=== PATIENT | male | born 1945 | race Caucasian/White ===

== ENCOUNTER 2024-11-13 16:30 | Inpatient (IN) ==
--- OUTSIDE RECORDS SUMMARY | 2024-11-13 16:36 | External Medical Summary | Summary of Care ---
Author Name Unknown Organization [facility] Address [address] [place] [address] Phone [phone] Care Team Providers Care Oscillograph Technician Name Role Phone Lilly Wu MD Primary Care Provider + Reason for Referral * Evaluate & Treat - Unlimited Visits (Within 30 days (routine)) - Authorized Specialty Diagnoses / Procedures Referred By Edson teague Referred To Contact CARDIAC REHAB / Cardiology Diagnoses S/P TAVR (transcatheter aortic valve replacement) Alba Mckoy DO [address] [place] [address] Referral ID Status Reason Start Date Expiration Date Visits Requested Visits Authorized [id number] Authorized Specialty Services Required 05/25/2024 [id number] Question Answer Referral Priority Within 30 days (routine) Where should this appointment be scheduled? Mimi Comments Discharge Order Reason for Visit * Auth/Cert Specialty Diagnoses / Procedures Referred By Edson teague Referred To Contact Diagnoses Aortic stenosis Aortic stenosis [I35.0] Procedures REPLACE AORTIC VALVE, PERCUTANEOUS FEMORAL REPLACE AORTIC VALVE, PERCUTANEOUS FEMORAL REPLACE AORTIC VALVE, PERCUTANEOUS FEMORAL REPLACE AORTIC VALVE, PERCUTANEOUS FEMORAL Munir Figueroa MD [address] [place] [address] C[facility] [place] [facility] [place] [address] [place] [address] Referral ID Status Reason Start Date Expiration Date Visits Re quested Visits Authorized [id number] Encounter Details Date Type Department Care Team (Latest Contact Info) Description 05/25/2024 8:38 AM EDT - 05/26/2024 2:50 PM EDT Hospital Encounter [facility] 8, [facility] 8th [address] [place] [address] Munir Figueroa MD [address] [place] [address] Damián Wallace MD [address] [place], [place] [id number] Pt Handout (on AVS) Discharge Disposition: Home - Self Care Allergies Active Allergy Reactions Criticality Noted Date Comments Poison Yoana Extract 10/13/2023 documented as of this encounter (statuses as of 05/27/2024) Medications Medication Sig Dispensed Refills Start Date End Date Status Losartan Potassium 25 MG Oral Tablet (Cozaar) Take 1 Tablet by mouth in the morning. 08/20/2022 Active Metoprolol Succinate ER 25 MG Oral Tablet Extended Release 24 Hour (toPROL XL) Take 1 Tablet by mouth in the morning. 09/03/2022 Active Furosemide 80 MG Oral Tablet (Lasix) Take 1 Tablet by mouth in the morning. 09/11/2023 Active ALPRAZolam 2 MG Oral Tablet (xaNAX) Take 1 Tablet by mouth as needed. 02/04/2022 Active Bisacodyl 5 MG Oral Tablet Delayed Release (bisacodyl EC) Take 1 Tablet by mouth daily as needed for Constipation. Active Nitroglycerin 0.4 MG Sublingual Tablet Sublingual (Nitrostat) Place 1 tablet under the tongue every 5 minutes as needed for chest pain, up to a max of 3 doses in 15 minutes. If no relief call 911 or go to ER. 25 Tablet 05/10/2024 Active Clopidogrel Bisulfate 75 MG Oral Tablet (pLAVix) Take 1 Tablet by mouth in the morning. Do not start before May 11, 2024. 90 Tablet 3 05/11/2024 Active Aspirin 81 MG Oral Tablet Chewable Chew & swallow 1 Tablet by mouth every morning. 34 Tablet 05/10/2024 Active Rosuvastatin Calcium 40 MG Oral Tablet (Crestor) Take 1 Tablet by mouth in the morning. Do not start before May 11, 2024. 90 Tablet 3 05/11/2024 Active Folic Acid 1 MG Oral Tablet Take 1 Tablet by mouth in the morning. 30 Tablet 11 05/27/2024 Active Multi-Vitamins Oral Tablet Take 1 Tablet by mouth daily at noon. 30 Tablet 11 05/26/2024 Active Thiamine HCl 100 MG Oral Tablet (vitamin B-1) Take 1 Tablet by mouth in the morning. 30 Tablet 11 05/26/2024 Active Nitroglycerin 0.4 MG Sublingual Tablet Sublingual (Nitrostat) Place 1 Tablet under the tongue every 5 minutes as needed for Pain, Chest. up to 3 doses in 15 minutes 25 Tablet 11 05/10/2024 05/25/2024 Discontinued Clopidogrel Bisulfate 75 MG Oral Tablet (pLAVix) Take 1 Tablet by mouth every morning. 34 Tablet 05/10/2024 05/25/2024 Discontinued Aspirin 81 MG Oral Tablet Chewable Take 1 Tablet by mouth in the morning. Do not start before May 11, 2024. 90 Tablet 3 05/11/2024 05/25/2024 Discontinued Rosuvastatin Calcium 40 MG Oral Tablet (Crestor) Take 1 Tablet by mouth every morning. 30 Tablet 05/10/2024 05/25/2024 Discontinued documented as of this encounter (statuses as of 05/27/2024) Active Problems Problem Noted Date Diagnosed Date S/P TAVR (transcatheter aortic valve replacement ) 05/25/2024 (HFpEF) heart failure with preserved ejection fr action 05/25/2024 Aortic stenosis 05/10/2024 S/P angioplasty with stent 05/10/2024 Neuropathy of lower extremity 05/10/2024 Mitral regurgitation 05/10/2024 Enlarged prostate 05/10/2024 Aortic regurgitation 09/09/2022 CAD in [place] artery 08/20/2022 HLD (hyperlipidemia) 08/20/2022 Aortic stenosis 08/20/2022 Bradycardia 08/06/2022 Neuropathy of both feet 07/10/2022 Edema of both lower legs due to peripheral venous insufficiency 07/10/2022 Anxiety 07/10/2022 Ambulatory dysfunction 04/24/2022 Hard of hearing 04/04/2022 Hypertension 04/04/2022 Edema of leg 04/04/2022 Bowel dysfunction 04/04/2022 documented as of this encounter (statuses as of 05/27/2024) Immunizations Name Administration Dates Next Due Seasonal Influenza, Quadrivalent Hd (Fluzone Hd) 10/13/2023 documented as of this encounter Social History Tobacco Use Types Packs/Day Years Used Date Smoking Tobacco: Former Cigarettes Q uit: 11/24/2023 Cigars Smokeless Tobacco: Never Comments:Former cigarette sm oker, some day cigar use. Alcohol Use Standard Drinks/Week Comments Yes 0 (1 standard drink = 0.6 oz pur e alcohol) daily - wine and beer Personal Safety Answer Date Recorded Do you feel unsafe or have concerns for your saf ety? No 05/25/2024 Do you have concerns for you r family's safety? (Household - for ages 0-17 years) Not on file 05/25/2024 Utilities Answer Date Recorded Do you have trouble paying y our heating, water, or electric bill? No 05/25/2024 Is your family able to pay t he heat, water, or electric bill? (Household - for ages 0-17 years) Not on file 05/25/2024 Does your family have access to good internet? (Household - for ages 0-17 years) Not on file 05/25/2024 Social Connections Answer Date Recorded How often do you feel lonely or isolated from those around you? (Adult - for ages 18 years and over) Not on file 05/11/2024 Housing Stability Answer Date Recorded Do you currently live in a s helter or have no steady place to sleep at night? (Adult - for ages 18 years and over) Not on file 05/25/2024 Do you think you are at risk of becoming homeless? (Adult - for ages 18 years and over) Not on file 05/25/2024 Does your family worry about paying for your home or becoming homeless? (Household - for ages 0-17 years) Not on file 0 05/25/2024 Are you homeless or worried that you might be in the future? No 05/25/2024 Are you (or your family) sameer eless or worried that you might be in the future? (Household - for ages 0-17 years) Not on file Food Insecurity Answer Date Recorded Do you need food for this week? No 05/25/2024 Are you able to get enough f ood for your family? (Household - for ages 0-17 years) Not on file 05/25/2024 Does your family need food t his week? (Household - for ages 0-17 years) Not on file 05/25/2024 Do you always have enough fo od for your family? (Household - for ages 0-17 years) Not on file 05/25/2024 Sex and Gender Information Value Date Recorded Sex Assigned at Not on file Gender Identity Not on file Sexual Orientation Not on file Job Start Date Occupation Industry Not on file Not on file Not on file documented as of this encounter Last Filed Vital Signs Vital Sign Reading Time Taken Comments Blood Pressure 136/59 05/26/2024 10:15 AM EDT Pulse 62 05/26/2024 10:15 AM EDT Temperature 36.2 C (97.2 F) 05/26/2024 7:45 AM ED T Respiratory Rate 14 05/26/2024 10:15 AM EDT Oxygen Saturation 99% 05/26/2024 7:45 AM EDT Inhaled Oxygen Concentration - - Weight - - Height - - Body Mass Index - - documented in this encounter Functional Status Functional Status Response Date of Assess ment Are you deaf or do you have serious difficulty h earing? No 05/25/2024 Are you blind or do you have serious difficulty seeing, even when wearing glasses? No 05/25/2024 Do you have serious difficul ty walking or climbing stairs? (5 years old or older) No 05/25/2024 Do you have difficulty dress ing or bathing? (5 years old or older) No 05/25/2024 Because of a physical, menta l, or emotional condition, do you have difficulty doing errands alone such as visiting a doctor s office or shopping? (15 years old or older) Yes 05/25/20 Cognitive Status Response Date of Assessm ent Because of a physical, menta l, or emotional condition, do you have serious difficulty concentrating, remembering, or making decisions? (5 years old or older) No 05/25/2024 documented as of this encounter Discharge Instructions * Discharge Instr - AVS* Doug Recio MD - 05/26/2024 11:39 AM EDT Discharge Date: 05/26/2024 The information below provides you with the instructions and the list of medications you need to betaking following discharge from the hospital. If you have any questions, please ask before leaving.Please carry this letter with you when you see your doctor in the clinic. If you have questions, you can reach us at the numbers above. YOUR HOSPITAL PROVIDERS: Discharging Physician: Damián Wallace MD Department: Cardiology IF YOU HAVE QUESTIONS: You may call the Department of Cardiology at [phone] m-P during business hours for any questions or test results. For after-hours emergencies call [phone] and have your doctor paged. Scheduling services is available between the hours of 8:00 am and 9:00 pm by calling . For routine questions, your [facility] Cardiology Team prefers the use of [employer]. [employer] is an online internet tool to help you meet your health care needs quickly by providing a secure, confidential way to view your health records and communicate with your [facility] Cardiology Team. To sign up for [employer] go to [email or web address], "Click" [place] Now on the right side of the screen and complete the user registration information. A BRIEF SUMMARY OF YOUR HOSPITAL STAY: You were admitted to the hospital after you presented for an outpatient procedure to replace your heart valve (aortic valve). You underwent this procedure without any significant complications. Afterthe procedure your labs and images (chest x-ray and ultrasound of your) were found to be within normal limits. However, you EKG showed that you have some abnormal waves. To make sure they are not persistent you will be sent home with a heart monior.You were discharged in a stable condition back to home. Instructions and medication changes are listed below. Your main diagnosis at discharge was: Severe symptomatic aortic stenosis and transcatheter aortic valve replacement procedure Operations & Procedures performed: Transcatheter aortic valve replacement on 05/25/2024 Complications: none Inpatient test results that are pending at discharge: none YOUR FOLLOW UP APPOINTMENTS: Primary Care Provider Information: PCP: LILLY WU [address] [place] [address] [address] [phone] An appointment was requested with your PCP for within 1-2 weeks of discharge from the hospital. (Please take this form to this visit with your primary care physician.) Cardiology follow-up: Be sure to come in for all scheduled follow up visits. You will be seen in valve clinic: One week post procedure One month post procedure with an echocardiogram to check your new valve Six months post procedure One year post procedure with an echocardiogram to check you new valve Yearly thereafter with echocardiograms You should have regular follow up with your primary headhunter who will continue to manage your regular cardiac care. Schedule an appointment approximately 3 months after discharge. You need the following studies in the future: none Special Instructions: - Plavix or clopidogrel - This drug is most important for stent patients. It keeps the stent from blocking up by preventing blood clots from forming within the stent. When blood clots form, they block the stent and cause a heart attack. You should remain on plavix atleast for a year. Please call your headhunter before stopping Plavix for anyreason. - Aspirin - You need to take aspirin even though you are on Plavix. The preferred dose of aspirin is 81 mg per day (one baby aspirin). Use the non- coated kind. You should continue to take aspirin forever unless specifically told to stop.. - Statin Drugs (cholesterol pill) slow the growth of heart artery blockages. Your statin drug is rosuvasatin. - Nitroglycerin (nitro): Your should carry nitro at all times. When chest pain occurs take one nitro under tongue and call 911. You may take additional nitro every five minutes as needed for ongoing chest pain up to three pills. Lie down after using nitro. Do not drive after using nitro. Patients with chronic stable chest pain who frequently use nitro may not need to call 911. Ask your physician about this.. - Beta blockers are important for some cardiac patients and after a heart attack. Your beta blockeris Metoprolol succinate - Do not use Motrin/Ibuprofen/Advil and other types of "NSAIDs" (nonsteroidal anti-inflammatory drugs) - "NSAIDs" make aspirin ineffective, can raise blood pressure, and can damage your kidneys. Try Tylenol for pain. Consult your pharmacist for questions about "NSAIDs".. Cardiovascular RISK FACTOR control YOUR RISK FACTOR TREATMENT GOALS: Controlling the factors that cause arteries to form blockages will reduce your chance of having new blockages. Work with your health care providers to control your risk factors. If you have trouble reaching these goals then ask your health care provider to work with you further until they are controlled. Diabetes - In diabetics, hemoglobin A1C is a measure of the average blood sugar over the past 3 months. The goal is less than 7.0. Hypertension - Goal is less than 120/80. High cholesterol LDL cholesterol (bad cholesterol) - goal is less than 70 mg/dl. HDL cholesterol (good cholesterol) - goal is greater than 40 mg/dl in men and 50 mg/dl in women. Triglycerides (other blood fats that are especially elevated in diabetics and pre-diabetics) - goalis less than 150 mg/dl. Your Lipid Panel Results are: Results for orders placed or performed during the hospital encounter of 05/10/24 LIPID PANEL WITH DIRECT LDL IF TG IS HIGH Result Value Ref Range Triglycerides 73 <=174 mg/dL Cholesterol 117 <200 mg/dL HDL Cholesterol 42 >39 mg/dL Non-HDL Cholesterol 75 <=159 mg/dL LDL Cholesterol 60 <=129 mg/dL Tobacco - Tobacco is poison to your arteries. It will cause blockages. Continuing to smoke tobacco may lead to heart attacks, strokes, or leg amputation. You should avoid tobacco. Your goal is to notsmoke at all. Talk with your primary care provider about counseling and medications to help you stop smoking. Exercise - The [place] [employer] recommends walking 30 minutes a day most days of the week; if you have to lose weight you should walk 60-90 minutes a day. Remember that if you develop chestpain, you should stop what you are doing. Do not continue to exercise if you have chest pain. See your special activity instructions above. [place] weight - Your BMI (a measure of ideal body weight) is Body mass index is 33.52 kg/m.. Your BMI should be less than 25. Your waist size also predicts risk of heart attack: a woman's waist should be less than 35 inches and a man's waist less than 40. Maintaining your ideal body weight will help your heart, reduce blood pressure, blood sugar, and cholesterol, improve or help prevent diabetes, and improve or help prevent congestive heart failure. MEDICATION CHANGES CONTINUE TAKING ALL OTHER MEDICINES PRESCRIBED SPECIAL TAVR INSTRUCTIONS: Activity * The following activities are restricted until you are seen in clinic for you post procedure check(approximately 1 week). o Do not drive o Do not lift anything heavier than 10 pounds o No heavy chores (housekeeping, lawn/yard care, etc.) * There is no restriction on climbing stairs. Climb them at a comfortable pace. * Get up in the morning and dress in your regular, every day clothes. * Gradually get back into your daily routine. Ordinary activities such as dressing, showering and grooming may make you tired during your first days at home. Spread your activities out over the day and take frequent rest periods. * The more you are up and about the quicker you will be able to resume your daily activities. o Look for opportunities to move around and try to increase your activity level by small amounts every day. o Concentrate initially on increasing the amount of time you are doing an activity (not how fast you do the activity). o Start with short walks several times a day and progress as you are able. * During hot and humid weather, walk indoors or during the coolest part of the day (automotive drivability technician, late evening). * During cold weather, walk indoors or during the warmest part of the day (afternoons). * Sit up in a chair as often as possible. * Support stockings o These stockings are used to prevent postoperative leg swelling and blood clots. o Put on clean stockings in the morning and remove them at night. o When putting them back on, get all the wrinkles out. o Wear the stockings until your ankles and legs are no longer swollen. * Consider a cardiac rehabilitation program. o This program combines modern equipment and techniques with individual counseling and instructionsby exercise physiologists and nurses. o Cardiac rehabilitation generally starts about one month after going home. o If you have not heard about or been contacted by a cardiac rehabilitation program after going home, please contact your heart team or discuss with your provider at your one-month office post procedure office visit. Procedure Site * Normal occurrences at procedure sites: o Soreness o Small amount of drainage o Bruising that extends several inches around the site o One or two small lumps (about the size of a marble) at the site o Usually any discomfort or swelling at the site will gradually return to normal over the next month * A small bandage or Band-Aid will be placed over the area where the catheter(s) have been removed. o The dressing should be removed the day after discharge. o It is important to keep the area clean and dry o You may shower the day after your procedure. o Wash with soap and water, pat the incision dry. o Avoid lotions or creams at incision site. o Leave the area open to air. o Apply a Band-Aid if there is some drainage or oozing. o Avoid tub baths for 5-7 days. * It is important to check the site for signs of infection or complications o If you are unable to see the site, have someone look at it for you. o Signs of infection include: drainage (pus), fever and/or chills. o Some soreness at the site is normal. Tylenol may be taken for this soreness unless otherwise instructed by your physician. o If you think that the site may be infected, notify your physician. o If you have severe pain at the procedure site, a throbbing lump under the skin, numbness, loss offeeling or change in color of the extremity below the procedure site, notify your physician. o You may notice a drop or two of blood on the dressing, this is generally not a problem. If more significant bleeding occurs, put pressure on the site with your hand and seek medical attention immediately. o If a large lump is felt, if you have increased pain at the site, or if the bruise and/or lump areincreasing in size, notify your physician. o Extensive bleeding at the procedure site or a lump which is expanding quickly is an emergency. Call 911 for an ambulance to take you to the nearest emergency room. Lie down then apply firm pressuredirectly over the site, holding pressure until emergency personnel have arrived. Medications * Your medications and/or dose of prior medications may change when you are discharged. * Pay special attention to the medication section of your discharge instructions and make sure you make the appropriate changes to your home regimen. * You may be prescribed antiplatelet medications (usually Plavix/clopidogrel and/or Aspirin). Thesemedications make platelets (cells used to help blood clot) in your blood less sticky. o Plavix is usually taken for 3 months, unless otherwise instructed by your doctor, and aspirin will be lifelong. o Do not discontinue these medications unless directed by your physician Protect your new heart valve * Protective (or prophylactic) antibiotics may need to be taken prior to dental procedures, surgeryand some diagnostic tests and invasive procedures to prevent infection from developing around your new heart valve. Check with your physician prior to undergoing any procedure. * The type of valve you have is # 29mm Madrigal Gautam S3 Ultra valve , please write this information down and carry it with you at all times. o Carry this information at all times and show it to any physician or dentist who treats you. o Consider obtaining some type of identification bracelet to inform medical personnel about your valve type. o If you need an MRI in the future, show this information to your provider to determine if the valve you received is MRI compatible. documented in this encounter H&P Notes * Damián Wallace MD - 05/25/2024 1:43 PM EDT Images from the original note were not included. GENERAL HISTORY AND PHYSICAL EXAMINATION - CARDIOLOGY [address] [address] Name: Dre Bay [facility]: 05[facility]25[facility] Time: 6:18 PM Date of Admission: 05/25/2024 Presenting Problem: TAVR HPI: Patient is a 78 year old male with PMHx significant for severe aortic stenosis, CAD s/p PCI of dLADto dLMCA treated with 4 FABRIZIO (05/10/2024), HFpEF, HTN, hyperlipidemia, anxiety, LE neuropathy, alcohol abuse, tobacco abuse who presented for scheduled Transcatheter aortic valve replacement (TAVR). Patient has been experiencing dyspnea and fatigue off and on for more than 2 years. For the past 2 weeks, he has been experiencing progressive worsening of his symptoms. He was evaluated by [facility] cardiology and interventional cardiology who confirmed diagnosis of severe aortic stenosis with echo revealing severe with peak velocity of 415, CHANDNI: 0.7 (10/30/2024). On 05/25/24, as part of pre-TAVR workup, patient underwent coronary angiograph which revealed 70% distal left main coronary artery to distal LAD. He subsequently underwent PCI stenting with 4x FABRIZIO in overlapping fashion. Patient able to lay flat, and denies any contrast allergy. Patient wants to be in full CODE at this time. Wants his daughter erica bay to make decisions for the patient in the setting that the patient is not able to make decisions for himself. Lives aloneand mostly gets around with a walker. Smokes one cigar daily and drinks alcohol 1-2 glasses of winedaily. Per nurse, patient drank a couple shots of vodka at home prior to arriving at the hospital. patient Denies illicit substance use. 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 Post TAVR Course: Patient had successful transfemoral implantation of a # 29mm Madrigal Gautam S3 Ultra valve as well as placement of temporary pacemaker. The patient tolerated procedure well with no immediate complications. Patients reports mild discomfort in the groin area and swelling in the lower extremities, otherwise denies any chest pain, palpitations, dyspnea, cough, fevers, chills, abdominal pain, nausea, vomiting, vision changes, focal neurologic defecits, and weakness. Subjective PAST MEDICAL HISTORY: No past medical history on file. PAST SURGICAL HISTORY: Past Surgical History: Procedure Laterality Date CORONARY ANGIOGRAPHY W/LEFT HEART CATH N/A 05/10/2024 CORONARY ANGIOGRAPHY W/LEFT HEART CATH performed by Munir Figueroa MD at [facility] FAMILY HISTORY: No family history on file. SOCIAL HISTORY: Social History Tobacco Use Smoking status: Former Current packs/day: 0.00 Types: Cigarettes, Cigars Quit date: 11/24/2023 Years since quittin.5 Smokeless tobacco: Never Tobacco comments: Former cigarette smoker, some day cigar use. Vaping Use Vaping status: Never Used Substance Use Topics Alcohol use: Yes Comment: daily - wine and beer Drug use: Never PRIOR TO ADMISSION MEDS: Current Outpatient Medications Medication Instructions ALPRAZolam (XANAX) 2 mg, Oral, PRN Aspirin 81 MG Oral Tablet Chewable Chew & swallow 1 Tablet by mouth every morning. Bisacodyl (BISACODYL EC) 5 mg, Oral, DAILY PRN clopidogrel (PLAVIX) 75 mg, Oral, Daily(AM) Furosemide (LASIX) 80 mg, Oral, Daily(AM) losartan (COZAAR) 25 mg, Oral, Daily(AM) metoprolol succinate XL (TOPROL XL) 25 mg, Oral, Daily(AM) Nitroglycerin 0.4 MG Sublingual Tablet Sublingual (Nitrostat) Place 1 tablet under the tongue every5 minutes as needed for chest pain, up to a max of 3 doses in 15 minutes. If no relief call 911 or go to ER. rosuvastatin (CRESTOR) 40 mg, Oral, Daily(AM) ALLERGIES: Poison yoana extract Review of Systems: All systems were reviewed and documented in the HPI, otherwise negative. Objective CONSTITUTIONAL DATA / OBJECTIVE: Vital Signs (Most Recent): Blood Pressure: 164/74 mmHg Last 12H: Most Recent Systolic BP Av mmHg Min: 99 mmHg Max: 164 mmHg Pulse: 73 Last 12H: Pulse Av.6 Min: 54 Max: 73 Temperature: 35.9 C (96.6 F) Last 12H: Most Recent Temperature Av.3 C Min: 35.89 C Max: 36.61 C Respiratory Rate: 11 O2 Saturation: 96 % Vital Signs (Last 24 Hours): Pulse Av.6 Min: 54 Max: 73 No data recorded Most Recent Systolic BP Av mmHg Min: 99 mmHg Max: 164 mmHg Most Recent Diastolic BP Av.9 mmHg Min: 53 mmHg Max: 79 mmHg Resp Av.1 Min: 10 Max: 20 Most Recent Temperature Av.3 C Min: 35.89 C Max: 36.61 C SpO2 Av.3 % Min: 93 % Max: 100 % Intake & Output Summary (Last 24 hours): Intake/Output Summary (Last 24 hours) at 05/25/2024 1818 Last data filed at 05/25/2024 1700 Gross per 24 hour Intake 460 ml Output 300 ml Net 160 ml Height & Weight: Weight change: There is no height or weight on file to calculate BMI. Physical Examination: General: Well developed, no acute distress, lying comfortably in bed HEENT: neck is supple, sclera white, nares patent, ears non deformed Cardiovascular: RRR, S1 and S2 present, no murmurs or gallops, 2+ lower extremity edema. 2 access sites for TAVR procedure noted in right and left groin. No active bleeding, hematoma, bruit, numbnessor tingling sensation. Non tender to palpation. Distal pulses palpable. Respiratory: No acute respiratory distress, Clear to auscultation bilaterally, no wheezes, rhonchi,or rales Abdomen: Soft, non-tender, non-distended, no rigidity Musculoskeletal: No joint deformity, appears to have normal tone Neuro: no focal deficits, moves all extremities equally and spontaneously. No numbness or tingling in LE. Full ROM preserved in the hip and knee joints. Skin: No obvious rashes or skin lesions Psych: mood normal, thought process intact Laboratory Values: reviewed. -- Brief labs below include the 7 most recent results over the past week. Blood Gas: No results in the last 7 days - inpatent use only Chemistry Panel: Lab results within last 7 days (see chart for full results) Units 05/25/24 1327 05/25/24 0919 Sodium mmol/L 137 141 Potassium mmol/L 3.9 3.8 Chloride mmol/L 103 105 CO2 mmol/L 21* 21* BUN mg/dL 12 12 Creatinine mg/dL 0.8 0.9 Estimated Glomerular Filtration Rate mL/min >90 89 Glucose mg/dL 111 85 Calcium mg/dL 8.6 9.4 Magnesium mg/dL 1.7 -- Anion Gap mmol/L 13 15 Complete Blood Count: Lab results within last 7 days (see chart for full results) Units 05/25/24 1327 05/25/24 0919 WBC K/uL 10.07 11.26* HGB g/dL 11.9* 13.6* HCT % 35.0* 41.0 PLT K/uL 155 194 MCV fL 94.1 94.0 Cardiac Studies: Lab results within last 7 days (see chart for full results) Units 05/25/24 0919 BNP, NT-Pro pg/mL 3,112* Coagulation Studies: Lab results within last 7 days (see chart for full results) Units 05/25/24 1327 05/25/24 0919 Prothrombin Time seconds 15.1 13.4 INR 1.2 1.0 Liver Function Panel: Lab results within last 7 days (see chart for full results) Units 05/25/24 0919 Albumin g/dL 4.3 Protein g/dL 7.5 Bilirubin, Total mg/dL 0.4 Bilirubin, Direct mg/dL <0.2 AST U/L 28 ALT U/L 18 Alkaline Phosphatase U/L 105 Radiographic Studies (last 72 hours): reviewed. XR CHEST 1 VIEW 05/25/2024 FINDINGS Catheters: None Tubes: None Foreign bodies: TAVR IMPRESSION Postop chest, as above. Cardiac Studies: EKG 05/25/24 Post TAVR sinus bradycardia with wide QRS likely due to LBBB and presence of fusion complexes at time. EKG 05/10/24 Sinus rhythm @63 bpm with frequent PVCs. Otherwise normal ECG Echo 10/30/2023 The qualitative LV ejection fraction is 55-59% (normal). The LV wall thickness is moderately increased (concentric). The left atrium is severely enlarged (>48 ml/m^2,). The aortic valve is severely calcified. Severe aortic valve stenosis is present. Mild aortic valve regurgitation is present. Mild mitral regurgitation is present. Mild tricuspid regurgitation is present. There is no evidence of pulmonary hypertension. This study has what is deemed to be a "significant abnormality" consistent with ACT 112. See additional documentation regarding notification of patient and ordering provider. Echo 05/15/23 at [facility]: Cardiac Cath 05/10/2024 Cardiac Cath 09/17/2022 CTA TAVR Gated Study 04/20/2024 Apparent trileaflet aortic valve with severe annular calcifications. Total annular calcium score [id number]. Bulky sub valvular calcification extending from the left coronary cusp into the sub annular plane. Maximum annular distension measured at 15% R-R. Annulus measures 5.87 cm2. LVOT 4 mm below annular plane measures 5.80 cm2. Minimal coronary artery height from the annulus of 17.6 mm on the left. Concentric calcifications of the infrarenal abdominal aorta. Mild iliofemoral atherosclerotic plaque without flow limiting stenosis. Severe tortuosity on the right. Minimal luminal diameter of 8.1 mm. Moderate coronary artery atherosclerosis most predominant in the LAD distribution. Assessment & Plan Assessment and Plan: Principal Problem: S/P TAVR (transcatheter aortic valve replacement) (POA: Unknown) Active Problems: Aortic stenosis (POA: Yes) S/P angioplasty with stent (POA: Yes) Bradycardia (POA: Yes) HLD (hyperlipidemia) (POA: Yes) Hypertension (POA: Yes) (HFpEF) heart failure with preserved ejection fraction (HCC) (POA: Unknown) POA = Present On Admission Dre Bay is a 78 year old male with PMHx significant for severe aortic stenosis, CAD s/p PCI dLAD to [facility] treated with 4 FABRIZIO (05/10/2024), HFpEF, HTN, hyperlipidemia, anxiety, LE neuropathy, alcoholabuse, tobacco abuse who underwent successful TAVR. Patient had transfemoral implantation of a # 29mm Madrigal Gautam S3 Ultra valve accessed through right femoral artery. Temporary venous pacemaker was also put on the patient. The patient tolerated procedure well and had no immediate complications.Post-procedure, he is in stable condition and currently recovering. Mg is 137, otherwise normal chemistry. Hgb is 11.9 (baseline is 12). EKG post TAVR revealed sinus bradycardia with wide QRS likely due to LBBB and presence of fusion complexes at time. Status post successful TAVR CAD s/p PCI dLAD to d MCA HTN HLD Patient is hemodynamically stable and is in recovery. Monitor vital signs and hemodynamic status closely. Assess for potential complications including bleeding, vascular injury, heart block, stroke. Start ROADS SUPERVISOR aspirin 81mg qd and ROADS SUPERVISOR Plavix 75mg qd Continue ROADS SUPERVISOR losartan 25mg qd and ROADS SUPERVISOR crestor 40 mg qd. Will hold ROADS SUPERVISOR metoprolol due to bradycardia. Will follow up on post-procedure echo and EKG tomorrow Monitor the patient on tele Chronic Problems: HTN: Continue ROADS SUPERVISOR losartan 25mg qd HLD: Continue ROADS SUPERVISOR crestor 40 mg qd Patient discussed with Manufacturing Lead Dr. Madera and will be seen and examined by attending physician, MD Titi Richter DO Resident Physician I saw and evaluated the patient 05/25/2024. I have reviewed the resident/fellow physician note and agree. This chart was completed in part utilizing [employer] Speech Voice Recognition Software. Grammatical errors, random word insertions, pronoun errors, and incomplete sentences are an occasional consequence of this system due to software limitations, ambient noise, and hardware issues. Any formal questions or concerns about the content, text, or information contained within the body of this dictation should be directly addressed to the provider for clarification. * Kate Lloyd CRNP - 05/24/2024 8:31 AM EDT GENERAL HISTORY & PHYSICAL EXAMINATION - Cardiology [address] [address] Name: Dre Bay Location: Room/bed info not found Date: 05/24/2024 Time: 8:32 AM PRESENTING PROBLEM: valvular heart disease HPI: 78 year old male with severe symptomatic Cardiac Problems: 1.Severe Aortic Severity 2.CAD 3.HFpEF 4.Hypertension 5.ETOH Abuse 6.Tobacco Use Echo in October showed severe with peak velocity of 415, CHANDNI: 0.7 Normal EF CAD seen in OSH cath in 09/14 Ostial LAD with 60-70%, mid LAD: 80% LCX: and RCA: mild disease Updated cardiac cath done 05/10/2024: Coronary disease - hemodynamically significant Prox RCA 70% stenosis. Small-caliber, non-dominant vessel. Saenz 1-1-1 bifurcation lesion involving the distal LM (40%), ostial LAD (80%), ostial LCX (50%). Mid LAD sequential 70% stenoses. Distal LAD 70% stenosis. Intervention Distal LAD to distal LMCA treated with 4 drug-eluting stents in overlapping fashion (2.25mm x 24mm Synergy, 2.50mm x 32mm Synergy, 3.00mm x 24mm Synergy, 3.50mm x 16mm Synergy). LM post-dilated with a 4.0mm NC balloon. IVUS used for stent optimization. Excellent end angiographic result with 0% residual stenosis,KEEGAN III flow, and no evidence of dissection or perforation. Alcohol intake 4-6 glasses of wine daily. One cigar daily. SOBOE and fatigue, Leg swelling. PAST MEDICAL HISTORY: No past medical history on file. PAST SURGICAL HISTORY: Past Surgical History: Procedure Laterality Date CORONARY ANGIOGRAPHY W/LEFT HEART CATH N/A 05/10/2024 CORONARY ANGIOGRAPHY W/LEFT HEART CATH performed by Munir Figueroa MD at [facility]: No family history on file. SOCIAL HISTORY: Social History Tobacco Use Smoking status: Former Current packs/day: 0.00 Types: Cigarettes, Cigars Quit date: 11/24/2023 Years since quittin.4 Smokeless tobacco: Never Tobacco comments: Former cigarette smoker, some day cigar use. Vaping Use Vaping status: Never Used Substance Use Topics Alcohol use: Yes Comment: daily - wine and beer Drug use: Never CURRENT HOSPITAL MEDICATIONS: Note that completed medications (per JAN) continue to display for 24 hours. Ordered medications to be given in the future also display. No current facility-administered medications for this encounter. Current Outpatient Medications Medication Aspirin 81 MG Oral Tablet Chewable Aspirin 81 MG Oral Tablet Chewable Clopidogrel Bisulfate 75 MG Oral Tablet (pLAVix) Clopidogrel Bisulfate 75 MG Oral Tablet (pLAVix) Nitroglycerin 0.4 MG Sublingual Tablet Sublingual (Nitrostat) Nitroglycerin 0.4 MG Sublingual Tablet Sublingual (Nitrostat) Rosuvastatin Calcium 40 MG Oral Tablet (Crestor) Rosuvastatin Calcium 40 MG Oral Tablet (Crestor) ALPRAZolam 2 MG Oral Tablet (xaNAX) Bisacodyl 5 MG Oral Tablet Delayed Release (bisacodyl EC) Furosemide 80 MG Oral Tablet (Lasix) Losartan Potassium 25 MG Oral Tablet (Cozaar) Metoprolol Succinate ER 25 MG Oral Tablet Extended Release 24 Hour (toPROL XL) ALLERGIES: Poison yoana extract ROS: see HPI PHYSICAL EXAMINATION: to be done date of procedure IMPRESSION and PLAN: Severe aortic stenosis CAD TAVR scheduled for 05/25/[address] Figueroa. [facility] 05/24/2024 8:39 AM documented in this encounter Procedure Notes * Munir Figueroa MD - 05/25/2024 12:58 PM EDT Dre Bay 78 year old [id number] 05/25/24 TRANSCATHETER AORTIC VALVE REPLACEMENT STAFF PHYSICIANS: 1. Dr. Figueroa 2. Dr. Shelton The attending physicians were present for the following: Vascular access Catheter placement Diagnostic Intervention Device implantation Vascular closure Intraprocedural medication ordering ASSISTING PHYSICIANS: 1. NOne INDICATION FOR PROCEDURE: Severe Symptomatic Aortic Stenosis PROCEDURES: Successful transfemoral implantation of a # 29mm Madrigal Gautam S3 Ultra valve Placement of temporary venous pacemaker Aortic valvuloplasty Arterial access site closure with Perclose Proglide devices Non selective angiography of the right common iliac artery PROCEDURAL DETAILS: The patient was counseled extensively regarding the risks, benefits, and alternatives to the procedure and after answering all questions, the patient yielded informed consent. Thepatient was thereafter brought to the operative suite and monitored anesthesia care was delivered. Preprocedural antibiotic was administered intravenously. Sterile technique was used throughout the case. All vascular access was obtained using modified Seldinger technique. 7F sheath was placed in the right femoral vein. 5 F sheath was placed in the left femoral artery (hence referred to as contralateral access side). 6F sheath was placed in the right femoral artery (hence referred to as valve access side). Next, a temporary pacing wire was placed in the right ventricle via the sheath in the femoral vein. The valve access site was the right femoral artery. A 5F pigtail catheter was placed in the LFA and positioned in the aortic arch. The pigtail catheterwas subsequently advanced into the aortic root and positioned in the non coronary cusp. The 6F sheath in the access side was removed and the arteriotomy was preclosed with two Perclose Proglide device/s. After preclosure, the access site was upsized directly to a 16F delivery sheath over a Lunderquist wire. After securing the delivery sheath, a 6 F AL1 catheter was advanced to the aortic root. Using a 0.035" straight wire, the aortic valve was crossed. Over the wire, the AL1 catheter was advanced across the valve. The straight wire was removed and exchanged for a preformed Confidawire. Over the Confida wire, aortic valvuloplasty was performed with a 22 x 4 mm balloon following standard technique. Next, the Madrigal-Gautam Commander delivery system with a mounted valve was delivered to the ascending aorta. After confirming appropriate placement across the aortic valve using aortic root angiogaphy, the #29 mm Madrigal-Gautam S3 Ultra valve was deployed with rapid ventricular pacing at 180 beats per minute. Following valve deployment, the trans echocardiogram and aortic rootangiography revealed a well-placed and well-seated valve, with no evidence of significant aortic regurgitation. Next, the delivery catheter system was removed. The valve access artery device access site was successfully closed using the pre-deployed Perclose devices. A 5F pigtail catheter was then used for non-selective angiography of the right iliofemoral system revealing normal flow without significant stenosis, dissection, or contrast extravasation. The contralateral femoral sheath was rmeoved with manual compression and the venous sheath were pulled and manual compression hemostasis applied. The patient tolerated the procedure well. Munir Figueroa MD MPH Interventional Cardiology Pager: [phone] 05/25/24 12:58 PM documented in this encounter OR Notes * OR Surgeon - Lilly Shelton MD - 05/25/2024 12:20 PM EDT OPERATIVE RECORD CRS Waiting [facility], Cardiac Recovery Suite Waiting Unit, [address] [place] [address] Dre Bay : 1945 LOCATION: CARDIAC RRT DATE: 05/25/2024 PREOPERATIVE DIAGNOSIS: Aortic stenosis POSTOPERATIVE DIAGNOSIS: Aortic stenosis SURGEON: Lilly Figueroa MD ASSISTANTS: No qualified residents available participate in the procedure at this time 2 attending level physicians were co-surgeons for equipment management and decision-making ANESTHESIA: Monitored local with sedation OPERATION: BAV 22 (pre) SHANE 29 Gautam 3 ultra FINDINGS: Aortic stenosis ESTIMATED BLOOD LOSS: 50 DRAINS: None FLUIDS: 500 mL Crystalloid URINE OUTPUT: Not measured SPECIMEN: None COMPLICATIONS: None CONDITION: Fair INDICATIONS AND HISTORY: 78-year-old with severe aortic stenosis considered for valve replacement therapy DESCRIPTION OF OPERATION: The patient was identified, and the procedure was verified. The patient was brought to the hoisting laborer and placed supine on the cath table after an adequate level of sedation prepped and draped to include both groins in a sterile operative field. 1% xylocaine without epinephrine had been infused to create anesthetized area in both groins. The left common femoral artery along with the right common femoral artery and vein were cannulated using a Seldinger technique. Temporary pacing wires passed through the right common femoral vein and positioned in the right ventricle with the use of fluoroscopy. Thresholds were measured and appreciated to be good. Pigtail catheter was passed through the left common femoral artery and positioned in the proximal ascending aorta with the use of fluoroscopy. The patient was systemically heparinized. A Gautam access sheath was passed through the right common femoral artery. A physiologic monitoring catheter was passed through the Gautam access sheath and positioned across the aortic valve. Measurements were taken. Catheter was efi kary over a wire and a 22 mm true balloon was passed and positioned across the aortic valve. After an adequate level of heparin anticoagulation and with the use of rapid ventricular pacing a BAV was completed. The catheter was removed over a wire and a 29 Gautam 3 ultra valve mounted on its deployment catheter was passed and positioned across the aortic valve. The use of rapid ventricular pacing the valve was deployed without incident. Transthoracic echocardiography and cineangiography were usedto verify the position and function of the valve. Sheaths catheters and guidewires were removed. The heparin was reversed with protamine and percutaneous closure devices were used to assure hemostasis. Lilly Shelton MD 05/25/2024 12:31 PM documented in this encounter Miscellaneous Notes * Ancillary Progress Note - Mitzi AbelDODIE - 05/25/2024 6:37 PM EDT PATIENT DRIVEN PROTOCOL - Respiratory Care Services [address] [address] Name: Dre Bay Location: [facility] Date: 05/25/2024 Time: 6:37 PM Patient Driven Protocol Summary: Initial evaluation performed. This Treatment Plan and medications will be reviewed by the Primary Care Team for any contraindications. Respiratory Care Treatment Plan Pulmonary Volume Expansion Therapy: Incentive Spirometry PRN to prevent or treat alveolar consolidation and atelectasis. . Secretion Management Treatment: Flutter TherapyPRN to enhance mobilization of secretions. The patient will be re-evaluated: No re-evaluation needed. Indications for treatment met. The Triage Level is: (Assessment Score = 0 - 5) Level 5. Triage Level Definitions: Level 1 Severe Respiratory/Airway Compromise Level 2 Moderate Respiratory/Airway Compromise or high risk for pulmonary complications Level 3 Mild Respiratory/Airway Compromise or moderate risk for pulmonary complications Level 4 Episodic Respiratory/Airway Compromise or low risk for pulmonary complications Level 5 No Respiratory/Airway Compromise Triage 1 Triage 2 Triage 3 Triage 4 Triage 5 greater than 20 16 - 20 11 - 15 6 - 10 0 - 5 Medical Record Assessment Clinical Findings Pulmonary Status: 1 - Smoking less than 1 pack/day or quit less than 5 years ago Surgical Status: 1 - General Surgery Chest X-Ray: 0 - Clear Assessment Score: 2 Patient Assessment Clinical Findings Respiratory Pattern: 0 - RR 12 - 20; Patient only gets breathless with strenuous exercise. Breath Sounds: 0 - Clear to auscultation Cough Effectiveness: 0 - Strong non-productive Sputum Production: 0 - No sputum production Level of Activity: 2 - Temporarily non-ambulatory O2 needed to keep SpO2 greater than or equal to 92%: 0 - Room Air Assessment Score: 2 Total Assessment Score: 4 Breath Sounds: Inspiratory and expiratory clear bilaterally.. Cough and Sputum: An effective cough produced no sputum... CXR: EXAM XR CHEST 1 VIEW - 05/25/2024 1:27 pm HISTORY baseline initial xray after open heart surgery COMPARISON None TECHNIQUE Portable supine AP view of the chest was obtained. FINDINGS Catheters: None Tubes: None Foreign bodies: TAVR The lungs are clear. There is no appreciable pleural effusion or pneumothorax. The pulmonary vasculature and cardiomediastinal silhouette appear within normal limits. IMPRESSION IMPRESSION Postop chest, as above. Vital Signs: Resp: 17 (05/25/24 1815) Pulse: 70 (05/25/24 1815) Temp: 35.9 C (96.6 F) (05/25/24 1230) BP: 164/74 (05/25/24 1715) SpO2: 99 % (05/25/24 181) PFT: Minimal Predicted IC: 1.18 L. Inspiratory capacity: 1.0L. Primary Service: Cardiology Med A. Admitting Diagnosis: Aortic stenosis [I35.0] S/P TAVR (transcatheter aortic valve replacement) [Z95.2] Pulmonary Diagnosis: Former smoker . Prescriptions/Home Medications/Durable Medical Equipment: None. Recommended New home medications/durable medical equipment/outpatient pulmonary/sleep referral :None. * Ancillary Progress Note - Leslie Villaseñor RCIS - 05/25/2024 12:36 PM EDT [address] [address] Ancillary Progress Note Patient Name: Dre Bay Date: 05/25/2024 Patient will be escorted to CRS-Cardiac Recovery Suite. We performed a transcatheter aortic valve replacement. The right femoral artery was used for access with a 16 Albanian sheath. Two Perclose were used to close the site. The right femoral vein was used for access with a 7 Fr sheath, manual pressure held to close the site. The left femoral artery was used for access with a 5 Fr sheath, manual pressure held to close the site site.CHG Tegaderm dressings applied to sites. There is no hematoma andno ooze from the cath sites noted.Distal pulses were palpated and instructions to patient were given. There were no complications during the case. Please see the MAR for the medications that were given. See Cath Procedure Log for patient vitals during the case. * Pt Handout (on AVS) - Maribel Gutierrez RN - 05/25/2024 9:36 AM EDT Images from the original note were not included. [id number] Eating Heart-Healthy Foods Eating has a big impact on your heart health. In fact, eating healthier can improve several of yourheart risks at once. For instance, it helps you manage weight, cholesterol, and blood pressure. Here are ideas to help you make heart- healthy changes without giving up all the foods and flavors you love. Getting started Talk with your healthcare provider about eating plans, such as the DASH or Mediterranean diet. You may also be referred to a dietitian. Ask a partner, family member, or friend to join you for mutual support. Change a few things at a time. Give yourself time to get used to a few eating changes before adding more. Work to create a tasty, healthy eating plan that you can stick to for the rest of your life. Goals for healthy eating Below are some tips to improve your eating habits: Limit saturated fats and trans fats. Saturated fats raise your levels of cholesterol, so keep these fats to a minimum. They are found in foods such as fatty meats, whole milk, cheese, and palm andcoconut oils. Avoid trans fats because they lower good cholesterol as well as raise bad cholesterol. Trans fats are most often found in processed foods, such as pastries, cookies, pies, muffins, fried foods, stick margarines, and shortening. Reduce how much sodium (salt) you have. Eating too much salt may increase your blood pressure. Limit your sodium intake to 2,300 milligrams (mg) per day (the amount in 1 teaspoon of salt), or lessif your healthcare provider recommends it. Dining out less often and eating fewer processed foods are two great ways to decrease the amount of salt you consume. At home, flavor your foods with other spices and herbs instead of salt. Managing calories. A calorie is a unit of energy. Your body tatum calories for fuel, but if you eat more calories than your body tatum, the extras are stored as fat. Your healthcare provider or dietitian can help you create a diet plan to manage your calories. This will likely include eating healthier foods and getting regular exercise. To help you track your progress, keep a food diary to record what you eat and how often you exercise. Choose the right foods Aim to make these foods christine of your diet. If you have diabetes, you may have different recommendations than what is listed here: Fruits and vegetables provide plenty of nutrients without a lot of calories. At meals, fill halfyour plate with these foods. Choose between fresh, frozen, canned, or dried fruits and vegetables without added sauces, salt, or sugars. Split the other half of your plate between whole grains and lean protein. Whole grains are high in fiber and rich in vitamins and nutrients. Good choices include whole-wheat bread, pasta, oats, and brown rice. Make at least half of your grains whole grains. Lean proteins give you nutrition with less fat. Good choices include fish, skinless chicken and turkey, and beans. Draining the fat from cooked ground meat is another way to reduce the amount of fat you eat. Low-fat and nonfat dairy provide nutrients without a lot of fat. Try low-fat or nonfat milk, cheese, or yogurt. Healthy fats can be good for you in small amounts. These are unsaturated fats, such as olive oil, avocado, nuts, and fish. Try to have at least 2 servings per week of fatty fish, such as salmon, sardines, mackerel, rainbow trout, and albacore tuna. These contain omega-3 fatty acids, which are good for your heart. Flaxseed and walnuts are other sources of heart-healthy fats. More on heart-healthy eating Read food labels Healthy eating starts at the grocery store. Be sure to pay attention to food labels on packaged foods. Look for products that are high in fiber and protein and low in saturated fat, added sugars, andsodium. Avoid products that contain trans fat. And pay close attention to serving size. For instance, if you plan to eat 2 servings, double all the numbers on the label. Prepare food right A rousseau part of healthy cooking is cutting down on added fat, sugar, and salt. Look on the Internet for lower-fat, lower-sodium recipes without a lot of added sugars. Also try these tips: Remove fat from meat and skin from poultry before cooking. Skim fat from the surface of soups and sauces. Broil, roast, boil, bake, steam, grill, or microwave food without added fats. Choose ingredients that spice up your food without adding calories, fat, sugar, or sodium. Try these items: horseradish, hot sauce, lemon zest and juice, garlic, onion, mustard, nonfat salad dressings, and vinegar. Small amounts of olive oil-based vinaigrettes are OK, too. For salt-free herbs and spices, try basil, cilantro, cinnamon, cumin, paprika, pepper, and kasandra. Last Reviewed Date: 10/24/202219992019-9949 [employer]. All rights reserved. This information is not intended as a substitute for professional medical care. Always follow your healthcare professional's instructions. documented in this encounter Plan of Treatment Upcoming Encounters Date Type Department Care Team (Late st Contact Info) Description 06/14/2024 10:00 AM EDT Office Visit Cardiology, [facility] [address] [facility] [place] [address] Argenis Colbert CRNP [address] [facility] [place] [address] 08/10/2024 3:30 PM EDT [facility] [address] [facility] [place] [id number] Krishan Rowan Pari [address] [facility] [place] [address] 08/10/2024 4:00 PM EDT Cardiac Studies Cardiac Studies, [facility] [address] [facility] [place] [id number] Scheduled Orders Name Type Priority Associated Diagnoses Orde r Schedule EKG EKG STAT Post-operative state One Time for 1 Occurrences starting 05/25/2024 until 05/25/2024 EKG EKG Routine Post-operative state One Time for 1 Occurrences starting 05/26/2024 until 05/26/2024 [facility] Holter Routine S/P TAVR (transcatheter aortic valve replacement) First degree heart block Expected: 05/26/2024, Expires: 06/26/2025 Scheduled Referrals Name Type Priority Associated Diagnoses Orde r Schedule CARDIAC REHAB REFERRAL OP Referral Within 30 days (routine) S/P TAVR (transcatheter aortic valve replacement) Ordered: 05/25/2024 Health Maintenance Due Date Last Done Comments Depression Screening 1957 Albumin/Creatinine Ratio 1965 Hepatitis C Screening 1963 Zoster Vaccines (1 of 2) 1997 COVID-19 Vaccine (2 - 2022- season) 2023 06/05/2021 Influenza Vaccine (FLU shot) (#1) 2024 10/13/2023, 12/17/2019, 12/17/2019, Additional history exists DTaP,Tdap,and Td Vaccines (2 - Td or Tdap) 08/23/2024 08/23/2014 GFR 05/26/2025 05/26/2024, 12/2023, 05/25/2024, Additional history exists Pneumococcal Vaccine: 65+ Years Completed 12/17/2019, 12/09/2018 HPV (Gardasil) Vaccine Aged Out No lo nger eligible based on patient's age to complete this topic Hepatitis B Vaccine Aged Out No longe r eligible based on patient's age to complete this topic MENINGOCOCCAL (MENACTRA/MENVEO) Aged Out No longer eligible based on patient's age to complete this topic documented as of this encounter Medical Devices Implanted Type Area Medical Observer Device Identifier Shelf Expiration Date Model / Serial / Lot Stent Synergy Xd Mr [id number] - [id number] Implanted:Qty: 1 on 05/10/2024 by Munir Figueroa MD at [facility] [employer] [id number] 12/24/2024 [id number] 220 / / [id number] Stent Synergy Xd Mr [id number] - [id number] Implanted:Qty: 1 on 05/10/2024 by Munir Figueroa MD at [facility] [employer] [id number] 12/08/2024 [id number] 250 / / [id number] Stent Synergy Xd Mr [id number] - [id number] Implanted:Qty: 1 on 05/10/2024 by Munir Figueroa MD at [facility] [employer] [id number] 09/24/2024 [id number] 300 / / [id number] Stent Synergy Xd Mr 3.45v01we - [id number] Implanted:Qty: 1 on 05/10/2024 by Munir Figueroa MD at [facility] [employer] [id number] 05/18/2025 [id number] 350 / / [id number] Valve Tavr Gautam 29mm - [id number] Implanted:Qty: 1 on 05/25/2024 by Munir Figueroa MD at [facility] [employer] [id number] / / documented as of this encounter Procedures Procedure Name Priority Date/Time Associated Diagnosis Comments ECHO, COMPLETE (2D), TRANS-THORACIC Routine 05/26/2024 7:47 AM EDT S/P TAVR (transcatheter aortic valve replacement) XR CHEST 1 VIEW Routine 05/26/2024 4:54 AM EDT BASIC METABOLIC PANEL STAT 05/26/2024 4:21 AM EDT CBC STAT 05/26/2024 4:21 AM EDT MAGNESIUM STAT 05/26/2024 4:21 AM EDT XR CHEST 1 VIEW STAT 05/25/2024 1:27 PM EDT BASIC METABOLIC PANEL STAT 05/25/2024 1:27 PM EDT PT INR STAT 05/25/2024 1:27 PM EDT CBC STAT 05/25/2024 1:27 PM EDT MAGNESIUM STAT 05/25/2024 1:27 PM EDT ECHO, COMPLETE (2D), TRANS-THORACIC STAT 05/25/2024 12:36 PM EDT Status post cardiac surgery ACT, POINT OF CARE ANICETO 05/25/2024 11 :50 AM EDT BNP (NT-PROBNP) Routine 05/25/2024 9:19 AM EDT HEPATIC FUNCTION PANEL Routine 9:19 AM EDT BASIC METABOLIC PANEL STAT 05/25/2024 9:19 AM EDT ABO/RH STAT 05/25/2024 9:19 AM EDT TYPE AND SCREEN STAT 05/25/2024 9:19 AM EDT PT INR STAT 05/25/2024 9:19 AM EDT CBC STAT 05/25/2024 9:19 AM EDT HC COMPATIBILITY ELECTRONIC CROSSMATCH STAT 05/25/2024 8:40 AM EDT CARDIAC CATHETERIZATION REPORT Routine 05/25/2024 documented in this encounter Results * ECHO, COMPLETE (2D), TRANS-THORACIC (05/26/2024 7:47 AM EDT) LEFT VENTRICULAR EJECTION FRACTION 50 % [facility] CARDIOLOGY 05/26/2024 6:22 AM EDT Alba Mckoy DO [facility]OLOGY [facility] * XR CHEST 1 VIEW (05/26/2024 4:54 AM EDT) Anatomical Region Laterality Modality Chest Computed Radiogr aphy 05/26/2024 7:30 AM EDT Impressions 05/26/2024 7:27 AM EDT IMPRESSION Minimal basilar atelectasis, left greater than right. Narrative 05/26/2024 7:27 AM EDT EXAM XR CHEST 1 VIEW - 05/26/2024 4:54 am HISTORY POD #1 S/P TAVR or Mitraclip TECHNIQUE Single AP view the chest submitted for interpretation. COMPARISON 05/25/2024 FINDINGS TAVR present. Heart size within normal limits. Minimal basilar atelectasis, left greater than right. No pneumothorax or significant pleural fluid. Osseous structures stable. Procedure Note Maverick Kim MD - 05/26/2024 EXAM XR CHEST 1 VIEW - 05/26/2024 4:54 am HISTORY POD #1 S/P TAVR or Mitraclip TECHNIQUE Single AP view the chest submitted for interpretation. COMPARISON 05/25/2024 FINDINGS TAVR present. Heart size within normal limits. Minimal basilaratelectasis, left greater than right. No pneumothorax or significantpleural fluid. Osseous structures stable. IMPRESSION IMPRESSION Minimal basilar atelectasis, left greater than right. Alba Mckoy DO RADIOLOGY (RAD GENER AL) * MAGNESIUM (05/26/2024 4:21 AM EDT) Magnesium 2.1 1.5 - 2.6 mg/dL 05/26/2024 5:02 AM EDT LABORATORY [facility] Blood Venous blood specimen / Unknown Venipuncture / Unknown 05/26/2024 4:21 AM EDT 05/26/2024 4:33 AM EDT Alba Mckoy DO LAB BLOOD ORDERABLES LABORATORY [facility] [address] [place] [address] * (ABNORMAL) CBC (05/26/2024 4:21 AM EDT) WBC 9.17 4.00 - 10.80 K/uL 05/26/2024 4:45 AM EDT [facility] RBC 4.03 4.50 - 5.25 M/uL 05/26/2024 4:45 AM EDT LAB[facility] HGB 12.7(L) 14.0 - 16.8 g/dL 05/26/2024 4:45 AM EDT LAB[facility] HCT 38.1(L) 40.0 - 48.4 % 05/26/2024 4:45 AM EDT LAB[facility] MCV 94.5 82.0 - 99.5 fL 05/26/2024 4:45 AM EDT LAB[facility] MCH 31.5 27.0 - 34.0 pg 05/26/2024 4:45 AM EDT [facility] MCHC 33.3 32.0 - 36.0 g/dL 05/26/2024 4:45 AM EDT LAB[facility]ORY [facility] RDW 12.6 11.5 - 15.5 % 05/26/2024 4:45 AM EDT [facility] PLT 157 140 - 400 K/uL 05/26/2024 4:45 AM EDT [facility] MPV 11.1 6.6 - 11.1 fL 05/26/2024 4:45 AM EDT LAB[facility] nRBCs 0 <=0 /100 WBCs 05/26/2024 4:45 AM EDT [facility] Blood Venous blood specimen / Unknown Venipuncture / Unknown 05/26/2024 4:21 AM EDT 05/26/2024 4:33 AM EDT Alba Mckoy DO LAB BLOOD ORDERABLES Performing Organization Address City/State/[facility] Co de Phone Number [facility]ATORY [facility] [address] [place] [address] * BASIC METABOLIC PANEL (05/26/2024 4:21 AM EDT) BUN 14 6 - 20 mg/dL 05/26/2024 5:02 AM EDT LAB[facility]ATORY [facility] Creatinine 0.9 0.6 - 1.2 mg/dL 05/26/2024 5:02 AM EDT LAB[facility]ATORY [facility] Estimated Glomerular Filtration Rate 86 >=60 mL/min 05/26/2024 5:02 AM EDT LAB[facility]ATORY [facility] Comment:eGFR is calculated b ased on the CKD-EPI 2020 equation Sodium 137 135 - 146 mmol/L 05/26/2024 5:02 AM EDT LAB[facility]ATORY [facility] Potassium 3.6 3.5 - 5.1 mmol/L 05/26/2024 5:02 AM EDT LAB[facility] Chloride 101 98 - 107 mmol/L 05/26/2024 5:02 AM EDT LAB[facility] CO2 23 22 - 32 mmol/L 05/26/2024 5:02 AM EDT [facility] Anion Gap 13 7 - 15 mmol/L 05/26/2024 5:02 AM EDT LAB[facility] Glucose 112 70 - 120 mg/dL 05/26/2024 5:02 AM EDT LAB[facility]ORY [facility] Calcium 8.7 8.4 - 10.2 mg/dL 05/26/2024 5:02 AM EDT LABORATORY [facility] Blood Venous blood specimen / Unknown Venipuncture / Unknown 05/26/2024 4:21 AM EDT 05/26/2024 4:33 AM EDT Alba Mckoy DO LAB BLOOD ORDERABLES LABORATORY [facility] [address] [place] [address] * XR CHEST 1 VIEW (05/25/2024 1:27 PM EDT) Anatomical Region Laterality Modality Chest Computed Radiogr aphy 05/25/2024 2:03 PM EDT Impressions 05/25/2024 2:01 PM EDT IMPRESSION Postop chest, as above. Narrative 05/25/2024 2:01 PM EDT EXAM XR CHEST 1 VIEW - 05/25/2024 1:27 pm HISTORY baseline initial xray after open heart surgery COMPARISON None TECHNIQUE Portable supine AP view of the chest was obtained. FINDINGS Catheters: None Tubes: None Foreign bodies: TAVR The lungs are clear. There is no appreciable pleural effusion or pneumothorax. The pulmonary vasculature and cardiomediastinal silhouette appear within normal limits. Procedure Note Parrish Jacobo MD - 05/25/2024 EXAM XR CHEST 1 VIEW - 05/25/2024 1:27 pm HISTORY baseline initial xray after open heart surgery COMPARISON None TECHNIQUE Portable supine AP view of the chest was obtained. FINDINGS Catheters: None Tubes: None Foreign bodies: TAVR The lungs are clear. There is no appreciable pleural effusion orpneumothorax. The pulmonary vasculature and cardiomediastinal silhouetteappear within normal limits. IMPRESSION IMPRESSION Postop chest, as above. Alba Mckoy DO RADIOLOGY (RAD GENER AL) * MAGNESIUM (05/25/2024 1:27 PM EDT) Magnesium 1.7 1.5 - 2.6 mg/dL 05/25/2024 2:05 PM EDT LAB[facility]ATORY [facility] Blood Venous blood specimen / Unknown Venipuncture / Unknown 05/25/2024 1:27 PM EDT 05/25/2024 1:37 PM EDT Alba Mckoy DO LAB BLOOD ORDERABLES Performing Organization Address [facility] de Phone Number LABORATORY [facility] [address] [place] [address] * PT INR (05/25/2024 1:27 PM EDT) Prothrombin Time 15.1 11.6 - 15.2 seconds 05/25/2024 2:03 PM EDT LABORATORY [facility] INR 1.2 0.8 - 1.2 05/25/2024 2:03 PM EDT LABORATORY [facility] Blood Venous blood specimen / Unknown Venipuncture / Unknown 05/25/2024 1:27 PM EDT 05/25/2024 1:37 PM EDT Narrative [facility] - 05/25/2024 2:03 PM EDT Warfarin Therapy INR: 2.0-3.0 conventional anticoagulation INR: 2.5-3.5 high intensity anticoagulation Alba Mckoy LAB BLOOD ORDERABLES Performing Organization Address [facility] Co de Phone Number LABORATORY [facility] [address] [place] [address] * (ABNORMAL) CBC (05/25/2024 1:27 PM EDT) Pathologist [facility] WBC 10.07 4.00 - 10.80 K/uL 05/25/2024 1:55 PM EDT LAB[facility]ATORY [facility] RBC 3.72 4.50 - 5.25 M/uL 05/25/2024 1:55 PM EDT LAB[facility]ORY [facility] HGB 11.9(L) 14.0 - 16.8 g/dL 05/25/2024 1:55 PM EDT LAB[facility] HCT 35.0(L) 40.0 - 48.4 % 05/25/2024 1:55 PM EDT LAB[facility] MCV 94.1 82.0 - 99.5 fL 05/25/2024 1:55 PM EDT [facility] MCH 32.0 27.0 - 34.0 pg 05/25/2024 1:55 PM EDT [facility] MCHC 34.0 32.0 - 36.0 g/dL 05/25/2024 1:55 PM EDT [facility] RDW 12.8 11.5 - 15.5 % 05/25/2024 1:55 PM EDT [facility] PLT 155 140 - 400 K/uL 05/25/2024 1:55 PM EDT [facility] MPV 10.9 6.6 - 11.1 fL 05/25/2024 1:55 PM EDT LAB[facility] nRBCs 0 <=0 /100 WBCs 05/25/2024 1:55 PM EDT LABORATORY [facility] Blood Venous blood specimen / Unknown Venipuncture / Unknown 05/25/2024 1:27 PM EDT 05/25/2024 1:37 PM EDT Alba Mckoy DO LAB BLOOD ORDERABLES LAB[facility]AT[facility] [address] [place] [address] * (ABNORMAL) BASIC METABOLIC PANEL (05/25/2024 1:27 PM EDT) Pathologist [facility] BUN 12 6 - 20 mg/dL 05/25/2024 2:05 PM EDT LAB[facility]ATORY [facility] Creatinine 0.8 0.6 - 1.2 mg/dL 05/25/2024 2:05 PM EDT LAB[facility]ATORY [facility] Estimated Glomerular Filtration Rate >90 >=60 mL/min 05/25/2024 2:05 PM EDT LABORATORY C Comment:eGFR is calculated b ased on the CKD-EPI 2020 equation Sodium 137 135 - 146 mmol/L 05/25/2024 2:05 PM EDT LAB[facility] Potassium 3.9 3.5 - 5.1 mmol/L 05/25/2024 2:05 PM EDT LAB[facility] Chloride 103 98 - 107 mmol/L 05/25/2024 2:05 PM EDT LAB[facility] CO2 21(L) 22 - 32 mmol/L 05/25/2024 2:05 PM EDT LAB[facility] Anion Gap 13 7 - 15 mmol/L 05/25/2024 2:05 PM EDT LABORATORY C Glucose 111 70 - 120 mg/dL 05/25/2024 2:05 PM EDT LABORATORY C Calcium 8.6 8.4 - 10.2 mg/dL 05/25/2024 2:05 PM EDT LABORATORY [facility] Blood Venous blood specimen / Unknown Venipuncture / Unknown 05/25/2024 1:27 PM EDT 05/25/2024 1:37 PM EDT Alba Mckoy DO LAB BLOOD ORDERABLES LABORATORY [facility] [address] [place] [address] * ECHO, COMPLETE (2D), TRANS-THORACIC (05/25/2024 12:36 PM EDT) 05/25/2024 11:1 6 AM EDT Munir Figueroa MD ECHOCARDIOLOGY [employer] [facility] * ACT, POINT OF CARE (05/25/2024 11:50 AM EDT) ACT 470 50 - 1,000 secs 05/25/2024 12:21 PM EDT [employer] [facility] Blood 05/25/2024 11:5 0 AM EDT 05/25/2024 12:21 PM EDT Narrative [facility] - 05/25/2024 12:21 PM EDT NORMAL (NON-HEPARINIZED) 74-137 SECONDS HEPARINIZED 200+ SECONDS CRITICAL GREATER THAN 1000 SECONDS Damián Wallace MD LAB POINT OF CARE TEST DOCKED DEVICE UNSOLICITED RESULTS Performing Organization Address City/[facility]/ZIP Co de Phone Number [facility] [address] [place] [address] * ABO/RH (05/25/2024 9:19 AM EDT) ABO O 05/25/2024 10:47 AM EDT LABORATORY [facility] B[facility]OD [facility] Rh Positive 05/25/2024 10:47 AM EDT LABORATORY [facility]LOOD [facility] Blood Venous blood specimen / Unknown Venipuncture / Unknown 05/25/2024 9:19 AM EDT 05/25/2024 9:29 AM EDT Munir Figueroa MD LAB BLOOD BANK TEST ORDERABLES Performing Organization Address [facility] de Phone Number LABORATORY [facility] BLOOD BANK [address] [place] [address] * TYPE AND SCREEN (05/25/2024 9:19 AM EDT) ABO O 05/25/2024 10:28 AM EDT LABORATORY [facility] BLOOD [facility] Rh Positive 05/25/2024 10:28 AM EDT LABORATORY [facility]OD [facility] Red Blood Cell Antibody Screen Negative 05/25/2024 10:28 AM EDT LABORATORY [facility] Specimen Expiration Date 05/28/2024 23:59 05/25/2024 10:28 AM EDT LABORATORY C BLOOD BANK Blood Venous blood specimen / Unknown Venipuncture / Unknown 05/25/2024 9:19 AM EDT 05/25/2024 9:29 AM EDT Munir Figueroa MD LAB BLOOD BANK TEST ORDERABLES Performing Organization Address [facility] de Phone Number LABORATORY [facility] BLOOD [facility] [address] [place] [address] * PT INR (05/25/2024 9:19 AM EDT) Prothrombin Time 13.4 11.6 - 15.2 seconds 05/25/2024 9:54 AM EDT LABORATORY [facility] INR 1.0 0.8 - 1.2 05/25/2024 9:54 AM EDT LABORATORY [facility] Blood Venous blood specimen / Unknown Venipuncture / Unknown 05/25/2024 9:19 AM EDT 05/25/2024 9:32 AM EDT Narrative [facility]ORY [facility] - 05/25/2024 9:54 AM EDT Warfarin Therapy INR: 2.0-3.0 conventional anticoagulation INR: 2.5-3.5 high intensity anticoagulation Munir Figueroa MD LAB BLOOD ORDERABLES LABORATORY [facility] [address] [place] [address] * HEPATIC FUNCTION PANEL (05/25/2024 9:19 AM EDT) Albumin 4.3 3.8 - 5.0 g/dL 05/25/2024 10:11 AM EDT LABORATORY [facility] AST 28 10 - 50 U/L 05/25/2024 10:11 AM EDT LABORATORY [facility] Comment:Result may be falsel y elevated due to hemolysis. Alkaline Phosphatase 105 35 - 130 U/L 05/25/2024 10:11 AM EDT LABORATORY [facility] ALT 18 10 - 50 U/L 05/25/2024 10:11 AM EDT LABORATORY [facility] Bilirubin, Total 0.4 <=1.2 mg/dL 05/25/2024 10:11 AM EDT LABORATORY [facility] Bilirubin, Direct <0.2 0.0 - 0.3 mg/dL 05/25/2024 10:11 AM EDT LABORATORY [facility] Comment:Result may be falsel y decreased due to hemolysis. Protein 7.5 6.0 - 8.3 g/dL 05/25/2024 10:11 AM EDT LABORATORY [facility] Blood Venous blood specimen / Unknown Venipuncture / Unknown 05/25/2024 9:19 AM EDT 05/25/2024 9:33 AM EDT Munir Figueroa MD LAB BLOOD ORDERABLES [facility] [address] [place] [address] * (ABNORMAL) CBC (05/25/2024 9:19 AM EDT) WBC 11.26(H) 4.00 - 10.80 K/uL 05/25/2024 9:42 AM EDT LAB[facility] RBC 4.36 4.50 - 5.25 M/uL 05/25/2024 9:42 AM EDT LAB[facility] HGB 13.6(L) 14.0 - 16.8 g/dL 05/25/2024 9:42 AM EDT LAB[facility] HCT 41.0 40.0 - 48.4 % 05/25/2024 9:42 AM EDT LAB[facility] MCV 94.0 82.0 - 99.5 fL 05/25/2024 9:42 AM EDT [facility] MCH 31.2 27.0 - 34.0 pg 05/25/2024 9:42 AM EDT LAB[facility] MCHC 33.2 32.0 - 36.0 g/dL 05/25/2024 9:42 AM EDT LAB[facility] RDW 12.6 11.5 - 15.5 % 05/25/2024 9:42 AM EDT LAB[facility] PLT 194 140 - 400 K/uL 05/25/2024 9:42 AM EDT [facility] MPV 10.7 6.6 - 11.1 fL 05/25/2024 9:42 AM EDT LAB[facility] nRBCs 0 <=0 /100 WBCs 05/25/2024 9:42 AM EDT LAB[facility] Blood Venous blood specimen / Unknown Venipuncture / Unknown 05/25/2024 9:19 AM EDT 05/25/2024 9:33 AM EDT Munir Figueroa MD LAB BLOOD ORDERABLES [facility] [address] [place] [address] * (ABNORMAL) BNP, NT-PRO (05/25/2024 9:19 AM EDT) [facility] BNP, NT-Pro 3,112(H) <300 pg/mL 05/25/2024 10:11 AM EDT LABORATORY [facility] Blood Venous blood specimen / Unknown Venipuncture / Unknown 05/25/2024 9:19 AM EDT 05/25/2024 9:33 AM EDT Narrative LABORATORY [facility] - 05/25/2024 10:11 AM EDT Exclude Heart Failure: <300 pg/mL Diagnose Heart Failure: Age <50 yr: >450 pg/mL 50-75 yr: >900 pg/mL >75 yr: >1800 pg/mL GFR is 30-59 mL/min: >1200 pg/mL or Age-adjusted values GFR <30 mL/min: do not use, not reliable Prognostic threshold: 1000 pg/mL Munir Figueroa MD LAB BLOOD ORDERABLES LABORATORY [facility] [address] [place] [address] * (ABNORMAL) BASIC METABOLIC PANEL (05/25/2024 9:19 AM EDT) [facility] BUN 12 6 - 20 mg/dL 05/25/2024 10:11 AM EDT LABORATORY [facility] Creatinine 0.9 0.6 - 1.2 mg/dL 05/25/2024 10:11 AM EDT LABORATORY [facility] Estimated Glomerular Filtration Rate 89 >=60 mL/min 05/25/2024 10:11 AM EDT LABORATORY [facility] Comment:eGFR is calculated b ased on the CKD-EPI 2020 equation Sodium 141 135 - 146 mmol/L 05/25/2024 10:11 AM EDT LABORATORY [facility] Potassium 3.8 3.5 - 5.1 mmol/L 05/25/2024 10:11 AM EDT LABORATORY [facility] Chloride 105 98 - 107 mmol/L 05/25/2024 10:11 AM EDT LABORATORY [facility] CO2 21(L) 22 - 32 mmol/L 05/25/2024 10:11 AM EDT LABORATORY [facility] Anion Gap 15 7 - 15 mmol/L 05/25/2024 10:11 AM EDT LABORATORY [facility] Glucose 85 70 - 120 mg/dL 05/25/2024 10:11 AM EDT LABORATORY [facility] Calcium 9.4 8.4 - 10.2 mg/dL 05/25/2024 10:11 AM EDT LABORATORY [facility] Blood Venous blood specimen / Unknown Venipuncture / Unknown 05/25/2024 9:19 AM EDT 05/25/2024 9:33 AM EDT Munir Figueroa MD LAB BLOOD ORDERABLES LABORATORY [facility] [address] [place] [address] * PREPARE PACKED RED BLOOD CELLS (05/25/2024 8:40 AM EDT) Unit Product Code [id number] 05/26/2024 6:28 AM EDT LABORATORY C BLOOD BANK Unit Number [id number] 05/26/2024 6:28 AM EDT LABORATORY [facility] BLOOD BANK Unit ABO O 05/26/2024 6:28 AM EDT LABORATORY [facility] BLOOD B[facility] Unit Rh POS 05/26/2024 6:28 AM EDT LABORATORY C BLOOD BANK Unit Crossmatch Compatible 05/25/2024 11:13 AM EDT LABORATORY C BLOOD BANK Unit Status RE 05/26/2024 6:28 AM EDT LABORATORY C BLOOD BANK Unit Blood Type OPOS 05/26/2024 6:28 AM EDT LABORATORY C BLOOD BANK Unit Expiration [id number] 05/26/2024 6:28 AM EDT LABORATORY [facility] BLOOD B[facility] Unit Barcode 5100 05/26/2024 6:28 AM EDT LABORATORY C BLOOD BANK Unit Product Code [id number] 05/26/2024 6:28 AM EDT LABORATORY [facility] Unit Number [id number] 05/26/2024 6:28 AM EDT LABORATORY [facility] BLOOD [facility] Unit ABO O 05/26/2024 6:28 AM EDT LABORATORY [facility]OD [facility] Unit Rh POS 05/26/2024 6:28 AM EDT LABORATORY [facility] Unit Crossmatch Compatible 05/25/2024 11:13 AM EDT LABORATORY [facility] [place] Unit Status RE 05/26/2024 6:28 AM EDT LABORATORY [facility] [place] [facility] Unit Blood Type OPOS 05/26/2024 6:28 AM EDT [facility] Unit Expiration [id number] 05/26/2024 6:28 AM EDT [facility] Unit Barcode [id number] 05/26/2024 6:28 AM EDT [facility] 05/25/2024 8:40 AM EDT Munir Figueroa MD BLD BANK PRODUCT ORD ERABLES [facility] [address] [place] [address] * CARDIAC CATHETERIZATION REPORT (05/25/2024) DATE OF PROCEDURE 05/25/2024 [facility] Munir Bunn MD [facility] PROCEDURES TAVR - Replace Aortic Valve Perq No conscious sedation administered by cath/EP lab staff during this procedure. [facility] TOTAL CONTRAST VOLUME 73 ml [facility] TOTAL RADIATION 0.26 Gy [facility] COMPLICATIONS No complication None [facility] 05/25/2024 05/25/2024 1:2 4 PM EDT Munir Figueroa MD CARD CATH [facility] documented in this encounter Visit Diagnoses Diagnosis S/P TAVR (transcatheter aortic valve replacement)- Primary Heart valve replaced by other means S/P TAVR (transcatheter aortic valve replacement) Heart valve replaced by other means Status post cardiac surgery S/P angioplasty with stent Postsurgical percutaneous transluminal coronary angioplasty status Post-operative state Other postprocedural status Aortic stenosis [I35.0] Aortic valve disorders Encounter for examination for normal comparison and control in clinical research program [Z00.6] First degree heart block First degree atrioventricular block Aortic stenosis Aortic valve disorders S/P angioplasty with stent Postsurgical percutaneous transluminal coronary angioplasty status Bradycardia Other specified cardiac dysrhythmias HLD (hyperlipidemia) Other and unspecified hyperlipidemia Hypertension Unspecified essential hypertension (HFpEF) heart failure with preserved ejection fraction (HCC) documented in this encounter Administered Medications Inactive Administered Medications - up to 3 most recent administrations Medication Order MAR Action Action Date Dose Rate Site Acetaminophen (Tylenol) tab 975 mg 975 mg, Oral, Q6H, First dose on Fri05/25/24 at 1315, Last dose on Fri05/30/24 at 0600, For 5 days, Maximum 4 g acetaminophen/day. Avoid in patients with severe hepatic impairment or severe active liver disease. Use for 5 days., Post-op Given 05/25/2024 11:27 PM EDT 975 mg Given 05/25/2024 5:34 PM EDT 975 mg ALPRAZolam (xaNAX) tab 2 mg 2 mg, Oral, ONCE, On Fri05/25/24 at 2100, For 1 dose Given 05/25/2024 11:27 PM EDT 2 mg aspirin chew tab 81 mg 81 mg, Oral, Daily(AM), First dose on Fri05/26/24 at 0900, Until Discontinued Given 05/26/2024 8:02 AM EDT 81 mg clopidogrel (pLAVix) tab 75 mg 75 mg, Oral, Daily(AM), First dose on Fri05/26/24 at 0900, Until Discontinued Given 05/26/2024 8:02 AM EDT 75 mg folic acid tab 1 mg 1 mg, Oral, Daily(AM), First dose on Fri05/26/24 at 0900, Until Discontinued Given 05/26/2024 8:03 AM EDT 1 mg Iopamidol (Isovue 370) inj 73 mL 73 mL, Intracoronary, ONCE, On Fri05/25/24 at 1300, For 1 dose, Intra-Op Given 05/25/2024 12:18 PM EDT 73 mL losartan (Cozaar) tab 25 mg 25 mg, Oral, Daily(AM), First dose on Fri05/26/24 at 0900, Until Discontinued Given 05/26/2024 8:03 AM EDT 25 mg magnesium sulfate 1 g in d5w 100mL LOCKED DOSE 1 g, IV Piggyback, Q1H, 2 doses, First dose on Fri05/25/24 at 1900, Last dose on Fri05/25/24 at 2000, Administer over 60 Minutes, Total dose is 2g New Bag 05/25/2024 7:08 PM EDT 1 g 100 mL/hr New Bag 05/25/2024 5:40 PM EDT 1 g 100 mL/hr metoprolol succinate XL (toPROL XL) tab 25 mg 25 mg, Oral, Daily(AM), First dose on Fri05/26/24 at 0945, Until Discontinued, Hold for HR less than 60 or SBP below 100 and notify service if dose is held This med should NOT be Crushed or Chewed. Given 05/26/2024 10:22 AM EDT 25 mg multivitamin (Mvi) 1 Tablet 1 Tablet, Oral, DAILY NOON, First dose on Fri05/26/24 at 1200, Until Discontinued Given 05/26/2024 12:02 PM EDT 1 Tablet NSS infusion Intravenous, at 25 mL/hr, CONTINUOUS, Starting on Fri05/25/24 at 0915, Until Fri05/26/24 at 1852, Pre-Op Restarted 05/25/2024 12:29 PM EDT Continue from Pre-Op 05/25/2024 11:08 AM EDT 25 mL/hr New Bag 05/25/2024 9:36 AM EDT 25 mL/hr PHENobarbital inj 130 mg 130 mg, Intravenous, Q1H PRN Other, CIWA-Ar Scale greater than 15, repeat CIWA-Ar in 60 minutes. Assess and record Level of consciouness and Respiratory Rate just prior to each dose of PHENobarbital and 15 minutes after each dose of PHENobarbital. Hold PHENobarbital for Respiratory Rate less than 12, somnolent/inability to arouse. Notify provider if patient receives 2 doses, Starting on Fri05/25/24 at 1735, Until Fri05/26/24 at 1852, For 2 doses, If given IV Push maximum rate is 60 mg/min. PHENobarbital inj 65 mg 65 mg, Intravenous, Q1H PRN Other, CIWA-Ar Scale 8-15, repeat CIWA-Ar in 60 minutes. Assess and record Level of consciouness and Respiratory Rate just prior to each dose of PHENobarbital and 15 minutes after each dose of PHENobarbital. Hold PHENobarbital for Respiratory Rate less than 12, somnolent/inability to arouse. Notify provider if patient receives 2 doses, Starting on Fri05/25/24 at 1735, Until Fri05/26/24 at 1852, For 2 doses, If given IV Push maximum rate is 60 mg/min. potassium chloride ER tab 20 mEq 20 mEq, Oral, Q2H, First dose on Fri05/26/24 at 0745, Last dose on Fri05/26/24 at 1000, For 2 doses, This med should NOT be Crushed or Chewed Given 05/26/2024 10:22 AM EDT 20 mEq Given 05/26/2024 8:01 AM EDT 20 mEq rosuvastatin (Crestor) tab 40 mg 40 mg, Oral, Daily(AM), First dose on Fri05/26/24 at 0900, Until Discontinued Given 05/26/2024 8:02 AM EDT 40 mg sodium chloride 0.9 % flush peripheral vijay 3 mL 3 mL, IV Push, QSHIFT, First dose on Fri05/25/24 at 1600, Until Discontinued, Do not flush if lock, PICC, or central line not in place; IV infusing or unable to flush., Post-op Given 05/26/2024 8:04 AM EDT 3 mL Given 05/25/2024 11:28 PM EDT 3 mL Given 05/25/2024 5:34 PM EDT 3 mL Thiamine (Vitamin B-1) tab 100 mg 100 mg, Oral, Daily(AM), First dose on Fri05/26/24 at 0900, Until Discontinued Given 05/26/2024 8:03 AM EDT 100 mg traMADol (Ultram) tab 50 mg 50 mg, Oral, Q12H PRN Pain, Severe, Starting on Fri05/25/24 at 1237, Until Fri05/26/24 at 1852, Post-op documented in this encounter Active and Recently Administered Medications Times are shown in EDT. Scheduled Medication Order 05/24/2024 05/25/2024 05/26/2024 Acetaminophen (Tylenol) tab 975 mg 975 mg, Oral, Q6H, First dose on Fri05/25/24 at 1315, Last dose on Fri05/30/24 at 0600, For 5 days, Maximum 4 g acetaminophen/day. Avoid in patients with severe hepatic impairment or severe active liver disease. Use for 5 days., Post-op 1315 (Not Given - Provider: Maribel Gutierrez RN - Reason: Parameter(s) Not Met - Comment: pt sleepy)1734 (Given - Provider: Maribel Gutierrez RN)2327 (Given - Provider: Melissa Singletary RN) 0600 (Not Given - Provider: Melissa Singletary RN - Reason: Parameter(s) Not Met - Comment: pt states that he has no pain and doesn't want tylenol)1200 (Not Given - Provider: Maribel Gutierrez RN - Reason: Parameter(s) Not Met - Comment: Pt states that he has NO pain and refuses tylenol.) ALPRAZolam (xaNAX) tab 2 mg (COMPLETED) 2 mg, Oral, ONCE, On Fri05/25/24 at 2100, For 1 dose 2327 (Given - Provider: Melissa Singletary RN) aspirin chew tab 81 mg 81 mg, Oral, Daily(AM), First dose on Fri05/26/24 at 0900, Until Discontinued 801 (Given - Provid er: Maribel Gutierrez RN) clopidogrel (pLAVix) tab 75 mg 75 mg, Oral, Daily(AM), First dose on Fri05/26/24 at 0900, Until Discontinued 801 (Given - Provid er: Maribel Gutierrez RN) folic acid tab 1 mg 1 mg, Oral, Daily(AM), First dose on Fri05/26/24 at 0900, Until Discontinued 802 (Given - Provid er: Maribel Gutierrez RN) Iopamidol (Isovue 370) inj 73 mL (COMPLETED) 73 mL, Intracoronary, ONCE, On Fri05/25/24 at 1300, For 1 dose, Intra-Op 1218 (Given - Provider: Argenis Faust, RT) losartan (Cozaar) tab 25 mg 25 mg, Oral, Daily(AM), First dose on Fri05/26/24 at 0900, Until Discontinued 802 (Given - Provid er: Maribel Gutierrez RN) magnesium sulfate 1 g in d5w 100mL LOCKED DOSE (COMPLETED) 1 g, IV Piggyback, Q1H, 2 doses, First dose on Fri05/25/24 at 1900, Last dose on Fri05/25/24 at 2000, Administer over 60 Minutes, Total dose is 2g 1740 (New Bag - Provider: Maribel Gutierrez RN)1908 (New Bag - Provider: Melissa Singletary, AYO) metoprolol succinate XL (toPROL XL) tab 25 mg 25 mg, Oral, Daily(AM), First dose on Fri05/26/24 at 0945, Until Discontinued, Hold for HR less than 60 or SBP below 100 and notify service if dose is held This med should NOT be Crushed or Chewed. 1022 (Given - Provid er: Maribel Gutierrez RN) multivitamin (Mvi) 1 Tablet 1 Tablet, Oral, DAILY NOON, First dose on Fri05/26/24 at 1200, Until Discontinued 1202 (Given - Provid er: Maribel Gutierrez RN) potassium chloride ER tab 20 mEq (COMPLETED) 20 mEq, Oral, Q2H, First dose on Fri05/26/24 at 0745, Last dose on Fri05/26/24 at 1000, For 2 doses, This med should NOT be Crushed or Chewed 0801 (Given - Provid er: Maribel Gutierrez RN)1022 (Given - Provider: Mraibel Gutierrez RN) rosuvastatin (Crestor) tab 40 mg 40 mg, Oral, Daily(AM), First dose on Fri05/26/24 at 0900, Until Discontinued 0802 (Given - Provid er: Maribel Gutierrez RN) sodium chloride 0.9 % flush peripheral vijay 3 mL 3 mL, IV Push, QSHIFT, First dose on Fri05/25/24 at 1600, Until Discontinued, Do not flush if lock, PICC, or central line not in place; IV infusing or unable to flush., Post-op 1734 (Given - Provider: Maribel Gutierrez RN)2328 (Given - Provider: Melissa Singletary, RN) 0804 (Given - Provider: Maribel Gutierrez RN) Thiamine (Vitamin B-1) tab 100 mg 100 mg, Oral, Daily(AM), First dose on Fri05/26/24 at 0900, Until Discontinued 0803 (Given - Provid er: Maribel Gutierrez RN) Continuous Medication Order 05/24/2024 05/25/2024 05/26/2024 NSS infusion Intravenous, at 25 mL/hr, CONTINUOUS, Starting on Fri05/25/24 at 0915, Until Fri05/26/24 at 1852, Pre-Op 0936 (New Bag - Provider: Maribel Gutierrez RN)1108 (Continue from Pre-Op - Provider: Arturo Simmons Jr., CRNA)1228 (Paused - Provider: Arturo Simmons Jr., CRNA - Comment: Switch to gravity)1229 (Restarted - Provider: Arturo Simmons Jr., CRNA) 185 (Due: Stopped) PRN Medication Order 05/24/2024 05/25/2024 05/26/2024 PHENobarbital inj 130 mg 130 mg, Intravenous, Q1H PRN Other, CIWA-Ar Scale greater than 15, repeat CIWA-Ar in 60 minutes. Assess and record Level of consciouness and Respiratory Rate just prior to each dose of PHENobarbital and 15 minutes after each dose of PHENobarbital. Hold PHENobarbital for Respiratory Rate less than 12, somnolent/inability to arouse. Notify provider if patient receives 2 doses, Starting on Fri05/25/24 at 1735, Until Fri05/26/24 at 1852, For 2 doses, If given IV Push maximum rate is 60 mg/min. PHENobarbital inj 65 mg 65 mg, Intravenous, Q1H PRN Other, CIWA-Ar Scale 8-15, repeat CIWA-Ar in 60 minutes. Assess and record Level of consciouness and Respiratory Rate just prior to each dose of PHENobarbital and 15 minutes after each dose of PHENobarbital. Hold PHENobarbital for Respiratory Rate less than 12, somnolent/inability to arouse. Notify provider if patient receives 2 doses, Starting on Fri05/25/24 at 1735, Until Fri05/26/24 at 1852, For 2 doses, If given IV Push maximum rate is 60 mg/min. traMADol (Ultram) tab 50 mg 50 mg, Oral, Q12H PRN Pain, Severe, Starting on Fri05/25/24 at 1237, Until Fri05/26/24 at 1852, Post-op documented in this encounter Advance Directives * Full Code (Latest Code Status on File) Date Activated Date Inactivated Comments 05/25/2024 12:39 PM 05/26/2024 6:57 PM This order re flects the patients wishes and were consensually agreed upon. Question Answer Comments Discussion of Advance Direct alva occurred with: Not Discussed due to patient's condition Care Teams Oscillograph Technician Relationship Specialty Start Date End Date Lilly Wu MD [address] [facility] [address] [place] [address] PCP - General Internal Medicine 10/13/23 documented as of this encounter
--- OUTSIDE RECORDS SUMMARY | 2024-11-13 16:36 | External Medical Summary ---
Author Name Unknown Address Unknown Organization [id number]:[facility] [place] [address] Laboratory Report Ordering Provider Test Date Status NELLIE PEREZ 06/14/2024 10:17:18 Final Observation Date Value Abnormality Reference (Units ) Status BUN 06/14/2024 10:17:18 13 6-20 (mg/dL) Final Creatinine 06/14/2024 10:17:18 1.0 0.6-1.2 (mg/dL) Final Glomerular filtration rate/1.73 sq M.predicted [Volume Rate/Area] in Serum, Plasma or Blood by Creatinine-based formula (CKD-EPI) 06/14/2024 10:17:18 80 >=60 (mL/min) Final eGFR is calculated based on the CKD-EPI 2020 equation. Sodium 06/14/2024 10:17:18 141 135-146 (m mol/L) Final Potassium 06/14/2024 10:17:18 3.8 3.5-5.1 (m mol/L) Final Cl 06/14/2024 10:17:18 103 98-107 (mm ol/L) Final CO2 06/14/2024 10:17:18 21 Below low normal 22- 32 (mmol/L) Final Anion gap 06/14/2024 10:17:18 17 Above high normal 7- 15 (mmol/L) Final Glucose 06/14/2024 10:17:18 86 70-120 (mg /dL) Final Calcium 06/14/2024 10:17:18 9.6 8.4-10.2 ( mg/dL) Final Performing Location [facility] [place] [id number]
--- OUTSIDE RECORDS SUMMARY | 2024-11-13 16:36 | External Medical Summary ---
Author Name Unknown Address Unknown Organization [id number][place] [place] [address] [place] [address] Laboratory Report Ordering Provider Test Date Status COLEEN ATWOOD 05/26/2024 04:21:00 Final Observation Date Value Abnormality Reference (Units ) Status BUN 05/26/2024 04:21:00 14 6-20 (mg/dL) Final Creatinine 05/26/2024 04:21:00 0.9 0.6-1.2 (mg/dL) Final Glomerular filtration rate/1.73 sq M.predicted [Volume Rate/Area] in Serum, Plasma or Blood by Creatinine-based formula (CKD-EPI) 05/26/2024 04:21:00 86 >=60 (mL/min) Final eGFR is calculated based on the CKD-EPI 2020 equation Sodium 05/26/2024 04:21:00 137 135-146 (m mol/L) Final Potassium 05/26/2024 04:21:00 3.6 3.5-5.1 (m mol/L) Final Cl 05/26/2024 04:21:00 101 98-107 (mm ol/L) Final CO2 05/26/2024 04:21:00 23 22-32 (mmo l/L) Final Anion gap 05/26/2024 04:21:00 13 7-15 (mmol /L) Final Glucose 05/26/2024 04:21:00 112 70-120 (mg /dL) Final Calcium 05/26/2024 04:21:00 8.7 8.4-10.2 ( mg/dL) Final Performing Location [facility] [place] [address] [place] [id number]
--- OUTSIDE RECORDS SUMMARY | 2024-11-13 16:36 | External Medical Summary | Summary of Care ---
Author Name Unknown Organization [facility] Address [address] [facility] [place] [address] Phone [phone] Care Team Providers Care Supervisor Research Kennel Name Role Phone Sammy Henderson MD Primary Care Provider + Reason for Visit * Reason Onset Date Comments Test Results 08/11/2024 Encounter Details Date Type Department Care Team (Late st Contact Info) Description 08/11/2024 Telephone Cardiology, [facility] [address] [place] [address] Wero Aguirre PA-C [address] [place] [address] Test Results Allergies Active Allergy Reactions Criticality Noted Date Comments Poison Tiffanie Extract 10/13/2023 documented as of this encounter (statuses as of 11/10/2024) Medications ALPRAZolam 2 MG Oral Tablet (xaNAX) Take 1 Tablet by mouth as needed. Active Bisacodyl 5 MG Oral Tablet Delayed Release (bisacodyl EC) Take 1 Tablet by mouth daily as needed for Constipation. Active Nitroglycerin 0.4 MG Sublingual Tablet Sublingual (Nitrostat) Place 1 tablet under the tongue every 5 minutes as needed for chest pain, up to a max of 3 doses in 15 minutes. If no relief call 911 or go to ER. 25 Tablet 05/21/2024 3:56 PM EDT 4 Active Folic Acid 1 MG Oral Tablet Take 1 Tablet by mouth in the morning. 30 Tablet 05/26/2024 1:19 PM EDT 4 Active Multi-Vitamins Oral Tablet Take 1 Tablet by mouth daily at noon. 30 Tablet 05/26/2024 1:19 PM EDT 4 Active Thiamine HCl 100 MG Oral Tablet (vitamin B-1) Take 1 Tablet by mouth in the morning. 30 Tablet 05/26/2024 1:19 PM EDT 4 Active Amoxicillin 500 MG Oral Capsule (Amoxil)Indication s:Severe aortic stenosis,History of transcatheter aortic valve replacement (TAVR),Coronary artery disease involving [place] coronary artery of [place] heart without angina pectoris,Chronic diastolic congestive heart failure (HCC),HTN, goal below 140/90 Take 4 capsules 1 hour prior to any dental work 4 Capsule 4 4 Active Aspirin 81 MG Oral Tablet ChewableIndication s:Severe aortic stenosis,History of transcatheter aortic valve replacement (TAVR),Coronary artery disease involving [place] coronary artery of [place] heart without angina pectoris,Chronic diastolic congestive heart failure (HCC),HTN, goal below 140/90 Take 1 Tablet by mouth in the morning. 34 Tablet 4 Active Clopidogrel Bisulfate 75 MG Oral Tablet (pLAVix)Indication s:Severe aortic stenosis,History of transcatheter aortic valve replacement (TAVR),Coronary artery disease involving [place] coronary artery of [place] heart without angina pectoris,Chronic diastolic congestive heart failure (HCC),HTN, goal below 140/90 Take 1 Tablet by mouth in the morning. 90 Tablet 3 4 Active Furosemide 80 MG Oral Tablet (Lasix)Indications :Severe aortic stenosis,History of transcatheter aortic valve replacement (TAVR),Coronary artery disease involving [place] coronary artery of [place] heart without angina pectoris,Chronic diastolic congestive heart failure (HCC),HTN, goal below 140/90 Take 1 Tablet by mouth in the morning. 90 Tablet 3 4 Active Losartan Potassium 25 MG Oral Tablet (Cozaar)Indication s:Severe aortic stenosis,History of transcatheter aortic valve replacement (TAVR),Coronary artery disease involving [place] coronary artery of [place] heart without angina pectoris,Chronic diastolic congestive heart failure (HCC),HTN, goal below 140/90 Take 1 Tablet by mouth in the morning. 90 Tablet 3 4 Active Metoprolol Succinate ER 25 MG Oral Tablet Extended Release 24 Hour (toPROL XL)Indications:Sev ere aortic stenosis,History of transcatheter aortic valve replacement (TAVR),Coronary artery disease involving [place] coronary artery of [place] heart without angina pectoris,Chronic diastolic congestive heart failure (HCC),HTN, goal below 140/90 Take 1 Tablet by mouth in the morning. 90 Tablet 3 4 Active Rosuvastatin Calcium 40 MG Oral Tablet (Crestor)Indicatio ns:Severe aortic stenosis,History of transcatheter aortic valve replacement (TAVR),Coronary artery disease involving [place] coronary artery of [place] heart without angina pectoris,Chronic diastolic congestive heart failure (HCC),HTN, goal below 140/90 Take 1 Tablet by mouth in the morning. 90 Tablet 3 4 Active documented as of this encounter (statuses as of 11/10/2024) Active Problems Problem Noted Date Diagnosed Date S/P TAVR (transcatheter aortic valve replacement ) 05/25/2024 (HFpEF) heart failure with preserved ejection fr action 05/25/2024 Aortic stenosis 05/10/2024 S/P angioplasty with stent 05/10/2024 Neuropathy of lower extremity 05/10/2024 Mitral regurgitation 05/10/2024 Enlarged prostate 05/10/2024 Aortic regurgitation 09/09/2022 CAD in [place] artery 08/20/2022 HLD (hyperlipidemia) 08/20/2022 Aortic stenosis 08/20/2022 Bradycardia 08/06/2022 Neuropathy of both feet 07/10/2022 Edema of both lower legs due to peripheral venous insufficiency 07/10/2022 Anxiety 07/10/2022 Ambulatory dysfunction 04/24/2022 Hard of hearing 04/04/2022 Hypertension 04/04/2022 Edema of leg 04/04/2022 Bowel dysfunction 04/04/2022 documented as of this encounter (statuses as of 11/10/2024) Immunizations Name Administration Dates Next Due Seasonal [...] Recorded Sex Assigned at Not on file Legal Sex Male 6:40 AM EST Gender Identity Not on file Sexual Orientation Not on file documented as of this encounter Functional Status * Are you deaf or do you have serious difficulty hearing? Answer Date of Assessment Author No 05/25/2024 7:13 PM EDT Villa Singletary RN * Are you blind or do you have serious difficulty seeing, even when wearing glasses? Answer Date of Assessment Author No 05/25/2024 7:13 PM EDT Blaire Singletary RN * Do you have serious difficulty walking or climbing stairs? (5 years old or older) Answer Date of Assessment Author No 05/25/2024 7:13 PM EDT Villa Singletary RN * Do you have difficulty dressing or bathing? (5 years old or older) Answer Date of Assessment Author No 05/25/2024 7:13 PM EDT Villa Singletary RN * Because of a physical, mental, or emotional condition, do you have difficulty doing errands alone such as visiting a doctors office or shopping? (15 years old or older) Answer Date of Assessment Author Yes 05/25/2024 7:13 PM EDT Villa Singletary RN documented as of this encounter Mental Status * Because of a physical, mental, or emotional condition, do you have serious difficulty concentrating, remembering, or making decisions? (5 years old or older) Answer Entry Date Author No 05/25/2024 7:13 PM EDT Villa Singletary RN documented in this encounter Miscellaneous Notes * Telephone Encounter - Parrish Hernandez LPN - 08/11/2024 11:32 AM EDT Sent patient a [employer] message to make aware. Lab ordered. Awaiting reply. ----- Message from Wero Aguirre sent at 08/10/2024 7:25 PM EDT ----- Lab results forwarded from previously provider... CBC ordered by 05/24/2024 and obtained 08/10/2024 Patient unknown to me WBC count mildly elevated. ? Recent use of steroid or signs/symptoms of infection. If feeling well check CBC with differential in 2 weeks documented in this encounter Plan of Treatment Upcoming Encounters Date Type Department Care Team (Late st Contact Info) Description 12/20/2024 11:00 AM EST Office Visit Cardiology, [facility] [address] [address] Wero Aguirre PA-C [address] [facility] [place] [address] 05/18/2025 8:15 AM EDT Cardiac Studies Cardiac Studies, [facility] [address] [facility] [place] [address] 05/18/2025 10:00 AM EDT [address], [address] [address] Munir Figueroa MD [address] [place] [address] Scheduled Orders Name Type Priority Associated Diagnoses Orde r Schedule CBC WITH WBC DIFFERENTIAL Lab Routine Elevated WBC count Expected: 08/25/2024 (Approximate), Expires: 08/11/2025 Health Maintenance Due Date Last Done Comments Depression Screening 1957 Albumin/Creatinine Ratio 1963 Hepatitis C Screening 1963 Zoster Vaccines (1 of 2) 1997 COVID-19 Vaccine (2 - season) 2024 06/05/2021 Influenza Vaccine (FLU shot) (#1) 2024 10/13/2023, 12/17/2019, 12/17/2019, Additional history exists DTap/Tdap Vaccines (2 - Td or Tdap) 08/23/2024 08/23/2014 GFR 08/10/2025 08/10/2024, 05/25, 05/26/2024, Additional history exists Pneumococcal Vaccine: 65+ Years [...] this encounter Medical Devices Implanted Type Area Lobsterman Device Identifier Shelf Expiration Date Model / Serial / Lot Stent Synergy Xd Mr [id number] - [id number] Implanted:Qty: 1 on 05/10/2024 by Munir Figueroa MD at [facility] [place] Accountable [id number] 12/24/2024 [id number] 220 / / [id number] Stent Synergy Xd Mr 2.36x80rd - [id number] Implanted:Qty: 1 on 05/10/2024 by Munir Figueroa MD at [facility] [place] Accountable [id number] 12/08/2024 [id number] 250 / / [id number] Stent Synergy Xd Mr [id number] - [id number] Implanted:Qty: 1 on 05/10/2024 by Munir Figueroa MD at [facility] [place] Accountable [id number] 09/24/2024 [id number] 300 / / [id number] Stent Synergy Xd Mr [id number] - [id number] Implanted:Qty: 1 on 05/10/2024 by Munir Figueroa MD at [facility] [place] Accountable [id number] 05/18/2025 [id number] 350 / / [id number] Valve Tavr Gautam 29mm - [id number] Implanted:Qty: 1 on 05/25/2024 by Munir Figueroa MD at [facility] [place] [employer] [id number] 12/16/2024 [id number] / / documented as of this encounter Visit Diagnoses Diagnosis Elevated WBC count- Primary Leukocytosis, unspecified documented in this encounter Advance Directives * Full Code (Latest Code Status on File) Date Activated Date Inactivated Comments 05/25/2024 12:39 PM 05/26/2024 6:57 PM This order re flects the patients wishes and were consensually agreed upon. Question Answer Comments Discussion of Advance Direct alva occurred with: Not Discussed due to patient's condition Care Teams Supervisor Research Kennel Relationship Specialty Start Date End Date Sammy Henderson MD [address] [place] [place] [address] PCP - General Internal Medicine 10/13/23 documented as of this encounter
--- OUTSIDE RECORDS SUMMARY | 2024-11-13 16:36 | External Medical Summary | Summary of Care ---
Author Name Unknown Organization [facility] Address [address] [place] [address] Phone [phone] Care Team Providers Care Staff Technologist Name Role Phone Sammy Henderson MD Primary Care Provider + Reason for Visit * Reason Comments Referral Encounter Details Date Type Department Care Team (Late st Contact Info) Description 05/25/2024 Documentation Cardiology [address] [address] Maxi Martinez MS Allergies Active Allergy Reactions Criticality Noted Date Comments Poison Tiffanie Extract 10/13/2023 documented as of this encounter (statuses as of 05/25/2024) Medications Medication Sig Dispensed Refills Start Date End Date Status Losartan Potassium 25 MG Oral Tablet (Cozaar) Take 1 Tablet by mouth in the morning. 08/20/2022 Suspended Metoprolol Succinate ER 25 MG Oral Tablet Extended Release 24 Hour (toPROL XL) Take 1 Tablet by mouth in the morning. 09/03/2022 Suspended Furosemide 80 MG Oral Tablet (Lasix) Take 1 Tablet by mouth in the morning. 09/11/2023 Suspended ALPRAZolam 2 MG Oral Tablet (xaNAX) Take 1 Tablet by mouth as needed. 02/04/2022 Suspended Bisacodyl 5 MG Oral Tablet Delayed Release (bisacodyl EC) Take 1 Tablet by mouth daily as needed for Constipation. Suspended Nitroglycerin 0.4 MG Sublingual Tablet Sublingual (Nitrostat) Place 1 tablet under the tongue every 5 minutes as needed for chest pain, up to a max of 3 doses in 15 minutes. If no relief call 911 or go to ER. 25 Tablet 05/10/2024 Suspended Additional Information Clopidogrel Bisulfate 75 MG Oral Tablet (pLAVix) Take 1 Tablet by mouth in the morning. Do not start before May 11, 2024. 90 Tablet 3 05/11/2024 Suspended Additional Information Aspirin 81 MG Oral Tablet Chewable Chew & swallow 1 Tablet by mouth every morning. 34 Tablet 05/10/2024 Suspended Additional Information Rosuvastatin Calcium 40 MG Oral Tablet (Crestor) Take 1 Tablet by mouth in the morning. Do not start before May 11, 2024. 90 Tablet 3 05/11/2024 Suspended Additional Information documented as of this encounter (statuses as of 05/25/2024) Active Problems Problem Noted Date Diagnosed Date Aortic stenosis 05/10/2024 S/P angioplasty with stent 05/10/2024 Neuropathy of lower extremity 05/10/2024 Mitral regurgitation 05/10/2024 Enlarged prostate 05/10/2024 Aortic regurgitation 09/09/2022 CAD in [place] artery 08/20/2022 HLD (hyperlipidemia) 08/20/2022 Aortic stenosis 08/20/2022 Bradycardia 08/06/2022 Neuropathy of both feet 07/10/2022 Edema of both lower legs due to peripheral venous insufficiency 07/10/2022 Anxiety 07/10/2022 Ambulatory dysfunction 04/24/2022 Hard of hearing 04/04/2022 Hypertension 04/04/2022 Edema of leg 04/04/2022 Bowel dysfunction 04/04/2022 documented as of this encounter (statuses as of 05/25/2024) Immunizations Name Administration Dates Next Due Seasonal [...] e alcohol) daily - wine and beer Utilities Answer Date Recorded Do you have trouble paying y our heating, water, or electric bill? (Adult - for ages 18 years and over) Not on file 05/11/2024 Is your family able to pay t he heat, water, or electric bill? (Household - for ages 0-17 years) Not on file 05/11/2024 Does your family have access to good internet? (Household - for ages 0-17 years) Not on file 05/11/2024 Social Connections Answer Date Recorded How often do you feel lonely or isolated from those around you? (Adult - for ages 18 years and over) Not on file 05/11/2024 Sex and Gender Information Value Date Recorded Sex Assigned at Not on file Gender Identity Not on file Sexual Orientation Not on file Job Start Date Occupation Industry Not on file Not on file Not on file documented as of this encounter Progress Notes * Maxi Martinez MS - 05/25/2024 1:40 PM EDT Cardiac rehab packet was mailed to patient on 05/12/2024 after recent PCI. Maxi Martinez MS ACS-CEP documented in this encounter Plan of Treatment Upcoming Encounters Date Type Department Care Team (Late st Contact Info) Description 06/14/2024 10:00 AM EDT Office Visit Cardiology, [facility] [address] [facility] [place] [address] Argenis Colbert CRNP [address] [facility] [place] [address] 08/10/2024 3:30 PM EDT Laboratory Laboratory, [facility] [address] [facility] [place] [phone] Krishan Rowan [facility] [address] [facility] [place] [address] 08/10/2024 4:00 PM EDT Cardiac Studies Cardiac Studies, [facility] [address] [facility] [place] [address] Scheduled Procedures Name Priority Associated Diagnoses Date/Ti me REPLACE AORTIC VALVE, PERCUTANEOUS FEMORAL Aortic stenosis 05/25/2024 10:45 AM EDT REPLACE AORTIC VALVE, PERCUTANEOUS FEMORAL Aortic stenosis 05/25/2024 10:45 AM EDT Health Maintenance Due Date Last Done Comments Depression Screening 1959 Albumin/Creatinine Ratio 1965 Hepatitis C Screening 1965 Zoster Vaccines (1 of 2) 1997 COVID-19 Vaccine (2 - 2022- season) 2023 06/05/2021 Influenza Vaccine (FLU shot) (#1) 2024 10/13/2023, 12/17/2019, 12/17/2019, Additional history exists DTaP,Tdap,and Td Vaccines (2 - Td or Tdap) 08/23/2024 08/23/2014 GFR 05/25/2025 05/25/2024, 04/24, 05/10/2024, Additional history exists Pneumococcal Vaccine: 65+ Years Completed 12/17/2019, 12/09/2018 GARDASIL-HPV IMMUNIZATION SERIES Aged Out No longer eligible based on patient's age to complete this topic Hepatitis B Aged Out No longer eligi ble based on patient's age to complete this topic MENINGOCOCCAL (MENACTRA/MENVEO) Aged Out No longer eligible based on patient's age to complete this topic documented as of this encounter Medical Devices Implanted Type Area Director Of Cardiology Service Line Device Identifier Shelf Expiration Date Model / Serial / Lot Stent Synergy Xd Mr [id number] - [id number] Implanted:Qty: 1 on 05/10/2024 by Munir Figueroa MD at [facility] [place] [employer] [id number] 12/24/2024 [id number] 220 / / [id number] Stent Synergy Xd Mr [id number] - [id number] Implanted:Qty: 1 on 05/10/2024 by Munir Figueroa MD at [facility] [place] [employer] [id number] 12/08/2024 [id number] 250 / / [id number] Stent Synergy Xd Mr 3.73h60gf - [id number] Implanted:Qty: 1 on 05/10/2024 by Munir Figueroa MD at [facility] [place] [employer] [id number] 09/24/2024 [id number] 300 / / [id number] Stent Synergy Xd Mr [id number] - [id number] Implanted:Qty: 1 on 05/10/2024 by Munir Figueroa MD at [facility] [place] [employer] [id number] 05/18/2025 [id number] 350 / / [id number] Valve Tavr Gautam 29mm - [id number] Implanted:Qty: 1 on 05/25/2024 by Munir Figueroa MD at [facility] [place] [employer] [id number] / / documented as of this encounter Advance Directives * Full Code (Latest Code Status on File) Date Activated Date Inactivated Comments 05/25/2024 12:39 PM This order ref lects the patients wishes and were consensually agreed upon. Question Answer Comments Discussion of Advance Direct alva occurred with: Not Discussed due to patient's condition Care Teams Staff Technologist Relationship Specialty Start Date End Date Sammy Henderson MD [address] [facility] [address] [address] PCP - General Internal Medicine 10/13/23 documented as of this encounter
--- OUTSIDE RECORDS SUMMARY | 2024-11-13 16:36 | External Medical Summary ---
Author Name Unknown Address Unknown Organization K01:[facility] - [address] [place] [address] Laboratory Report Ordering Provider Test Date Status COLEEN ATWOOD 05/26/2024 04:21:00 Final Observation Date Value Abnormality Reference (Units ) Status Magnesium 05/26/2024 04:21:00 2.1 1.5-2.6 (m g/dL) Final Performing Location [facility] - [address] [place] [address]
--- OUTSIDE RECORDS SUMMARY | 2024-11-13 16:36 | External Medical Summary ---
Author Name Unknown Address Unknown Organization [id number] [place] [address] [place] [address] Laboratory Report Ordering Provider Test Date Status COLEEN ATWOOD 05/26/2024 04:21:00 Final Observation Date Value Abnormality Reference (Units ) Status WBC, Total 05/26/2024 04:21:00 9.17 4.00-10.80 (K/uL) Final RBC 05/26/2024 04:21:00 4.03 4.50-5.25 (M/uL) Final Hemoglobin 05/26/2024 04:21:00 12.7 Below low normal 14.0-16.8 (g/dL) Final HCT 05/26/2024 04:21:00 38.1 Below low normal 40.0-48.4 (%) Final MCV 05/26/2024 04:21:00 94.5 82.0-99.5 (fL) Final MCH 05/26/2024 04:21:00 31.5 27.0-34.0 (pg) Final MCHC 05/26/2024 04:21:00 33.3 32.0-36.0 (g/dL) Final RDW 05/26/2024 04:21:00 12.6 11.5-15.5 (%) Final Platelets 05/26/2024 04:21:00 157 140-400 (K/uL) Final MPV 05/26/2024 04:21:00 11.1 6.6-11.1 (fL) Final Nucleated erythrocytes/100 leukocytes [Ratio] in Blood by Automated count 05/26/2024 04:21:00 0 <=0 (/100 WBCs) Final Performing Location [facility] [place] [address] [place] [address]
--- OUTSIDE RECORDS SUMMARY | 2024-11-13 16:36 | External Medical Summary | Summary of Care ---
Author Name Unknown Organization [facility] Address [address] [place] [address] Phone [phone] Care Team Providers Care Remelt Furnace Expediter Name Role Phone Sammy Henderson MD Primary Care Provider + Reason for Visit * Reason Onset Date Comments Advice 2024 Encounter Details Date Type Department Care Team (Late st Contact Info) Description 2024 Telephone [facility] [address] [place] [address] Wero Shoemaker MD [address] [place] [address] Advice Allergies Active Allergy Reactions Criticality Noted Date Comments Poison Tiffanie Extract 10/13/2023 documented as of this encounter (statuses as of 08/30/2024) Medications Medication Sig Dispensed Refills Start Date End Date Status ALPRAZolam 2 MG Oral Tablet (xaNAX) Take [...] go to ER. 25 Tablet 05/10/2024 Active Folic Acid 1 MG Oral Tablet Take 1 Tablet by mouth in the morning. 30 Tablet 11 05/27/2024 Active Multi-Vitamins Oral Tablet Take 1 Tablet by mouth daily at noon. 30 Tablet 11 05/26/2024 Active Thiamine HCl 100 MG Oral Tablet (vitamin B-1) Take 1 Tablet by mouth in the morning. 30 Tablet 11 05/26/2024 Active documented as of this encounter (statuses as of 08/30/2024) Active Problems Problem Noted Date Diagnosed Date S/P TAVR (transcatheter aortic valve replacement ) 05/25/2024 (HFpEF) heart failure with preserved ejection fr action 05/25/2024 Aortic stenosis 05/10/2024 S/P angioplasty with stent 05/10/2024 Neuropathy of lower extremity 05/10/2024 Mitral regurgitation 05/10/2024 Enlarged prostate 05/10/2024 Aortic regurgitation 09/09/2022 CAD in [place] artery 08/20/2022 HLD (hyperlipidemia) 08/20/2022 Aortic stenosis 08/20/2022 Bradycardia 08/06/2022 Neuropathy of both feet 07/10/2022 Edema of both lower legs due to peripheral venous insufficiency 07/10/2022 Anxiety 07/10/2022 Ambulatory dysfunction 04/24/2022 Hard of hearing 04/04/2022 Hypertension 04/04/2022 Edema of leg 04/04/2022 Bowel dysfunction 04/04/2022 documented as of this encounter (statuses as of 08/30/2024) Immunizations Name Administration Dates Next Due Seasonal [...] documented as of this encounter Functional Status Functional Status Response [...] (15 years old or older) Yes 05/25/20 24 Cognitive Status Response Date of Assessm ent Because of a physical, menta l, or emotional condition, do you have serious difficulty concentrating, remembering, or making decisions? (5 years old or older) No 05/25/2024 documented as of this encounter Miscellaneous Notes * Telephone Encounter - Tatyana Kaminski RN - 2024 3:38 PM EDT Callled number and spoke to Erica, She will call and talk to him. Aware if he was referring to dressing that can be removed, the heart monitor is to be on for 14 days. She will call him and let him know. Tatyana Cole RN 2024 3:39 PM * Telephone Encounter - Martine Blancas OSA - 2024 2:53 PM EDT Person calling: patient Relationship to patient: self Number to return call: [phone] Reason for call(brief): pt had procedure on 05-26-2024 aqnd needs to know when he can take his patch off Pharmacy: na Provider Name:na Detailed message to office:na documented in this encounter Plan of Treatment Upcoming Encounters Date Type Department Care Team (Late st Contact Info) Description 12/20/2024 11:00 AM EST Office Visit Cardiology, [facility] [address] [address] Wero Aguirre PA-C [address] [place] [address] 05/18/2025 8:15 AM EDT Cardiac Studies [facility], [facility] [address] 05/18/2025 10:00 AM EDT Office Visit Cardiology, [facility] 132 [facility] [place] [address] Munir Figueroa MD [address] [place] [address] Health Maintenance Due Date Last Done Comments [...] this encounter Medical Devices Implanted Type Area Full Service Vending Driver Device Identifier Shelf Expiration Date Model / Serial / Lot Stent Synergy Xd Mr [id number] - [id number] Implanted:Qty: 1 on 05/10/2024 by Munir Figueroa MD at [facility] [employer] [id number] 12/24/2024 [id number] 220 / / [id number] Stent Synergy Xd Mr 2.33t18ac - [id number] Implanted:Qty: 1 on 05/10/2024 by Munir Figueroa MD at [facility] [employer] [id number] 12/08/2024 [id number] 250 / / [id number] Stent Synergy Xd Mr 3.64k84wr - [id number] Implanted:Qty: 1 on 05/10/2024 by Munir Figueroa MD at [facility] [employer] [id number] 09/24/2024 [id number] 300 / / [id number] Stent Synergy Xd Mr 3.98n76dr - [id number] Implanted:Qty: 1 on 05/10/2024 by Munir Figueroa MD at [facility] [employer] [id number] 05/18/2025 [id number] 350 / / [id number] Valve Tavr Gautam 29mm - [id number] Implanted:Qty: 1 on 05/25/2024 by Munir Figueroa MD at [facility] [employer] [id number] 12/16/2024 [id number] / / documented as of this encounter Advance Directives * Full Code (Latest Code Status on File) Date Activated Date Inactivated Comments 05/25/2024 12:39 PM 05/26/2024 6:57 PM This order re flects the patients wishes and were consensually agreed upon. Question Answer Comments Discussion of Advance Direct alva occurred with: Not Discussed due to patient's condition Care Teams Remelt Furnace Expediter Relationship Specialty Start Date End Date Sammy Henderson MD 6 [facility] [address] [place] [address] PCP - General Internal Medicine 10/13/23 documented as of this encounter
--- OUTSIDE RECORDS SUMMARY | 2024-11-13 16:36 | External Medical Summary | Summary of Care ---
Author Name Unknown Organization [facility] Address [address] [place] [address] Phone [phone] Care Team Providers Care Miller Helper Distillery Name Role Phone Sammy Henderson MD Primary Care Provider + Reason for Visit * Auth/Cert Specialty Diagnoses / Procedures Referred By Contac t Referred To Contact Diagnoses Aortic stenosis Aortic stenosis [I35.0] Procedures REPLACE AORTIC VALVE, PERCUTANEOUS FEMORAL REPLACE AORTIC VALVE, PERCUTANEOUS FEMORAL REPLACE AORTIC VALVE, PERCUTANEOUS FEMORAL REPLACE AORTIC VALVE, PERCUTANEOUS FEMORAL Munir Figueroa MD [address] [place] [address] Crs Waiting Ip [facility] [address] [place] [address] Referral ID Status Reason Start Date Expiration Date Visits Re quested Visits Authorized [id number] Encounter Details Date Type Department Care Team (Latest Contact Info) Description 05/25/2024 9:52 AM EDT - 05/25/2024 11:59 PM EDT Hospital Encounter Cardiac Studies [facility] [address] [place] [address] Discharge Disposition: Home - Self Care Allergies Active Allergy Reactions Criticality Noted Date Comments Poison Tiffanie Extract 10/13/2023 documented as of this encounter (statuses as of 05/26/2024) Medications Medication Sig Dispensed Refills Start Date [...] as of this encounter (statuses as of 05/26/2024) Active Problems Problem Noted Date Diagnosed Date S/P TAVR (transcatheter aortic valve replacement ) 05/25/2024 (HFpEF) heart failure with preserved ejection fr action 05/25/2024 Aortic stenosis 05/10/2024 S/P angioplasty with stent 05/10/2024 Neuropathy of lower extremity 05/10/2024 Mitral regurgitation 05/10/2024 Enlarged prostate 05/10/2024 Aortic regurgitation 09/09/2022 CAD in [place] artery 08/20/2022 HLD (hyperlipidemia) 08/20/2022 Aortic stenosis 08/20/2022 Bradycardia 08/06/2022 Neuropathy of both feet 07/10/2022 Edema of both lower legs due to peripheral venous insufficiency 07/10/2022 Anxiety 07/10/2022 Ambulatory dysfunction 04/24/2022 Hard of hearing 04/04/2022 Hypertension 04/04/2022 Edema of leg 04/04/2022 Bowel dysfunction 04/04/2022 documented as of this encounter (statuses as of 05/26/2024) Immunizations Name Administration Dates Next Due Seasonal [...] No 05/25/2024 documented as of this encounter Plan of Treatment Upcoming Encounters Date Type Department Care Team (Late st Contact Info) Description 05/26/2024 2:00 PM EDT Cardiac Studies [facility] [place] [address] [facility] [address] Monitor, Holter [address] [facility] [address] 06/14/2024 10:00 AM EDT Office Visit Cardiology, [facility] [address] [place] [address] Argenis Colbert CRNP [address] [place] [address] 08/10/2024 3:30 PM EDT Laboratory Laboratory, [facility] 132 [facility] [place] [phone] RowanKrishan colindres [facility] 132 [facility] [place] [address] 08/10/2024 4:00 PM EDT Cardiac Studies Cardiac Studies, [facility] 132 [facility] [place] [address] Health Maintenance Due Date Last Done Comments Depression Screening 1957 Albumin/Creatinine Ratio 1965 Hepatitis C Screening 1965 Zoster Vaccines (1 of 2) 1997 COVID-19 Vaccine (2 - season) 2023 06/05/2021 Influenza Vaccine (FLU shot) [...] this encounter Medical Devices Implanted Type Area Profiling Machine Set Up Operator Device Identifier Shelf Expiration Date Model / Serial / Lot Stent Synergy Xd Mr 2.42l91zc - [id number] Implanted:Qty: 1 on 05/10/2024 by Munir Figueroa MD at [facility] [employer] [id number] 12/24/2024 [id number] 220 / / [id number] Stent Synergy Xd Mr 2.25z87st - [id number] Implanted:Qty: 1 on 05/10/2024 by Munir Figueroa MD at [facility] [employer] [id number] 12/08/2024 [id number] 250 / / [id number] Stent Synergy Xd Mr 3.40q14dn - [id number] Implanted:Qty: 1 on 05/10/2024 by Munir Figueroa MD at [facility] [employer] [id number] 09/24/2024 [id number] 300 / / [id number] Stent Synergy Xd Mr 3.89j51by - [id number] Implanted:Qty: 1 on 05/10/2024 by Munir Figueroa MD at [facility] [employer] [id number] 05/18/2025 [id number] 350 / / [id number] Valve Tavr Gautam 29mm - [id number] Implanted:Qty: 1 on 05/25/2024 by Munir Figueroa MD at [facility] [employer] [id number] / / documented as of this encounter Procedures Procedure Name Priority Date/Time Associated Diagnosis Comments ECHO, COMPLETE (2D), TRANS-THORACIC STAT 05/25/2024 12:36 PM EDT Status post cardiac surgery documented in this encounter Results * ECHO, COMPLETE (2D), TRANS-THORACIC (05/25/2024 12:36 PM EDT) 05/25/2024 11:1 6 AM EDT Munir Figueroa MD [facility] documented in this encounter Advance Directives * Full Code (Latest Code Status on File) Date Activated Date Inactivated Comments 05/25/2024 12:39 PM This order ref lects the patients wishes and were consensually agreed upon. Question Answer Comments Discussion of Advance Direct alva occurred with: Not Discussed due to patient's condition Care Teams Miller Helper Distillery Relationship Specialty Start Date End Date Sammy Henderson MD NPI: [id number] [place] [address] [place] [address] PCP - General Internal Medicine 10/13/23 documented as of this encounter
--- OUTSIDE RECORDS SUMMARY | 2024-11-13 16:36 | External Medical Summary | Summary of Care ---
Author Name Unknown Organization [facility] Address [address] [facility] [place] [address] Phone [phone] Care Team Providers Care Academic Hospitalist Name Role Phone Sammy Henderson MD Primary Care Provider + Reason for Visit * Reason Onset Date Comments Test Results 06/24/2024 Encounter Details Date Type Department Care Team (Late st Contact Info) Description 06/24/2024 Telephone Cardiology, [facility] [address] [place] [address] Argenis Colbert CRNP [address] [facility] [place] [address] Test Results Allergies Active Allergy Reactions Criticality Noted Date Comments Poison Tiffanie Extract 10/13/2023 documented as of this encounter (statuses as of 06/24/2024) Medications Medication Sig Dispensed Refills Start Date [...] mouth daily at noon. 30 Tablet 05/26/2024 Active Thiamine HCl 100 MG Oral Tablet (vitamin B-1) Take 1 Tablet by mouth in the morning. 30 Tablet 11 05/26/2024 Active Amoxicillin 500 MG Oral Capsule (Amoxil)Indications:Se dillon aortic stenosis,History of transcatheter aortic valve replacement (TAVR),Coronary artery disease involving prairie band coronary artery of prairie band heart without angina pectoris,Chronic diastolic congestive heart failure (HCC),HTN, goal below 140/90 Take 4 capsules 1 hour prior to any dental work 4 Capsule 4 06/14/2024 Active Aspirin 81 MG Oral Tablet ChewableIndications:Se dillon aortic stenosis,History of transcatheter aortic valve replacement (TAVR),Coronary artery disease involving prairie band coronary artery of prairie band heart without angina pectoris,Chronic diastolic congestive heart failure (HCC),HTN, goal below 140/90 Take 1 Tablet by mouth in the morning. 34 Tablet 06/14/2024 Active Clopidogrel Bisulfate 75 MG Oral Tablet (pLAVix)Indications:Se dillon aortic stenosis,History of transcatheter aortic valve replacement (TAVR),Coronary artery disease involving prairie band coronary artery of prairie band heart without angina pectoris,Chronic diastolic congestive heart failure (HCC),HTN, goal below 140/90 Take 1 Tablet by mouth in the morning. 90 Tablet 3 06/14/2024 Active Furosemide 80 MG Oral Tablet (Lasix)Indications:Sev ere aortic stenosis,History of transcatheter aortic valve replacement (TAVR),Coronary artery disease involving prairie band coronary artery of prairie band heart without angina pectoris,Chronic diastolic congestive heart failure (HCC),HTN, goal below 140/90 Take 1 Tablet by mouth in the morning. 90 Tablet 3 06/14/2024 Active Losartan Potassium 25 MG Oral Tablet (Cozaar)Indications:Se dillon aortic stenosis,History of transcatheter aortic valve replacement (TAVR),Coronary artery disease involving prairie band coronary artery of prairie band heart without angina pectoris,Chronic diastolic congestive heart failure (HCC),HTN, goal below 140/90 Take 1 Tablet by mouth in the morning. 90 Tablet 3 06/14/2024 Active Metoprolol Succinate ER 25 MG Oral Tablet Extended Release 24 Hour (toPROL XL)Indications:Severe aortic stenosis,History of transcatheter aortic valve replacement (TAVR),Coronary artery disease involving prairie band coronary artery of prairie band heart without angina pectoris,Chronic diastolic congestive heart failure (HCC),HTN, goal below 140/90 Take 1 Tablet by mouth in the morning. 90 Tablet 3 06/14/2024 Active Rosuvastatin Calcium 40 MG Oral Tablet (Crestor)Indications:S evere aortic stenosis,History of transcatheter aortic valve replacement (TAVR),Coronary artery disease involving prairie band coronary artery of prairie band heart without angina pectoris,Chronic diastolic congestive heart failure (HCC),HTN, goal below 140/90 Take 1 Tablet by mouth in the morning. 90 Tablet 3 06/14/2024 Active documented as of this encounter (statuses as of 06/24/2024) Active Problems Problem Noted Date Diagnosed Date S/P TAVR (transcatheter aortic valve replacement ) 05/25/2024 (HFpEF) heart failure with preserved ejection fr action 05/25/2024 Aortic stenosis 05/10/2024 S/P angioplasty with stent 05/10/2024 Neuropathy of lower extremity 05/10/2024 Mitral regurgitation 05/10/2024 Enlarged prostate 05/10/2024 Aortic regurgitation 09/09/2022 CAD in [place] artery 08/20/2022 HLD (hyperlipidemia) 08/20/2022 Aortic stenosis 08/20/2022 Bradycardia 08/06/2022 Neuropathy of both feet 07/10/2022 Edema of both lower legs due to peripheral venous insufficiency 07/10/2022 Anxiety 07/10/2022 Ambulatory dysfunction 04/24/2022 Hard of hearing 04/04/2022 Hypertension 04/04/2022 Edema of leg 04/04/2022 Bowel dysfunction 04/04/2022 documented as of this encounter (statuses as of 06/24/2024) Immunizations Name Administration Dates Next Due Seasonal [...] Telephone Encounter - Parrish Hernandez LPN - 06/24/2024 11:07 AM EDT Sent patient a [employer] message to make aware. ----- Message from Argenis Colbert sent at 06/24/2024 10:58 AM EDT ----- One-month post TAVR echo reviewed. LVEF normal. TAVR gradients stable. No changes needed. documented in this encounter Plan of Treatment Upcoming Encounters Date Type Department Care Team (Late st Contact Info) Description 08/10/2024 3:30 PM EDT Laboratory Laboratory, [facility] [address] [phone] Krishan Rowan [address] [address] 12/20/2024 11:00 AM EST Office Visit Cardiology, [facility] [address] [place] [address] Wero Aguirre PA-C [address] [place] [address] Health Maintenance Due Date Last Done Comments Depression Screening 1957 Albumin/Creatinine Ratio 1965 Hepatitis C Screening 1965 Zoster Vaccines (1 of 2) 1997 COVID-19 Vaccine (2 - season) 2023 06/05/2021 Influenza Vaccine (FLU shot) (#1) 2024 10/13/2023, 12/17/2019, 12/17/2019, Additional history exists DTaP,Tdap,and Td Vaccines (2 - Td or Tdap) 08/23/2024 08/23/2014 GFR 06/14/2025 06/14/2024, 01/2024, 05/25/2024, Additional history exists Pneumococcal Vaccine: 65+ [...] this encounter Medical Devices Implanted Type Area Manager Technical Training Device Identifier Shelf Expiration Date Model / Serial / Lot Stent Synergy Xd Mr 2.46s57gm - [id number] Implanted:Qty: 1 on 05/10/2024 by Munir Figueroa MD at [facility] [employer] [id number] 12/24/2024 [id number] 220 / / [id number] Stent Synergy Xd Mr 2.07k51oq - [id number] Implanted:Qty: 1 on 05/10/2024 by Munir Figueroa MD at [facility] [employer] [id number] 12/08/2024 [id number] 250 / / [id number] Stent Synergy Xd Mr 3.80a64qp - [id number] Implanted:Qty: 1 on 05/10/2024 by Munir Figueroa MD at [facility] [employer] [id number] 09/24/2024 [id number] 300 / / [id number] Stent Synergy Xd Mr 3.96w97xw - [id number] Implanted:Qty: 1 on 05/10/2024 by Munir Figueroa MD at [facility] [employer] [id number] 05/18/2025 [id number] 350 / / [id number] Valve Tavr Gautam 29mm - [id number] Implanted:Qty: 1 on 05/25/2024 by Munir Figueroa MD at [facility] [employer] [id number] 12/16/2024 [id number] / / documented as of this encounter Advance Directives * Full Code (Latest Code Status on File) Date Activated Date Inactivated Comments 05/25/2024 12:39 PM 05/26/2024 6:57 PM This order re flects the patients wishes and were consensually agreed upon. Question Answer Comments Discussion of Advance Direct alva occurred with: Not Discussed due to patient's condition Care Teams Academic Hospitalist Relationship Specialty Start Date End Date Sammy Henderson MD [address] [place] [address] PCP - General Internal Medicine 10/13/23 documented as of this encounter
--- OUTSIDE RECORDS SUMMARY | 2024-11-13 16:36 | External Medical Summary ---
Author Name Unknown Address Unknown Organization K01:[facility]ATORY [facility] - [address] [facility] [place] [address] Laboratory Report Ordering Provider Test Date Status NELLIE PEREZ 06/14/2024 10:17:18 Final Observation Date Value Abnormality Reference (Units ) Status WBC, Total 06/14/2024 10:17:18 9.63 4.00-10.8 0 (K/uL) Final RBC 06/14/2024 10:17:18 4.32 4.50-5.25 (M/uL) Final Hemoglobin 06/14/2024 10:17:18 13.4 Below low normal 14 .0-16.8 (g/dL) Final Anemia reflex testing trigge rs on a HGB < 12.0 for Females and HGB < 13.0 for Males in accordance with the WHO Anemia Guidelines
Anemia reflex testing triggers on a HGB < 12.0 for Females and HGB < 13.0 for Males in accordance with the WHO Anemia Guidelines HCT 06/14/2024 10:17:18 40.2 40.0-48.4 (%) Final MCV 06/14/2024 10:17:18 93.1 82.0-99.5 (fL) Final MCH 06/14/2024 10:17:18 31.0 27.0-34.0 (pg) Final MCHC 06/14/2024 10:17:18 33.3 32.0-36.0 (g/dL) Final RDW 06/14/2024 10:17:18 12.4 11.5-15.5 (%) Final Platelets 06/14/2024 10:17:18 266 140-400 (K /uL) Final MPV 06/14/2024 10:17:18 10.7 6.6-11.1 ( fL) Final Nucleated erythrocytes/100 leukocytes [Ratio] in Blood by Automated count 06/14/2024 10:17:18 0 <=0 (/100 WBCs) Fi [facility] Performing Location [facility]ORY [facility] - [address] [facility] [address]
--- OUTSIDE RECORDS SUMMARY | 2024-11-13 16:36 | External Medical Summary | Summary of Care ---
Author Name Unknown Organization [facility] Address [address] [facility] [place] [address] Phone [phone] Care Team Providers Care Legal Administrative Assistant Name Role Phone Sammy Henderson MD Primary Care Provider + Encounter Details Date Type Department Care Team (Late st Contact Info) Description 08/17/2024 Orders Only PATIENT PORTAL DO NOT DELETE THIS DEPT USED BY [place] [id number] Allergies Active Allergy Reactions Criticality Noted Date Comments Poison Tiffanie Extract 10/13/2023 documented as of this encounter (statuses as of 08/17/2024) Medications Medication Sig Dispensed Refills Start Date [...] aortic valve replacement (TAVR),Coronary artery disease involving [place] coronary artery of [place] heart without angina pectoris,Chronic diastolic congestive heart failure (HCC),HTN, goal below 140/90 Take 4 capsules 1 hour prior to any dental work 4 Capsule 4 06/14/2024 Active Aspirin 81 MG Oral Tablet ChewableIndications:[place] aortic stenosis,History of transcatheter aortic valve replacement (TAVR),Coronary artery disease involving [place] coronary artery of [place] heart without angina pectoris,Chronic diastolic congestive heart failure (HCC),HTN, goal below 140/90 Take 1 Tablet by mouth in the morning. 34 Tablet 06/14/2024 Active Clopidogrel Bisulfate 75 MG Oral Tablet (pLAVix)Indications:[place] aortic stenosis,History of transcatheter aortic valve replacement (TAVR),Coronary artery disease involving [place] coronary artery of [place] heart without angina pectoris,Chronic diastolic congestive heart failure (HCC),HTN, goal below 140/90 Take 1 Tablet by mouth in the morning. 90 Tablet 3 06/14/2024 Active Furosemide 80 MG Oral Tablet (Lasix)Indications:[place]ev [place] aortic stenosis,History of transcatheter aortic valve replacement (TAVR),Coronary artery disease involving [place] coronary artery of [place] heart without angina pectoris,Chronic diastolic congestive heart failure (HCC),HTN, goal below 140/90 Take 1 Tablet by mouth in the morning. 90 Tablet 3 06/14/2024 Active Losartan Potassium 25 MG Oral Tablet (Cozaar)Indications:[place] aortic stenosis,History of transcatheter aortic valve replacement (TAVR),Coronary artery disease involving [place] coronary artery of [place] heart without angina pectoris,Chronic diastolic congestive heart failure (HCC),HTN, goal below 140/90 Take 1 Tablet by mouth in the morning. 90 Tablet 3 06/14/2024 Active Metoprolol Succinate ER 25 MG Oral Tablet Extended Release 24 Hour (toPROL XL)Indications:Severe aortic stenosis,History of transcatheter aortic valve replacement (TAVR),Coronary artery disease involving [place] coronary artery of [place] heart without angina pectoris,Chronic diastolic congestive heart failure (HCC),HTN, goal below 140/90 Take 1 Tablet by mouth in the morning. 90 Tablet 3 06/14/2024 Active Rosuvastatin Calcium 40 MG Oral Tablet (Crestor)Indications:S evere aortic stenosis,History of transcatheter aortic valve replacement (TAVR),Coronary artery disease involving [place] coronary artery of [place] heart without angina pectoris,Chronic diastolic congestive heart failure (HCC),HTN, goal below 140/90 Take 1 Tablet by mouth in the morning. 90 Tablet 3 06/14/2024 Active documented as of this encounter (statuses as of 08/17/2024) Active Problems Problem Noted Date Diagnosed Date S/P TAVR (transcatheter aortic valve replacement ) 05/25/2024 (HFpEF) heart failure with preserved ejection fr action 05/25/2024 Aortic stenosis 05/10/2024 S/P angioplasty with stent 05/10/2024 Neuropathy of lower extremity 05/10/2024 Mitral regurgitation 05/10/2024 Enlarged prostate 05/10/2024 Aortic regurgitation 09/09/2022 CAD in [place] artery 08/20/2022 HLD (hyperlipidemia) 08/20/2022 Aortic stenosis 08/20/2022 Bradycardia 08/06/2022 Neuropathy of both feet 07/10/2022 Edema of both lower legs due to peripheral venous insufficiency 07/10/2022 Anxiety 07/10/2022 Ambulatory dysfunction 04/24/2022 Hard of hearing 04/04/2022 Hypertension 04/04/2022 Edema of leg 04/04/2022 Bowel dysfunction 04/04/2022 documented as of this encounter (statuses as of 08/17/2024) Immunizations Name Administration Dates Next Due Seasonal [...] 12/20/2024 11:00 AM EST Office Visit [facility]iology, [facility] [place] [address] Wero Aguirre PA-C [address] [place] [address] 05/18/2025 8:15 AM EDT Cardiac Studies Cardiac Studies, [facility] [address] [facility] [place] [address] 05/18/2025 10:00 AM EDT Office Visit Cardiology, [facility] [address] [facility] [place] [address] Munir Figueroa MD [address], [place] [id number] Health Maintenance Due Date Last Done Comments [...] this encounter Medical Devices Implanted Type Area Worsted Winder Device Identifier Shelf Expiration Date Model / Serial / Lot Stent Synergy Xd Mr 2.19k56ks - [id number] Implanted:Qty: 1 on 05/10/2024 by Munir Figueroa MD at [facility] [employer] [id number] 12/24/2024 [id number] 220 / / [id number] Stent Synergy Xd Mr 2.04y09nx - [id number] Implanted:Qty: 1 on 05/10/2024 by Munir Figueroa MD at [facility] [employer] [id number] 12/08/2024 [id number] 250 / / [id number] Stent Synergy Xd Mr 3.61x59dg - [id number] Implanted:Qty: 1 on 05/10/2024 by Munir Figueroa MD at [facility] [employer] [id number] 09/24/2024 [id number] 300 / / [id number] Stent Synergy Xd Mr 3.82a93ov - [id number] Implanted:Qty: 1 on 05/10/2024 by Munir Figueroa MD at [facility] [employer] [id number] 05/18/2025 [id number] 350 / / [id number] Valve Tavr Gautam 29mm - [id number] Implanted:Qty: 1 on 05/25/2024 by Munir Figueroa MD at [facility] [employer] [id number] 12/16/2024 [id number] / / documented as of this encounter Advance Directives * Full Code (Latest Code Status on File) Date Activated Date Inactivated Comments 05/25/2024 12:39 PM 05/26/2024 6:57 PM This order re flects the patients wishes and were consensually agreed upon. Question Answer Comments Discussion of Advance Direct alva occurred with: Not Discussed due to patient's condition Care Teams Legal Administrative Assistant Relationship Specialty Start Date End Date Sammy Henderson MD [address] [place] [address] PCP - General Internal Medicine 10/13/23 documented as of this encounter
--- OUTSIDE RECORDS SUMMARY | 2024-11-13 16:36 | External Medical Summary | Summary of Care ---
Author Name Unknown Organization [facility] Address [address] [facility] [place] [address] Phone [phone] Care Team Providers Care Business Continuity Analyst Name Role Phone Sammy Henderson MD Primary Care Provider + Reason for Visit * Reason Comments Outpatient Testing Encounter Details Date Type Department Care Team (Late st Contact Info) Description 08/10/2024 3:30 PM EDT Laboratory Laboratory, [facility] [address] [facility] [place] [phone] [facility] [address] History of transcatheter aortic valve replacement (TAVR) Allergies Active Allergy Reactions Criticality Noted Date Comments Poison Tiffanie Extract 10/13/2023 documented as of this encounter (statuses as of 08/10/2024) Medications Medication Sig Dispensed Refills Start Date [...] aortic valve replacement (TAVR),Coronary artery disease involving [place] coronary artery of [place] heart without angina pectoris,Chronic diastolic congestive heart failure (HCC),HTN, goal below 140/90 Take 4 capsules 1 hour prior to any dental work 4 Capsule 4 06/14/2024 Active Aspirin 81 MG Oral Tablet ChewableIndications:[place] aortic stenosis,History of transcatheter aortic valve replacement (TAVR),Coronary artery disease involving [place] coronary artery of [place] heart without angina pectoris,Chronic diastolic congestive heart failure (HCC),HTN, goal below 140/90 Take 1 Tablet by mouth in the morning. 34 Tablet 06/14/2024 Active Clopidogrel Bisulfate 75 MG Oral Tablet (pLAVix)Indications:[place] aortic stenosis,History of transcatheter aortic valve replacement (TAVR),Coronary artery disease involving [place] coronary artery of [place] heart without angina pectoris,Chronic diastolic congestive heart failure (HCC),HTN, goal below 140/90 Take 1 Tablet by mouth in the morning. 90 Tablet 3 06/14/2024 Active Furosemide 80 MG Oral Tablet (Lasix)Indications:Sev ere aortic stenosis,History of transcatheter aortic valve replacement (TAVR),Coronary artery disease involving [place] coronary artery of [place] heart without angina pectoris,Chronic diastolic congestive heart failure (HCC),HTN, goal below 140/90 Take 1 Tablet by mouth in the morning. 90 Tablet 3 06/14/2024 Active Losartan Potassium 25 MG Oral Tablet (Cozaar)Indications:[place] aortic stenosis,History of transcatheter aortic valve replacement (TAVR),Coronary artery disease involving [place] coronary artery of [place] heart without angina pectoris,Chronic diastolic congestive heart failure (HCC),HTN, goal below 140/90 Take 1 Tablet by mouth in the morning. 90 Tablet 3 06/14/2024 Active Metoprolol Succinate ER 25 MG Oral Tablet Extended Release 24 Hour (toPROL XL)Indications:Severe aortic stenosis,History of transcatheter aortic valve replacement (TAVR),Coronary artery disease involving [place] coronary artery of [place] heart without angina pectoris,Chronic diastolic congestive heart failure (HCC),HTN, goal below 140/90 Take 1 Tablet by mouth in the morning. 90 Tablet 3 06/14/2024 Active Rosuvastatin Calcium 40 MG Oral Tablet (Crestor)Indications:S evere aortic stenosis,History of transcatheter aortic valve replacement (TAVR),Coronary artery disease involving [place] coronary artery of [place] heart without angina pectoris,Chronic diastolic congestive heart failure (HCC),HTN, goal below 140/90 Take 1 Tablet by mouth in the morning. 90 Tablet 3 06/14/2024 Active documented as of this encounter (statuses as of 08/10/2024) Active Problems Problem Noted Date Diagnosed Date S/P TAVR (transcatheter aortic valve replacement ) 05/25/2024 (HFpEF) heart failure with preserved ejection fr action 05/25/2024 Aortic stenosis 05/10/2024 S/P angioplasty with stent 05/10/2024 Neuropathy of lower extremity 05/10/2024 Mitral regurgitation 05/10/2024 Enlarged prostate 05/10/2024 Aortic regurgitation 09/09/2022 CAD in [place] artery 08/20/2022 HLD (hyperlipidemia) 08/20/2022 Aortic stenosis 08/20/2022 Bradycardia 08/06/2022 Neuropathy of both feet 07/10/2022 Edema of both lower legs due to peripheral venous insufficiency 07/10/2022 Anxiety 07/10/2022 Ambulatory dysfunction 04/24/2022 Hard of hearing 04/04/2022 Hypertension 04/04/2022 Edema of leg 04/04/2022 Bowel dysfunction 04/04/2022 documented as of this encounter (statuses as of 08/10/2024) Immunizations Name Administration Dates Next Due Seasonal [...] 12/20/2024 11:00 AM EST Office Visit Cardiology, [facility] [address] [facility] [place] [address] Wero Aguirre PA-C [address] [place] [address] 05/18/2025 8:15 AM EDT Cardiac Studies Cardiac Studies, [facility] [address] [facility] [place] [address] 05/18/2025 10:00 AM EDT Office Visit Cardiology, [facility] [address] [facility] [place] [address] Munir Figueroa MD [address] [facility] [place] [facility] [address] Pending Results Name Type Priority Associated Diagnoses Date /Time CBC Lab Routine History of transcatheter aortic valve replacement (TAVR) 08/10/2024 2:49 PM EDT BASIC METABOLIC PANEL Lab Routine History of transcatheter aortic valve replacement (TAVR) 08/10/2024 2:49 PM EDT Health Maintenance Due Date Last Done Comments Depression Screening 1957 Albumin/Creatinine Ratio 1965 Hepatitis C Screening 1965 Zoster Vaccines (1 of 2) 1997 COVID-19 Vaccine (2 - season) 2024 06/05/2021 Influenza Vaccine (FLU shot) (#1) 2024 10/13/2023, 12/17/2019, 12/17/2019, Additional history exists DTap/Tdap Vaccines (2 - Td or Tdap) 08/23/2024 08/23/2014 GFR 06/14/2025 06/14/2024, 0701/2024, 05/25/2024, Additional history exists Pneumococcal Vaccine: 65+ [...] this encounter Medical Devices Implanted Type Area Distilling Department Supervisor Device Identifier Shelf Expiration Date Model / Serial / Lot Stent Synergy Xd Mr 2.41r37ke - [id number] Implanted:Qty: 1 on 05/10/2024 by Munir Figueroa MD at [facility] [employer] [id number] 12/24/2024 [id number] 220 / / [id number] Stent Synergy Xd Mr 2.23r57mb - [id number] Implanted:Qty: 1 on 05/10/2024 by Munir Figueroa MD at [facility] [employer] [id number] 12/08/2024 [id number] 250 / / [id number] Stent Synergy Xd Mr 3.17s57ac - [id number] Implanted:Qty: 1 on 05/10/2024 by Munir Figueroa MD at [facility] [employer] [id number] 09/24/2024 [id number] 300 / / [id number] Stent Synergy Xd Mr 3.98i16ww - [id number] Implanted:Qty: 1 on 05/10/2024 by Munir Figueroa MD at [facility] [employer] [id number] 05/18/2025 [id number] 350 / / [id number] Valve Tavr Gautam 29mm - [id number] Implanted:Qty: 1 on 05/25/2024 by Munir Figueroa MD at [facility] [employer] [id number] 12/16/2024 [id number] / / documented as of this encounter Visit Diagnoses Diagnosis History of transcatheter aortic valve replacement (TAVR) documented in this encounter Advance Directives * Full Code (Latest Code Status on File) Date Activated Date Inactivated Comments 05/25/2024 12:39 PM 05/26/2024 6:57 PM This order re flects the patients wishes and were consensually agreed upon. Question Answer Comments Discussion of Advance Direct alva occurred with: Not Discussed due to patient's condition Care Teams Business Continuity Analyst Relationship Specialty Start Date End Date Sammy Henderson MD [address] [facility] [address] [place] [address] PCP - General Internal Medicine 10/13/23 documented as of this encounter
--- OUTSIDE RECORDS SUMMARY | 2024-11-13 16:36 | External Medical Summary | Summary of Care ---
Author Name Unknown Organization [facility] Address [address] [place] [address] Phone [phone] Care Team Providers Care Principle Industrial Hygienist Name Role Phone Sammy Henderson MD Primary Care Provider + Reason for Visit * Auth/Cert Specialty Diagnoses / Procedures Referred By Contac t Referred To Contact Diagnoses Aortic stenosis Aortic stenosis [I35.0] Procedures REPLACE AORTIC VALVE, PERCUTANEOUS FEMORAL REPLACE AORTIC VALVE, PERCUTANEOUS FEMORAL REPLACE AORTIC VALVE, PERCUTANEOUS FEMORAL REPLACE AORTIC VALVE, PERCUTANEOUS FEMORAL Munir Figueroa MD [address] [place] [address] Crs Waiting Ip [facility] [address] [place] [address] Referral ID Status Reason Start Date Expiration Date Visits Re quested Visits Authorized [id number] Encounter Details Date Type Department Care Team (Latest Contact Info) Description 05/26/2024 5:59 AM EDT - 05/26/2024 11:59 PM EDT Hospital Encounter Cardiac Studies [facility] [address] [place] [address] Discharge Disposition: Home - Self [...] 11, 2024. 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 [address] [place] [address] 08/10/2024 4:00 PM EDT Cardiac Studies Cardiac Studies, [facility] [address] [place] [address] Health Maintenance Due Date Last Done Comments [...] this encounter Medical Devices Implanted Type Area Dinkey Brakeman Device Identifier Shelf Expiration Date Model / Serial / Lot Stent Synergy Xd Mr 2.31t71dx - [id number] Implanted:Qty: 1 on 05/10/2024 by Munir Figueroa MD at [facility] [employer] [id number] 12/24/2024 [id number] 220 / / [id number] Stent Synergy Xd Mr 2.90v15mv - [id number] Implanted:Qty: 1 on 05/10/2024 by Munir Figueroa MD at [facility] [employer] [id number] 12/08/2024 [id number] 250 / / [id number] Stent Synergy Xd Mr 3.37x93xi - [id number] Implanted:Qty: 1 on 05/10/2024 by Munir Figueroa MD at [facility] [employer] [id number] 09/24/2024 [id number] 300 / / [id number] Stent Synergy Xd Mr 3.81g61ne - [id number] Implanted:Qty: 1 on 05/10/2024 by Munir Figueroa MD at [facility] [employer] [id number] 05/18/2025 [id number] 350 / / [id number] Valve Tavr Gautam 29mm - [id number] Implanted:Qty: 1 on 05/25/2024 by Munir Figueroa MD at [facility] [employer] [place] [id number] / / documented as of this encounter Procedures Procedure Name Priority Date/Time Associated Diagnosis Comments ECHO, COMPLETE (2D), TRANS-THORACIC Routine 05/26/2024 7:47 AM EDT S/P TAVR (transcatheter aortic valve replacement) documented in this encounter Visit Diagnoses Diagnosis Heart failure with preserved ejection fraction, unspecified HF chronicity (HCC)- Primary 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 Coronary atherosclerosis of circle coronary artery documented in this encounter Administered Medications Inactive Administered Medications - up to 3 most recent administrations Medication Order MAR Action Action Date Dose Rate Site perflutren lipid microsphere inj SUSP 1.956 mg 1.956 mg, Intravenous, ONCE PRN Other, For Echo Only - Suboptimal Echo Images, Starting on Fri05/26/24 at 0701, Until Fri05/26/24 at 0900, For 2 hours, Administer IVP over 45 seconds, Cardiac Studies_HODHOV Given 05/26/2024 7:02 AM EDT 1.956 mg documented in this encounter Advance Directives * Full Code (Latest Code Status on File) Date Activated Date Inactivated Comments 05/25/2024 12:39 PM 05/26/2024 6:57 PM This order re flects the patients wishes and were consensually agreed upon. Question Answer Comments Discussion of Advance Direct alav occurred with: Not Discussed due to patient's condition Care Teams Principle Industrial Hygienist Relationship Specialty Start Date End Date Santiago, Sammy Charles, MD [address], [place] [address] PCP - General Internal Medicine 10/13/23 documented as of this encounter
--- OUTSIDE RECORDS SUMMARY | 2024-11-13 16:36 | External Medical Summary | Continuity of Care Document ---
Author Name Unknown Organization [address] Address [address] [place] [address] [address] [place], [place] [id number] Care Team Providers Care Elastic Attacher Coverstitch Name Role Phone Sammy Henderson Primary Care Physician [phone] Encounter [facility] [id number] Date(s): 10/28/24 - 10/28/[address] [place] [facility] [address] [facility], [address] [place] [address] [phone] Encounter Diagnosis Aortic stenosis(Discharge Diagnosis) - 10/28/24 Anxiety(Discharge Diagnosis) - 10/28/24 Discharge Disposition: Home or Self Care Attending Physician: MD Henderson Michael P Referring Physician: MD Henderson Michael P Allergies, Adverse Reactions, Alerts Substance Criticality Severity Reaction Reaction Severity Status Allergy Not found in Search poison yoana Active Assessment and Plan Extracted from: Title:Office Visit Note Author:MD Santiago, Casey ael P Date:10/28/24 1.Aortic stenosis Status post TAVR. Doing well. Continues to follow with cardiology. Continue with cardiac meds as prescribed through cardiology. 2.Anxiety Ongoing, do think he would benefit fromtreatment with SSRI. Will initiate sertraline 100 mg daily. Can continue with alprazolamas needed and will begin to wean. Plan to follow-up at her next appointment. I have spent 36 minutes in face to face interaction regarding review of ongoing medical conditions, discussion and counseling regarding diagnostic testing, discussion and counseling regarding treatment recommendations, discussion and counseling regarding management recommendations and non face to face time for chart review and documentation. Immunizations Given and Recorded Vaccine Date Status Refusal Reason pneumococcal 23-valent vaccine 12/17/19 Recorded influenza virus vaccine, inactivated 12/17/19 Leopoldo rded tetanus/diphtheria/pertuss, acel (Tdap) 08/23/14 G iven Medications ALPRAZolam 2 mg oral tablet Start: 10/07/24 7:33:00 AM EST, 1 tab, PO, bid, Disp# 60 tab, Refills: 0, PRN: if needed for anxiety, Pharmacy: [facility]/pharmacy #[id number] Start Date: 10/07/24 Status: Ordered aspirin 81 mg oral delayed release tablet Start: 10/09/23 3:18:00 PM EST, 1 tab, PO, Daily, Disp# 90 tab, Refills: 3, Pharmacy: [email or web address] #[id number] Start Date: 10/09/23 Status: Ordered Calcium Stool Softener Start: 08/20/22 12:37:00 PM EDT Start Date: 08/20/22 Status: Ordered furosemide 80 mg oral tablet Start: 05/13/24 8:20:00 AM EDT, 1 tab, PO, Daily, Disp# 90 tab, Refills: 3, Pharmacy: [facility]/pharmacy #[id number] Start Date: 05/13/24 Status: Ordered losartan 25 mg oral tablet Start: 09/29/23 8:39:00 AM EST, 1 tab, PO, Daily, Disp# 90 tab, Refills: 3, Pharmacy: [email or web address] #[id number] Start Date: 09/29/23 Status: Ordered metoprolol succinate 25 mg oral tablet, extended release Start: 10/14/23 5:03:00 PM EST, 1 tab, PO, Daily, Disp# 90 tab, Refills: 3, Pharmacy: [email or web address] #[id number] Start Date: 10/14/23 Status: Ordered rosuvastatin 10 mg oral tablet Start: 10/14/23 5:03:00 PM EST, 1 tab, PO, Daily, Disp# 90 tab, Refills: 3, Pharmacy: [email or web address] #[id number] Start Date: 10/14/23 Status: Ordered sertraline 100 mg oral tablet Start: 10/28/24 2:19:00 PM EST, 1 tab, PO, Daily, Disp# 90 tab, Refills: 3, Pharmacy: [facility]/pharmacy #[id number] Start Date: 10/28/24 Stop Date: 10/23/25 Status: Ordered Tab-A-Thierno Maximum oral tablet Start: 07/20/24 11:47:00 AM EDT, 1 tab, PO, Daily, Disp# 30 tab, Refills: 3, Pharmacy: [facility]/pharmacy #[id number] Start Date: 07/20/24 Stop Date: 11/17/24 Status: Ordered Mental Status 10/28/24 Barriers to Learning one year Hearing de ficit Mandatory Health Literacy Documentation Yes Health Literacy Communication Barriers N ever Primary Language Gabonese Problem List Condition Confirmation Course Effective Dates Status H ealth Status Informant Anxiety Confirmed Active Aortic regurgitation Confirmed Active Aortic stenosis Confirmed Active Alcohol use Confirmed Active Hypertension Confirmed Active Enlarged prostate Confirmed Active Mitral regurgitation Confirmed Active Neuropathy of both feet Confirmed Active Tobacco user Confirmed Active Edema of both lower legs due to peripheral venous insufficiency Confirmed Active Diagnosis Diagnosis Type Effective Dates Health Status Cl inical Service Informant Anxiety Discharge Diagnosis 10/28/24 Non-Specified Aortic stenosis Discharge Diagnosis 10/28/24 Non-Specified Vital Signs Most recent to oldest [Reference Range]: 1 Patient Weight 98.1 kg (10/28/24 2:07 PM) Temperature [36.5-37.9 DegC] 37.0 DegC (10/28/24 2:04 PM) Blood Pressure 120/70mmHg (10/28/24 2:06 PM) Social History Social History Type Response Tobacco Current some day smo ker, Cigars 1 Smoking Status Former Smoker, quit > 1 yr Sex Male Sex Representation Male (finding) 1Used to smoke cigarettes, now smokes cigars Medicine Outpt Note * MD Santiago, Sammy Delaney: PERFORM Event Display: Medicine Outpt Note Authored Date: [id number] Chief Complaint 6 month f/u History of Present Illness Litzy Woodson is a 79year old male who presents to establish care with mi and to discuss current medications. He is a former patient of Dr. Simmons. He was last seen by Dr. Simmons on 10/07/2022. He established care with me on 02/06/23. He was seen by [facility] cardiology (06/14/2024) for follow-up regarding TAVR. TAVR performed (05/25/2024) due to severe aortic stenosis. Post TAVR, there was a new left bundle branch block. He isotherwise been feeling well. No significant change since the surgery. #Anxiety disorder: Longstanding anxiety that has been treated dating back to at least 2016 with alprazolam 2 mg daily as needed; Dr. Simmons took over prescribing in 2018. He is helping to care for his partner who has ongoing mental and physical health conditions. He typically spends 2 hours at nighton the phone with this person. His niece, who is a forensic psychiatrist had recommendedthat hetitrate off the alprazolam. We discussed this today. He is interested in working on titrating off the alprazolam. He is interested in starting up the sertraline. We discussedworking onweaning off the alprazolam oncethe sertraline has reached therapeutic effect. He continues to drink 2 to 3 glasses of wine per day. He stopped smoking in October 2023. Problem List: #Coronary artery disease: Multivessel, status post PCI x 4 (05/10/2024) #Severe aortic stenosis: s/p TAVR (06/16) #LBBB: post TAVR, monitoring #Alcohol use disorder #Hypertension #Anxiety disorder #Tobacco use disorder Review of Systems As per HPI Physical Exam Vitals & Measurements T:37.0C BP:120/70 SpO2:100% WT:98.1kg PHQ2 Data(Data Documented on:10/28/2024 13:58) Emotional health assessment NEGATIVE GEN: Well developed, well nourished, no acute distress HEENT: NCAT, MMM, EOMI, PERRL CV: RRR, no murmurs, normal S1 and S2 LUNG: Clear to auscultation bilaterally ABD: nondistended EXT: No c/c/e MSK: Strength in the upper and lower extremities is preserved NEURO: AxOx3, moving all extremities; no focal neurologic deficits; CN II-XII grossly intact Assessment/Plan 1.Aortic stenosis Status post TAVR. Doing well. Continues to follow with cardiology. Continue with cardiac meds as prescribed through cardiology. 2.Anxiety Ongoing, do think he would benefit fromtreatment with SSRI. Will initiate sertraline 100 mg daily. Can continue with alprazolamas needed and will begin to wean. Plan to follow-up at her next appointment. I have spent 36 minutes in face to face interaction regarding review of ongoing medical conditions,discussion and counseling regarding diagnostic testing, discussion and counseling regarding treatment recommendations, discussion and counseling regarding management recommendations and non face to face time for chart review and documentation. Problem List/Past Medical History Ongoing Alcohol use Anxiety Aortic regurgitation Aortic stenosis Edema of both lower legs due to peripheral venous insufficiency Enlarged prostate Hypertension Mitral regurgitation Neuropathy of both feet Tobacco user Resolved Alcoholism /alcohol abuse Medications ALPRAZolam(ALPRAZolam 2 mg oral tablet), 1 tab, PO, bid, PRN aspirin(aspirin 81 mg oral delayed release tablet), 81 mg= 1 tab, PO, Daily, 3 refills docusate(Calcium Stool Softener) furosemide(furosemide 80 mg oral tablet), 1 tab, PO, Daily, 3 refills losartan(losartan 25 mg oral tablet), 25 mg= 1 tab, PO, Daily, 3 refills metoprolol(metoprolol succinate 25 mg oral tablet, extended release), 25 mg= 1 tab, PO, Daily, 3 refills multivitamin with minerals(Tab-A-Thierno Maximum oral tablet), 1 tab, PO, Daily, 3 refills rosuvastatin(rosuvastatin 10 mg oral tablet), 10 mg= 1 tab, PO, Daily, 3 refills sertraline(sertraline 100 mg oral tablet), 100 mg= 1 tab, PO, Daily, 3 refills Allergies Allergy Not found in [facility] yoana Social History Smoking Status Former Smoker, quit > 1 yr Alcohol Use:Current Type:Wine, Liquor Frequency:Daily - Comments: USAUDIT-Cscore = 4 3-5 drinks a day USAUDIT-C score =9 No intervention taken outside of advice Employment/School Status:Retired Home/Environment Lives with:Alone Living situation:Home with assistance Home equipment:Walker/Cane Smoker in household:No Family/Friends available to help:Yes Other risks in environment:Pets/Animal exposure Tobacco Use:Current some day smoker Type:Cigars - Comments: Used to smoke cigarettes, now smokes cigars Immunizations Vaccine Date Status pneumococcal 23-valent vaccine 12/17/2019 Recorded influenza virus vaccine, inactivated 12/17/2019 Recorded tetanus/diphtheria/pertuss, acel (Tdap) 08/23/2014 Given Recommendations Health Maintenance Pending(in the next year) OverDue Medicare Annual Wellness Visit due07/11/21and every 1year Adult Influenza Vaccine due05/23/24and every 1year Due Adult COVID-19 Vaccination due10/28/24Unknown Frequency Adult Social Determinants of Health Screening due10/28/24Unknown Frequency Adult Tdap/Td Vaccine due10/28/24Unknown Frequency Hepatitis C Screening due10/28/24One-time only Shingles Vaccine due10/28/24One-time only Satisfied(in the past 1 year) Satisfied Body Mass Index on02/19/24.Satisfied by [facility] Pol[facility] Angela Electronic Signature on File Electronically Reviewed/Signed by: Sammy Henderson MD Author Signature Dt/Tm:10/28/2024 02:46 PM Division of Internal Medicine MPM Patient Care team information Care Team Personnel Name: KAREL Mcclain Mayeen R Position: Nurse Pract - CT Surgery Member Role: Lifetime Relationship Address: [address] [place] [address] [address] [place] [address] Name: MD Santiago, Sammy Delaney Position: Physician - Internal Med Member Role: Primary Care Provider Address: [address] [facility] [address] [place] [address] [place] Care Team Related Persons Name: GERALDINE WOODSON
--- OUTSIDE RECORDS SUMMARY | 2024-11-13 16:36 | External Medical Summary | Summary of Care ---
Author Name Unknown Organization [facility] Address [address] [facility] [place] [address] Phone [phone] Care Team Providers Care Machine Try Out Setter Name Role Phone Sammy Henderson MD Primary Care Provider + Reason for Referral * Precert (Within 10 days (routine)) - Authorized Specialty Diagnoses / Procedures Referred By Contac t Referred To Contact Cardiac Studies Diagnoses Severe aortic stenosis History of transcatheter aortic valve replacement (TAVR) Coronary artery disease involving absentee-shawnee coronary artery of absentee-shawnee heart without angina pectoris Chronic diastolic congestive heart failure (HCC) HTN, goal below 140/90 Procedures ECHO, COMPLETE (2D), TRANS-THORACIC Argenis Colbert CRNP [address] [place] [address] Referral ID Status Reason Start Date Expiration Date V isits Requested Visits Authorized [id number] Authorized Precert 05/24/2025 999 999 Reason for Visit * Reason Comments Follow Up Encounter Details Date Type Department Care Team (Latest Contact Info) Description 06/14/2024 10:00 AM EDT Office Visit Cardiology, [facility] [address] [place] [id number] Argenis Colbert CRNP [address] [place] [address] Severe aortic stenosis*; History of transcatheter aortic valve replacement (TAVR); Coronary artery disease involving absentee-shawnee coronary artery of absentee-shawnee heart without angina pectoris; Chronic diastolic congestive heart failure (HCC); HTN, goal below 140/90 Allergies Active Allergy Reactions Criticality Noted Date Comments Poison Tiffanie Extract 10/13/2023 documented as of this encounter (statuses as of 06/14/2024) Medications Medication Sig Dispensed Refills Start Date [...] 05/26/2024 Active Amoxicillin 500 MG Oral Capsule (Amoxil)Indications :Severe aortic stenosis,History of transcatheter aortic valve replacement (TAVR),Coronary artery disease involving absentee-shawnee coronary artery of absentee-shawnee heart without angina pectoris,Chronic diastolic congestive heart failure (HCC),HTN, goal below 140/90 Take 4 capsules 1 hour prior to any dental work 4 Capsule 4 06/14/2024 Active Aspirin 81 MG Oral Tablet ChewableIndications :Severe aortic stenosis,History of transcatheter aortic valve replacement (TAVR),Coronary artery disease involving absentee-shawnee coronary artery of absentee-shawnee heart without angina pectoris,Chronic diastolic congestive heart failure (HCC),HTN, goal below 140/90 Take 1 Tablet by mouth in the morning. 34 Tablet 06/14/2024 Active Clopidogrel Bisulfate 75 MG Oral Tablet (pLAVix)Indications :Severe aortic stenosis,History of transcatheter aortic valve replacement (TAVR),Coronary artery disease involving absentee-shawnee coronary artery of absentee-shawnee heart without angina pectoris,Chronic diastolic congestive heart failure (HCC),HTN, goal below 140/90 Take 1 Tablet by mouth in the morning. 90 Tablet 3 06/14/2024 Active Furosemide 80 MG Oral Tablet (Lasix)Indications: Severe aortic stenosis,History of transcatheter aortic valve replacement (TAVR),Coronary artery disease involving absentee-shawnee coronary artery of absentee-shawnee heart without angina pectoris,Chronic diastolic congestive heart failure (HCC),HTN, goal below 140/90 Take 1 Tablet by mouth in the morning. 90 Tablet 3 06/14/2024 Active Losartan Potassium 25 MG Oral Tablet (Cozaar)Indications :Severe aortic stenosis,History of transcatheter aortic valve replacement (TAVR),Coronary artery disease involving absentee-shawnee coronary artery of absentee-shawnee heart without angina pectoris,Chronic diastolic congestive heart failure (HCC),HTN, goal below 140/90 Take 1 Tablet by mouth in the morning. 90 Tablet 06/14/2024 Active Metoprolol Succinate ER 25 MG Oral Tablet Extended Release 24 Hour (toPROL XL)Indications:Marisol re aortic stenosis,History of transcatheter aortic valve replacement (TAVR),Coronary artery disease involving absentee-shawnee coronary artery of absentee-shawnee heart without angina pectoris,Chronic diastolic congestive heart failure (HCC),HTN, goal below 140/90 Take 1 Tablet by mouth in the morning. 90 Tablet 06/14/2024 Active Rosuvastatin Calcium 40 MG Oral Tablet (Crestor)Indication s:Severe aortic stenosis,History of transcatheter aortic valve replacement (TAVR),Coronary artery disease involving absentee-shawnee coronary artery of absentee-shawnee heart without angina pectoris,Chronic diastolic congestive heart failure (HCC),HTN, goal below 140/90 Take 1 Tablet by mouth in the morning. 90 Tablet 06/14/2024 Active Losartan Potassium 25 MG Oral Tablet (Cozaar) Take 1 Tablet by mouth in the morning. 08/20/2022 06/14/2024 Discontinue d(Refill) Metoprolol Succinate ER 25 MG Oral Tablet Extended Release 24 Hour (toPROL XL) Take 1 Tablet by mouth in the morning. 09/03/2022 06/14/2024 Discontinue d(Refill) Furosemide 80 MG Oral Tablet (Lasix) Take 1 Tablet by mouth in the morning. 09/11/2023 06/14/2024 Discontinue d(Refill) Clopidogrel Bisulfate 75 MG Oral Tablet (pLAVix) Take 1 Tablet by mouth in the morning. Do not start before May 11, 2024. 90 Tablet 3 05/11/2024 06/14/2024 Discontinue d(Refill) Aspirin 81 MG Oral Tablet Chewable Chew & swallow 1 Tablet by mouth every morning. 34 Tablet 05/10/2024 06/14/2024 Discontinue d(Refill) Rosuvastatin Calcium 40 MG Oral Tablet (Crestor) Take 1 Tablet by mouth in the morning. Do not start before May 11, 2024. 90 Tablet 3 05/11/2024 06/14/2024 Discontinue d(Refill) documented as of this encounter (statuses as of 06/14/2024) Active Problems Problem Noted Date Diagnosed Date S/P TAVR (transcatheter aortic valve replacement ) 05/25/2024 (HFpEF) heart failure with preserved ejection fr action 05/25/2024 Aortic stenosis 05/10/2024 S/P angioplasty with stent 05/10/2024 Neuropathy of lower extremity 05/10/2024 Mitral regurgitation 05/10/2024 Enlarged prostate 05/10/2024 Aortic regurgitation 09/09/2022 CAD in absentee-shawnee artery 08/20/2022 HLD (hyperlipidemia) 08/20/2022 Aortic stenosis 08/20/2022 Bradycardia 08/06/2022 Neuropathy of both feet 07/10/2022 Edema of both lower legs due to peripheral venous insufficiency 07/10/2022 Anxiety 07/10/2022 Ambulatory dysfunction 04/24/2022 Hard of hearing 04/04/2022 Hypertension 04/04/2022 Edema of leg 04/04/2022 Bowel dysfunction 04/04/2022 documented as of this encounter (statuses as of 06/14/2024) Immunizations Name Administration Dates Next Due Seasonal Influenza, Quadrivalent Hd (Fluzone Hd) 10/13/2023 documented as of this encounter Social History Tobacco Use Types Packs/Day Years Used Date Smoking Tobacco: Former Cigarettes Q uit: 11/24/2023 Cigars Smokeless Tobacco: Never Tobacco Cessation:Counseling Given: Not Answered Comments:Former cigarette smoker, some day cigar use. Alcohol Use Standard [...] Sign Reading Time Taken Comments Blood Pressure 140/82 06/14/2024 9:38 AM EDT Pulse 66 06/14/2024 9:38 AM EDT Temperature - - Respiratory Rate - - Oxygen Saturation 99% 06/14/2024 9:38 AM EDT Inhaled Oxygen Concentration - - Weight 94.8 kg (209 lb) 06/14/2024 9:38 AM EDT Height - - Body Mass Index 28.35 05/10/2024 10:47 AM EDT documented in this encounter Functional Status Functional [...] No 05/25/2024 documented as of this encounter Patient Instructions * Patient Instructions* Argenis Colbert CRNP - 06/14/2024 9:36 AM EDT 1. No routine dental work should be completed in the first 6 months after TAVR. However if an acuteissue arises, patient is to alert the valve team. Antibiotics are needed for all dental work: Amoxicillin 2g- Take 4 capsules 1 hour prior to any dental work. 2. Slowly increase activity- recommend cardiac rehab 3. Aspirin 81 mg daily continued indefinitely 4. Move up July echo 5. Establish with general cards in 6 months. 6. Anticipate repeat echo in 1 year with follow up in the valve clinic. Incisional Care -Cleanse incisions daily with soap and water. Do not vigorous scrub your incisions. -Pat the skin gently to dry. -Do not peel/pick at glue or scabs from your incisions. Allow them to fall off on their own. -If there is drainage from your incision, please cover it with a dressing. This can be a band-aid or with gauze and tape. -You may leave your incision open to air if there is no drainage present. -Do not apply lotions, ointments, or powder to your incisions unless cleared by your provider. Signs/Symptoms To Report: Please contact your surgeon or provider for the following: -You develop fevers or chills. -Redness, swelling, or warmth at or around the incision site. -Foul odor or purulent drainage from incision site. -Purulent drainage is a thick/milky discharge from a wound. Color may vary from yellow, brown, or green. -If there is an increase in drainage or oozing from your incision. -If your incision appears to be opening further than the incision line. -Increased pain at your incision site. documented in this encounter Progress Notes * Argenis Colbert CRNP - 06/14/2024 10:00 AM EDT Valve Clinic Cardiology Outpatient Clinic Note 06/14/2024 Patient disposition: 1 mos post TAVR Primary Patient Intake Coordinator: Dr. Flores Referring Provider: Dr. Flores PCP: Samym Henderson MD Past medical history: Severe aortic stenosis status post TAVR (# 29mm Madrigal Gautam S3 Ultra valve), 05/25/2024 New left bundle branch block post TAVR; monitor pending Coronary artery disease Multivessel coronary disease status post PCI to the distal LAD to distal LMCA with x4 overlapping FABRIZIO (2.25 mm x 24 mm synergy, 2.50 mm x 32 mm synergy, 3.0 mm x 24 mm synergy, 3.5 mm x 60 mm synergy) residual 70% prox RCA stenosis, non dominant/small caliber, per cardiac catheterization 05/10/2024 Chronic diastolic CHF Hypertension Alcohol abuse Tobacco use HPI Very pleasant 79-year-old male presenting to the valve clinic today in one-month follow-up after TAVR. Hospital course copied below HOSPITAL COURSE (focused): The patient presented to the hospital for an outpatient TAVR with # 29mm Madrigal Gautam S3 Ultra valve . Patient's procedure was completed without complications. After the procedure, CXRs were WNL . EKG post procedure showed frequent PVCs. An echocardiogram was performed on POD#1 to assess the aortic valve replacement and showed normal functioning of the aortic valve. Repeat EKG prior to discharge showed no concerning conduction abnormalities. Due to presence of bundle branch in his EKG, He wasdischarged with [facility]. The patient otherwise remained stable and was discharged to home in stable condition on 05/26/2024. Operations & Procedures: cardiac valve surgery Gottlieb Interpretation (focused): Successful transfemoral implantation of a # 29mm Madrigal Gautam S3 Ultra valve Today the patient presents feeling well and offers no acute concerns. Notes improvement in his breathing since his TAVR. He denies chest pain. No palpitations, dizziness, syncope or near syncope. No orthopnea, PND, or increased lower extremity edema. No fever, chills, cough, hematochezia, melena, or hemoptysis. Has been slowly increasing his activity. Ambulates with a wheeled walker. EKG showing sinus rhythm with frequent PVCs, 65 beats per minute. Wore a [email or web address] monitor. Mailed back Friday. No results are available at this time. Patient is compliant with all medications, and offers no side effects. Asking for refills for his prescriptions. Patient is also asking to establish with Cardiology closer to home. Current Outpatient Medications Medication Sig Dispense Refill ALPRAZolam 2 MG Oral Tablet (xaNAX) Take 1 Tablet by mouth as needed. Bisacodyl 5 MG Oral Tablet Delayed Release (bisacodyl EC) Take 1 Tablet by mouth daily as needed for Constipation. Nitroglycerin 0.4 MG Sublingual Tablet Sublingual (Nitrostat) Place 1 tablet under the tongue every5 minutes as needed for chest pain, up to a max of 3 doses in 15 minutes. If no relief call 911 or go to ER. 25 Tablet 0 Folic Acid 1 MG Oral Tablet Take 1 Tablet by mouth in the morning. 30 Tablet 11 Multi-Vitamins Oral Tablet Take 1 Tablet by mouth daily at noon. 30 Tablet 11 Thiamine HCl 100 MG Oral Tablet (vitamin B-1) Take 1 Tablet by mouth in the morning. 30 Tablet 11 Aspirin 81 MG Oral Tablet Chewable Take 1 Tablet by mouth in the morning. 34 Tablet 0 Clopidogrel Bisulfate 75 MG Oral Tablet (pLAVix) Take 1 Tablet by mouth in the morning. 90 Tablet 3 Furosemide 80 MG Oral Tablet (Lasix) Take 1 Tablet by mouth in the morning. 90 Tablet 3 Losartan Potassium 25 MG Oral Tablet (Cozaar) Take 1 Tablet by mouth in the morning. 90 Tablet 3 Metoprolol Succinate ER 25 MG Oral Tablet Extended Release 24 Hour (toPROL XL) Take 1 Tablet by mouth in the morning. 90 Tablet 3 Rosuvastatin Calcium 40 MG Oral Tablet (Crestor) Take 1 Tablet by mouth in the morning. 90 Tablet 3 Amoxicillin 500 MG Oral Capsule (Amoxil) Take 4 capsules 1 hour prior to any dental work 4 Capsule 4 No current facility-administered medications for this visit. No past medical history on file. Past Surgical History: Procedure Laterality Date CORONARY ANGIOGRAPHY W/LEFT HEART CATH N/A 05/10/2024 CORONARY ANGIOGRAPHY W/LEFT HEART CATH performed by Munir Figueroa MD at [facility] [place] REPLACE AORTIC VALVE, PERCUTANEOUS FEMORAL N/A 05/25/2024 REPLACE AORTIC VALVE, PERCUTANEOUS FEMORAL performed by Munir Figueroa MD at [facility] [place] REPLACE AORTIC VALVE, PERCUTANEOUS FEMORAL N/A 05/25/2024 REPLACE AORTIC VALVE, PERCUTANEOUS FEMORAL performed by Sammy Shelton MD at [facility] [place] Social History Tobacco Use Smoking status: Former Current packs/day: 0.00 Types: Cigarettes, Cigars Quit date: 11/24/2023 Years since quittin.5 Smokeless tobacco: Never Tobacco comments: Former cigarette smoker, some day cigar use. Vaping Use Vaping status: Never Used Substance Use Topics Alcohol use: Yes Comment: daily - wine and beer Drug use: Never Review of patient's allergies indicates: Allergen Reactions Poison Tiffanie Extract Review of Systems: See HPI for pertinent positives. All others negative, other than those noted in HPI. Physical Exam BP 140/82 | Pulse 66 | Wt 94.8 kg (209 lb) | SpO2 99% | BMI 28.35 kg/m | BSA 2.19 m General: No acute distress. A+Ox3. HEENT: Normocephalic. Atraumatic. Conjunctiva and sclera clear. NECK: No carotid bruits. No JVD. Carotid upstrokes are brisk. Heart: RRR. S1 and S2 noted without murmur, rubs, gallops. Lungs: Clear to auscultation. No wheezes, rhonchi, rales. Abdomen: Normal bowel sounds. Soft. Nontender. No masses or organomegaly. No abdominal bruits. Extremities: No edema. No clubbing or cyanosis. Pulses: radial=2/4, posterior tibial=2/4, dorsalis pedis = 2/4. NEURO: No focal deficits. PSYCH: Normal. Lab data/imaging study review: Echo 1 mos post TAVR PENDING* Echo POD 1 TAVR, 05/26/2024 Interpretation Summary The examination is limited quality but adequate for evaluation of the referral indication. The qualitative LV ejection fraction is 50-54% (normal). There is a small sized posterior wall motion abnormality with hypokinesis of the segments. The patient is status post TAVR with Gautam type prosthetic valve. Aortic valve prosthesis stenosisis absent. Significant aortic valve prosthesis regurgitation is absent. No pericardial effusion is noted. Echo status post TAVR 05/25/2024 Interpretation Summary Imaging was done prior to and following TAVR with # 29mm Madrigal Gautam S3 Ultra valve Findings were discussed at the time of the procedure with Shoaib Figueroa and Teresa. The examination is adequate to evaluate the referral indication. Following TAVR and removal of the wire: Aortic valve prosthesis stenosis is absent. The peak aortic valve velocity throught the TAVR is 1.0 m/sec. The mean systolic gradient through the TAVR is 4.6 mmHg. Significant aortic valve prosthesis regurgitation is absent Echocardiogram 10/30/2023 The qualitative LV ejection fraction is [...] regarding notification of patient and ordering provider. Ao V2 max: 415.1 cm/sec Ao mean P.7 mmHg CHANDNI(I,D): 0.73 cm2 Cardiac Catheterization 09/17/2022 @ [facility] Severe coronary artery disease 30% distal left main 60-70% ostial LAD, 80% mild LAD at bifurcation with D2 30% ostial dominant circum Pre TAVR cardiac catheterization 05/10/2024 * Prox RCA 70% stenosis. Small-caliber, non-dominant vessel. * Saenz 1-1-1 bifurcation lesion involving the distal LM (40%), ostial LAD (80%), ostial LCX (50%). * Mid LAD sequential 70% stenoses. Distal LAD 70% stenosis. * Intervention: Distal LAD to distal LMCA treated with 4 drug-eluting stents in overlapping fashion (2.25mm x 24mm Synergy, 2.50mm x 32mm Synergy, 3.00mm x 24mm Synergy, 3.50mm x 16mm Synergy). LM post-dilated with a 4.0mm NC balloon. IVUS used for stent optimizatoin. Excellent end angiographic result with 0% residual stenosis,KEEGAN III flow, and no evidence of dissection or perforation. Impression/Plan: This is a 79 year old male who is being evaluated in the cardiology office for ongoing care/risk management for the below diagnoses. 1. Severe aortic stenosis 2. History of transcatheter aortic valve replacement (TAVR) -Severe aortic stenosis status post TAVR (# 29mm Madrigal Gautam S3 Ultra valve), 05/25/2024 -New left bundle branch block post TAVR--Zio monitor pending EKG showing SR with PVCs. Repeat labs today. Will await zio monitor results No routine dental work should be completed in the first 6 months after TAVR. However if an acute issue arises, patient is to alert the valve team. Antibiotics are needed for all dental work: Amoxicillin 2g- Take 4 capsules 1 hour prior to any dental work Slowly increase activity. Recommend cardiac rehab-- patient declines. Aspirin 81 mg daily continued indefinitely Will move up 1 most post TAVR echo. Establish with general cards in 6 months. Anticipate repeat echo in 1 year with follow up in the valve clinic. 3. Coronary artery disease involving absentee-shawnee coronary artery of absentee-shawnee heart without angina pectoris -Multivessel coronary disease status post PCI to the distal LAD to distal LMCA with x4 overlapping FABRIZIO, residual 70% prox RCA stenosis, non dominant/small caliber, per cardiac catheterization 05/10/2024 Continue dual anti-platelet therapy with aspirin and Plavix uninterrupted for a minimum of 1 year. Given complexity of coronary intervention long-term DAPT may be warranted. 4. Chronic diastolic congestive heart failure (HCC) NYHA class 2-3 Euvolemic on exam Continue Lasix 80 mg daily 5. HTN, goal below 140/90 Controlled. Continue losartan 25 mg daily Continue metoprolol succinate 25 mg daily The patient agrees to the above plan and will call with additional questions or concerns. ER with all emergencies advised. Check-out note: -Labs today -Move up July echo- needs done within 2 weeks. -Establish with general cardiology at in 6 months. -1 year with ayaka Figueroa prior/same day at . I spent a total of 40 minutes on the date of service in preparation, delivery, and documentation ofthe care provided to Dre Woodson excluding any time spent in the performance of separately billed services. KAREL Lee, Department of Cardiology This chart was completed in part utilizing [employer] Speech Voice Recognition Software. Grammatical errors, random word insertions, prounoun errors, and incomplete sentences are an occasional consequence of this system due to software limitations, ambient noise, and hardware issues. Any formal questions or concerns about the content, text, or information contained within the body of this dictation should be directly addressed to the provider for clarification. documented in this encounter Nursing Notes * Winter Lino CMA - 06/14/2024 9:38 AM EDT Examination Room: 1 Name: Dre Woodson Date of : (1945) Reason for Visit: return valve Interim Hospitalization(s): none Problems/Concerns: denied Chest Pain/SOB: denied My [facility] is a way you can talk to your provider online through e-mail. Would you like to sign up? I can activate it for you? ALREADY ACTIVE Patient was instructed to not get up on the exam table until directed and assisted by their provider; patient is to remain seated in the chair/ wheelchair/ exam table for fall prevention and safety reasons. Patient is aware to have assistance to step down off exam table with personnel. Patient voiced full comprehension of instructions. documented in this encounter Plan of Treatment Upcoming Encounters Date Type Department Care Team (Latest Contact Info) Description 06/14/2024 10:40 AM EDT Laboratory Laboratory, [facility] [address] [place] [id number] Krishan Rowan [address] [place] [address] Severe aortic stenosis; History of transcatheter aortic valve replacement (TAVR); Coronary artery disease involving absentee-shawnee coronary artery of absentee-shawnee heart without angina pectoris; Chronic diastolic congestive heart failure (HCC); HTN, goal below 140/90 06/24/2024 10:00 AM EDT Cardiac Studies Cardiac Studies, [facility] [address] [place] [address] 08/10/2024 3:30 PM EDT Laboratory Laboratory, [facility] [address] [place] [phone] Krishan Rowan [facility] [address] [place] [address] 12/20/2024 11:00 AM EST Office Visit Cardiology, [facility] [address] [place] [address] Wero Aguirre PA-C [address] [place] [address] Pending Results Name Type Priority Associated Diagnoses Date /Time CBC WITH WBC DIFFERENTIAL AND ANEMIA REFLEX WORKUP Lab Routine Severe aortic stenosis History of transcatheter aortic valve replacement (TAVR) Coronary artery disease involving absentee-shawnee coronary artery of absentee-shawnee heart without angina pectoris Chronic diastolic congestive heart failure (HCC) HTN, goal below 140/90 06/14/2024 10:17 AM EDT BASIC METABOLIC PANEL Lab Routine Severe aortic stenosis History of transcatheter aortic valve replacement (TAVR) Coronary artery disease involving absentee-shawnee coronary artery of absentee-shawnee heart without angina pectoris Chronic diastolic congestive heart failure (HCC) HTN, goal below 140/90 06/14/2024 10:17 AM EDT Scheduled Orders Name Type Priority Associated Diagnoses Orde r Schedule EKG EKG Routine Severe aortic stenosis History of transcatheter aortic valve replacement (TAVR) Coronary artery disease involving absentee-shawnee coronary artery of absentee-shawnee heart without angina pectoris Chronic diastolic congestive heart failure (HCC) HTN, goal below 140/90 Ordered: 06/14/2024 ECHO, COMPLETE (2D), TRANS-THORACIC Echocardiology Routine Severe aortic stenosis History of transcatheter aortic valve replacement (TAVR) Coronary artery disease involving absentee-shawnee coronary artery of absentee-shawnee heart without angina pectoris Chronic diastolic congestive heart failure (HCC) HTN, goal below 140/90 Expected: 05/24/2025, Expires: 07/15/2026 CBC WITH WBC DIFFERENTIAL AND ANEMIA REFLEX WORKUP Lab Routine Severe aortic stenosis History of transcatheter aortic valve replacement (TAVR) Coronary artery disease involving absentee-shawnee coronary artery of absentee-shawnee heart without angina pectoris Chronic diastolic congestive heart failure (HCC) HTN, goal below 140/90 Expected: 06/14/2024, Expires: 06/14/2025 BASIC METABOLIC PANEL Lab Routine Severe aortic stenosis History of transcatheter aortic valve replacement (TAVR) Coronary artery disease involving absentee-shawnee coronary artery of absentee-shawnee heart without angina pectoris Chronic diastolic congestive heart failure (HCC) HTN, goal below 140/90 Expected: 06/14/2024, Expires: 06/14/2025 Health Maintenance Due Date Last Done Comments [...] encounter Medical Devices Implanted Type Area Manager New Product Device Identifier Shelf Expiration Date Model / Serial / Lot Stent Synergy Xd Mr [id number] - [id number] Implanted:Qty: 1 on 05/10/2024 by Munir Figueroa MD at [facility] [place] [employer] [id number] 12/24/2024 [id number] 220 / / [id number] Stent Synergy Xd Mr [id number] - [id number] Implanted:Qty: 1 on 05/10/2024 by Munir Figueroa MD at [facility] [place] [employer] [id number] 12/08/2024 [id number] 250 / / [id number] Stent Synergy Xd Mr [id number] - [id number] Implanted:Qty: 1 on 05/10/2024 by Munir Figueroa MD at [facility] [place] [employer] [id number] 09/24/2024 [id number] 300 / / [id number] Stent Synergy Xd Mr 3.74l00lq - [id number] Implanted:Qty: 1 on 05/10/2024 by Munir Figueroa MD at [facility] [place] [employer] [id number] 05/18/2025 [id number] 350 / / [id number] Valve Tavr Gautam 29mm - [id number] Implanted:Qty: 1 on 05/25/2024 by Munir Figueroa MD at [facility] [place] [employer] [id number] 12/16/2024 [id number] / / documented as of this encounter Visit Diagnoses Diagnosis Severe aortic stenosis- Primary Aortic valve disorders History of transcatheter aortic valve replacement (TAVR) Coronary artery disease involving absentee-shawnee coronary artery of absentee-shawnee heart without angina pectoris Chronic diastolic congestive heart failure (HCC) Chronic diastolic heart failure HTN, goal below 140/90 Unspecified essential hypertension Severe aortic stenosis Aortic valve disorders History of transcatheter aortic valve replacement (TAVR) Coronary artery disease involving absentee-shawnee coronary artery of absentee-shawnee heart without angina pectoris Chronic diastolic congestive heart failure (HCC) Chronic diastolic heart failure HTN, goal below 140/90 Unspecified essential hypertension documented in this encounter Advance Directives * Full Code (Latest Code Status on File) Date Activated Date Inactivated Comments 05/25/2024 12:39 PM 05/26/2024 6:57 PM This order re flects the patients wishes and were consensually agreed upon. Question Answer Comments Discussion of Advance Direct alva occurred with: Not Discussed due to patient's condition Care Teams Machine Try Out Setter Relationship Specialty Start Date End Date Sammy Henderson MD 6 [facility] [address] [place] [address] PCP - General Internal Medicine 10/13/23 documented as of this encounter
--- OUTSIDE RECORDS SUMMARY | 2024-11-13 16:36 | External Medical Summary ---
Author Name Unknown Address Unknown Organization [id number]:[facility] [address] [place] [address] Laboratory Report Ordering Provider Test Date Status NELLIE PEREZ 08/10/2024 14:49:55 Final Observation Date Value Abnormality Reference (Units ) Status BUN 08/10/2024 14:49:55 16 6-20 (mg/dL) Final Creatinine 08/10/2024 14:49:55 0.8 0.6-1.2 (mg/dL) Final Glomerular filtration rate/1.73 sq M.predicted [Volume Rate/Area] in Serum, Plasma or Blood by Creatinine-based formula (CKD-EPI) 08/10/2024 14:49:55 90 >=60 (mL/min) Final eGFR is calculated based on the CKD-EPI 2020 equation. Sodium 08/10/2024 14:49:55 138 135-146 (m mol/L) Final Potassium 08/10/2024 14:49:55 3.9 3.5-5.1 (m mol/L) Final Cl 08/10/2024 14:49:55 98 98-107 (mm ol/L) Final CO2 08/10/2024 14:49:55 22 22-32 (mmo l/L) Final Anion gap 08/10/2024 14:49:55 18 Above high normal 7- 15 (mmol/L) Final Glucose 08/10/2024 14:49:55 96 70-120 (mg /dL) Final Calcium 08/10/2024 14:49:55 9.3 8.4-10.2 ( mg/dL) Final Performing Location [facility] [address] [place] [address]
--- OUTSIDE RECORDS SUMMARY | 2024-11-13 16:36 | External Medical Summary | Summary of Care ---
Author Name Unknown Organization [facility] Address [address] [address] Phone [phone] Care Team Providers Care Bus Inspector Name Role Phone Sammy Henderson MD Primary Care Provider + Reason for Visit * Reason Comments Outpatient Testing Encounter Details Date Type Department Care Team (Late st Contact Info) Description 06/14/2024 10:40 AM EDT Laboratory Laboratory, [facility] [address] [facility] [place] [phone] [facility] [address] [place] [address] Severe aortic stenosis; History of transcatheter aortic valve replacement (TAVR); Coronary artery disease involving chilkoot coronary artery of chilkoot heart without angina pectoris; Chronic diastolic congestive [...] by mouth in the morning. 30 Tablet 05/27/2024 Active Multi-Vitamins Oral Tablet Take 1 Tablet by mouth daily at noon. 30 Tablet 05/26/2024 Active Thiamine HCl 100 MG Oral Tablet (vitamin B-1) Take 1 Tablet by mouth in the morning. 30 Tablet 05/26/2024 Active Amoxicillin 500 MG Oral Capsule (Amoxil)Indications:Se dillon aortic stenosis,History of transcatheter aortic valve replacement (TAVR),Coronary artery disease involving chilkoot coronary artery of chilkoot heart without angina pectoris,Chronic diastolic congestive heart failure (HCC),HTN, goal below 140/90 Take 4 capsules 1 hour prior to any dental work 4 Capsule 4 06/14/2024 Active Aspirin 81 MG Oral Tablet ChewableIndications:Se dillon aortic stenosis,History of transcatheter aortic valve replacement (TAVR),Coronary artery disease involving chilkoot coronary artery of chilkoot heart without angina pectoris,Chronic diastolic congestive heart failure (HCC),HTN, goal below 140/90 Take 1 Tablet by mouth in the morning. 34 Tablet 06/14/2024 Active Clopidogrel Bisulfate 75 MG Oral Tablet (pLAVix)Indications:Se dillon aortic stenosis,History of transcatheter aortic valve replacement (TAVR),Coronary artery disease involving chilkoot coronary artery of chilkoot heart without angina pectoris,Chronic diastolic congestive heart failure (HCC),HTN, goal below 140/90 Take 1 Tablet by mouth in the morning. 90 Tablet 3 06/14/2024 Active Furosemide 80 MG Oral Tablet (Lasix)Indications:Sev ere aortic stenosis,History of transcatheter aortic valve replacement (TAVR),Coronary artery disease involving chilkoot coronary artery of chilkoot heart without angina pectoris,Chronic diastolic congestive heart failure (HCC),HTN, goal below 140/90 Take 1 Tablet by mouth in the morning. 90 Tablet 3 06/14/2024 Active Losartan Potassium 25 MG Oral Tablet (Cozaar)Indications:Se dillon aortic stenosis,History of transcatheter aortic valve replacement (TAVR),Coronary artery disease involving chilkoot coronary artery of chilkoot heart without angina pectoris,Chronic diastolic congestive heart failure (HCC),HTN, goal below 140/90 Take 1 Tablet by mouth in the morning. 90 Tablet 3 06/14/2024 Active Metoprolol Succinate ER 25 MG Oral Tablet Extended Release 24 Hour (toPROL XL)Indications:Severe aortic stenosis,History of transcatheter aortic valve replacement (TAVR),Coronary artery disease involving chilkoot coronary artery of chilkoot heart without angina pectoris,Chronic diastolic congestive heart failure (HCC),HTN, goal below 140/90 Take 1 Tablet by mouth in the morning. 90 Tablet 3 06/14/2024 Active Rosuvastatin Calcium 40 MG Oral Tablet (Crestor)Indications:S evere aortic stenosis,History of transcatheter aortic valve replacement (TAVR),Coronary artery disease involving chilkoot coronary artery of chilkoot heart without angina pectoris,Chronic diastolic congestive heart [...] prostate 05/10/2024 Aortic regurgitation 09/09/2022 CAD in chilkoot artery 08/20/2022 HLD (hyperlipidemia) 08/20/2022 Aortic stenosis [...] Team (Late st Contact Info) Description 06/24/2024 10:00 AM EDT Cardiac Studies Cardiac Studies, [facility] [address] [place] [address] 08/10/2024 3:30 PM EDT Laboratory Laboratory, [facility] [address] [place] [phone] [facility] [address] [address] 12/20/2024 11:00 AM EST Office Visit Cardiology, [facility] [address] [address] Wero Aguirre PA-C [address] [place] [address] Pending Results Name Type Priority Associated Diagnoses Date /Time CBC WITH WBC DIFFERENTIAL AND ANEMIA REFLEX WORKUP Lab Routine Severe aortic stenosis History of transcatheter aortic valve replacement (TAVR) Coronary artery disease involving chilkoot coronary artery of chilkoot heart without angina pectoris Chronic diastolic congestive heart failure (HCC) HTN, goal below 140/90 06/14/2024 10:17 AM EDT BASIC METABOLIC PANEL Lab Routine Severe aortic stenosis History of transcatheter aortic valve replacement (TAVR) Coronary artery disease involving chilkoot coronary artery of chilkoot heart without angina pectoris Chronic diastolic congestive heart failure (HCC) HTN, goal below 140/90 06/14/2024 10:17 AM EDT ANEMIA CBC Lab Routine Severe aortic stenosis History of transcatheter aortic valve replacement (TAVR) Coronary artery disease involving chilkoot coronary artery of chilkoot heart without angina pectoris Chronic diastolic congestive heart failure (HCC) HTN, goal below 140/90 06/14/2024 10:17 AM EDT DIFFERENTIAL, AUTOMATED Lab Routine Severe aortic stenosis History of transcatheter aortic valve replacement (TAVR) Coronary artery disease involving chilkoot coronary artery of chilkoot heart without angina pectoris Chronic diastolic congestive heart failure (HCC) HTN, goal below 140/90 06/14/2024 10:17 AM EDT ANEMIA REFLEX CHEMISTRY HOLD Lab Routine Severe aortic stenosis History of transcatheter aortic valve replacement (TAVR) Coronary artery disease involving chilkoot coronary artery of chilkoot heart without angina pectoris Chronic diastolic congestive heart failure (HCC) HTN, goal below 140/90 06/14/2024 10:17 AM EDT Health Maintenance Due Date Last Done Comments Depression Screening 1957 Albumin/Creatinine Ratio 1965 Hepatitis C Screening 1965 Zoster Vaccines (1 of 2) 1997 COVID-19 Vaccine (2 - season) 2023 06/05/2021 Influenza Vaccine (FLU shot) (#1) 2024 10/13/2023, 12/17/2019, 12/17/2019, Additional history exists DTaP,Tdap,and Td Vaccines (2 - Td or Tdap) 08/23/2024 08/23/2014 GFR 05/26/2025 05/26/2024, 0712/2023, 05/25/2024, Additional history exists Pneumococcal Vaccine: 65+ [...] this encounter Medical Devices Implanted Type Area Credit Collections Analyst Device Identifier Shelf Expiration Date Model / Serial / Lot Stent Synergy Xd Mr 2.04i57tu - [id number] Implanted:Qty: 1 on 05/10/2024 by Munir Figueroa MD at [facility] [place] [employer] [id number] 12/24/2024 [id number] 220 / / [id number] Stent Synergy Xd Mr 2.24m73ku - [id number] Implanted:Qty: 1 on 05/10/2024 by Munir Figueroa MD at [facility] [place] [employer] [id number] 12/08/2024 [id number] 250 / / [id number] Stent Synergy Xd Mr 3.62j46im - [id number] Implanted:Qty: 1 on 05/10/2024 by Munir Figueroa MD at [facility] [place] [employer] [id number] 09/24/2024 [id number] 300 / / [id number] Stent Synergy Xd Mr 3.89q73dt - [id number] Implanted:Qty: 1 on 05/10/2024 by Munir Figueroa MD at [facility] [place] [employer] [id number] 05/18/2025 [id number] 350 / / [id number] Valve Tavr Gautam 29mm - [id number] Implanted:Qty: 1 on 05/25/2024 by Munir Figueroa MD at [facility] [place] [employer] [id number] 12/16/2024 [id number] / / documented as of this encounter Visit Diagnoses Diagnosis Severe aortic stenosis Aortic valve disorders History of transcatheter aortic valve replacement (TAVR) Coronary artery disease involving chilkoot coronary artery of chilkoot heart without angina pectoris Chronic diastolic congestive [...] Discussed due to patient's condition Care Teams Bus Inspector Relationship Specialty Start Date End Date Sammy Henderson MD 6 [facility] [place] [address] PCP - General Internal Medicine 10/13/23 documented as of this encounter
--- OUTSIDE RECORDS SUMMARY | 2024-11-13 16:36 | External Medical Summary ---
Author Name Unknown Address Unknown Organization [id number][facility] [place] [address] Laboratory Report Ordering Provider Test Date Status NELLIE PEREZ 08/10/2024 14:49:55 Final Observation Date Value Abnormality Reference (Units ) Status WBC, Total 08/10/2024 14:49:55 11.67 Above high normal 4 .00-10.80 (K/uL) Final RBC 08/10/2024 14:49:55 4.32 4.50-5.25 (M/uL) Final Hemoglobin 08/10/2024 14:49:55 13.5 Below low normal 14 .0-16.8 (g/dL) Final HCT 08/10/2024 14:49:55 40.7 40.0-48.4 (%) Final MCV 08/10/2024 14:49:55 94.2 82.0-99.5 (fL) Final MCH 08/10/2024 14:49:55 31.3 27.0-34.0 (pg) Final MCHC 08/10/2024 14:49:55 33.2 32.0-36.0 (g/dL) Final RDW 08/10/2024 14:49:55 13.9 11.5-15.5 (%) Final Platelets 08/10/2024 14:49:55 209 140-400 (K /uL) Final MPV 08/10/2024 14:49:55 10.6 6.6-11.1 ( fL) Final Performing Location [facility] [address] [place] [address]
--- OUTSIDE RECORDS SUMMARY | 2024-11-13 16:36 | External Medical Summary ---
Author Name Unknown Address Unknown Organization [id number]:[facility] [place] [address] [facility] [place] [address] Laboratory Report Ordering Provider Test Date Status NELLIE PEREZ 06/14/2024 10:17:18 Final Observation Date Value Abnormality Reference (Units ) Status SYNC LEUKOCYTES IN BLOOD BY AUTOMATED COUNT 06/14/2024 10:17:18 9.63 4.00-10.80 (K/uL) Final Segs 06/14/2024 10:17:18 65.6 40.0-75.0 (%) Final Lymphs % 06/14/2024 10:17:18 18.7 18.0-42.0 (%) Final Monos 06/14/2024 10:17:18 9.8 1.0-11.0 (%) Final Eosinophils 06/14/2024 10:17:18 4.4 0.0-6.0 (%) Final Basos 06/14/2024 10:17:18 1.2 0.0-2.0 (%) Final Immature Granulocyte, Percent 06/14/2024 10:17:18 0.3 0.0-2.0 (%) Final Absolute Segs 06/14/2024 10:17:18 6.32 1.80-7.70 (K/uL) Final Lymphs, absolute 06/14/2024 10:17:18 1.80 1.00-4.80 (K/ul) Final Monos, Abs 06/14/2024 10:17:18 0.94 0.00-1.10 (K/uL) Final Eos, Abs 06/14/2024 10:17:18 0.42 0.00-0.70 (K/uL) Final Basos, Abs 06/14/2024 10:17:18 0.12 0.00-0.20 (K/uL) Final Immature Granulocytes, Number 06/14/2024 10:17:18 0.03 0.00-0.20 (K/uL) Final Performing Location [facility] [place] [facility] [address] [facility] [address]
--- OUTSIDE RECORDS SUMMARY | 2024-11-13 16:37 | External Medical Summary ---
Author Name Unknown Address Unknown Organization : Laboratory Report Ordering Provider Test Date Status HANS IRWIN 05/25/2024 11:50:52 Final NORMAL (NON-HEPARINIZED) 74- 137 SECONDS
HEPARINIZED 200+ SECONDS
CRITICAL GREATER THAN 1000 SECONDS
null Observation Date Value Abnormality Reference (Units ) Status Kaolin activated time [Units/volume] in Blood 05/25/2024 11:50:52 470 50-1000 (secs) Final Performing Location
--- OUTSIDE RECORDS SUMMARY | 2024-11-13 16:37 | External Medical Summary ---
Author Name Unknown Address Unknown Organization [id number]:[facility] [place] - [facility] [address] [place] [address] Laboratory Report Ordering Provider Test Date Status AMERICA HORNER 05/25/2024 09:19:57 Final Exclude Heart Failure: <300 pg/mL
Diagnose Heart Failure:
Age <50 yr: >450 pg/mL
50-75 yr: >900 pg/mL
>75 yr: >1800 pg/mL
GFR is 30-59 mL/min: >1200 pg/mL or Age- adjusted values
GFR <30 mL/min: do not use, not reliable

Prognostic threshold: 1000 pg/mL Observation Date Value Abnormality Reference (Units ) Status BNP, Pro-hormone 05/25/2024 09:19:57 3112 Above high no rmal <300 (pg/mL) Final Performing Location [facility] [place] - [facility] [address] [place] [address]
--- OUTSIDE RECORDS SUMMARY | 2024-11-13 16:37 | External Medical Summary | Summary of Care ---
Author Name Unknown Organization [facility] Address [address] [place] [address] Phone [phone] Care Team Providers Care Lang Interpreter Name Role Phone Sammy Henderson MD Primary Care Provider + Reason for Visit * Reason Onset Date Comments Films 05/19/2024 Encounter Details Date Type Department Care Team (Late st Contact Info) Description 05/19/2024 Telephone Cardiology [facility] [address] [place] [address] Munir Figueroa MD [address] [place] [address] Films Allergies Active Allergy Reactions Criticality Noted Date Comments Poison Tiffanie Extract 10/13/2023 documented as of this encounter (statuses as of 05/19/2024) Medications Medication Sig Dispensed Refills Start Date [...] go to ER. 25 Tablet 05/10/2024 Active Nitroglycerin 0.4 MG Sublingual Tablet Sublingual (Nitrostat) Place 1 Tablet under the tongue every 5 minutes as needed for Pain, Chest. up to 3 doses in 15 minutes 25 Tablet 11 05/10/2024 Active Clopidogrel Bisulfate 75 MG Oral Tablet (pLAVix) Take 1 Tablet by mouth in the morning. Do not start before May 11, 2024. 90 Tablet 3 05/11/2024 Active Clopidogrel Bisulfate 75 MG Oral Tablet (pLAVix) Take 1 Tablet by mouth every morning. 34 Tablet 05/10/2024 Active Aspirin 81 MG Oral Tablet Chewable Take [...] 11, 2024. 90 Tablet 3 05/11/2024 Active Rosuvastatin Calcium 40 MG Oral Tablet (Crestor) Take 1 Tablet by mouth every morning. 30 Tablet 05/10/2024 Active documented as of this encounter (statuses as of 05/19/2024) Active Problems Problem Noted Date Diagnosed Date Aortic stenosis 05/10/2024 S/P angioplasty with stent 05/10/2024 Neuropathy of lower extremity 05/10/2024 Mitral regurgitation 05/10/2024 Enlarged prostate 05/10/2024 Aortic regurgitation 09/09/2022 CAD in [place]ahu[place] artery 08/20/2022 HLD (hyperlipidemia) 08/20/2022 Aortic stenosis 08/20/2022 Bradycardia 08/06/2022 Neuropathy of both feet 07/10/2022 Edema of both lower legs due to peripheral venous insufficiency 07/10/2022 Anxiety 07/10/2022 Ambulatory dysfunction 04/24/2022 Hard of hearing 04/04/2022 Hypertension 04/04/2022 Edema of leg 04/04/2022 Bowel dysfunction 04/04/2022 documented as of this encounter (statuses as of 05/19/2024) Immunizations Name Administration Dates Next Due Seasonal [...] on file documented as of this encounter Miscellaneous Notes * Telephone Encounter - Carlton Lopez OSA - 05/19/2024 12:15 PM EDT Doreen Olivarez from Cardiology requesting CTA TAVR images to be sent internally within [facility] for patient's upcoming appointment. Disc created and internally sent to/picked up by Doreen Olivarez. [place] Authorization to Release form on file. documented in this encounter Plan of Treatment Upcoming Encounters Date Type Department Care Team (Late st Contact Info) Description 06/14/2024 10:00 AM EDT Office Visit Cardiology, [facility] [address] [place] [id number] Argenis Colbert CRNP [address] [place] [address] Health Maintenance Due Date Last Done Comments Depression Screening 1959 Albumin/Creatinine Ratio 1965 Hepatitis C Screening 1965 Zoster Vaccines (1 of 2) 1997 COVID-19 Vaccine (2 - season) 2023 06/05/2021 DTaP,Tdap,and Td Vaccines (2 - Td or Tdap) 08/23/2024 08/23/2014 GFR 05/10/2025 05/10/2024, 04/24, 04/16/2022, Additional history exists Pneumococcal Vaccine: 65+ Years Completed 12/17/2019, 12/09/2018 Influenza Vaccine (FLU shot) Completed , 12/17/2019, 12/17/2019, Additional history exists GARDASIL-HPV IMMUNIZATION SERIES Aged Out No longer eligible based on patient's age to complete this topic Hepatitis B Aged Out No longer eligi ble based on patient's age to complete this topic MENINGOCOCCAL (MENACTRA/MENVEO) Aged Out No longer eligible based on patient's age to complete this topic documented as of this encounter Medical Devices Implanted Type Area Cataract Lens Generator Device Identifier Shelf Expiration Date Model / Serial / Lot Stent Synergy Xd Mr 2.20f40rg - [id number] Implanted:Qty: 1 on 05/10/2024 by Munir Figueroa MD at [facility] [place] [id number] 12/24/2024 [id number] 220 / / [id number] Stent Synergy Xd Mr 2.33t46vb - [id number] Implanted:Qty: 1 on 05/10/2024 by Munir Figueroa MD at [facility] [place] [id number] 12/08/2024 [id number] 250 / / [id number] Stent [employer]nergy Xd Mr 3.66f76jt - [id number] Implanted:Qty: 1 on 05/10/2024 by Munir Figueroa MD at [facility] [place] [id number] 09/24/2024 [id number] 300 / / [id number] Stent Synergy Xd Mr 3.79f13sf - [id number] Implanted:Qty: 1 on 05/10/2024 by Munir Figueroa MD at [facility] [place] [id number] 05/18/2025 [id number] 350 / / [id number] documented as of this encounter Care Teams Lang Interpreter Relationship Specialty Start Date End Date Sammy Henderson MD 6 [facility] [address], [place] [address] PCP - General Internal Medicine 10/13/23 documented as of this encounter
--- OUTSIDE RECORDS SUMMARY | 2024-11-13 16:37 | External Medical Summary ---
Author Name Unknown Address Unknown Organization K01:[facility] [place] - [facility] [address] [place] [address] Laboratory Report Ordering Provider Test Date Status AMERICA HORNER 05/25/2024 09:19:57 Final Observation Date Value Abnormality Reference (Units ) Status WBC, Total 05/25/2024 09:19:57 11.26 Above high normal 4.00-10.80 (K/uL) Final RBC 05/25/2024 09:19:57 4.36 4.50-5.25 (M/uL) Final Hemoglobin 05/25/2024 09:19:57 13.6 Below low normal 14.0-16.8 (g/dL) Final HCT 05/25/2024 09:19:57 41.0 40.0-48.4 (%) Final MCV 05/25/2024 09:19:57 94.0 82.0-99.5 (fL) Final MCH 05/25/2024 09:19:57 31.2 27.0-34.0 (pg) Final MCHC 05/25/2024 09:19:57 33.2 32.0-36.0 (g/dL) Final RDW 05/25/2024 09:19:57 12.6 11.5-15.5 (%) Final Platelets 05/25/2024 09:19:57 194 140-400 (K/uL) Final MPV 05/25/2024 09:19:57 10.7 6.6-11.1 (fL) Final Nucleated erythrocytes/100 leukocytes [Ratio] in Blood by Automated count 05/25/2024 09:19:57 0 <=0 (/100 WBCs) Final Performing Location [facility] - [address] [place] [address]
--- OUTSIDE RECORDS SUMMARY | 2024-11-13 16:37 | External Medical Summary ---
Author Name Unknown Address Unknown Organization K01:[facility] [place] [address] [place] [address] Laboratory Report Ordering Provider Test Date Status COLEEN ATWOOD 05/25/2024 13:27:00 Final Warfarin Therapy
INR: 2 .0-3.0 conventional anticoagulation
INR: 2.5- 3.5 high intensity anticoagulation Observation Date Value Abnormality Reference (Units ) Status PT 05/25/2024 13:27:00 15.1 11.6-15.2 (seconds) Final INR 05/25/2024 13:27:00 1.2 0.8-1.2 Final Performing Location [facility] [place] [address] [place] [address]
--- OUTSIDE RECORDS SUMMARY | 2024-11-13 16:37 | External Medical Summary ---
Author Name Unknown Address Unknown Organization K01:LABORATORY [facility] [place] - [facility] [address] [place] [address] Laboratory Report Ordering Provider Test Date Status COLEEN ATWOOD 05/25/2024 13:27:00 Final Observation Date Value Abnormality Reference (Units ) Status WBC, Total 05/25/2024 13:27:00 10.07 4.00-10.80 (K/uL) Final RBC 05/25/2024 13:27:00 3.72 4.50-5.25 (M/uL) Final Hemoglobin 05/25/2024 13:27:00 11.9 Below low normal 14.0-16.8 (g/dL) Final HCT 05/25/2024 13:27:00 35.0 Below low normal 40.0-48.4 (%) Final MCV 05/25/2024 13:27:00 94.1 82.0-99.5 (fL) Final MCH 05/25/2024 13:27:00 32.0 27.0-34.0 (pg) Final MCHC 05/25/2024 13:27:00 34.0 32.0-36.0 (g/dL) Final RDW 05/25/2024 13:27:00 12.8 11.5-15.5 (%) Final Platelets 05/25/2024 13:27:00 155 140-400 (K/uL) Final MPV 05/25/2024 13:27:00 10.9 6.6-11.1 (fL) Final Nucleated erythrocytes/100 leukocytes [Ratio] in Blood by Automated count 05/25/2024 13:27:00 0 <=0 (/100 WBCs) Final Performing Location LABORATORY [facility] [place] - [address] [place] [address]
--- OUTSIDE RECORDS SUMMARY | 2024-11-13 16:37 | External Medical Summary ---
Author Name Unknown Address Unknown Organization [id number]:LABORATORY [facility] [place] - [address] [place] [address] Laboratory Report Ordering Provider Test Date Status AMERICA HORNER 05/25/2024 09:19:57 Final Observation Date Value Abnormality Reference (Units ) Status BUN 05/25/2024 09:19:57 12 6-20 (mg/dL) Final Creatinine 05/25/2024 09:19:57 0.9 0.6-1.2 (mg/dL) Final Glomerular filtration rate/1.73 sq M.predicted [Volume Rate/Area] in Serum, Plasma or Blood by Creatinine-based formula (CKD-EPI) 05/25/2024 09:19:57 89 >=60 (mL/min) Final eGFR is calculated based on the CKD-EPI 2020 equation Sodium 05/25/2024 09:19:57 141 135-146 (m mol/L) Final Potassium 05/25/2024 09:19:57 3.8 3.5-5.1 (m mol/L) Final Cl 05/25/2024 09:19:57 105 98-107 (mm ol/L) Final CO2 05/25/2024 09:19:57 21 Below low normal 22- 32 (mmol/L) Final Anion gap 05/25/2024 09:19:57 15 7-15 (mmol /L) Final Glucose 05/25/2024 09:19:57 85 70-120 (mg /dL) Final Calcium 05/25/2024 09:19:57 9.4 8.4-10.2 ( mg/dL) Final Performing Location LAB[facility]ATORY [facility] [place] - [address] [place] [address]
--- OUTSIDE RECORDS SUMMARY | 2024-11-13 16:37 | External Medical Summary ---
Author Name Unknown Address Unknown Organization [id number]:LABORATORY [facility] - [address] [place] [address] Laboratory Report Ordering Provider Test Date Status COLEEN ATWOOD 05/25/2024 13:27:00 Final Observation Date Value Abnormality Reference (Units ) Status Magnesium 05/25/2024 13:27:00 1.7 1.5-2.6 (m g/dL) Final Performing Location LABORATORY [facility] - [address] [place] [address]
--- OUTSIDE RECORDS SUMMARY | 2024-11-13 16:37 | External Medical Summary ---
Author Name Unknown Address Unknown Organization [id number]:LABORATORY [facility] [place] [facility] - [address] [place] [address] Laboratory Report Ordering Provider Test Date Status AMERICA HORNER 05/25/2024 09:19:57 Final Observation Date Value Abnormality Reference (Units ) Status ABO 05/25/2024 09:19:57 O Final RH 05/25/2024 09:19:57 Positive Final Performing Location [facility] [place] [facility] - [address] [place] [address]
--- OUTSIDE RECORDS SUMMARY | 2024-11-13 16:37 | External Medical Summary ---
Author Name Unknown Address Unknown Organization [id number]:LABORATORY [facility] [place] - [address] [place] [address] Laboratory Report Ordering Provider Test Date Status AMERICA HORNER 05/25/2024 09:19:57 Final Observation Date Value Abnormality Reference (Units ) Status Albumin 05/25/2024 09:19:57 4.3 3.8-5.0 (g/dL) Final AST (Aspartate aminotransferase) 05/25/2024 09:19:57 28 10-50 (U/L) Final Result may be falsely elevat ed due to hemolysis. Alk Phos 05/25/2024 09:19:57 105 35-130 (U/ L) Final ALT (Alanine aminotransferase) 05/25/2024 09:19:57 18 10-50 (U/L) Final Bilirubin, Total 05/25/2024 09:19:57 0.4 <=1 .2 (mg/dL) Final Bilirubin, Direct 05/25/2024 09:19:57 <0.2 0. 0-0.3 (mg/dL) Final Result may be falsely decrea sed due to hemolysis. Protein 05/25/2024 09:19:57 7.5 6.0-8.3 (g /dL) Final Performing Location LABORATORY [facility] [place] - [address] [place] [address]
--- OUTSIDE RECORDS SUMMARY | 2024-11-13 16:37 | External Medical Summary ---
Author Name Unknown Address Unknown Organization [id number]:[facility] [place] [facility] - [address] [place] [address] Laboratory Report Ordering Provider Test Date Status EVENSAMERICA 05/25/2024 09:19:57 Final Observation Date Value Abnormality Reference (Units ) Status ABO 05/25/2024 09:19:57 O Final RH 05/25/2024 09:19:57 Positive Final RED BLOOD CELL ANTIBODY SCREEN 05/25/2024 09:19:57 Negative Final SPECIMEN EXPIRATION DATE 05/25/2024 09:19:57 05/28/2024 23:59 Final Performing Location LAB[facility]ORY [facility] - [address] [place] [address]
--- OUTSIDE RECORDS SUMMARY | 2024-11-13 16:37 | External Medical Summary ---
Author Name Unknown Address Unknown Organization [id number]:LABORATORY [facility] [place] - [address] [place] [address] Laboratory Report Ordering Provider Test Date Status COLEEN ATWOOD 05/25/2024 13:27:00 Final Observation Date Value Abnormality Reference (Units ) Status BUN 05/25/2024 13:27:00 12 6-20 (mg/dL) Final Creatinine 05/25/2024 13:27:00 0.8 0.6-1.2 (mg/dL) Final Glomerular filtration rate/1.73 sq M.predicted [Volume Rate/Area] in Serum, Plasma or Blood by Creatinine-based formula (CKD-EPI) 05/25/2024 13:27:00 >90 >=60 (mL/min) Final eGFR is calculated based on the CKD-EPI 2020 equation Sodium 05/25/2024 13:27:00 137 135-146 (m mol/L) Final Potassium 05/25/2024 13:27:00 3.9 3.5-5.1 (m mol/L) Final Cl 05/25/2024 13:27:00 103 98-107 (mm ol/L) Final CO2 05/25/2024 13:27:00 21 Below low normal 22- 32 (mmol/L) Final Anion gap 05/25/2024 13:27:00 13 7-15 (mmol /L) Final Glucose 05/25/2024 13:27:00 111 70-120 (mg /dL) Final Calcium 05/25/2024 13:27:00 8.6 8.4-10.2 ( mg/dL) Final Performing Location LABORATORY [facility] [place] - [address] [place] [address]
--- NOTE | 2024-11-13 17:06 | Emergency Department Note ---
Impression & Plan Generalized weakness, Non-ST elevation UT (NSTEMI), Ambulatory dysfunction, Rhabdomyolysis ED Provider Note HISTORY OF PRESENT ILLNESS: Patient is a 79-year-old male presenting with generalized weakness. Patient has recurrent falls over the last few days secondary to being very weak. He reports that 6 days ago he had fallen secondary to weakness in bilateral lower extremities and was on the ground for hours crawling around his house trying to find some way to pull himself up when family stopped by and helped him get into a chair. He states that he had fallen again 4 days ago and was on the ground for 17 hours before family came to help him up. He has been unable to get up out of the chair since secondary to his weakness. He is unsure if he hit his head at all during his falls. Denies any chest pain, shortness of breath or lightheadedness prior to the falls. Denies any bowel or bladder incontinence. Denies any numbness or tingling down his legs. He denies any back pain. He reports he just feels like his legs are very weak. States he normally ambulates with a walker at home. ROS: as above PHYSICAL EXAM: Constitutional: Patient appears in no acute distress. Patient appears unkempt HENT: Head: Normocephalic and atraumatic. Eyes: EOMI, PERRL Mouth/Throat: Mucous membranes moist. Neck: Trachea midline. Neck supple. Cardiovascular: RRR, No murmurs, rubs or gallops. Intact distal pulses. Pulmonary/Chest: No respiratory distress. Breath sounds clear and equal bilaterally. No wheezes or rales. Abdominal: Abdomen soft, no tenderness, rebound or guarding. Musculoskeletal: No edema, tenderness or deformity noted. Skin: Warm and dry. Redness and swelling to bilateral lower extremities. Psychiatric: Appropriate mood and affect for situation. Neurological: Alert and keenly responsive. CN II-XII grossly intact, moving all extremities equally and fully. MDM: - Vitals signs stable. - History obtained via patient. History as above. - Chronic conditions affecting care: HTN - Differential diagnoses include, but are not limited to: ACS; pneumonia; viral syndrome; CVA; intracranial hemorrhage; electrolyte abnormality; rhabdomyolysis - Order placed for continuous cardiac monitoring. At this time, monitor showed rate of 60 bpm with normal sinus rhythm, per my interpretation. - External medical records reviewed. Family practice report dated 10/07/2022 was reviewed. Patient was being followed in their clinic for bilateral foot swelling which seem to be an ongoing issue at the time. - EKG interpreted by myself showed normal sinus rhythm. Rate 59 bpm. QT 428. No acute ischemic changes. - Laboratory workup interpreted by myself showed leukocytosis (WBC 14.26); normal PT/INR; elevated AST (68); elevated CK (754); elevated troponin (33); normal TSH; normal procalcitonin - Viral respiratory panel negative - CXR negative for pneumonia, per my interpretation - CT head wo contrast negative for acute pathology - UA negative for infection. - NSTEMI likely type II in etiology, given patient's rhabdomyolysis - Given patient's recurrent falls in the last week and inability to get up and around and do his ADLs, will admit to hospital service for potential rehab placement. - Discussion was had with case hardener about patient's case and need for admission - Hospitalist consulted for admission [facility] ASSESSMENT AND PLAN: Diagnosis: generalized weakness; NSTEMI; ambulatory dysfunction; rhabdomyolysis Plan: admit Past Med/Surg History Problem List (Updated 11/13/24 @ 18:12 by Josselin Perez MD) Rhabdomyolysis (Acute) Ambulatory dysfunction (Acute) Non-ST elevation UT (NSTEMI) (Acute) Generalized weakness (Acute) BPH NOS w ur obs/LUTS Alcoholism Medical History (Updated 11/13/24 @ 18:12 by Josselin Perez MD) Gout History of nephrolithiasis Hypertension Family History (Updated 04/08/22 @ 08:52 by BOB Lombardo) Sister Diabetes Cancer Son Diabetes Father Heart disease Grandmother Cancer Social History (Updated 04/08/22 @ 08:53 by BOB Lombardo) Smoking Status: Former smoker Tobacco Type: Cigars Hx Alcohol Use: Yes Alcohol type: wine Hx Substance Use: No Preferred Language: Turkmen Sample Selector Required: No marital status: Single Current Living Situation: Alone Feels Safe at Home: No Assistive Devices: None, Glasses and Walker Allergies Allergies Allergy/AdvReac Type Severity Reaction Status Date / Time No Known Allergies Allergy Verified 08/01/22 10:16 Home Meds Home Medications Medication Instructions Recorded Confirmed alprazolam 2 mg tablet 2 mg PO BID PRN Anxiety 09/17/22 11/13/24 docusate sodium 100 mg capsule 100 mg PO DAILY 09/17/22 11/13/24 furosemide 80 mg tablet 80 mg PO QAM 09/17/22 11/13/24 losartan 25 mg tablet 25 mg PO QAM 09/17/22 11/13/24 metoprolol succinate 25 mg 25 mg PO QAM 01/08/23 11/13/24 tablet,extended release 24 hr sertraline 100 mg tablet 100 mg PO DAILY 01/08/23 11/13/24 amoxicillin 500 mg capsule 2,000 mg PO UD 11/13/24 11/13/24 clopidogrel 75 mg tablet 75 mg PO QAM 11/13/24 11/13/24 nitroglycerin 0.4 mg sublingual 0.4 mg sublingual .EVERY 5 MINUTES 11/13/24 11/13/24 tablet PRN Chest Pain rosuvastatin 40 mg tablet 40 mg PO QAM 11/13/24 11/13/24 Results & Data (ED) Vital Signs Vital Signs - 24 hr 11/13/24 16:37 11/13/24 16:50 11/13/24 17:00 Temperature 36.6 C Temperature Source Oral Pulse Rate 65 64 Pulse Rate [Apical] 59 L Respiratory Rate 18 20 Respiratory Depth Normal Blood Pressure 116/84 Blood Pressure [Right Arm] 116/84 Blood Pressure Mean 94 Blood Pressure Mean [Right Arm] 94 Blood Pressure Position Semi-fowlers Blood Pressure Position [Right Arm] Semi-fowlers Pulse Oximetry 100 100 Oxygen Delivery Method Room Air Room Air Sepsis Recent Fever Within 48 Hours No Sepsis New/Unexplained Change in Mental Status N/A Sepsis Action Taken by Nursing No Action Required 11/13/24 17:08 11/13/24 18:32 Temperature Temperature Source Pulse Rate 58 L Pulse Rate [Apical] 59 L Respiratory Rate 15 25 H Respiratory Depth Blood Pressure Blood Pressure [Right Arm] 146/67 H Blood Pressure Mean Blood Pressure Mean [Right Arm] 93 Blood Pressure Position Blood Pressure Position [Right Arm] Semi-fowlers Pulse Oximetry 100 97 Oxygen Delivery Method Room Air Room Air Sepsis Recent Fever Within 48 Hours Sepsis New/Unexplained Change in Mental Status Sepsis Action Taken by Nursing Laboratory Data 11/13/24 17:24 11/13/24 17:24 Lab Results 11/13/24 11/13/24 11/13/24 Range/Units 16:57 17:24 17:26 WBC 14.26 H (4.8-10.8) K/ul RBC 3.91 L (4.70-6.10) M/uL Hgb 12.4 L (14.0-18.0) g/dl Hct 37.5 L (42.0-52.0) % MCV 95.9 (80.0-100.0) fL MCH 31.7 (25.0-34.0) pg MCHC 33.1 (32.0-36.0) g/dL RDW Std Deviation 46.0 (36.4-46.3) fL RDW Coeff of Rosina 13.2 (11.5-14.5) % Plt Count 188 (130-400) K/uL MPV 10.1 (9.4-12.4) fL Immature Gran % (Auto) 0.5 % Neut % (Auto) 79.0 % Lymph % (Auto) 9.0 % Luce % (Auto) 7.6 % Eos % (Auto) 3.5 % Baso % (Auto) 0.4 % Neut # (Auto) 11.25 H (1.40-6.50) K/uL Lymph # (Auto) 1.29 (1.20-3.40) K/uL Luce # (Auto) 1.09 H (0.11-0.59) K/uL Eos # (Auto) 0.50 (0.00-0.50) K/uL Baso # (Auto) 0.06 (0.00-0.20) K/uL Immature Gran # (Auto) 0.07 (0.01-0.20) K/uL PT 10.3 (9.0-12.0) Seconds INR 0.9 (0.9-1.1) Sodium 142 (136-145) mmol/L Potassium 3.9 (3.5-5.1) mmol/L Chloride 105 (98-107) mmol/L Carbon Dioxide 32 (21-32) mmol/L Anion Gap 5 (3-11) BUN 37 H (6-23) mg/dl Creatinine 0.88 (0.6-1.4) mg/dl Est Cr Clr Drug Dosing 85.1 ml/min eGFR 88.56 BUN/Creatinine Ratio 42.0 H (10-20) Glucose 134 H (70-99(Fasting)) mg/dl Lactate 1.8 (0.4-2.0) mmol/L Calcium 9.1 (8.6-10.3) mg/dl Magnesium 2.2 (1.7-2.4) mg/dl Total Bilirubin 0.4 (0.2-1.0) mg/dl AST 68 H (13-39) U/L ALT 49 (7-52) U/L Alkaline Phosphatase 105 H (34-104) U/L Total Creatine Kinase 754 H (30-223) U/L Troponin I High Sens 33.0 H (0-20) pg/ml Total Protein 6.5 (6.0-8.3) gm/dl Albumin 4.0 (3.4-5.0) gm/dl Globulin 2.5 (2.5-4.0) gm/dl Albumin/Globulin Ratio 1.6 (0.9-2) Procalcitonin 0.13 (0-0.5) ng/ml TSH 2.338 (0.300-4.500) uIu/ml Urine Color Urine Appearance (Clear) Urine pH (4.5-7.5) Ur Specific [place] (1.000-1.030) Urine Protein (Negative) Urine Glucose (UA) (Negative) Urine Ketones (Negative) Urine Blood (Negative) Urine Nitrite (Negative) Urine Bilirubin (Negative) Urine Urobilinogen (Negative) Ur Leukocyte Esterase (Negative) Urine WBC (Auto) (0-5) /hpf Urine RBC (Auto) (0-2) /hpf U Hyaline Cast (Auto) (0-2) /lpf U Epithel Cells (Auto) (0-2) /hpf Urine Bacteria (Auto) (None Seen) Adenovirus (PCR) Not Detected (NotDetected) B. pertussis DNA (PCR) Not Detected (NotDetected) B.parapertussis DNA PCR Not Detected (NotDetected) C. pneumoniae DNA (PCR) Not Detected (NotDetected) Coronavirus OC43 (PCR) Not Detected (NotDetected) Coronavirus HKU1 (PCR) Not Detected (NotDetected) Coronavirus 229E (PCR) Not Detected (NotDetected) SARS-CoV-2 (PCR) Not Detected (NotDetected) Coronavirus NL63 (PCR) Not Detected (NotDetected) Human Metapneumovir PCR Not Detected (NotDetected) Influenza Type A (PCR) Not Detected (NotDetected) Influenza Type B (PCR) Not Detected (NotDetected) M. pneumoniae (PCR) Not Detected (NotDetected) Parainfluenza 1 (PCR) Not Detected (NotDetected) Parainfluenza 2 (PCR) Not Detected (NotDetected) Parainfluenza 3 (PCR) Not Detected (NotDetected) Parainfluenza 4 (PCR) Not Detected (NotDetected) RSV (PCR) Not Detected (NotDetected) Entero/Rhino (PCR) Not Detected (NotDetected) 11/13/24 Range/Units 19:02 WBC (4.8-10.8) K/ul RBC (4.70-6.10) M/uL Hgb (14.0-18.0) g/dl Hct (42.0-52.0) % MCV (80.0-100.0) fL MCH (25.0-34.0) pg MCHC (32.0-36.0) g/dL RDW Std Deviation (36.4-46.3) fL RDW Coeff of Rosina (11.5-14.5) % Plt Count (130-400) K/uL MPV (9.4-12.4) fL Immature Gran % (Auto) % Neut % (Auto) % Lymph % (Auto) % Luce % (Auto) % Eos % (Auto) % Baso % (Auto) % Neut # (Auto) (1.40-6.50) K/uL Lymph # (Auto) (1.20-3.40) K/uL Luce # (Auto) (0.11-0.59) K/uL Eos # (Auto) (0.00-0.50) K/uL Baso # (Auto) (0.00-0.20) K/uL Immature Gran # (Auto) (0.01-0.20) K/uL PT (9.0-12.0) Seconds INR (0.9-1.1) Sodium (136-145) mmol/L Potassium (3.5-5.1) mmol/L Chloride (98-107) mmol/L Carbon Dioxide (21-32) mmol/L Anion Gap (3-11) BUN (6-23) mg/dl Creatinine (0.6-1.4) mg/dl Est Cr Clr Drug Dosing ml/min eGFR BUN/Creatinine Ratio (10-20) Glucose (70-99(Fasting)) mg/dl Lactate (0.4-2.0) mmol/L Calcium (8.6-10.3) mg/dl Magnesium (1.7-2.4) mg/dl Total Bilirubin (0.2-1.0) mg/dl AST (13-39) U/L ALT (7-52) U/L Alkaline Phosphatase (34-104) U/L Total Creatine Kinase (30-223) U/L Troponin I High Sens (0-20) pg/ml Total Protein (6.0-8.3) gm/dl Albumin (3.4-5.0) gm/dl Globulin (2.5-4.0) gm/dl Albumin/Globulin Ratio (0.9-2) Procalcitonin (0-0.5) ng/ml TSH (0.300-4.500) uIu/ml Urine Color Yellow Urine Appearance Clear (Clear) Urine pH 6.0 (4.5-7.5) Ur Specific [place] 1.021 (1.000-1.030) Urine Protein Negative (Negative) Urine Glucose (UA) Negative (Negative) Urine Ketones Negative (Negative) Urine Blood Negative (Negative) Urine Nitrite Negative (Negative) Urine Bilirubin Negative (Negative) Urine Urobilinogen Negative (Negative) Ur Leukocyte Esterase 1+ H (Negative) Urine WBC (Auto) 0-5 (0-5) /hpf Urine RBC (Auto) 0-2 (0-2) /hpf U Hyaline Cast (Auto) 0-2 (0-2) /lpf U Epithel Cells (Auto) 0-2 (0-2) /hpf Urine Bacteria (Auto) None Seen (None Seen) Adenovirus (PCR) (NotDetected) B. pertussis DNA (PCR) (NotDetected) B.parapertussis DNA PCR (NotDetected) C. pneumoniae DNA (PCR) (NotDetected) Coronavirus OC43 (PCR) (NotDetected) Coronavirus HKU1 (PCR) (NotDetected) Coronavirus 229E (PCR) (NotDetected) SARS-CoV-2 (PCR) (NotDetected) Coronavirus NL63 (PCR) (NotDetected) Human Metapneumovir PCR (NotDetected) Influenza Type A (PCR) (NotDetected) Influenza Type B (PCR) (NotDetected) M. pneumoniae (PCR) (NotDetected) Parainfluenza 1 (PCR) (NotDetected) Parainfluenza 2 (PCR) (NotDetected) Parainfluenza 3 (PCR) (NotDetected) Parainfluenza 4 (PCR) (NotDetected) RSV (PCR) (NotDetected) Entero/Rhino (PCR) (NotDetected) Imaging Data Radiologist's Impression: Chest X-Ray 11/13/24 16:54 EXAM: Radiograph of the Chest 1 View INDICATION: Weakness. TECHNIQUE: Frontal view of the chest. COMPARISON: No relevant prior studies available. FINDINGS: Lungs and pleural spaces: No consolidation or pulmonary edema. No pleural effusion or pneumothorax. Heart: Prominent cardiac shadow accentuated by technique. Aortic valve prosthetic stents present. Mediastinum: Normal contour. Bones/joints: No fracture, erosion or dislocation. Soft tissues: No abnormality noted. No radiopaque foreign body noted. Upper abdomen: No abnormality noted. IMPRESSION: No acute cardiopulmonary disease. ACT 112: Negative or not required by law. Electronically signed by Christie Guan 11-13-2024 5:[address] 11/13/24 17:43 EXAM: CT Head Without Intravenous Contrast INDICATION: Weakness. Multiple falls. TECHNIQUE: Axial computed tomography images of the head/brain without intravenous contrast. Sagittal and/or coronal reformats are provided. Sagittal and coronal reformatted images were created and reviewed. This CT exam was performed using one or more of the following dose reduction techniques: automated exposure control, adjustment of the mA and/or kV according to patient size, and/or use of iterative reconstruction technique. COMPARISON: 03/29/2022 FINDINGS: Limitations: None. Brain and extra-axial spaces: There is age appropriate cortical atrophy and chronic ischemic periventricular white matter hypodensity. No acute infarct, hemorrhage or mass noted. Bones/joints: Small contusion or hematoma probable over the right zygomatic arch. Soft tissues: No significant abnormality noted. Vasculature: No acute abnormality noted. Sinuses: No layering fluid in the visualized portions of the paranasal sinuses. Mastoid air cells: No mastoid effusion. Orbits: No significant abnormality noted. Other findings: Left temporal horn unchanged at 8 mm and the right 4 mm. IMPRESSION: 1. Cerebral atrophy. No acute changes in the brain. 2. Small contusion or hematoma probable over the right zygomatic arch. No fracture. ACT 112: Negative or not required by law. Electronically signed by Christie Guan 11-13-2024 6:05 PM Discharge Plan Visit Data Chief Complaint: Fall Stated Complaint: FALL, UNABLE TO AMBULATE ,LEG WEAKNESS ED Provider: Josselin Perez Discharge Problem: Generalized weakness, Non-ST elevation UT (NSTEMI), Ambulatory dysfunction, Rhabdomyolysis Forms Stand Alone Forms: My [facility] Prescriptions Prescriptions: No Action metoprolol succinate 25 mg tablet extended release 24 hr 25 mg PO QAM sertraline 100 mg tablet 100 mg PO DAILY furosemide 80 mg Tablet 80 mg PO QAM losartan 25 mg Tablet 25 mg PO QAM docusate sodium 100 mg Capsule 100 mg PO DAILY alprazolam 2 mg Tablet 2 mg PO BID PRN (Reason: Anxiety) clopidogrel 75 mg tablet 75 mg PO QAM amoxicillin 500 mg capsule 2,000 mg PO UD Rx Instructions: TAKE 4 CAPSULES BY MOUTH 1 HOUR PRIOR TO DENTAL WORK rosuvastatin 40 mg tablet 40 mg PO QAM nitroglycerin 0.4 mg tablet, sublingual 0.4 mg sublingual .EVERY 5 MINUTES MDD 3 DOSES IN 15 MIN PRN (Reason: Chest Pain) Referrals Referrals: Cameron Simmons MD [Physician] -
--- NOTE | 2024-11-13 17:12 | XRay Report ---
EXAM: Radiograph of the Chest 1 View INDICATION: Weakness. TECHNIQUE: Frontal view of the chest. COMPARISON: No relevant prior studies available. FINDINGS: Lungs and pleural spaces: No consolidation or pulmonary edema. No pleural effusion or pneumothorax. Heart: Prominent cardiac shadow accentuated by technique. Aortic valve prosthetic stents present. Mediastinum: Normal contour. Bones/joints: No fracture, erosion or dislocation. Soft tissues: No abnormality noted. No radiopaque foreign body noted. Upper abdomen: No abnormality noted. IMPRESSION: No acute cardiopulmonary disease. ACT 112: Negative or not required by law. Electronically signed by Christie Guan 11-13-2024 5:12 PM
[2024-11-13 17:45] LABS: Basophils # (auto) 0.06 K/uL (0.00-0.20); Basophils % (auto) 0.4 %; Eosinophils % (auto) 3.5 %; Hematocrit (blood only) 37.5 % (42.0-52.0); Hemoglobin 12.4 g/dl (14.0-18.0); Immature Granulocytes # (auto) 0.07 K/uL (0.01-0.20); Immature Granulocytes % (auto) 0.5 %; Lymphocytes # (auto) 1.29 K/uL (1.20-3.40); Mean Corpuscular Hemoglobin 31.7 pg (25.0-34.0); Mean Corpuscular Hgb Conc 33.1 g/dL (32.0-36.0); Mean Corpuscular Volume 95.9 fL (80.0-100.0); Mean Platelet Volume 10.1 fL (9.4-12.4); Monocytes # (auto) 1.09 K/uL (0.11-0.59); Monocytes % (auto) 7.6 %; Neutrophils # (auto) 11.25 K/uL (1.40-6.50); Platelet Count 188 K/uL (130-400); RDW Coefficient of Variation 13.2 % (11.5-14.5); Red Blood Count 3.91 M/uL (4.70-6.10); White Blood Count 14.26 K/ul (4.8-10.8)
[2024-11-13 17:59] LABS: Albumin Globulin Ratio 1.6 (0.9-2); Bilirubin,Total 0.4 mg/dl (0.2-1.0); Calcium 9.1 mg/dl (8.6-10.3); Creatinine Clr Calc Pharmacy 85.1 ml/min; Globulin 2.5 gm/dl (2.5-4.0); Magnesium 2.2 mg/dl (1.7-2.4); Potassium 3.9 mmol/L (3.5-5.1); Total Protein 6.5 gm/dl (6.0-8.3)
--- NOTE | 2024-11-13 18:06 | CT Scan Report ---
EXAM: CT Head Without Intravenous Contrast INDICATION: Weakness. Multiple falls. TECHNIQUE: Axial computed tomography images of the head/brain without intravenous contrast. Sagittal and/or coronal reformats are provided. Sagittal and coronal reformatted images were created and reviewed. This CT exam was performed using one or more of the following dose reduction techniques: automated exposure control, adjustment of the mA and/or kV according to patient size, and/or use of iterative reconstruction technique. COMPARISON: 03/29/2022 FINDINGS: Limitations: None. Brain and extra-axial spaces: There is age appropriate cortical atrophy and chronic ischemic periventricular white matter hypodensity. No acute infarct, hemorrhage or mass noted. Bones/joints: Small contusion or hematoma probable over the right zygomatic arch. Soft tissues: No significant abnormality noted. Vasculature: No acute abnormality noted. Sinuses: No layering fluid in the visualized portions of the paranasal sinuses. Mastoid air cells: No mastoid effusion. Orbits: No significant abnormality noted. Other findings: Left temporal horn unchanged at 8 mm and the right 4 mm. IMPRESSION: 1. Cerebral atrophy. No acute changes in the brain. 2. Small contusion or hematoma probable over the right zygomatic arch. No fracture. ACT 112: Negative or not required by law. Electronically signed by Christie Guan 11-13-2024 6:05 PM
[2024-11-13 18:07] LABS: INR 0.9 (0.9-1.1); Prothrombin Time 10.3 Seconds (9.0-12.0)
[2024-11-13 18:12] LABS: Adenovirus PCR Not Detected (NotDetected); Bordetella parapertussis PCR Not Detected (NotDetected); Bordetella pertussis PCR Not Detected (NotDetected); Chlamydia pneumoniae PCR Not Detected (NotDetected); Coronavirus 229E PCR Not Detected (NotDetected); Coronavirus CoV-2 (COVID19)PCR Not Detected (NotDetected); Coronavirus HKU1 PCR Not Detected (NotDetected); Coronavirus NL63 PCR Not Detected (NotDetected); Coronavirus OC43PCR Not Detected (NotDetected); Human Metapneumovirus PCR Not Detected (NotDetected); Influenza A PCR Not Detected (NotDetected); Influenza B PCR Not Detected (NotDetected); Mycoplasma pneumoniae PCR Not Detected (NotDetected); Parainfluenza Virus 1 PCR Not Detected (NotDetected); Parainfluenza Virus 2 PCR Not Detected (NotDetected); Parainfluenza Virus 3 PCR Not Detected (NotDetected); Parainfluenza Virus 4 PCR Not Detected (NotDetected); Respiratory Syncytial VirusPCR Not Detected (NotDetected); Rhinovirus/Enterovirus PCR Not Detected (NotDetected)
[2024-11-13 18:14] LABS: Thyroid Stimulating Hormone 2.338 uIu/ml (0.300-4.500)
[2024-11-13 19:12] LABS: Appearance Urine Clear (Clear); Bacteria Urine Automated None Seen (None Seen); Bilirubin Urine Negative (Negative); Blood Urine Negative (Negative); Cast Urine Automated 0-2 /lpf (0-2); Color Urine Yellow; Epithelial Cell Urine Auto 0-2 /hpf (0-2); Glucose Urine UA Negative (Negative); Ketones Urine Negative (Negative); Leukocyte Esterase Urine 1+ (Negative); Nitrite Urine Negative (Negative); Protein Urine Negative (Negative); RBC Urine Automated 0-2 /hpf (0-2); Specific Gravity Urine 1.021 (1.000-1.030); Urobilinogen Urine Negative (Negative); WBC Urine Automated 0-5 /hpf (0-5)
--- NOTE | 2024-11-13 19:59 | History & Physical Report ---
Date of Service November 13, 2024 Assessment & Plan (1) Rhabdomyolysis: (2) Ambulatory dysfunction: (3) Alcoholism: (4) Frequent falls: (5) Peripheral neuropathy: (6) BPH NOS w ur obs/LUTS: (7) Generalized weakness: (8) Wernicke-Korsakoff syndrome (alcoholic): Plan Warnicke Korsakoff syndrome/alcoholism- Frequent falls, likely secondary to combination of general debilitation and peripheral neuropathy Speech is slowed, and patient is intermittently confused, likely due to this diagnosis CT scan head without contrast no acute findings BioFire testing negative Give thiamine 500 mg IV now, and folic acid 1 mg IV now AWSS protocol with IV Ativan Thiamine 100 mg p.o. every morning Folic acid 1 mg p.o. every morning Might consider addition of gabapentin to help deal with peripheral neuropathy and significant upper extremity tremor Consult PT/OT/speech Will likely need inpatient rehab versus consideration of long-term placement Cannot do MRI of brain due to significant tremor and likely artifact that would be generated Rhabdomyolysis/INNA CK 754 and AST 68 Troponin is 33.0. Would not call this an NSTEMI, this is associated with acute kidney injury and rhabdomyolysis Placed on NSS at 80 mL/h x 1 L Recheck CBC with differential, chemistry profile, CK, magnesium, coagulation panel and troponin Significant tremor bilateral upper extremity- Heart rate recorded in the monitoring system in the ED is registering anywhere from 190-210, which is an artifact related to tremor, and will not be placed on monitored bed for this reason Would consider addition of gabapentin as noted above Change his alprazolam from 2 mg twice daily as needed to 1 mg p.o. twice daily scheduled Hypertension- Continue metoprolol and clopidogrel Hold furosemide and losartan History of Present Illness Chief Complaint: The patient presents to the emergency department with complaint of generalized weakness, in particular lower extremities bilaterally, causing him to have recurrent falls that began 6 days ago, and occurred again over the past 24 hours. This most recent time, he had fallen outside from a ground-level fall, and had to crawl his way back into the house, until family could help, along and dragged him into a chair. He reports that he was getting up from the chair today, he fell forward, hitting front of his head, and thus presents to the emergency department for evaluation. Primary Care Provider: Sammy Henderson MD The patient is a 79-year-old male with past medical history including anxiety, alcohol abuse, venous insufficiency, hypertension, CAD, and hyperlipidemia. He presents to the emergency department after frequent falls over the past week. His history is somewhat difficult to obtain, due to issues likely related to his history of alcohol abuse, and reports that he has had more alcohol intake recently over the holidays. His primary complaint is that of lower extremity weakness, and his frequent falls that occurred, were occurring in spite of the use of his walker at home. He reports that he has been trying to do better with nutrition and alcohol use, because his family is trying to help him get better. He reports frequent intake of nutritional shakes at home, and asked for 1 in the ED this evening Allergies Allergy/AdvReac Type Severity Reaction Status Date / Time No Known Allergies Allergy Verified 08/01/22 10:16 Home Medications Medication Instructions Recorded Confirmed Type alprazolam 2 mg tablet 2 mg PO BID PRN Anxiety 09/17/22 11/13/24 History docusate sodium 100 mg capsule 100 mg PO DAILY 09/17/22 11/13/24 History furosemide 80 mg tablet 80 mg PO QAM 09/17/22 11/13/24 History losartan 25 mg tablet 25 mg PO QAM 09/17/22 11/13/24 History metoprolol succinate 25 mg 25 mg PO QAM 01/08/23 11/13/24 History tablet,extended release 24 hr sertraline 100 mg tablet 100 mg PO DAILY 01/08/23 11/13/24 History amoxicillin 500 mg capsule 2,000 mg PO UD 11/13/24 11/13/24 History clopidogrel 75 mg tablet 75 mg PO QAM 11/13/24 11/13/24 History nitroglycerin 0.4 mg sublingual 0.4 mg sublingual .EVERY 5 MINUTES 11/13/24 11/13/24 History tablet PRN Chest Pain rosuvastatin 40 mg tablet 40 mg PO QAM 11/13/24 11/13/24 History Past Med/Surg History Problem List (Updated 11/13/24 @ 21:25 by Jose Sosa MD) Wernicke-Korsakoff syndrome (alcoholic) Peripheral neuropathy Frequent falls Rhabdomyolysis (Acute) Ambulatory dysfunction (Acute) Generalized weakness (Acute) BPH NOS w ur obs/LUTS Alcoholism Medical History (Updated 11/13/24 @ 21:25 by Jose Sosa MD) Gout History of nephrolithiasis Hypertension Family History (Updated 04/08/22 @ 08:52 by BOB Lombardo) Sister Diabetes Cancer Son Diabetes Father Heart disease Grandmother Cancer Social History (Updated 04/08/22 @ 08:53 by BOB Lombardo) Smoking Status: Former smoker Tobacco Type: Cigars Hx Alcohol Use: Yes Alcohol type: wine Hx Substance Use: No Preferred Language: Upper Sorbian [employer] Required: No marital status: Single Current Living Situation: Alone Feels Safe at Home: No Assistive Devices: None, Glasses and Walker Review of Systems Review of Systems: The patient denies chest pain, palpitations, cough, lower extremity swelling, sore throat, fevers, chills, sweats, nausea, vomiting, diarrhea , constipation, abdominal pain, pelvic pain, blood in urine or stool, dysuria, urinary frequency or urgency, loss of consciousness, rash, focal weakness, numbness or tingling in arms, back or neck pain, or night sweats. The review of systems is otherwise negative other than for that already noted above, and at least 10 systems have been reviewed. Physical Exam Physical Exam: The patient is awake, intermittently confused, disheveled appearing, right frontal and cheek ecchymosis, lying in bed and in no acute distress. HEENT--PERRL, EOMI, mucous membranes and oropharynx mildly dry. Neck--supple. No JVD. No bruits. Thyroid normal, trachea midline, no adenopathy. Heart--normal S1 and S2. No murmurs, rubs or gallops. Lungs--clear bilaterally, no respiratory distress, no accessory muscle use. Abdomen--normal bowel sounds and soft. Nontender. Nondistended, no hernias or masses, no organomegaly. Extremities--no cyanosis or clubbing. No edema. Dermatologic--ecchymosis over right frontal area right cheek/zygomatic arch area Neurologic--cranial nerves II through XII grossly intact. Rheumatologic--normal range of motion. Psychiatric--intermittently confused Results & Data Results & Data Vital Signs (Past 12 Hours) Vital Signs Temp Pulse Pulse Resp BP BP Pulse Ox 11/13/24 18:32 59 L 25 H 146/67 H 97 11/13/24 17:08 58 L 15 100 11/13/24 17:00 64 11/13/24 16:50 59 L 20 116/84 100 11/13/24 16:37 36.6 C 65 18 116/84 100 O2 Del Method 11/13/24 18:32 Room Air 11/13/24 17:08 Room Air 11/13/24 17:00 11/13/24 16:50 Room Air 11/13/24 16:37 Room Air Laboratory Results Laboratory Results WBC 14.26 K/ul (4.8-10.8) H 11/13/24 17:24 RBC 3.91 M/uL (4.70-6.10) L 11/13/24 17:24 Hgb 12.4 g/dl (14.0-18.0) L 11/13/24 17:24 Hct 37.5 % (42.0-52.0) L 11/13/24 17:24 MCV 95.9 fL (80.0-100.0) 11/13/24 17:24 MCH 31.7 pg (25.0-34.0) 11/13/24 17:24 MCHC 33.1 g/dL (32.0-36.0) 11/13/24 17:24 RDW Std Deviation 46.0 fL (36.4-46.3) 11/13/24 17:24 RDW Coeff of Rosina 13.2 % (11.5-14.5) 11/13/24 17:24 Plt Count 188 K/uL (130-400) 11/13/24 17:24 MPV 10.1 fL (9.4-12.4) 11/13/24 17:24 Immature Gran % (Auto) 0.5 % 11/13/24 17:24 Neut % (Auto) 79.0 % 11/13/24 17:24 Lymph % (Auto) 9.0 % 11/13/24 17:24 [place] % (Auto) 7.6 % 11/13/24 17:24 Eos % (Auto) 3.5 % 11/13/24 17:24 Baso % (Auto) 0.4 % 11/13/24 17:24 Neut # (Auto) 11.25 K/uL (1.40-6.50) H 11/13/24 17:24 Lymph # (Auto) 1.29 K/uL (1.20-3.40) 11/13/24 17:24 [place] # (Auto) 1.09 K/uL (0.11-0.59) H 11/13/24 17:24 Eos # (Auto) 0.50 K/uL (0.00-0.50) 11/13/24 17:24 Baso # (Auto) 0.06 K/uL (0.00-0.20) 11/13/24 17:24 Immature Gran # (Auto) 0.07 K/uL (0.01-0.20) 11/13/24 17:24 PT 10.3 Seconds (9.0-12.0) 11/13/24 17:24 INR 0.9 (0.9-1.1) 11/13/24 17:24 Sodium 142 mmol/L (136-145) 11/13/24 17:24 Potassium 3.9 mmol/L (3.5-5.1) 11/13/24 17:24 Chloride 105 mmol/L (98-107) 11/13/24 17:24 Carbon Dioxide 32 mmol/L (21-32) 11/13/24 17:24 Anion Gap 5 (3-11) 11/13/24 17:24 BUN 37 mg/dl (6-23) H 11/13/24 17:24 Creatinine 0.88 mg/dl (0.6-1.4) 11/13/24 17:24 Est Cr Clr Drug Dosing 85.1 ml/min 11/13/24 17:24 eGFR 88.56 11/13/24 17:24 BUN/Creatinine Ratio 42.0 (10-20) H 11/13/24 17:24 Glucose 134 mg/dl (70-99(Fasting)) H 11/13/24 17:24 Lactate 1.4 mmol/L (0.4-2.0) 11/13/24 19:28 Calcium 9.1 mg/dl (8.6-10.3) 11/13/24 17:24 Magnesium 2.2 mg/dl (1.7-2.4) 11/13/24 17:24 Total Bilirubin 0.4 mg/dl (0.2-1.0) 11/13/24 17:24 AST 68 U/L (13-39) H 11/13/24 17:24 ALT 49 U/L (7-52) 11/13/24 17:24 Alkaline Phosphatase 105 U/L (34-104) H 11/13/24 17:24 Total Creatine Kinase 754 U/L (30-223) H 11/13/24 17:24 Troponin I High Sens 34.5 pg/ml (0-20) H 11/13/24 19:28 Total Protein 6.5 gm/dl (6.0-8.3) 11/13/24 17: Albumin 4.0 gm/dl (3.4-5.0) 11/13/24 17: Globulin 2.5 gm/dl (2.5-4.0) 11/13/24 17: Albumin/Globulin Ratio 1.6 (0.9-2) 11/13/24 17:24 Procalcitonin 0.13 ng/ml (0-0.5) 11/13/24 17: TSH 2.338 uIu/ml (0.300-4.500) 11/13/24 17:24 Urine Color Yellow 11/13/24 19:02 Urine Appearance Clear (Clear) 11/13/24 19: Urine pH 6.0 (4.5-7.5) 11/13/24 19: Ur Specific [place] 1.021 (1.000-1.030) 11/13/24 19:02 Urine Protein Negative (Negative) 11/13/24 19: Urine Glucose (UA) Negative (Negative) 11/13/24 19: Urine Ketones Negative (Negative) 11/13/24 19: Urine Blood Negative (Negative) 11/13/24 19: Urine Nitrite Negative (Negative) 11/13/24 19: Urine Bilirubin Negative (Negative) 11/13/24 19: Urine Urobilinogen Negative (Negative) 11/13/24 19: Ur Leukocyte Esterase 1+ (Negative) H 11/13/24 19:02 Urine WBC (Auto) 0-5 /hpf (0-5) 11/13/24 19:02 Urine RBC (Auto) 0-2 /hpf (0-2) 11/13/24 19:02 U Hyaline Cast (Auto) 0-2 /lpf (0-2) 11/13/24 19:02 U Epithel Cells (Auto) 0-2 /hpf (0-2) 11/13/24 19:02 Urine Bacteria (Auto) None Seen (None Seen) 11/13/24 19:02 Ethyl Alcohol mg/dL < 10.0 mg/dl (<10.0) 11/13/24 19:28 Adenovirus (PCR) Not Detected (NotDetected) 11/13/24 16:57 B. pertussis DNA (PCR) Not Detected (NotDetected) 11/13/24 16:57 B.parapertussis DNA PCR Not Detected (NotDetected) 11/13/24 16:57 C. pneumoniae DNA (PCR) Not Detected (NotDetected) 11/13/24 16:57 Coronavirus OC43 (PCR) Not Detected (NotDetected) 11/13/24 16:57 Coronavirus HKU1 (PCR) Not Detected (NotDetected) 11/13/24 16:57 Coronavirus 229E (PCR) Not Detected (NotDetected) 11/13/24 16:57 SARS-CoV-2 (PCR) Not Detected (NotDetected) 11/13/24 16:57 Coronavirus NL63 (PCR) Not Detected (NotDetected) 11/13/24 16:57 Human Metapneumovir PCR Not Detected (NotDetected) 11/13/24 16:57 Influenza Type A (PCR) Not Detected (NotDetected) 11/13/24 16:57 Influenza Type B (PCR) Not Detected (NotDetected) 11/13/24 16:57 M. pneumoniae (PCR) Not Detected (NotDetected) 11/13/24 16:57 Parainfluenza 1 (PCR) Not Detected (NotDetected) 11/13/24 16:57 Parainfluenza 2 (PCR) Not Detected (NotDetected) 11/13/24 16:57 Parainfluenza 3 (PCR) Not Detected (NotDetected) 11/13/24 16:57 Parainfluenza 4 (PCR) Not Detected (NotDetected) 11/13/24 16:57 RSV (PCR) Not Detected (NotDetected) 11/13/24 16:57 Entero/Rhino (PCR) Not Detected (NotDetected) 11/13/24 16:57 Impressions Chest X-Ray 11/13/24 16:54 EXAM: Radiograph of the Chest 1 View INDICATION: Weakness. TECHNIQUE: Frontal view of the chest. COMPARISON: No relevant prior studies available. FINDINGS: Lungs and pleural spaces: No consolidation or pulmonary edema. No pleural effusion or pneumothorax. Heart: Prominent cardiac shadow accentuated by technique. Aortic valve prosthetic stents present. Mediastinum: Normal contour. Bones/joints: No fracture, erosion or dislocation. Soft tissues: No abnormality noted. No radiopaque foreign body noted. Upper abdomen: No abnormality noted. IMPRESSION: No acute cardiopulmonary disease. ACT 112: Negative or not required by law. Electronically signed by Christie Guan 11-13-2024 5:[address] 11/13/24 17:43 EXAM: CT Head Without Intravenous Contrast INDICATION: Weakness. Multiple falls. TECHNIQUE: Axial computed tomography images of the head/brain without intravenous contrast. Sagittal and/or coronal reformats are provided. Sagittal and coronal reformatted images were created and reviewed. This CT exam was performed using one or more of the following dose reduction techniques: automated exposure control, adjustment of the mA and/or kV according to patient size, and/or use of iterative reconstruction technique. COMPARISON: 03/29/2022 FINDINGS: Limitations: None. Brain and extra-axial spaces: There is age appropriate cortical atrophy and chronic ischemic periventricular white matter hypodensity. No acute infarct, hemorrhage or mass noted. Bones/joints: Small contusion or hematoma probable over the right zygomatic arch. Soft tissues: No significant abnormality noted. Vasculature: No acute abnormality noted. Sinuses: No layering fluid in the visualized portions of the paranasal sinuses. Mastoid air cells: No mastoid effusion. Orbits: No significant abnormality noted. Other findings: Left temporal horn unchanged at 8 mm and the right 4 mm. IMPRESSION: 1. Cerebral atrophy. No acute changes in the brain. 2. Small contusion or hematoma probable over the right zygomatic arch. No fracture. ACT 112: Negative or not required by law. Electronically signed by Christie Guan 11-13-2024 6:05 PM Code Status & VTE Plan Code Status Full code VTE Prophylaxis Plan VTE Prophylaxis will be ordered: Yes PG Care Time/CCT Total # of Minutes Spent Total Time Spent with Patient: Total time spent is greater than 50% in coordination of care (as documented) at patient's floor/unit and/or counseling patient: Coding Level of Care Code 94108 INT INP/OBS CARE 375MIN Diagnoses Rhabdomyolysis M62.82 Ambulatory dysfunction R26.2 Alcoholism F10.20 Frequent falls R29.6 Peripheral neuropathy G62.9 BPH NOS w ur obs/LUTS N40.1 Generalized weakness R53.1 Wernicke-Korsakoff syndrome (alcoholic) F10.96
[2024-11-13] MEDS: SODIUM CHLORIDE 0.9% 1,000 ML IV SCH (20:20)
[2024-11-13] MEDS: FOLIC ACID 1 MG in SYRINGE 9.8 ML IV STA (20:21)
[2024-11-13] MEDS: THIAMINE HCL 500 MG in SODIUM CHLORIDE 0.9% 50 ML IV STA (20:21)
[2024-11-13] MEDS ORDERED: ONDANSETRON INJ 2 MG/ML 2 ML VIAL IV PRN (22:33)
[2024-11-13] MEDS ORDERED: Ativan IV Alcohol Withdrawal--Active Protocol IV PRN (22:33)
[2024-11-13] MEDS ORDERED: LORazepam 2 MG/1 ML VIAL IV PRN ×3 (22:33)
[2024-11-13] MEDS ORDERED: INFLUENZA VACC TS2024-25(65y+)/PF (IIV3) 0.5mL Syr IM ONE (22:56)
[2024-11-13] MEDS: ALPRAZolam 0.5 MG TABLET PO SCH (23:01)
[2024-11-14 06:53] LABS: Amphetamines+Metham, Urine Neg (Neg); Barbiturates, Urine Neg (Neg); Benzodiazepine, Urine Pos (Neg); Cocaine, Urine Neg (Neg); Fentanyl, Urine Neg (Neg); MDMA (Ecstacy), Urine Neg (Neg); Marijuana, Urine Neg (Neg); Methadone, Urine Neg (Neg); Opiate, Urine Neg (Neg); Phencyclidine, Urine Neg (Neg)
[2024-11-14 07:05] LABS: Basophils # (auto) 0.05 K/uL (0.00-0.20); Basophils % (auto) 0.5 %; Eosinophils # (auto) 0.45 K/uL (0.00-0.50); Eosinophils % (auto) 4.3 %; Hematocrit (blood only) 36.2 % (42.0-52.0); Immature Granulocytes # (auto) 0.05 K/uL (0.01-0.20); Immature Granulocytes % (auto) 0.5 %; Lymphocytes # (auto) 1.13 K/uL (1.20-3.40); Lymphocytes % (auto) 10.9 %; Mean Corpuscular Hemoglobin 32.1 pg (25.0-34.0); Mean Corpuscular Hgb Conc 33.1 g/dL (32.0-36.0); Mean Corpuscular Volume 96.8 fL (80.0-100.0); Monocytes # (auto) 1.09 K/uL (0.11-0.59); Monocytes % (auto) 10.5 %; Neutrophils # (auto) 7.64 K/uL (1.40-6.50); Neutrophils % (auto) 73.3 %; Platelet Count 168 K/uL (130-400); RDW Coefficient of Variation 13.1 % (11.5-14.5); RDW Standard Deviation 46.5 fL (36.4-46.3); Red Blood Count 3.74 M/uL (4.70-6.10); White Blood Count 10.41 K/ul (4.8-10.8)
[2024-11-14 07:21] LABS: Albumin Globulin Ratio 1.4 (0.9-2); Albumin Level 3.6 gm/dl (3.4-5.0); BUN Creatinine Ratio 33.3 (10-20); Bilirubin,Total 0.4 mg/dl (0.2-1.0); Calcium 8.6 mg/dl (8.6-10.3); Chol HDL Ratio 2.4 (0-5); Creatinine Clr Calc Pharmacy 103.7 ml/min; Globulin 2.6 gm/dl (2.5-4.0); Potassium 3.5 mmol/L (3.5-5.1); Total Protein 6.2 gm/dl (6.0-8.3)
[2024-11-14 07:35] LABS: INR 0.9 (0.9-1.1); Partial Thromboplastin Ratio 0.9; Partial Thromboplastin Time 25 Seconds (21-31); Prothrombin Time 10.3 Seconds (9.0-12.0)
[2024-11-14 08:29] LABS: Estimated Average Glucose 103 mg/dl; Hemoglobin A1C 5.2 % (4.5-5.6)
[2024-11-14] MEDS: DOCUSATE SODIUM 100 MG CAP PO SCH (08:39)
[2024-11-14] MEDS: ROSUVASTATIN CALCIUM 20 MG TAB PO SCH (08:40)
[2024-11-14] MEDS: FOLIC ACID 1 MG TAB PO SCH (08:40)
[2024-11-14] MEDS: CLOPIDOGREL BISULFATE 75 MG TAB PO SCH (08:40)
[2024-11-14] MEDS: METOPROLOL SUCC 25MG EXT REL TAB PO SCH (08:40)
[2024-11-14] MEDS: SERTRALINE HCL 100 MG TABLET PO SCH (08:41)
[2024-11-14] MEDS: THIAMINE HCL 100 MG TAB PO SCH (08:41)
--- NOTE | 2024-11-14 12:46 | Hospitalist Progress Note ---
Date of Service November 14, 2024 Assessment & Plan (1) Ambulatory dysfunction: Plan: Frequent falls, likely secondary to combination of general debilitation and peripheral neuropathy CT scan head without contrast no acute findings BioFire testing negative. UA negative. UDS + for benzo, but these are rx. PT/OT - recommending rehab, CM following RD following (2) Rhabdomyolysis: Plan: Rhabdomyolysis/INNA CK 754 and AST 68 Troponin is 33.0. Would not call this an NSTEMI, this is associated with acute kidney injury and rhabdomyolysis Received 1L NSS CK improving, encourage PO fluids (3) Alcoholism: Plan: Previously drinking 3 glasses of wine a day but recently switched to hard liquour. Reports last drink was 11/10 AWSS protocol with IV Ativan Thiamine 200 mg p.o. every morning Folic acid 1 mg p.o. every morning AM B12 and folic acid Reportely signifcant tremor on admission. None on exam today. - continue Xanax prn for anxiety Plan .Chronic stable medical conditions: * HTN - continue metoprolol, losartan. Hold lasix. * CAD - continue statin, plavix * mental health - continue zolfoft and xanax Dispo: continued inpatient stay DVT proh: Lovenox Admission and Anticipated Discharge Date Admission Date: November 13, 2024 Supervising Physician Co-Signing Physician Notes Attending Attestation - Chart reviewed, care plan d/w DIPESH Márquez. I agree w/ the rousseau components of her documentation. Mild rhabdomyolysis already improved with decreasing CPK levels. Needs PT/OT. Watch for etoh withdrawal. Nitesh German MD Subjective Patient seen sitting up in bed, worked with therapy this morning and states they will be coming back tomorrow. He is agreeable to go to rehab but he expresses that he does not want to go back to [facility]. States a neurologist told him 3 years ago that he should cut back on the ETOH - at that time he was drinking hard liqour. After that he switched to 3 glasses of wine a day and had be consistent with that until recently he "switched back to liquour for the holidays". Unable to quantify how long ago he has been drinking liqour. States his last drink was Friday Denies pain in his LE has been having recurrent falls over the last week Review of Systems Review of Systems: All systems reviewed & are unremarkable except as noted in Subjective Physical Exam Physical Exam: General: NAD, VS as above HEENT: bruising over face Resp: normal respiratory effort, lungs clear to auscultation CV: RRR, no murmur, Abd: normal bowel sounds, non tender, no hepatosplenomegaly Extremities: Moves all extremities, no edema Neuro: A&O x3, Skin: intact, no lesions noted Results & Data Results & Data Vital Signs (Past 12 Hours) Vital Signs Temp Pulse Resp BP Pulse Ox O2 Del Method 11/14/24 07:37 97.5 F L 60 16 155/72 H 99 Room Air 11/14/24 02:36 97.7 F 72 18 155/81 H 96 Room Air PG Care Time/CCT Total # of Minutes Spent Total Time Spent with Patient: Total time spent is greater than 50% in coordination of care (as documented) at patient's floor/unit and/or counseling patient: Coding Level of Care Code 14523 SUB INP/OBS CARE 3/50MIN Diagnoses Ambulatory dysfunction R26.2 Rhabdomyolysis M62.82 Alcoholism F10.20
--- NOTE | 2024-11-14 13:08 | Electrocardiogram Report ---
Test Reason : Blood Pressure : */* mmHG Vent. Rate : 59 BPM Atrial Rate : 59 BPM P-R Int : 148 ms QRS Dur : 70 ms QT Int : 428 ms P-R-T Axes : 66 3 -4 degrees QTcB Int : 423 ms Sinus bradycardia with sinus arrhythmia Nonspecific ST and T wave abnormality Abnormal ECG No previous ECGs available Confirmed by Cameron Willis ([id number]) on 11/14/2024 1:07:57 PM Referred By: REFERRED SELF Confirmed By: Cameron Willis
[2024-11-14] MEDS: ALPRAZolam 0.5 MG TABLET PO PRN (23:43)
[2024-11-15 08:14] LABS: Folate (Folic Acid),Ser orPlas 20.41 ng/ml (>5.38)
[2024-11-15] MEDS: THIAMINE HCL 100 MG TAB PO SCH (08:24)
[2024-11-15] MEDS: LOSARTAN POTASSIUM 25 MG TAB PO SCH (08:24)
[2024-11-15] MEDS: ENOXAPARIN INJ 40 MG/0.4 ML SYR SQ SCH (08:24)
--- NOTE | 2024-11-15 10:24 | Hospitalist Progress Note ---
Date of Service November 15, 2024 Assessment & Plan (1) Ambulatory dysfunction: Plan: Frequent falls, likely secondary to combination of general debilitation and peripheral neuropathy CT scan head without contrast no acute findings BioFire testing negative. UA negative. UDS + for benzo, but these are rx. PT/OT - recommending rehab, CM following. - needs 3 midnight stay, patient has been accepted to [facility] RD following - nutrition supplement added (2) Rhabdomyolysis: Plan: Rhabdomyolysis CK 754 and AST 68 Troponin is 33.0. Would not call this an NSTEMI, this is associated with acute kidney injury and rhabdomyolysis Received 1L NSS CK improving, encourage PO fluids (3) Alcoholism: Plan: Previously drinking 3 glasses of wine a day but recently switched to hard liquour. Reports last drink was 11/10 AWSS protocol with IV Ativan Thiamine 200 mg p.o. every morning Folic acid 1 mg p.o. every morning B12 and folic acid - WNL Reported significant tremor on admission. None on exam x 2days . - continue Xanax prn for anxiety (4) S/P TAVR (transcatheter aortic valve replacement): (5) CAD (coronary artery disease): (6) History of coronary artery stent placement: (7) Peripheral neuropathy: Plan .Chronic stable medical conditions: * HTN - continue metoprolol, losartan. Hold lasix. * CAD - continue statin, plavix * mental health - continue zolfoft and xanax Dispo: continued inpatient stay DVT proh: Lovenox Admission and Anticipated Discharge Date Admission Date: November 13, 2024 Supervising Physician Co-Signing Physician Notes Attending Attestation and Progress Note: Pt seen/examined, chart reviewed, care plan d/w DIPESH Márquez. I agree w/ the rousseau components of her documentation with the following additions - * h/o TAVR for severe - performed at [facility] * h/o coronary stents x 6 for severe CAD - performed at [facility] * CAD * peripheral neuropathy - due to long-standing alcohol abuse? * upper motor neuron signs Patient c/o pain in both legs, worst L knee region. He also states the shins are bothering him. Daughter was present during my visit. She reports he was seen by [facility] about 3 years ago - they were told his neuropathy was alcohol-induced. He has had gait problems for several years. exam: gen - hearing impaired, NAD, lying in bed face - numerous abrasions and some bruising neck - no JVD heart - RRR, s1 s2, no murmur lungs - CTA b/l abd - soft NT ND BS+ ext - deformities of both legs particularly the feet; neuropathic changes of both feet R>L; right ankle is larger than left ankle and mildly deformed skin - numerous punctate ulcerations/trauma b/l feet - nearly all toes, R>L foot; bruise present over L knee neuro - patellar reflexes very brisk b/l; significantly increased tone b/l legs; couple beats of clonus both achilles; patient able to actively flex the hips but does so very slowly A/P: 1. ambulatory dysfunction - severe peripheral neuropathy b/l legs - presumed due to h/o heavy/chronic alcohol abuse. However, he also has UMN signs of the LEs suggesting brain and/or spinal cord disease. 2. low-normal B12 level - replace. 3. alcohol abuse - increase thiamine to 200mg BID. 4. UMN signs - consider brain/spinal cord imaging at some point along with neurology follow-up. 5. falls with trauma to L knee and feet/ankles - obtain x-rays of these regions. 6. peripheral neuropathy - consider gabapentin. 7. dispo - SNF. 8. CAD - s/p stents ~2 years ago (x 6) at [facility]. 9. h/o TAVR - ~2 years ago at [facility]. No murmur on exam. daughter updated Nitesh German MD Subjective patient seen sitting up in bed, frustrated with he is getting weaker just laying in bed, will encourage nursing staff to get up for meals Patient is aware he has to wait until tomorrow and to have an excepting rehab f acility. Tolerating diet without issue, had a bowel movement this morning Review of Systems Review of Systems: All systems reviewed & are unremarkable except as noted in Subjective Physical Exam Physical Exam: General: NAD, VS as above HEENT: bruising over face Resp: normal respiratory effort, lungs clear to auscultation CV: RRR, no murmur, Abd: normal bowel sounds, non tender, no hepatosplenomegaly Extremities: Moves all extremities, no edema Neuro: A&O x3, Skin: intact, no lesions noted Results & Data Results & Data Vital Signs (Past 12 Hours) Vital Signs Temp Pulse Resp BP Pulse Ox O2 Del Method 11/15/24 07:39 98.6 F 74 18 129/70 96 Room Air Laboratory Results B12 and folate reviewed PG Care Time/CCT Total # of Minutes Spent Total Time Spent with Patient: Total time spent is greater than 50% in coordination of care (as documented) at patient's floor/unit and/or counseling patient: Coding Level of Care Code 77431 SUB INP/OBS CARE 3/50MIN Diagnoses Ambulatory dysfunction R26.2 Rhabdomyolysis M62.82 Alcoholism F10.20 S/P TAVR (transcatheter aortic valve replacement) Z95.2 CAD (coronary artery disease) I25.10 History of coronary artery stent placement Z95.5 Peripheral neuropathy G62.9
--- NOTE | 2024-11-15 18:15 | XRay Report ---
EXAM: Radiographs of the Left Ankle 2 Views INDICATION: Fall. TECHNIQUE: Frontal and lateral views of the left ankle. COMPARISON: No relevant prior studies available. FINDINGS: Limitations: None. Bones/joints: Mild plantar and Achilles surface calcaneal spurring noted. The bones are normally mineralized and aligned. Preserved joint spaces. Soft tissues: There is diffuse soft tissue swelling with prominent lateral soft tissue hematoma. No soft tissue gas collection or radiopaque foreign body. IMPRESSION: 1. There is diffuse soft tissue swelling with prominent lateral soft tissue hematoma. No fracture noted. 2. Mild plantar and Achilles surface calcaneal spurring noted. ACT 112: Negative or not required by law. Electronically signed by Christie Guan 11-15-2024 6:15 PM
--- NOTE | 2024-11-15 18:17 | XRay Report ---
EXAM: Radiographs of the Right Ankle 2 Views INDICATION: Fall. TECHNIQUE: Frontal and lateral views of the right ankle. COMPARISON: 01/15/2017 FINDINGS: Limitations: None. Bones/joints: There is mild to moderate Achilles and plantar surface calcaneal spurring. There is mild spurring of the anterior tibiotalar and tibiofibular joints. Joint spaces are preserved. Ankle mortise symmetric. Soft tissues: Mild soft tissue swelling noted. No soft tissue gas collection or radiopaque foreign body. IMPRESSION: 1. Soft tissue swelling. 2. Calcaneal spurring. No fracture. ACT 112: Negative or not required by law. Electronically signed by Christie Guan 11-15-2024 6:17 PM
--- NOTE | 2024-11-15 18:19 | XRay Report ---
EXAM: Radiographs of the Left Knee 2 Views INDICATION: Fall. TECHNIQUE: Frontal and lateral views of the left knee. COMPARISON: No relevant prior studies available. FINDINGS: Bones/joints: There is a joint effusion. There is mild tricompartment joint space sparing. No articular surface defect or loose body. No fracture or erosion. No subluxation or dislocation. Soft tissues: There is a metallic foreign body in the subcutaneous fat at the lateral joint line. Mild diffuse soft tissue swelling noted. Atherosclerosis noted. IMPRESSION: 1. No acute abnormality. 2. Joint effusion and mild tricompartment primary osteoarthritis. 3. Metallic foreign body in the subcutaneous fat along the lateral joint line. ACT 112: Negative or not required by law. Electronically signed by Christie Guan 11-15-2024 6:19 PM
--- NOTE | 2024-11-15 22:39 | XRay Report ---
Exam(s): XR RIGHT FOOT, 2 views EXAM: XR Right Foot, 2 Views CLINICAL HISTORY: Reason for exam: evidence of trauma multiple toes, r/o Fx. TECHNIQUE: Frontal and lateral views of the right foot. COMPARISON: No relevant prior studies available. FINDINGS: Bones/joints: No radiographically evident fracture. Osteopenia which limits evaluation for subtle nondisplaced fracture. Soft tissues: Soft tissue edema throughout the foot. No radiopaque foreign body. IMPRESSION: No radiographically evident fracture. Electronically signed by: Cruzito Mancuso MD 11/15/24 22:39 PM
[2024-11-16 08:11] VITALS: BP 137/77; PULSE 81; RESP 16; TEMP 98.2; O2SAT 98
[2024-11-16] MEDS: THIAMINE HCL 100 MG TAB PO SCH (08:12)
--- NOTE | 2024-11-16 09:14 | Discharge Summary ---
<Statement entered by Maribel Marcelino MD - 11/16/24 12:50> Admitted with increasingly frequent falls. Should discontinue alcohol, continue to taper off benzodiazepine and discontinue. Needs PT/OT and follow up with his neurologist for known peripheral neuropathy. Discharge Summary Date of Service November 16, 2024 Principal Dx & Hospital Course #1 = Principal Diagnosis (1) Ambulatory dysfunction: Frequent falls, likely secondary to combination of general debilitation and peripheral neuropathy CT scan head without contrast no acute findings b/l ankle xray: no fracture Left knee xray: no fracture. metallic foreign body -No signs of entry, no infectious signs, suspect foreign body is chronic. BioFire testing negative. UA negative. UDS + for benzo, but these are rx. PT/OT - recommending rehab, CM following. - needs 3 midnight stay, patient has been accepted to [facility], plan for D/d today RD following - nutrition supplement added Pt has severe perpherial neuropathy, has not seen neurology in 3 years (follows with Mimi) - recommend follow up after discharge from rehab. (2) Rhabdomyolysis: Rhabdomyolysis CK 754 and AST 68 Troponin is 33.0. Would not call this an NSTEMI, this is associated with acute kidney injury and rhabdomyolysis Received 1L NSS CK improving, encourage PO fluids (3) Alcoholism: Previously drinking 3 glasses of wine a day but recently switched to hard liquour. Reports last drink was 11/10 AWSS protocol with IV Ativan Thiamine 200 mg p.o. every morning Folic acid 1 mg p.o. every morning B12 and folic acid - WNL Reported significant tremor on admission. None on exam x 2days . - continue Xanax prn for anxiety (4) S/P TAVR (transcatheter aortic valve replacement): (5) CAD (coronary artery disease): (6) History of coronary artery stent placement: (7) Peripheral neuropathy: Plan .Chronic stable medical conditions: * HTN - continue metoprolol, losartan. Hold lasix. * CAD - continue statin, plavix * mental health - continue zolfoft and xanax (dose reduced) Dispo: discharge to [facility] today Notes For Next Care Provider Recommend neurology follow up Admission HPI Per Admitting Provider The patient is a 79-year-old male with past medical history including anxiety, alcohol abuse, venous insufficiency, hypertension, CAD, and hyperlipidemia. He presents to the emergency department after frequent falls over the past week. His history is somewhat difficult to obtain, due to issues likely related to his history of alcohol abuse, and reports that he has had more alcohol intake recently over the holidays. His primary complaint is that of lower extremity weakness, and his frequent falls that occurred, were occurring in spite of the u se of his walker at home. He reports that he has been trying to do better with nutrition and alcohol use, because his family is trying to help him get better. He reports frequent intake of nutritional shakes at home, and asked for 1 in the ED this evening Discharge Exam General: NAD, VS as above HEENT: bruising over face Resp: normal respiratory effort, lungs clear to auscultation CV: RRR, no murmur, Abd: normal bowel sounds, non tender, no hepatosplenomegaly Extremities: Moves all extremities, mild edema to b/l feet, able to wiggle toes bilaterally, pain with palpation Neuro: A&O x3, Discharge Plan Discharge Items Patient Disposition: Transfer Nursing Home Fac Reason For Visit: RHABDOMYOLYSIS, FALLS, GPN, ALCOHOL USE Discharge Diagnosis: Rhabdo, recurrent falls Activity: As commented below Activity Comment: work with therapy to get stronger Weightbearing: Full weightbearing Non-emergency contact: Primary Care Provider Call non-emergency contact if: you have any medication questions, your symptoms worsen, your pain is not controlled and your temperature is above 101 Follow-up/Referrals: Sammy Henderson MD [Primary Care Provider] - (Follow up after discharge from rehab ) Diet: Heart Healthy Diet Texture: Easy to Chew Addtl Attending Provider Instructions: Mr. Woodson, Trevor were hospitalized after recurrent falls at home. Thankfully, you did not have any fractures or brain injury from this. You did have an elevation of your CK which is evidence of muscle breakdown that is a result of being on the ground. This has improved. Your falls are likely a result of your increased alcohol intake - would recommend you stop drinking alcohol, especially hard liquor. Knee and ankle xrays did not show any fractures - did show retained metal in your left knee, but this is likely chronic as there no entry wound or no signs of infection. You should follow up with your neurologist after discharge from rehab. Medication changes: - decrease xanax to 1mg twice a day as needed for anxiety - vitamin B12 supplement added - Vitamin B1 supplement added Follow up with your primary care after discharge from rehab. Happy Holidays! Gabrielle Márquez PA-C Pending Studies at Discharge: No Stand-Alone Forms: My [employer] technology, Smoking Cessation Skilled Items Patient informed of condition?: Yes DNR: No Discharge Level of Care: Acute rehab Communicable Disease: No Discharge Prognosis: Stable Lines: None Urinary Catheter: No Medications and DC Order Prescriptions: New folic acid 1 mg Tablet 1 mg PO QAM Qty: 30 0RF thiamine HCl (vitamin B1) 100 mg Tablet 200 mg PO QAM 30 Days Qty: 60 0RF Continued metoprolol succinate 25 mg tablet extended release 24 hr 25 mg PO QAM sertraline 100 mg tablet 100 mg PO DAILY furosemide 80 mg Tablet 80 mg PO QAM losartan 25 mg Tablet 25 mg PO QAM docusate sodium 100 mg Capsule 100 mg PO DAILY clopidogrel 75 mg tablet 75 mg PO QAM amoxicillin 500 mg capsule 2,000 mg PO UD Rx Instructions: TAKE 4 CAPSULES BY MOUTH 1 HOUR PRIOR TO DENTAL WORK rosuvastatin 40 mg tablet 40 mg PO QAM nitroglycerin 0.4 mg tablet, sublingual 0.4 mg sublingual .EVERY 5 MINUTES MDD 3 DOSES IN 15 MIN PRN (Reason: Chest Pain) Changed alprazolam 2 mg Tablet 1 mg PO BID PRN (Reason: Anxiety) Qty: 0 0RF Discharge Orders: Discharge Order (Routine); Ordered 11/16/24 Ordered By: Gabrielle Mckeon/Other Patient Handouts: Alcoholism Resources, Alcoholism: Getting Help Admission Data Admit Date/Time: 11/13/24 19:58 Attending Provider: Maribel Marcelino Admit Provider: Jose Sosa Primary Care Provider: Sammy Henderson Other Providers: Jose Sosa; Jaspal Beyer [facility]; [facility] Stay Data Consultations 11/13/24 19:12 ED Decision to Admit Stat Diagnostic Imagining Performed Chest X-Ray 11/13/24 16:54 EXAM: Radiograph of the Chest 1 View INDICATION: Weakness. TECHNIQUE: Frontal view of the chest. COMPARISON: No relevant prior studies available. FINDINGS: Lungs and pleural spaces: No consolidation or pulmonary edema. No pleural effusion or pneumothorax. Heart: Prominent cardiac shadow accentuated by technique. Aortic valve prosthetic stents present. Mediastinum: Normal contour. Bones/joints: No fracture, erosion or dislocation. Soft tissues: No abnormality noted. No radiopaque foreign body noted. Upper abdomen: No abnormality noted. IMPRESSION: No acute cardiopulmonary disease. ACT 112: Negative or not required by law. Electronically signed by Christie Guan 11-13-2024 5:[address] 11/13/24 17:43 EXAM: CT Head Without Intravenous Contrast INDICATION: Weakness. Multiple falls. TECHNIQUE: Axial computed tomography images of the head/brain without intravenous contrast. Sagittal and/or coronal reformats are provided. Sagittal and coronal reformatted images were created and reviewed. This CT exam was performed using one or more of the following dose reduction techniques: automated exposure control, adjustment of the mA and/or kV according to patient size, and/or use of iterative reconstruction technique. COMPARISON: 03/29/2022 FINDINGS: Limitations: None. Brain and extra-axial spaces: There is age appropriate cortical atrophy and chronic ischemic periventricular white matter hypodensity. No acute infarct, hemorrhage or mass noted. Bones/joints: Small contusion or hematoma probable over the right zygomatic arch. Soft tissues: No significant abnormality noted. Vasculature: No acute abnormality noted. Sinuses: No layering fluid in the visualized portions of the paranasal sinuses. Mastoid air cells: No mastoid effusion. Orbits: No significant abnormality noted. Other findings: Left temporal horn unchanged at 8 mm and the right 4 mm. IMPRESSION: 1. Cerebral atrophy. No acute changes in the brain. 2. Small contusion or hematoma probable over the right zygomatic arch. No fracture. ACT 112: Negative or not required by law. Electronically signed by Christie Guan 11-13-2024 6:05 PM Ankle X-Ray 11/15/24 17:33 EXAM: Radiographs of the Left Ankle 2 Views INDICATION: Fall. TECHNIQUE: Frontal and lateral views of the left ankle. COMPARISON: No relevant prior studies available. FINDINGS: Limitations: None. Bones/joints: Mild plantar and Achilles surface calcaneal spurring noted. The bones are normally mineralized and aligned. Preserved joint spaces. Soft tissues: There is diffuse soft tissue swelling with prominent lateral soft tissue hematoma. No soft tissue gas collection or radiopaque foreign body. IMPRESSION: 1. There is diffuse soft tissue swelling with prominent lateral soft tissue hematoma. No fracture noted. 2. Mild plantar and Achilles surface calcaneal spurring noted. ACT 112: Negative or not required by law. Electronically signed by Christie Guan 11-15-2024 6:15 PM Ankle X-Ray 11/15/24 17:33 EXAM: Radiographs of the Right Ankle 2 Views INDICATION: Fall. TECHNIQUE: Frontal and lateral views of the right ankle. COMPARISON: 01/15/2017 FINDINGS: Limitations: None. Bones/joints: There is mild to moderate Achilles and plantar surface calcaneal spurring. There is mild spurring of the anterior tibiotalar and tibiofibular joints. Joint spaces are preserved. Ankle mortise symmetric. Soft tissues: Mild soft tissue swelling noted. No soft tissue gas collection or radiopaque foreign body. IMPRESSION: 1. Soft tissue swelling. 2. Calcaneal spurring. No fracture. ACT 112: Negative or not required by law. Electronically signed by Christie Guan 11-15-2024 6:17 PM Knee X-Ray 11/15/24 17:33 EXAM: Radiographs of the Left Knee 2 Views INDICATION: Fall. TECHNIQUE: Frontal and lateral views of the left knee. COMPARISON: No relevant prior studies available. FINDINGS: Bones/joints: There is a joint effusion. There is mild tricompartment joint space sparing. No articular surface defect or loose body. No fracture or erosion. No subluxation or dislocation. Soft tissues: There is a metallic foreign body in the subcutaneous fat at the lateral joint line. Mild diffuse soft tissue swelling noted. Atherosclerosis noted. IMPRESSION: 1. No acute abnormality. 2. Joint effusion and mild tricompartment primary osteoarthritis. 3. Metallic foreign body in the subcutaneous fat along the lateral joint line. ACT 112: Negative or not required by law. Electronically signed by Christie Guan 11-15-2024 6:19 PM Foot X-Ray 11/15/24 18:45 Exam(s): XR RIGHT FOOT, 2 views EXAM: XR Right Foot, 2 Views CLINICAL HISTORY: Reason for exam: evidence of trauma multiple toes, r/o Fx. TECHNIQUE: Frontal and lateral views of the right foot. COMPARISON: No relevant prior studies available. FINDINGS: Bones/joints: No radiographically evident fracture. Osteopenia which limits evaluation for subtle nondisplaced fracture. Soft tissues: Soft tissue edema throughout the foot. No radiopaque foreign body. IMPRESSION: No radiographically evident fracture. Electronically signed by: Cruzito Mancuso MD 11/15/24 22:39 PM Pending Results Patient Have Any Pending Studies at Discharge: No Discharge Instructions Given to Patient (Per Discharging Provider) Mr. Woodson, You were hospitalized after recurrent falls at home. Thankfully, you did not have any fractures or brain injury from this. You did have an elevation of your CK which is evidence of muscle breakdown that is a result of being on the ground. This has improved. Your falls are likely a result of your increased alcohol intake - would recommend you stop drinking alcohol, especially hard liquor. Knee and ankle xrays did not show any fractures - did show retained metal in your left knee, but this is likely chronic as there no entry wound or no signs of infection. You should follow up with your neurologist after discharge from rehab. Medication changes: - decrease xanax to 1mg twice a day as needed for anxiety - vitamin B12 supplement added - Vitamin B1 supplement added Follow up with your primary care after discharge from rehab. Happy Holidays! Gabrielle Márquez PA-C Total Time Total Time Spent Total Time Spent (In Minutes): Time spent day of discharge 35 minutes including direct patient care, medication reconciliation, documentation, review of labs and images, and coordination of care. Coding Level of Care Code 06639 INP/OBS DISCH >30 MIN Diagnoses Ambulatory dysfunction R26.2 Rhabdomyolysis M62.82 Alcoholism F10.20 S/P TAVR (transcatheter aortic valve replacement) Z95.2 CAD (coronary artery disease) I25.10 History of coronary artery stent placement Z95.5 Peripheral neuropathy G62.9
[2024-11-16] MEDS: CYANOCOBALAMIN (B-12) 500 MCG TABLET PO SCH (09:16)
[2024-11-16 21:43] LABS: 7-Aminoclonaz, Confirm NEGATIVE ng/mL (<25); Hydro-Alp Ur, GC/MS 473 ng/mL (<25); Hydroxyethylflurazepam, Conf NEGATIVE ng/mL (<50); Hydroxymidazolam Ur, GC/MS NEGATIVE ng/mL (<50); Hydroxytriazolam NEGATIVE ng/mL (<50); Lorazepam, Ur GC/MS NEGATIVE ng/mL (<50); Nordiazepam, Confirm NEGATIVE ng/mL (<50); Oxazepam Ur, GC/MS NEGATIVE ng/mL (<50); Temazepam, Confirm NEGATIVE ng/mL (<50)
== END 2024-11-16 10:44 | DRG 558 ==
LOC: ED 16:30 → 3N 19:58 → SUATTDRO 19:58 → 3N 21:36

== ENCOUNTER 2024-11-20 20:20 | Observation (INO) ==
[2024-11-20 21:02] LABS: Appearance Urine Clear (Clear); Bacteria Urine Automated None Seen (None Seen); Bilirubin Urine Negative (Negative); Blood Urine 1+ (Negative); Cast Urine Automated 0-2 /lpf (0-2); Color Urine Yellow; Epithelial Cell Urine Auto 0-2 /hpf (0-2); Glucose Urine UA Negative (Negative); Ketones Urine Negative (Negative); Leukocyte Esterase Urine Trace (Negative); Nitrite Urine Negative (Negative); Protein Urine Negative (Negative); Specific Gravity Urine 1.019 (1.000-1.030); Urobilinogen Urine Negative (Negative); WBC Urine Automated 0-5 /hpf (0-5); pH Urine 5.5 (4.5-7.5)
[2024-11-20 21:16] LABS: Basophils # (auto) 0.03 K/uL (0.00-0.20); Basophils % (auto) 0.3 %; Eosinophils # (auto) 0.14 K/uL (0.00-0.50); Eosinophils % (auto) 1.5 %; Hematocrit (blood only) 30.5 % (42.0-52.0); Hemoglobin 10.4 g/dl (14.0-18.0); Immature Granulocytes # (auto) 0.04 K/uL (0.01-0.20); Immature Granulocytes % (auto) 0.4 %; Lymphocytes # (auto) 1.02 K/uL (1.20-3.40); Lymphocytes % (auto) 11.2 %; Mean Corpuscular Hemoglobin 31.8 pg (25.0-34.0); Mean Corpuscular Hgb Conc 34.1 g/dL (32.0-36.0); Mean Corpuscular Volume 93.3 fL (80.0-100.0); Mean Platelet Volume 9.7 fL (9.4-12.4); Monocytes % (auto) 9.9 %; Neutrophils # (auto) 6.97 K/uL (1.40-6.50); Neutrophils % (auto) 76.7 %; Platelet Count 184 K/uL (130-400); RDW Coefficient of Variation 12.3 % (11.5-14.5); RDW Standard Deviation 42.3 fL (36.4-46.3); Red Blood Count 3.27 M/uL (4.70-6.10)
[2024-11-20 21:17] LABS: Troponin I High Sensitivity 19.9 pg/ml (0-20)
[2024-11-20 21:31] LABS: BUN Creatinine Ratio 26.9 (10-20); Bilirubin,Total 0.4 mg/dl (0.2-1.0); Calcium 7.8 mg/dl (8.6-10.3); Globulin 3.1 gm/dl (2.5-4.0); Magnesium 1.8 mg/dl (1.7-2.4); Potassium 3.1 mmol/L (3.5-5.1); Total Protein 6.1 gm/dl (6.0-8.3)
[2024-11-20] MEDS: SODIUM CHLORIDE 0.9% 1,000 ML IV ONE (22:02)
[2024-11-20 22:03] LABS: Thyroid Stimulating Hormone 1.666 uIu/ml (0.300-4.500)
[2024-11-20] MEDS: POTASSIUM CHLORIDE / WTR 10 MEQ/100 ML PLCT IV SCH (22:06)
--- NOTE | 2024-11-20 22:28 | CT Scan Report ---
Exam(s): CT HEAD Without Contrast EXAM: CT Head Without Intravenous Contrast CLINICAL HISTORY: Reason for exam: AMS, frequent falls. TECHNIQUE: Axial computed tomography images of the head/brain without intravenous contrast. CTDI is 37.08 mGy and DLP is 703.85 mGy-cm. Automated exposure control was utilized for the study. A dose lowering technique was utilized adhering to the principles of ALARA. COMPARISON: Head CT 11/13/2024. FINDINGS: Brain: Global parenchymal atrophy. No hemorrhage, extra-axial fluid collection, mass effect, or edema. Ventricles: Unremarkable. Bones/joints: Unremarkable. No fracture. Soft tissues: Unremarkable. Sinuses: No acute sinusitis. Mastoid air cells: Unremarkable as visualized. IMPRESSION: Unremarkable exam. Electronically signed by: Cruzito Mancuso MD 11/20/24 22:26 PM
--- NOTE | 2024-11-20 22:45 | XRay Report ---
Exam(s): XR CXR 1 VIEW EXAM: XR Chest, 1 View CLINICAL HISTORY: Reason for exam: weakness. TECHNIQUE: Frontal view of the chest. COMPARISON: 11/13/2024 FINDINGS: Lungs: Atelectasis at the left base. Pleural space: Trace left pleural effusion. Heart: Unremarkable. No cardiomegaly. IMPRESSION: 1. Atelectasis at the left base. 2. Trace left pleural effusion. Electronically signed by: Cruzito Mancuso MD 11/20/24 22:45 PM
--- NOTE | 2024-11-20 22:50 | Emergency Department Note ---
Impression & Plan Generalized weakness, Wernicke-Korsakoff syndrome (alcoholic), AMS (altered mental status) ED Provider Note CHIEF COMPLAINT: Altered mental status, possible UTI HISTORY OF PRESENT ILLNESS: This 79-year-old male patient past medical history of CAD status post stent, status post TAVR, alcohol dependency, peripheral neuropathy, frequent falls, rhabdomyolysis presents to the emergency department from the [facility] with complaints of altered mental status and possible UTI. Patient apparently has been a bit lethargic today. Daughter reports a fever, although this was not reported by EMS. Patient was recently here for frequent falls and rhabdomyolysis. REVIEW OF SYSTEMS: A review of systems was performed with positives and pertinent negatives listed in the history of present illness. 10 systems were reviewed and are otherwise negative. ALLERGIES: see below MEDICATIONS: see below PMH: see below SOCIAL HISTORY: see below DDx: Infectious etiology such as UTI, pneumonia, intracranial hemorrhage, metabolic abnormality, dehydration, medication effect among others PHYSICAL EXAM: Vital signs reviewed. General: chronically ill-appearing 79-year-old male, in no significant distress. HEENT: No scleral icterus, PERRLA, neck supple. dry mucous membranes. poor dentition. Cardiovascular: Regular rate and rhythm, no extra sounds. Pulmonary: Clear to auscultation bilaterally, normal work of breathing. Abdomen: Soft, nontender, nondistended, positive bowel sounds. Musculoskeletal: Atraumatic, no peripheral edema. : Normal external male genitalia, circumcised. Neurologic: Patient awake awake and answering some questions appropriately, pleasantly confused. Skin: Warm, dry, no rash EMERGENCY DEPARTMENT COURSE/MDM: This patient was evaluated and appeared to be in no significant distress. Physical examination is fairly reassuring. IV access was obtained and laboratory work was drawn. UA was obtained by straight cath and does appear to be somewhat concentrated. WBC is within normal limits, hemoglobin is 10.4. Lactate and procalcitonin are normal. 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 Head CT was performed and is negative. Chest x-ray reveals some atelectasis and trace pleural effusion but no evidence of acute infectious etiology. Given the complaints of the nursing facility of altered mentation and questionable fever. The hospitalist service has been consulted for evaluation further management. MONITORING: An order for cardiac monitoring was placed and the patient is noted to be in a normal sinus rhythm at 65 beats per minute. RADIOLOGY: CXR: IMPRESSION: 1. Atelectasis at the left base. 2. Trace left pleural effusion. Head CT per radiology reveals no evidence of acute intracranial abnormality. EKG: To my interpretation reveals a normal sinus rhythm at [address] segments. QTc is 469. No PVC, no PAC DISPOSITION: admission Past Med/Surg History Problem List (Updated 11/21/24 @ 15:00 by Erica Wilson MD) AMS (altered mental status) (Acute) Transaminitis History of coronary artery stent placement CAD (coronary artery disease) S/P TAVR (transcatheter aortic valve replacement) Wernicke-Korsakoff syndrome (alcoholic) (Acute) Peripheral neuropathy Frequent falls Rhabdomyolysis (Acute) Ambulatory dysfunction (Acute) Generalized weakness (Acute) BPH NOS w ur obs/LUTS Alcoholism Medical History Gout History of nephrolithiasis Hypertension Family History Sister Diabetes Cancer Son Diabetes Father Heart disease Grandmother Cancer Social History Smoking Status: Former smoker Tobacco Type: Cigars Second Hand Exposure: No; Do You Dip or Chew Tobacco: No; Hx Alcohol Use: Yes Alcohol type: beer, wine and hard liquor Hx Substance Use: No Preferred Language: [place] Communication Ability: confused [employer] Control Technician Required: No Beliefs That Will Affect Care: None marital status: Single Current Living Situation: Residential Feels Safe at Home: Yes Safety Concerns: Feels Safe At This Time Assistive Devices: Walker Allergies Allergies Allergy/AdvReac Type Severity Reaction Status Date / Time No Known Allergies Allergy Verified 08/01/22 10:16 Home Meds Home Medications Medication Instructions Recorded Confirmed docusate sodium 100 mg capsule 100 mg PO DAILY 09/17/22 11/20/24 amoxicillin 500 mg capsule 2,000 mg PO UD 11/13/24 11/20/24 clopidogrel 75 mg tablet 75 mg PO QAM 11/13/24 11/20/24 nitroglycerin 0.4 mg sublingual 0.4 mg sublingual .EVERY 5 MINUTES 11/13/24 11/20/24 tablet PRN Chest Pain rosuvastatin 40 mg tablet 40 mg PO QAM 11/13/24 11/20/24 Previous Rx's Medication Instructions Recorded alprazolam 2 mg tablet 1 mg (1/2 x 2 mg) PO BID PRN 11/15/24 Anxiety #0 tabs folic acid 1 mg tablet 1 mg PO QAM #30 tabs 11/15/24 thiamine HCl (vitamin B1) 100 mg 200 mg (2 x 100 mg) PO QAM 30 days 11/15/24 tablet #60 tabs amoxicillin 875 mg-potassium 1 tab PO BID #11 tabs 11/21/24 clavulanate 125 mg tablet aspirin 81 mg tablet,delayed 81 mg PO DAILY #30 tabs 11/21/24 release cyanocobalamin (vitamin B-12) 1,000 mcg PO DAILY #30 tabs 11/21/24 1,000 mcg tablet sertraline 50 mg tablet 50 mg PO DAILY #30 tabs 11/21/24 Results & Data (ED) Vital Signs Vital Signs - 24 hr 11/20/24 20:13 11/20/24 20:13 11/20/24 20:27 Temperature 37.4 C Temperature Source Oral Pulse Rate 65 70 Pulse Rate [Apical] 66 Pulse Rate from SpO2 Sensor Respiratory Rate 16 Respiratory Effort / Characteristics Non-Labored Spontaneous Respiratory Depth Normal Respiratory Pattern Regular Blood Pressure 109/67 Blood Pressure [Right Arm] Blood Pressure Mean 81 Blood Pressure Mean [Right Arm] Pulse Oximetry 95 Oxygen Delivery Method Room Air Sepsis Recent Fever Within 48 Hours Yes Sepsis New/Unexplained Change in Mental Status N/A Sepsis Action Taken by Nursing No Action Required 11/20/24 20:29 11/20/24 20:30 11/20/24 20:30 Temperature Temperature Source Pulse Rate Pulse Rate [Apical] Pulse Rate from SpO2 Sensor Respiratory Rate Respiratory Effort / Characteristics Respiratory Depth Respiratory Pattern Blood Pressure 110/59 L 119/55 L Blood Pressure [Right Arm] Blood Pressure Mean 71 82 Blood Pressure Mean [Right Arm] Pulse Oximetry 95 Oxygen Delivery Method Room Air Sepsis Recent Fever Within 48 Hours Sepsis New/Unexplained Change in Mental Status Sepsis Action Taken by Nursing 11/20/24 20:30 11/20/24 20:39 11/20/24 20:45 Temperature Temperature Source Pulse Rate 70 76 Pulse Rate [Apical] Pulse Rate from SpO2 Sensor 69 75 Respiratory Rate 16 14 Respiratory Effort / Characteristics Respiratory Depth Respiratory Pattern Blood Pressure 109/67 Blood Pressure [Right Arm] Blood Pressure Mean 85 Blood Pressure Mean [Right Arm] Pulse Oximetry 96 96 Oxygen Delivery Method Sepsis Recent Fever Within 48 Hours Sepsis New/Unexplained Change in Mental Status Sepsis Action Taken by Nursing 11/20/24 20:48 11/20/24 20:51 11/20/24 21:00 Temperature Temperature Source Pulse Rate 66 64 68 Pulse Rate [Apical] Pulse Rate from SpO2 Sensor 65 64 65 Respiratory Rate 14 14 15 Respiratory Effort / Characteristics Respiratory Depth Respiratory Pattern Blood Pressure Blood Pressure [Right Arm] Blood Pressure Mean Blood Pressure Mean [Right Arm] Pulse Oximetry 96 96 95 Oxygen Delivery Method Sepsis Recent Fever Within 48 Hours Sepsis New/Unexplained Change in Mental Status Sepsis Action Taken by Nursing 11/20/24 21:00 11/20/24 21:30 11/20/24 21:39 Temperature Temperature Source Pulse Rate Pulse Rate [Apical] Pulse Rate from SpO2 Sensor Respiratory Rate Respiratory Effort / Characteristics Respiratory Depth Respiratory Pattern Blood Pressure 113/49 L 89/55 L 88/57 L Blood Pressure [Right Arm] Blood Pressure Mean 73 59 66 Blood Pressure Mean [Right Arm] Pulse Oximetry Oxygen Delivery Method Sepsis Recent Fever Within 48 Hours Sepsis New/Unexplained Change in Mental Status Sepsis Action Taken by Nursing 11/20/24 21:45 11/20/24 21:51 11/20/24 22:00 Temperature Temperature Source Pulse Rate 63 Pulse Rate [Apical] Pulse Rate from SpO2 Sensor 63 Respiratory Rate 14 Respiratory Effort / Characteristics Respiratory Depth Respiratory Pattern Blood Pressure 86/51 L 96/61 L Blood Pressure [Right Arm] Blood Pressure Mean 64 67 Blood Pressure Mean [Right Arm] Pulse Oximetry 96 Oxygen Delivery Method Sepsis Recent Fever Within 48 Hours Sepsis New/Unexplained Change in Mental Status Sepsis Action Taken by Nursing 11/20/24 22:00 11/20/24 22:14 11/20/24 22:15 Temperature Temperature Source Pulse Rate 67 68 Pulse Rate [Apical] 68 Pulse Rate from SpO2 Sensor 67 67 Respiratory Rate 17 16 14 Respiratory Effort / Characteristics Respiratory Depth Respiratory Pattern Blood Pressure Blood Pressure [Right Arm] 96/61 L Blood Pressure Mean Blood Pressure Mean [Right Arm] 72 Pulse Oximetry 98 98 Oxygen Delivery Method Room Air Sepsis Recent Fever Within 48 Hours Sepsis New/Unexplained Change in Mental Status Sepsis Action Taken by Nursing 11/20/24 22:15 11/20/24 22:21 11/20/24 22:30 Temperature Temperature Source Pulse Rate 78 65 Pulse Rate [Apical] Pulse Rate from SpO2 Sensor 69 65 Respiratory Rate 19 17 Respiratory Effort / Characteristics Respiratory Depth Respiratory Pattern Blood Pressure 131/68 Blood Pressure [Right Arm] Blood Pressure Mean 73 Blood Pressure Mean [Right Arm] Pulse Oximetry 98 98 Oxygen Delivery Method Sepsis Recent Fever Within 48 Hours Sepsis New/Unexplained Change in Mental Status Sepsis Action Taken by Nursing 11/20/24 22:30 11/20/24 22:34 11/20/24 22:48 Temperature Temperature Source Pulse Rate 66 Pulse Rate [Apical] Pulse Rate from SpO2 Sensor 68 Respiratory Rate 16 Respiratory Effort / Characteristics Respiratory Depth Respiratory Pattern Blood Pressure 109/69 121/62 126/66 Blood Pressure [Right Arm] Blood Pressure Mean 84 95 86 Blood Pressure Mean [Right Arm] Pulse Oximetry 97 Oxygen Delivery Method Room Air Sepsis Recent Fever Within 48 Hours Sepsis New/Unexplained Change in Mental Status Sepsis Action Taken by Nursing 11/20/24 23:00 11/20/24 23:33 Temperature Temperature Source Pulse Rate 71 65 Pulse Rate [Apical] Pulse Rate from SpO2 Sensor 71 68 Respiratory Rate 21 14 Respiratory Effort / Characteristics Respiratory Depth Respiratory Pattern Blood Pressure 118/75 96/53 L Blood Pressure [Right Arm] Blood Pressure Mean 98 67 Blood Pressure Mean [Right Arm] Pulse Oximetry 98 95 Oxygen Delivery Method Room Air Room Air Sepsis Recent Fever Within 48 Hours Sepsis New/Unexplained Change in Mental Status Sepsis Action Taken by Residential Medications Current Medication List: was personally reviewed by me Laboratory Data Attestation: I reviewed the patient's lab results. 11/21/24 03:39 11/21/24 03:39 Lab Results 11/20/24 11/20/24 11/20/24 Range/Units 20:40 21:58 22:27 WBC 9.10 (4.8-10.8) K/ul RBC 3.27 L (4.70-6.10) M/uL Hgb 10.4 L (14.0-18.0) g/dl Hct 30.5 L (42.0-52.0) % MCV 93.3 (80.0-100.0) fL MCH 31.8 (25.0-34.0) pg MCHC 34.1 (32.0-36.0) g/dL RDW Std Deviation 42.3 (36.4-46.3) fL RDW Coeff of Rosina 12.3 (11.5-14.5) % Plt Count 184 (130-400) K/uL MPV 9.7 (9.4-12.4) fL Immature Gran % (Auto) 0.4 % Neut % (Auto) 76.7 % Lymph % (Auto) 11.2 % [place] % (Auto) 9.9 % Eos % (Auto) 1.5 % Baso % (Auto) 0.3 % Neut # (Auto) 6.97 H (1.40-6.50) K/uL Lymph # (Auto) 1.02 L (1.20-3.40) K/uL [place] # (Auto) 0.90 H (0.11-0.59) K/uL Eos # (Auto) 0.14 (0.00-0.50) K/uL Baso # (Auto) 0.03 (0.00-0.20) K/uL Immature Gran # (Auto) 0.04 (0.01-0.20) K/uL Sodium 139 (136-145) mmol/L Potassium 3.1 L (3.5-5.1) mmol/L Chloride 107 (98-107) mmol/L Carbon Dioxide 26 (21-32) mmol/L Anion Gap 6 (3-11) BUN 21 (6-23) mg/dl Creatinine 0.78 (0.6-1.4) mg/dl Est Cr Clr Drug Dosing 95.0 ml/min eGFR 91.85 BUN/Creatinine Ratio 26.9 H (10-20) Glucose 103 H (70-99(Fasting)) mg/dl Lactate 0.9 (0.4-2.0) mmol/L Calcium 7.8 L (8.6-10.3) mg/dl Magnesium 1.8 (1.7-2.4) mg/dl Total Bilirubin 0.4 (0.2-1.0) mg/dl AST 186 H (13-39) U/L ALT 174 H (7-52) U/L Alkaline Phosphatase 133 H (34-104) U/L Total Creatine Kinase 56 (30-223) U/L Troponin I High Sens 19.9 (0-20) pg/ml Total Protein 6.1 (6.0-8.3) gm/dl Albumin 3.0 L (3.4-5.0) gm/dl Globulin 3.1 (2.5-4.0) gm/dl Albumin/Globulin Ratio 1.0 (0.9-2) Procalcitonin 0.21 (0-0.5) ng/ml TSH 1.666 (0.300-4.500) uIu/ml Urine Color Yellow Urine Appearance Clear (Clear) Urine pH 5.5 (4.5-7.5) Ur Specific [place] 1.019 (1.000-1.030) Urine Protein Negative (Negative) Urine Glucose (UA) Negative (Negative) Urine Ketones Negative (Negative) Urine Blood 1+ H (Negative) Urine Nitrite Negative (Negative) Urine Bilirubin Negative (Negative) Urine Urobilinogen Negative (Negative) Ur Leukocyte Esterase Trace H (Negative) Urine WBC (Auto) 0-5 (0-5) /hpf Urine RBC (Auto) 6-10 H (0-2) /hpf U Hyaline Cast (Auto) 0-2 (0-2) /lpf U Epithel Cells (Auto) 0-2 (0-2) /hpf Urine Bacteria (Auto) None Seen (None Seen) Adenovirus (PCR) (NotDetected) B. pertussis DNA (PCR) (NotDetected) B.parapertussis DNA PCR (NotDetected) C. pneumoniae DNA (PCR) (NotDetected) Coronavirus OC43 (PCR) (NotDetected) Coronavirus HKU1 (PCR) (NotDetected) Coronavirus 229E (PCR) (NotDetected) SARS-CoV-2 (PCR) (NotDetected) Coronavirus NL63 (PCR) (NotDetected) Human Metapneumovir PCR (NotDetected) Influenza Type A (PCR) (NotDetected) Influenza Type B (PCR) (NotDetected) M. pneumoniae (PCR) (NotDetected) Parainfluenza 1 (PCR) (NotDetected) Parainfluenza 2 (PCR) (NotDetected) Parainfluenza 3 (PCR) (NotDetected) Parainfluenza 4 (PCR) (NotDetected) RSV (PCR) (NotDetected) Entero/Rhino (PCR) (NotDetected) 11/20/24 Range/Units 22:40 WBC (4.8-10.8) K/ul RBC (4.70-6.10) M/uL Hgb (14.0-18.0) g/dl Hct (42.0-52.0) % MCV (80.0-100.0) fL MCH (25.0-34.0) pg MCHC (32.0-36.0) g/dL RDW Std Deviation (36.4-46.3) fL RDW Coeff of Rosina (11.5-14.5) % Plt Count (130-400) K/uL MPV (9.4-12.4) fL Immature Gran % (Auto) % Neut % (Auto) % Lymph % (Auto) % [place] % (Auto) % Eos % (Auto) % Baso % (Auto) % Neut # (Auto) (1.40-6.50) K/uL Lymph # (Auto) (1.20-3.40) K/uL [place] # (Auto) (0.11-0.59) K/uL Eos # (Auto) (0.00-0.50) K/uL Baso # (Auto) (0.00-0.20) K/uL Immature Gran # (Auto) (0.01-0.20) K/uL Sodium (136-145) mmol/L Potassium (3.5-5.1) mmol/L Chloride (98-107) mmol/L Carbon Dioxide (21-32) mmol/L Anion Gap (3-11) BUN (6-23) mg/dl Creatinine (0.6-1.4) mg/dl Est Cr Clr Drug Dosing ml/min eGFR BUN/Creatinine Ratio (10-20) Glucose (70-99(Fasting)) mg/dl Lactate (0.4-2.0) mmol/L Calcium (8.6-10.3) mg/dl Magnesium (1.7-2.4) mg/dl Total Bilirubin (0.2-1.0) mg/dl AST (13-39) U/L ALT (7-52) U/L Alkaline Phosphatase (34-104) U/L Total Creatine Kinase (30-223) U/L Troponin I High Sens (0-20) pg/ml Total Protein (6.0-8.3) gm/dl Albumin (3.4-5.0) gm/dl Globulin (2.5-4.0) gm/dl Albumin/Globulin Ratio (0.9-2) Procalcitonin (0-0.5) ng/ml TSH (0.300-4.500) uIu/ml Urine Color Urine Appearance (Clear) Urine pH (4.5-7.5) Ur Specific [place] (1.000-1.030) Urine Protein (Negative) Urine Glucose (UA) (Negative) Urine Ketones (Negative) Urine Blood (Negative) Urine Nitrite (Negative) Urine Bilirubin (Negative) Urine Urobilinogen (Negative) Ur Leukocyte Esterase (Negative) Urine WBC (Auto) (0-5) /hpf Urine RBC (Auto) (0-2) /hpf U Hyaline Cast (Auto) (0-2) /lpf U Epithel Cells (Auto) (0-2) /hpf Urine Bacteria (Auto) (None Seen) Adenovirus (PCR) Not Detected (NotDetected) B. pertussis DNA (PCR) Not Detected (NotDetected) B.parapertussis DNA PCR Not Detected (NotDetected) C. pneumoniae DNA (PCR) Not Detected (NotDetected) Coronavirus OC43 (PCR) Not Detected (NotDetected) Coronavirus HKU1 (PCR) Not Detected (NotDetected) Coronavirus 229E (PCR) Not Detected (NotDetected) SARS-CoV-2 (PCR) Not Detected (NotDetected) Coronavirus NL63 (PCR) Not Detected (NotDetected) Human Metapneumovir PCR Not Detected (NotDetected) Influenza Type A (PCR) Not Detected (NotDetected) Influenza Type B (PCR) Not Detected (NotDetected) M. pneumoniae (PCR) Not Detected (NotDetected) Parainfluenza 1 (PCR) Not Detected (NotDetected) Parainfluenza 2 (PCR) Not Detected (NotDetected) Parainfluenza 3 (PCR) Not Detected (NotDetected) Parainfluenza 4 (PCR) Not Detected (NotDetected) RSV (PCR) Not Detected (NotDetected) Entero/Rhino (PCR) Not Detected (NotDetected) Administered Medications Alprazolam (Alprazolam 0.5 Mg Tablet) 1 mg PO BID PRN PRN Reason: Anxiety Stop: 12/21/24 01:25 Last Admin: 11/21/24 08:32 Dose: 1 mg Documented By: FLASH Clopidogrel Bisulfate (Clopidogrel Bisulfate 75 Mg Tab) 75 mg PO QAM [facility] Stop: 12/21/24 08:59 Last Admin: 11/21/24 08:28 Dose: 75 mg Documented By: FLASH Docusate Sodium (Docusate Sodium 100 Mg Cap) 100 mg PO DAILY [facility] Stop: 12/21/24 08:59 Last Admin: 11/21/24 08:28 Dose: 100 mg Documented By: FLASH Folic Acid (Folic Acid 1 Mg Tab) 1 mg PO QAM [facility] Stop: 12/21/24 08:59 Last Admin: 11/21/24 08:28 Dose: 1 mg Documented By: FLASH Sertraline HCl (Sertraline Hcl 100 Mg Tablet) 100 mg PO DAILY [facility] Stop: 12/21/24 08:59 Last Admin: 11/21/24 08:28 Dose: 100 mg Documented By: FLASH Thiamine HCl (Thiamine Hcl 100 Mg Tab) 200 mg PO BID [facility]HA[facility] Stop: 12/21/24 08:59 Last Admin: 11/21/24 08:28 Dose: 200 mg Documented By: FLASH Discontinued Medications Potassium Chloride (K Hugh / Wtr) 10 meq in 100 mls @ 100 mls/hr IV Q1H ZHAO Stop: 11/20/24 23:59 Last Infusion: 11/21/24 00:28 Dose: Infused Documented By: Admin: 11/20/24 22:59 Dose: 100 mls/hr Documented By: Infusion: 11/20/24 22:59 Dose: Infused Documented By: Admin: 11/20/24 22:06 Dose: 100 mls/hr Documented By: VENKATA Sodium Chloride (Nss) 1,000 mls @ 999 mls/hr IV .Q1H1M ONE Stop: 11/20/24 22:46 Last Infusion: 11/20/24 23:05 Dose: Infused Documented By: Admin: 11/20/24 22:02 Dose: 999 mls/hr Documented By: VENKATA Magnesium Sulfate/Dextrose (Magnesium Sulfate / D5w) 1 gm in 100 mls @ 50 mls/hr IV ONE ONE Stop: 11/21/24 01:58 Last Infusion: 11/21/24 02:25 Dose: Infused Documented By: Admin: 11/21/24 00:25 Dose: 50 mls/hr Documented By: REED Sodium Chloride (Nss) 1,000 mls @ 80 mls/hr IV .[id number] ZHAO Stop: 11/21/24 12:14 Last Admin: 11/21/24 00:22 Dose: 80 mls/hr Documented By: REED Imaging Data Radiologist's Impression: Chest X-Ray 11/20/24 20:30 Exam(s): XR CXR 1 VIEW EXAM: XR Chest, 1 View CLINICAL HISTORY: Reason for exam: weakness. TECHNIQUE: Frontal view of the chest. COMPARISON: 11/13/2024 FINDINGS: Lungs: Atelectasis at the left base. Pleural space: Trace left pleural effusion. Heart: Unremarkable. No cardiomegaly. IMPRESSION: 1. Atelectasis at the left base. 2. Trace left pleural effusion. Electronically signed by: Cruzito Mancuso MD 11/20/24 22:[address] 11/20/24 20:31 Exam(s): CT HEAD Without Contrast EXAM: CT Head Without Intravenous Contrast CLINICAL HISTORY: Reason for exam: AMS, frequent falls. TECHNIQUE: Axial computed tomography images of the head/brain without intravenous contrast. CTDI is 37.08 mGy and DLP is 703.85 mGy-cm. Automated exposure control was utilized for the study. A dose lowering technique was utilized adhering to the principles of ALARA. COMPARISON: Head CT 11/13/2024. FINDINGS: Brain: Global parenchymal atrophy. No hemorrhage, extra-axial fluid collection, mass effect, or edema. Ventricles: Unremarkable. Bones/joints: Unremarkable. No fracture. Soft tissues: Unremarkable. Sinuses: No acute sinusitis. Mastoid air cells: Unremarkable as visualized. IMPRESSION: Unremarkable exam. Electronically signed by: Cruzito Mancuso MD 11/20/24 22:26 PM Discharge Plan Visit Data Chief Complaint: Urinary Symptoms Stated Complaint: Dark Urine, Confusion ED Provider: Erica Wilson Discharge Problem: Generalized weakness, Wernicke-Korsakoff syndrome (alcoholic), AMS (altered mental status) Patient Disposition: Admitted As Inpatient Discharge Instructions Interventions: ED Discharge Assessment Last Done: 11/21/24 01:27 Discharge Problem: AMS (altered mental status) Qualifiers: Altered mental status type: unspecified Qualified Code(s): R41.82 - Altered mental status, unspecified
[2024-11-20 23:36] LABS: Adenovirus PCR Not Detected (NotDetected); Bordetella parapertussis PCR Not Detected (NotDetected); Bordetella pertussis PCR Not Detected (NotDetected); Chlamydia pneumoniae PCR Not Detected (NotDetected); Coronavirus 229E PCR Not Detected (NotDetected); Coronavirus CoV-2 (COVID19)PCR Not Detected (NotDetected); Coronavirus HKU1 PCR Not Detected (NotDetected); Coronavirus NL63 PCR Not Detected (NotDetected); Coronavirus OC43PCR Not Detected (NotDetected); Human Metapneumovirus PCR Not Detected (NotDetected); Influenza A PCR Not Detected (NotDetected); Influenza B PCR Not Detected (NotDetected); Mycoplasma pneumoniae PCR Not Detected (NotDetected); Parainfluenza Virus 1 PCR Not Detected (NotDetected); Parainfluenza Virus 2 PCR Not Detected (NotDetected); Parainfluenza Virus 3 PCR Not Detected (NotDetected); Parainfluenza Virus 4 PCR Not Detected (NotDetected); Respiratory Syncytial VirusPCR Not Detected (NotDetected); Rhinovirus/Enterovirus PCR Not Detected (NotDetected)
--- NOTE | 2024-11-20 23:41 | History & Physical Report ---
Date of Service November 20, 2024 Assessment & Plan (1) Transaminitis: (2) CAD (coronary artery disease): (3) Wernicke-Korsakoff syndrome (alcoholic): (4) Rhabdomyolysis: Plan The patient is a 79-year-old male with a PMH including CAD, coronary artery stent placement, status post TAVR, Warnicke Korsakoff syndrome, rhabdomyolysis, generalized weakness, and confusion. He was most recently admitted to [facility] from 11/13-11/16/2024 for similar symptoms, and was diagnosed with rhabdomyolysis and acute kidney injury at that time. Transaminitis- Compared to 2 days ago, on 11/18 AST was 60, and is now increased to 186 ALT was 49, and is now increased to 174 Ultrasound of liver shows heterogeneous echogenicity and echotexture of the liver suggestive of nonspecific hepatocellular dysfunction Differential including not limited to hepatic congestion, alcoholic liver disease, hepatitis, rhabdomyolysis BioFire testing negative Add acute hepatitis profile, Patient did have rhabdomyolysis with a CK of 754 on 11/13, will repeat CK to see if rhabdomyolysis is worsened into worsening liver profile Will consult gastroenterology Electrolyte disturbances- Potassium 3.1, and was given potassium chloride 10 mEq IV riders x 2 by the ED Magnesium 1.8, will be given magnesium sulfate 1 g IV Recheck laboratories in the a.m. Warnicke's Korsakoff syndrome- History of alcoholism Patient's symptomatology at last admission was suggestive of ongoing underlying issues related to alcoholism Continue thiamine 100 mg p.o. daily and folic acid 1 mg p.o. daily No indication for AWSS protocol at this time due to living at [facility] CAD/hypertension- Continue clopidogrel, metoprolol succinate Hold losartan due to borderline blood pressure Hyperlipidemia- For now, hold rosuvastatin due to transaminitis, however, unclear relationship at this time History of Present Illness Chief Complaint: The patient is referred to the emergency department from his nursing facility, due to concerns regarding worsening confusion, and concerns regarding possible urinary tract infection. Primary Care Provider: Sammy Henderson MD The patient is a 79-year-old male with a past medical history including CAD with history of coronary artery stent placement, status post TAVR, Warnicke- Korsakoff syndrome, peripheral neuropathy, rhabdomyolysis with acute kidney injury, ambulatory dysfunction, generalized weakness, BPH with LUTS and alcoholism. His most recently admitted to [facility] from 11/13-11/16/2024 with confusion associated with rhabdomyolysis and acute kidney injury. He was discharged to [facility] [place] [facility] [place], and was referred to the emergency department due to concerns regarding return of confusion, and possible urinary tract infection. Allergies Allergy/AdvReac Type Severity Reaction Status Date / Time No Known Allergies Allergy Verified 08/01/22 10:16 Home Medications Medication Instructions Recorded Confirmed Type docusate sodium 100 mg capsule 100 mg PO DAILY 09/17/22 11/20/24 History furosemide 80 mg tablet 80 mg PO QAM 09/17/22 11/20/24 History losartan 25 mg tablet 25 mg PO QAM 09/17/22 11/20/24 History metoprolol succinate 25 mg 25 mg PO QAM 01/08/23 11/20/24 History tablet,extended release 24 hr sertraline 100 mg tablet 100 mg PO DAILY 01/08/23 11/20/24 History amoxicillin 500 mg capsule 2,000 mg PO UD 11/13/24 11/20/24 History clopidogrel 75 mg tablet 75 mg PO QAM 11/13/24 11/20/24 History nitroglycerin 0.4 mg sublingual 0.4 mg sublingual .EVERY 5 MINUTES 11/13/24 11/20/24 History tablet PRN Chest Pain rosuvastatin 40 mg tablet 40 mg PO QAM 11/13/24 11/20/24 History alprazolam 2 mg tablet 1 mg (1/2 x 2 mg) PO BID PRN 11/15/24 11/20/24 Rx Anxiety #0 tabs folic acid 1 mg tablet 1 mg PO QAM #30 tabs 11/15/24 11/20/24 Rx thiamine HCl (vitamin B1) 100 mg 200 mg (2 x 100 mg) PO QAM 30 days 11/15/24 11/20/24 Rx tablet #60 tabs Past Med/Surg History Problem List (Updated 11/21/24 @ 02:54 by Jose Sosa MD) Transaminitis History of coronary artery stent placement CAD (coronary artery disease) S/P TAVR (transcatheter aortic valve replacement) Wernicke-Korsakoff syndrome (alcoholic) Peripheral neuropathy Frequent falls Rhabdomyolysis (Acute) Ambulatory dysfunction (Acute) Generalized weakness (Acute) BPH NOS w ur obs/LUTS Alcoholism Medical History Gout History of nephrolithiasis Hypertension Family History Sister Diabetes Cancer Son Diabetes Father Heart disease Grandmother Cancer Social History Smoking Status: Former smoker Tobacco Type: Cigars Second Hand Exposure: No; Do You Dip or Chew Tobacco: No; Hx Alcohol Use: Yes Alcohol type: beer, wine and hard liquor Hx Substance Use: No Preferred Language: Spanish Communication Ability: confused Ore Buyer Required: No Beliefs That Will Affect Care: None marital status: Single Current Living Situation: Retirement Feels Safe at Home: Yes Safety Concerns: Feels Safe At This Time Assistive Devices: Walker Review of Systems Review of Systems: The patient's HPI and ROS are limited due to decreased ability to respond associated with underlying Warnicke Korsakoff syndrome and confusion in addition. The patient level of responsiveness, is similar to the time I admitted him on 11/13/2024, due to a combination of underlying effects of alcoholism, and possible symptoms of superimposed infection Physical Exam Physical Exam: The patient is awake, confused, slow to respond, normocephalic and atraumatic, lying in bed and in no acute distress. HEENT--PERRL, EOMI, mucous membranes and oropharynx mildly dry. Neck--supple. No JVD. No bruits. Thyroid normal, trachea midline, no adenopathy. Heart--normal S1 and S2. No murmurs, rubs or gallops. Lungs--clear bilaterally, no respiratory distress, no accessory muscle use. Abdomen--normal bowel sounds and soft. Nontender. Nondistended, no hernias or masses, no organomegaly. Extremities--no cyanosis or clubbing. No edema. Dermatologic--normal skin turgor, normal color, no abnormal lymph nodes, no rash . Neurologic--cranial nerves II through XII grossly intact. Rheumatologic--normal range of motion. Psychiatric--confused, unclear baseline Results & Data Results & Data Vital Signs (Past 12 Hours) Vital Signs Temp Pulse Pulse Resp BP BP Pulse Ox 11/20/24 23:33 65 14 96/53 L 95 11/20/24 23:00 71 21 118/75 98 11/20/24 22:48 66 16 126/66 97 11/20/24 22:34 121/62 11/20/24 22:30 109/69 11/20/24 22:30 65 17 98 11/20/24 22:21 78 19 98 11/20/24 22:15 131/68 11/20/24 22:15 68 14 98 11/20/24 22:14 68 16 96/61 L 98 11/20/24 22:00 67 17 11/20/24 22:00 96/61 L 11/20/24 21:51 63 14 96 11/20/24 21:45 86/51 L 11/20/24 21:39 88/57 L 11/20/24 21:30 89/55 L 11/20/24 21:00 113/49 L 11/20/24 21:00 68 15 95 11/20/24 20:51 64 14 96 11/20/24 20:48 66 14 96 11/20/24 20:45 109/67 11/20/24 20:39 76 14 96 11/20/24 20:30 70 16 96 11/20/24 20:30 119/55 L 11/20/24 20:30 95 11/20/24 20:29 110/59 L 11/20/24 20:27 70 11/20/24 20:13 66 11/20/24 20:13 37.4 C 65 16 109/67 95 O2 Del Method 11/20/24 23:33 Room Air 11/20/24 23:00 Room Air 11/20/24 22:48 Room Air 11/20/24 22:34 11/20/24 22:30 11/20/24 22:30 11/20/24 22:21 11/20/24 22:15 11/20/24 22:15 11/20/24 22:14 Room Air 11/20/24 22:00 11/20/24 22:00 11/20/24 21:51 11/20/24 21:45 11/20/24 21:39 11/20/24 21:30 11/20/24 21:00 11/20/24 21:00 11/20/24 20:51 11/20/24 20:48 11/20/24 20:45 11/20/24 20:39 11/20/24 20:30 11/20/24 20:30 11/20/24 20:30 Room Air 11/20/24 20:29 11/20/24 20:27 11/20/24 20:13 11/20/24 20:13 Room Air Laboratory Results Laboratory Results WBC 9.10 K/ul (4.8-10.8) 11/20/24 20:40 RBC 3.27 M/uL (4.70-6.10) L 11/20/24 20:40 Hgb 10.4 g/dl (14.0-18.0) L 11/20/24 20:40 Hct 30.5 % (42.0-52.0) L 11/20/24 20:40 MCV 93.3 fL (80.0-100.0) 11/20/24 20:40 MCH 31.8 pg (25.0-34.0) 11/20/24 20:40 MCHC 34.1 g/dL (32.0-36.0) 11/20/24 20:40 RDW Std Deviation 42.3 fL (36.4-46.3) 11/20/24 20:40 RDW Coeff of Rosina 12.3 % (11.5-14.5) 11/20/24 20:40 Plt Count 184 K/uL (130-400) 11/20/24 20:40 MPV 9.7 fL (9.4-12.4) 11/20/24 20:40 Immature Gran % (Auto) 0.4 % 11/20/24 20:40 Neut % (Auto) 76.7 % 11/20/24 20:40 Lymph % (Auto) 11.2 % 11/20/24 20:40 [place] % (Auto) 9.9 % 11/20/24 20:40 Eos % (Auto) 1.5 % 11/20/24 20:40 Baso % (Auto) 0.3 % 11/20/24 20:40 Neut # (Auto) 6.97 K/uL (1.40-6.50) H 11/20/24 20:40 Lymph # (Auto) 1.02 K/uL (1.20-3.40) L 11/20/24 20:40 [place] # (Auto) 0.90 K/uL (0.11-0.59) H 11/20/24 20:40 Eos # (Auto) 0.14 K/uL (0.00-0.50) 11/20/24 20:40 Baso # (Auto) 0.03 K/uL (0.00-0.20) 11/20/24 20:40 Immature Gran # (Auto) 0.04 K/uL (0.01-0.20) 11/20/24 20:40 Sodium 139 mmol/L (136-145) 11/20/24 20:40 Potassium 3.1 mmol/L (3.5-5.1) L 11/20/24 20:40 Chloride 107 mmol/L (98-107) 11/20/24 20:40 Carbon Dioxide 26 mmol/L (21-32) 11/20/24 20:40 Anion Gap 6 (3-11) 11/20/24 20:40 BUN 21 mg/dl (6-23) 11/20/24 20:40 Creatinine 0.78 mg/dl (0.6-1.4) 11/20/24 20:40 Est Cr Clr Drug Dosing 95.0 ml/min 11/20/24 20:40 eGFR 91.85 11/20/24 20:40 BUN/Creatinine Ratio 26.9 (10-20) H 11/20/24 20:40 Glucose 103 mg/dl (70-99(Fasting)) H 11/20/24 20:40 Lactate 0.9 mmol/L (0.4-2.0) 11/20/24 21:58 Calcium 7.8 mg/dl (8.6-10.3) L 11/20/24 20:40 Magnesium 1.8 mg/dl (1.7-2.4) 11/20/24 20:40 Total Bilirubin 0.4 mg/dl (0.2-1.0) 11/20/24 20:40 AST 186 U/L (13-39) H 11/20/24 20:40 ALT 174 U/L (7-52) H 11/20/24 20:40 Alkaline Phosphatase 133 U/L (34-104) H 11/20/24 20:40 Troponin I High Sens 19.9 pg/ml (0-20) 11/20/24 20:40 Total Protein 6.1 gm/dl (6.0-8.3) 11/20/24 20:40 Albumin 3.0 gm/dl (3.4-5.0) L 11/20/24 20:40 Globulin 3.1 gm/dl (2.5-4.0) 11/20/24 20:40 Albumin/Globulin Ratio 1.0 (0.9-2) 11/20/24 20:40 Procalcitonin 0.21 ng/ml (0-0.5) 11/20/24 22:27 TSH 1.666 uIu/ml (0.300-4.500) 11/20/24 20:40 Urine Color Yellow 11/20/24 20:40 Urine Appearance Clear (Clear) 11/20/24 20:40 Urine pH 5.5 (4.5-7.5) 11/20/24 20:40 Ur Specific [place] 1.019 (1.000-1.030) 11/20/24 20:40 Urine Protein Negative (Negative) 11/20/24 20:40 Urine Glucose (UA) Negative (Negative) 11/20/24 20:40 Urine Ketones Negative (Negative) 11/20/24 20:40 Urine Blood 1+ (Negative) H 11/20/24 20:40 Urine Nitrite Negative (Negative) 11/20/24 20:40 Urine Bilirubin Negative (Negative) 11/20/24 20:40 Urine Urobilinogen Negative (Negative) 11/20/24 20:40 Ur Leukocyte Esterase Trace (Negative) H 11/20/24 20:40 Urine WBC (Auto) 0-5 /hpf (0-5) 11/20/24 20:40 Urine RBC (Auto) 6-10 /hpf (0-2) H 11/20/24 20:40 U Hyaline Cast (Auto) 0-2 /lpf (0-2) 11/20/24 20:40 U Epithel Cells (Auto) 0-2 /hpf (0-2) 11/20/24 20:40 Urine Bacteria (Auto) None Seen (None Seen) 11/20/24 20:40 Adenovirus (PCR) Not Detected (NotDetected) 11/20/24 22:40 B. pertussis DNA (PCR) Not Detected (NotDetected) 11/20/24 22:40 B.parapertussis DNA PCR Not Detected (NotDetected) 11/20/24 22:40 C. pneumoniae DNA (PCR) Not Detected (NotDetected) 11/20/24 22:40 Coronavirus OC43 (PCR) Not Detected (NotDetected) 11/20/24 22:40 Coronavirus HKU1 (PCR) Not Detected (NotDetected) 11/20/24 22:40 Coronavirus 229E (PCR) Not Detected (NotDetected) 11/20/24 22:40 SARS-CoV-2 (PCR) Not Detected (NotDetected) 11/20/24 22:40 Coronavirus NL63 (PCR) Not Detected (NotDetected) 11/20/24 22:40 Human Metapneumovir PCR Not Detected (NotDetected) 11/20/24 22:40 Influenza Type A (PCR) Not Detected (NotDetected) 11/20/24 22:40 Influenza Type B (PCR) Not Detected (NotDetected) 11/20/24 22:40 M. pneumoniae (PCR) Not Detected (NotDetected) 11/20/24 22:40 Parainfluenza 1 (PCR) Not Detected (NotDetected) 11/20/24 22:40 Parainfluenza 2 (PCR) Not Detected (NotDetected) 11/20/24 22:40 Parainfluenza 3 (PCR) Not Detected (NotDetected) 11/20/24 22:40 Parainfluenza 4 (PCR) Not Detected (NotDetected) 11/20/24 22:40 RSV (PCR) Not Detected (NotDetected) 11/20/24 22:40 Entero/Rhino (PCR) Not Detected (NotDetected) 11/20/24 22:40 Impressions Chest X-Ray 11/20/24 20:30 Exam(s): XR CXR 1 VIEW EXAM: XR Chest, 1 View CLINICAL HISTORY: Reason for exam: weakness. TECHNIQUE: Frontal view of the chest. COMPARISON: 11/13/2024 FINDINGS: Lungs: Atelectasis at the left base. Pleural space: Trace left pleural effusion. Heart: Unremarkable. No cardiomegaly. IMPRESSION: 1. Atelectasis at the left base. 2. Trace left pleural effusion. Electronically signed by: Cruzito Mancuso MD 11/20/24 22:[address] 11/20/24 20:31 Exam(s): CT HEAD Without Contrast EXAM: CT Head Without Intravenous Contrast CLINICAL HISTORY: Reason for exam: AMS, frequent falls. TECHNIQUE: Axial computed tomography images of the head/brain without intravenous contrast. CTDI is 37.08 mGy and DLP is 703.85 mGy-cm. Automated exposure control was utilized for the study. A dose lowering technique was utilized adhering to the principles of ALARA. COMPARISON: Head CT 11/13/2024. FINDINGS: Brain: Global parenchymal atrophy. No hemorrhage, extra-axial fluid collection, mass effect, or edema. Ventricles: Unremarkable. Bones/joints: Unremarkable. No fracture. Soft tissues: Unremarkable. Sinuses: No acute sinusitis. Mastoid air cells: Unremarkable as visualized. IMPRESSION: Unremarkable exam. Electronically signed by: Cruzito Mancuso MD 11/20/24 22:26 PM Gallbladder Ultrasound 11/20/24 22:12 Exam(s): US GALLBLADDER EXAM: US Abdomen Limited, Right Upper Quadrant CLINICAL HISTORY: Reason for exam: elevated LFT, hypotension. TECHNIQUE: Real-time ultrasound of the right upper quadrant with image documentation. COMPARISON: CT abdomen pelvis 03/31/2022 FINDINGS: Liver: Heterogeneous echogenicity and echotexture of the liver suggestive of nonspecific hepatocellular dysfunction. Liver measures 16 cm. Gallbladder: Unremarkable. No gallstones. Common bile duct: CBD measures 3 mm. Pancreas: Unremarkable as visualized. Right kidney: Cortical thinning in the right kidney. No hydronephrosis. Parapelvic cyst measuring 1.6 cm. IMPRESSION: Heterogeneous echogenicity and echotexture of the liver suggestive of nonspecific hepatocellular dysfunction. Electronically signed by: Cruzito Mancuso MD 11/20/24 23:44 PM Code Status & VTE Plan Code Status Full code VTE Prophylaxis Plan VTE Prophylaxis will be ordered: Yes PG Care Time/CCT Total # of Minutes Spent Total Time Spent with Patient: Total time spent is greater than 50% in coordination of care (as documented) at patient's floor/unit and/or counseling patient: Coding Level of Care Code 59421 INT INP/OBS CARE 3/75MIN Diagnoses Transaminitis R74.01 CAD (coronary artery disease) I25.10 Wernicke-Korsakoff syndrome (alcoholic) F10.96 Rhabdomyolysis M62.82
--- NOTE | 2024-11-20 23:45 | Ultrasound Report ---
Exam(s): US GALLBLADDER EXAM: US Abdomen Limited, Right Upper Quadrant CLINICAL HISTORY: Reason for exam: elevated LFT, hypotension. TECHNIQUE: Real-time ultrasound of the right upper quadrant with image documentation. COMPARISON: CT abdomen pelvis 03/31/2022 FINDINGS: Liver: Heterogeneous echogenicity and echotexture of the liver suggestive of nonspecific hepatocellular dysfunction. Liver measures 16 cm. Gallbladder: Unremarkable. No gallstones. Common bile duct: CBD measures 3 mm. Pancreas: Unremarkable as visualized. Right kidney: Cortical thinning in the right kidney. No hydronephrosis. Parapelvic cyst measuring 1.6 cm. IMPRESSION: Heterogeneous echogenicity and echotexture of the liver suggestive of nonspecific hepatocellular dysfunction. Electronically signed by: Cruzito Mancuso MD 11/20/24 23:44 PM
[2024-11-21] MEDS: SODIUM CHLORIDE 0.9% 1,000 ML IV SCH (00:22)
[2024-11-21] MEDS: MAGNESIUM SULFATE / D5W 1 GM/100 ML BAG IV ONE (00:25)
[2024-11-21] MEDS ORDERED: ONDANSETRON INJ 2 MG/ML 2 ML VIAL IV PRN (01:26)
[2024-11-21] MEDS ORDERED: NITROGLYCERIN SL 0.4 MG/TAB TAB SL PRN (01:26)
[2024-11-21 04:34] LABS: Basophils # (auto) 0.02 K/uL (0.00-0.20); Basophils % (auto) 0.2 %; Eosinophils # (auto) 0.15 K/uL (0.00-0.50); Eosinophils % (auto) 1.6 %; Hematocrit (blood only) 29.4 % (42.0-52.0); Hemoglobin 9.9 g/dl (14.0-18.0); Immature Granulocytes # (auto) 0.05 K/uL (0.01-0.20); Immature Granulocytes % (auto) 0.5 %; Lymphocytes # (auto) 0.88 K/uL (1.20-3.40); Lymphocytes % (auto) 9.5 %; Mean Corpuscular Hemoglobin 31.6 pg (25.0-34.0); Mean Corpuscular Hgb Conc 33.7 g/dL (32.0-36.0); Mean Corpuscular Volume 93.9 fL (80.0-100.0); Mean Platelet Volume 9.8 fL (9.4-12.4); Monocytes # (auto) 0.82 K/uL (0.11-0.59); Monocytes % (auto) 8.9 %; Neutrophils % (auto) 79.3 %; Platelet Count 173 K/uL (130-400); RDW Coefficient of Variation 12.8 % (11.5-14.5); RDW Standard Deviation 43.9 fL (36.4-46.3); Red Blood Count 3.13 M/uL (4.70-6.10); White Blood Count 9.22 K/ul (4.8-10.8)
[2024-11-21 04:49] LABS: Albumin Level 2.8 gm/dl (3.4-5.0); BUN Creatinine Ratio 27.9 (10-20); Bilirubin,Total 0.4 mg/dl (0.2-1.0); Calcium 7.5 mg/dl (8.6-10.3); Creatinine Clr Calc Pharmacy 99.9 ml/min; Globulin 2.9 gm/dl (2.5-4.0); Magnesium 2.1 mg/dl (1.7-2.4); Potassium 3.5 mmol/L (3.5-5.1); Total Protein 5.7 gm/dl (6.0-8.3)
[2024-11-21 04:56] LABS: Troponin I High Sensitivity 16.1 pg/ml (0-20)
[2024-11-21 06:09] VITALS: TEMP 98.4
[2024-11-21 06:18] LABS: Partial Thromboplastin Ratio 1.1; Partial Thromboplastin Time 30 Seconds (21-31); Prothrombin Time 10.9 Seconds (9.0-12.0)
[2024-11-21 08:25] VITALS: BP 117/61; PULSE 70; RESP 18; O2SAT 100
[2024-11-21] MEDS: CLOPIDOGREL BISULFATE 75 MG TAB PO SCH (08:28)
[2024-11-21] MEDS: DOCUSATE SODIUM 100 MG CAP PO SCH (08:28)
[2024-11-21] MEDS: FOLIC ACID 1 MG TAB PO SCH (08:28)
[2024-11-21] MEDS: SERTRALINE HCL 100 MG TABLET PO SCH (08:28)
[2024-11-21] MEDS: THIAMINE HCL 100 MG TAB PO SCH (08:28)
[2024-11-21] MEDS: ALPRAZolam 0.5 MG TABLET PO PRN (08:32)
[2024-11-21] MEDS ORDERED: METOPROLOL SUCC 25MG EXT REL TAB PO SCH (09:00)
[2024-11-21] MEDS ORDERED: LOSARTAN POTASSIUM 25 MG TAB PO SCH (09:00)
[2024-11-21] MEDS ORDERED: ROSUVASTATIN CALCIUM 20 MG TAB PO SCH (09:00)
[2024-11-21] MEDS ORDERED: THIAMINE HCL 100 MG TAB PO SCH (09:00)
--- NOTE | 2024-11-21 09:44 | Communication Note ---
Date of Service: November 21, 2024 By CMS guidelines, a determination that the admission or continued stay is not medically necessary has been made by a member of the UR committee and kandy garrett for this hospital stay, therefore a Code 44 will be completed and the Inpatient admission will be changed to outpatient.
--- NOTE | 2024-11-21 10:09 | Electrocardiogram Report ---
Test Reason : Blood Pressure : */* mmHG Vent. Rate : 73 BPM Atrial Rate : 73 BPM P-R Int : 170 ms QRS Dur : 70 ms QT Int : 426 ms P-R-T Axes : 18 -10 -14 degrees QTcB Int : 469 ms Normal sinus rhythm Cannot rule out Anterior infarct , age undetermined Nonspecific T wave abnormality Abnormal ECG When compared with ECG of 13-Nov-2024 17:01, No significant change was found Confirmed by Hazel Atkins ([id number]) on 11/21/2024 10:09:24 AM Referred By: REFERRED SELF Confirmed By: Hazel Atkins
--- NOTE | 2024-11-21 15:53 | Discharge Summary ---
Discharge Summary Date of Service November 21, 2024 Principal Dx & Hospital Course #1 = Principal Diagnosis (1) Hypotension: (2) Transaminitis: (3) Acute metabolic encephalopathy: (4) CAD (coronary artery disease): (5) Wernicke-Korsakoff syndrome (alcoholic): Plan The patient is a 79-year-old male with a PMH including CAD, coronary artery stent placement, status post TAVR, Wernicke Korsakoff syndrome, rhabdomyolysis, generalized weakness, and confusion. He was most recently admitted to [facility] from 11/13-11/16/2024 for similar symptoms, and was diagnosed with mild rhabdomyolysis and acute kidney injury at that time. Discharged to [facility] for SNF rehab five days ago. He was sent in to ED with lethargy, decreased mental status. BPs in ED were low, 86-110/55-60 frequently in the 80s. He was given IV fluids. ED workup was unremarkable except for mild LFT elevation. No leukocytosis or fever. BMP unremarkable. UA negative for infection but with microscopic hematuria. HS-trop, CK, procalcitonin, resp biofire normal. AST was 186 and ALT 148 with bili of 0.4 and alk phos virtually normal at 123. Previous AST, ALT in the 50-60 range. Abdominal US heterogeneous echogenicity and echotexture of the liver suggestive of nonspecific hepatocellular dysfunction - consistent with his alcoholic liver disease. He had mild hypokalemia K 3.1 and magnesium was low normal at 1.8 - both were repleted. This morning he is normotensive and mentation is back at baseline - confused but verbal and conversational, able to make needs known, ate breakfast well. Putting this together I see that he had been restarted on all his usual/longstanding home medications including metoprolol XL, ARB, and furosemide 80 mg. He has no evidence of volume overload or peripheral edema, if anything still on the dry side even after IV fluids. I doubt he was taking his medications as prescribed recently at home and he seems to be over-dosed on these, causing hypotension and dehydration. He had adequate BP for these last week while briefly in the hospital but that might have been related to mild alcohol withdrawal, since resolved. -hold metoprolol and losartan. monitor BP and resume these sequentially at low doses if hypertension develops -hold furosemide. he probably does not need this medication. hypokalemia won't be an issue if this is stopped I think the mild AST/ALT elevation is ischemic (related to hypotension) on top of alcoholic liver disease. AST and ALT downtrended to 136/148 and alk phos and bili remained normal. INR was 1.0. CK was normal. -recommend repeat CMP in 1 week -atorvastatin held at this time, but doubt this is what is causing the abnormal LFT -if LFT normalized would restart statin -viral hepatitis panel pending. presentation not consistent with acute viral hepatitis, however. Dental abscess - he describes recent tooth pain left mandible and then tooth drained, compatible with abscess. I see caries on exam no overt swelling. Agree with SNF provider - 1 week of augmentin and discussed with his daughter to schedule appt with his dentist. Wernicke's Korsakoff syndrome- History of alcoholism, presentation compatible with dementia Continue thiamine 100 mg p.o. daily and folic acid 1 mg p.o. daily CAD/hypertension/hyperlipidemia- Continue clopidogrel Metoprolol, losartan, furosemide, atorvastatin held as discussed above I updated his daughter at bedside Notes For Next Care Provider Monitor BP and resume meds at lower doses / sequentially if hypertensive Medication Changes From Visit Metoprolol, losartan, furosemide, atorvastatin held as discussed above Augmentin for one week for tooth abscess Admission HPI Per Admitting Provider The patient is a 79-year-old male with a past medical history including CAD with history of coronary artery stent placement, status post TAVR, Warnicke- Korsakoff syndrome, peripheral neuropathy, rhabdomyolysis with acute kidney injury, ambulatory dysfunction, generalized weakness, BPH with LUTS and alcoholism. His most recently admitted to [facility] from 11/13-11/16/2024 with confusion associated with rhabdomyolysis and acute kidney injury. He was discharged to [facility] [place] [facility] [place] and was referred to the emergency department due to concerns regarding return of confusion, and possible urinary tract infection. Discharge Plan Discharge Items Patient Disposition: Transfer Group Home Fac Reason For Visit: CONFUSION,HYPOTENSION,TRANSAMINITIS, Discharge Diagnosis: Hypotension, medication induced Activity: Resume your previous activity Weightbearing: Full weightbearing Non-emergency contact: Primary Care Provider Call non-emergency contact if: you have any medication questions and your symptoms worsen Follow-up/Referrals: Sammy Henderson MD [Primary Care Provider] - Diet: Low Sodium (2gm) Diet Texture: Mechanical soft (ground) Addtl Attending Provider Instructions: Mild hypotension, confusion resolved No infection found Mild LFT elevation likely mild ischemic hepatitis on top of underlying alcoholic liver disease, related to hypotension. RUQ ultrasound unremarkable, AST/ALT downtrending Continue PT and OT CMP in 1 week Hold atorvastatin 1 week, resume if LFT improved Held furosemide, metoprolol, losartan. Resume sequentially if hypertensive. Currently normotensive Mild hypokalemia, hypomagnesemia were replaced. Should not recur with furosemide held Completing previously started amox-clav for possible dental infection through 11/26/24 Pending Studies at Discharge: Yes (blood cultures) Stand-Alone Forms: [facility] Skilled Items Patient informed of condition?: Yes DNR: No Discharge Level of Care: Skilled Communicable Disease: No Discharge Prognosis: Improving Lines: None Urinary Catheter: No Medications and DC Order Prescriptions: New sertraline 50 mg tablet 50 mg PO DAILY Qty: 30 0RF aspirin 81 mg tablet,delayed release (DR/EC) 81 mg PO DAILY Qty: 30 0RF cyanocobalamin (vitamin B-12) 1,000 mcg tablet 1,000 mcg PO DAILY Qty: 30 0RF amoxicillin-pot clavulanate 875-125 mg tablet 1 tab PO BID Qty: 11 0RF Rx Instructions: through 11/26/24 for possible dental infection- continuing Continued docusate sodium 100 mg Capsule 100 mg PO DAILY clopidogrel 75 mg tablet 75 mg PO QAM amoxicillin 500 mg capsule 2,000 mg PO UD Rx Instructions: TAKE 4 CAPSULES BY MOUTH 1 HOUR PRIOR TO DENTAL WORK nitroglycerin 0.4 mg tablet, sublingual 0.4 mg sublingual .EVERY 5 MINUTES MDD 3 DOSES IN 15 MIN PRN (Reason: Chest Pain) thiamine HCl (vitamin B1) 100 mg Tablet 200 mg PO QAM 30 Days Qty: 60 0RF folic acid 1 mg Tablet 1 mg PO QAM Qty: 30 0RF alprazolam 2 mg Tablet 1 mg PO BID PRN (Reason: Anxiety) Qty: 0 0RF Held rosuvastatin 40 mg tablet 40 mg PO QAM Hold Instructions: Resume on 11/29/24. if AST, ALT improved Discontinued metoprolol succinate 25 mg tablet extended release 24 hr 25 mg PO QAM sertraline 100 mg tablet 100 mg PO DAILY furosemide 80 mg Tablet 80 mg PO QAM losartan 25 mg Tablet 25 mg PO QAM Discharge Orders: Discharge Order (Routine); Ordered 11/21/24 Ordered By: Maribel Marcelino Admission Data Admit Date/Time: 11/20/24 23:41 Attending Provider: Maribel Marcelino Admit Provider: Jose Sosa Primary Care Provider: Sammy Henderson Other Providers: Jose Sosa Other Interventions: Discharge Summary Assessment (RN) Last Done: 11/21/24 11:07 Hospital Stay Data Consultations 11/20/24 22:45 ED Decision to Admit Stat Diagnostic Imagining Performed 11/20/24 20:31 CT head/brain wo con Stat 11/20/24 22:12 US gallbladder Stat Pending Results Patient Have Any Pending Studies at Discharge: Yes (blood cultures) Discharge Instructions Given to Patient (Per Discharging Provider) Mild hypotension, confusion resolved No infection found Mild LFT elevation likely mild ischemic hepatitis on top of underlying alcoholic liver disease, related to hypotension. RUQ ultrasound unremarkable, AST/ALT downtrending Continue PT and OT CMP in 1 week Hold atorvastatin 1 week, resume if LFT improved Held furosemide, metoprolol, losartan. Resume sequentially if hypertensive. Currently normotensive Mild hypokalemia, hypomagnesemia were replaced. Should not recur with furosemide held Completing previously started amox-clav for possible dental infection through 11/26/24 Total Time Total Time Spent Total Time Spent (In Minutes): I personally spent: 45 minutes today on clinical care activities including: reviewing chart notes and vital signs reviewing labs reviewing studies examining and counseling the patient counseling the patient's family writing orders writing prescriptions, discharge instructions documentation Coding Level of Care Code 37612 INP/OBS DISCH >30 MIN Diagnoses Hypotension I95.9 Transaminitis R74.01 Acute metabolic encephalopathy G93.41 CAD (coronary artery disease) I25.10 Wernicke-Korsakoff syndrome (alcoholic) F10.96
[2024-11-22 09:47] LABS: Hep B Surface Ag with confirm Negative (Negative)
[2024-11-22 09:52] LABS: Hep C Ab Rflx HepCQuant RNA Negative (Negative)
[2024-11-23 11:37] LABS: Hepatitis A Antibody IgM NON-REACTIVE (NON-REACTIVE); Hepatitis B Core Antibody IgM NON-REACTIVE (NON-REACTIVE)
== END 2024-11-21 11:07 ==
LOC: ED 20:20 → SUATTDRO 23:41 → INTOOBSV 23:41 → EDINP 23:41

== ENCOUNTER 2025-11-04 18:48 | Inpatient (IN) ==
[2025-11-04] MEDS: PANTOPRAZOLE BOLUS/DRIP IV STA (20:26)
--- NOTE | 2025-11-04 20:31 | Emergency Department Note ---
Impression & Plan Acute upper GI bleed, Generalized weakness, Rhabdomyolysis, Leukocytosis, Elevated CK, Elevated troponin ED Provider Note HISTORY OF PRESENT ILLNESS: Patient is a 80-year-old male presenting after being found down. Patient reportedly fell out of bed yesterday and was discovered by his occupational therapist on the ground covered in coffee-ground emesis. Patient reports that he was down on the ground for at least 6 hour. He states that he attempted to get up into his bed multiple times but was unable to. He states that he is very weak. He had another episode of coffee-ground emesis today. Patient denies any chest pain or shortness of breath. Denies any fevers or chills. ROS: as above PHYSICAL EXAM: Constitutional: Patient appears in no acute distress. HENT: Head: Normocephalic and atraumatic. Eyes: EOMI, PERRL Mouth/Throat: Mucous membranes moist. Neck: Trachea midline. Neck supple. Cardiovascular: Tachycardic with regular rhythm. No murmurs, rubs or gallops. Intact distal pulses. Pulmonary/Chest: No respiratory distress. Breath sounds clear and equal bilaterally. No wheezes or rales. Abdominal: Abdomen soft, no tenderness, rebound or guarding. Musculoskeletal: No edema, tenderness or deformity noted. Skin: Warm and dry. No rash, erythema, pallor or cyanosis Psychiatric: Appropriate mood and affect for situation. Neurological: Alert and keenly responsive. CN II-XII grossly intact, moving all extremities equally and fully. MDM: - Vitals signs showed hypertension and tachycardia. - History obtained via patient. History as above. - Chronic conditions affecting care: CAD (s/p PCI); Wernicke-Korsakoff syndrome; anxiety; HLD; CHF - Differential diagnoses include, but are not limited to: Esophageal bleed; gastritis; rhabdomyolysis; electrolyte abnormality; dehydration; ACS - Order placed for continuous cardiac monitoring. At this time, monitor showed rate of 55 bpm with normal sinus rhythm, per my interpretation. - External medical records reviewed. Urology office visit note dated 07/18/2025 was reviewed. Patient was seen for Craven catheter removal. - EKG image interpreted by myself showed normal sinus rhythm. Rate 99 bpm. QT 374. No acute ischemic changes. - Laboratory workup interpreted by myself showed leukocytosis (WBC 15.33); anemia (Hgb 12.1); normal PT/INR; elevated anion gap (16); elevated BUN (24); normal lactate; elevated AST (62); elevated CK (1396); elevated troponin (46.9); normal procalcitonin; normal TSH - Type and screen obtained - CXR image reviewed interpreted by myself was negative for pneumonia, per my interpretation. - COVID/flu/RSV negative - Patient was given 40 mg IV Protonix bolus and started on a Protonix drip. He is covered in coffee-ground emesis. Given 1500 cc of fluid for his rhabdomyolysis. Given 2 g of IV Rocephin for antibiotic coverage in the setting of his likely esophageal variceal bleed. - Discussion was had with casework specialist about patient's case and need for admission - Hospitalist consulted for admission - Patient admitted to Health systemist service for further evaluation and management. ASSESSMENT AND PLAN: Diagnosis: Upper GI bleed; generalized weakness; rhabdomyolysis; leukocytosis; elevated CK; elevated troponin Plan: Admit Past Med/Surg History Problem List (Updated 11/04/25 @ 22:01 by Josselin Perez MD) Elevated troponin (Acute) Elevated CK (Acute) Leukocytosis (Acute) Rhabdomyolysis (Acute) Generalized weakness (Acute) Acute upper GI bleed (Acute) Urinary retention Loss of protective sensation of skin of deformed foot Pressure ulcer of left heel, stage 3 (Acute) Transaminitis CAD (coronary artery disease) Alcoholism Medical History Hx of renal calculi Alcoholic peripheral neuropathy On anticoagulant therapy Hx of gout Heart failure Hyperlipidemia History of urinary tract infection (06/04/25) AMS (altered mental status) Alcoholism Anxiety Craven catheter in place CAD (coronary artery disease) History of osteomyelitis Wernicke-Korsakoff syndrome (alcoholic) Frequent falls Rhabdomyolysis History of nephrolithiasis Hypertension Surgical History History of cardiac cath S/P TAVR (transcatheter aortic valve replacement) History of coronary artery stent placement Family History Sister Diabetes Cancer Son Diabetes Father Heart disease Grandmother Cancer Other No family history of adverse response to anesthesia Social History Smoking Status: Never smoker Tobacco Type: Cigarettes and Cigars Second Hand Exposure: No; Do You Dip or Chew Tobacco: No; Hx Alcohol Use: Yes Alcohol type: hard liquor Alcohol Intake Frequency: 4 or More x per/Week Alcohol Intake Frequency Comment: 1x per day Hx Substance Use: No Preferred Language: Turkmen Communication Ability: confused Communication Ability Comment: "easily confused" Visual Impairment: Limited Hearing Ability: Hard of Hearing Media Coordinator Required: No Beliefs That Will Affect Care: None marital status: Single Current Living Situation: Alone Feels Safe at Home: Yes Diet: regular Assistive Devices: Glasses, Hearing Aid - Bilateral and Wheelchair Allergies Allergies Allergy/AdvReac Type Severity Reaction Status Date / Time No Known Allergies Allergy Verified 11/04/25 21:40 Home Meds Home Medications Medication Instructions Recorded Confirmed amoxicillin 500 mg capsule 2,000 mg PO DIRECTED PRN 1 HR 11/13/24 11/04/25 PRIOR TO DENTAL PROCEDURES clopidogrel 75 mg tablet 75 mg PO QAM 11/13/24 11/04/25 nitroglycerin 0.4 mg sublingual 0.4 mg sublingual .EVERY 5 MINUTES 11/13/24 11/04/25 tablet PRN Chest Pain atorvastatin 20 mg tablet 20 mg PO QPM 03/08/25 11/04/25 metoprolol succinate 25 mg 12.5 mg PO QAM 03/08/25 11/04/25 tablet,extended release 24 hr thiamine HCl (vitamin B1) 100 mg 200 mg PO QAM 03/08/25 11/04/25 capsule acetaminophen 325 mg tablet 650 mg PO Q6H PRN Pain 06/04/25 11/04/25 (Tylenol) alprazolam 0.5 mg tablet 0.5 mg PO Q12H 06/04/25 11/04/25 aspirin 81 mg tablet,delayed 81 mg PO QAM 06/27/25 11/04/25 release cyanocobalamin (vitamin B-12) 1,000 mcg PO QAM 06/27/25 11/04/25 1,000 mcg tablet sertraline 50 mg tablet 25 mg PO QAM 06/27/25 11/04/25 sodium chloride 1,000 mg soluble 1,000 mg PO BID 12/12/25 12/12/25 tablet Previous Rx's Medication Instructions Recorded folic acid 1 mg tablet 1 mg PO QAM #30 tabs 11/15/24 Results & Data (ED) Vital Signs Vital Signs - 24 hr 11/04/25 19:00 11/04/25 19:33 11/04/25 19:53 Temperature 36.6 C Temperature Source Oral Pulse Rate 96 H 101 H Pulse Rate [Right Finger] 91 H Pulse Rhythm Regular Regular Pulse Rhythm [Right Finger] Regular Pulse Strength Normal Pulse Strength [Right Finger] Normal Respiratory Rate 18 18 22 Respiratory Effort / Characteristics Non-Labored Non-Labored Respiratory Depth Normal Normal Respiratory Pattern Regular Blood Pressure 160/109 H Blood Pressure [Right Arm] 154/104 H Blood Pressure Mean 126 Blood Pressure Mean [Right Arm] 120 Blood Pressure Position Sitting Blood Pressure Position [Right Arm] Semi-fowlers Pulse Oximetry 99 98 98 Oxygen Delivery Method Room Air Room Air Room Air Sepsis Recent Fever Within 48 Hours No Sepsis New/Unexplained Change in Mental Status No Sepsis Action Taken by Nursing No Action Required 11/04/25 21:08 Temperature Temperature Source Pulse Rate Pulse Rate [Right Finger] 55 L Pulse Rhythm Pulse Rhythm [Right Finger] Regular Pulse Strength Pulse Strength [Right Finger] Normal Respiratory Rate 22 Respiratory Effort / Characteristics Non-Labored Respiratory Depth Normal Respiratory Pattern Regular Blood Pressure Blood Pressure [Right Arm] 173/83 H Blood Pressure Mean Blood Pressure Mean [Right Arm] 113 Blood Pressure Position Blood Pressure Position [Right Arm] Sitting Pulse Oximetry 99 Oxygen Delivery Method Room Air Sepsis Recent Fever Within 48 Hours Sepsis New/Unexplained Change in Mental Status Sepsis Action Taken by Nursing Laboratory Data 11/04/25 20:14 11/04/25 20:14 Lab Results 11/04/25 11/04/25 Range/Units 19:45 20:14 WBC 15.33 H (4.8-10.8) K/ul RBC 3.70 L (4.70-6.10) M/uL Hgb 12.1 L (14.0-18.0) g/dL Hct 36.4 L (42.0-52.0) % MCV 98.4 (80.0-100.0) fL MCH 32.7 (25.0-34.0) pg MCHC 33.2 (32.0-36.0) g/dL RDW Std Deviation 50.1 H (36.4-46.3) fL RDW Coeff of Rosina 14.1 (11.5-14.5) % Plt Count 233 (130-400) K/uL MPV 9.4 (9.4-12.4) fL Immature Gran % (Auto) 0.5 % Neut % (Auto) 90.1 % Lymph % (Auto) 4.3 % [place] % (Auto) 4.7 % Eos % (Auto) 0.1 % Baso % (Auto) 0.3 % Neut # (Auto) 13.81 H (1.40-6.50) K/uL Lymph # (Auto) 0.66 L (1.20-3.40) K/uL [place] # (Auto) 0.72 H (0.11-0.59) K/uL Eos # (Auto) 0.02 (0.00-0.50) K/uL Baso # (Auto) 0.04 (0.00-0.20) K/uL Immature Gran # (Auto) 0.08 (0.01-0.20) K/uL PT 10.6 (9.0-12.0) Seconds INR 1.0 (0.9-1.1) Sodium 142 (136-145) mmol/L Potassium 4.3 (3.5-5.1) mmol/L Chloride 106 (98-107) mmol/L Carbon Dioxide 20 L (21-32) mmol/L Anion Gap 16 H (3-11) BUN 24 H (6-23) mg/dl Creatinine 0.82 (0.6-1.4) mg/dl Est Cr Clr Drug Dosing 91.9 ml/min eGFR 89.91 BUN/Creatinine Ratio 29.3 H (10-20) Glucose 96 (70-99(Fasting)) mg/dl Lactate 1.5 (0.4-2.0) mmol/L Calcium 9.1 (8.6-10.3) mg/dl Magnesium 2.0 (1.7-2.4) mg/dl Total Bilirubin 0.7 (0.2-1.0) mg/dl AST 62 H (13-39) U/L ALT 25 (7-52) U/L Alkaline Phosphatase 108 H (34-104) U/L Total Creatine Kinase 1396 H (30-223) U/L Troponin I High Sens 46.9 H (0-20) pg/ml Total Protein 7.3 (6.0-8.3) gm/dl Albumin 4.0 (3.4-5.0) gm/dl Globulin 3.3 (2.5-4.0) gm/dl Albumin/Globulin Ratio 1.2 (0.9-2) Procalcitonin 0.15 (0-0.5) ng/ml TSH 1.593 (0.300-4.500) uIu/ml SARS-CoV-2 (PCR) NEGATIVE (Negative) Influenza Type A (PCR) Negative (Neg) Influenza Type B (PCR) Negative (Neg) RSV (RT-PCR) Negative (Neg) Blood Type O Positive Antibody Screen NEGATIVE Administered Medications Pantoprazole Sodium 40 mg/ (Dextrose) 100 mls @ 20 mls/hr IV Q5H ZHAO Stop: 12/04/25 20:29 Last Admin: 11/04/25 20:46 Dose: 8 mg/hr, 20 mls/hr Documented By: sil Sodium Chloride (Nss) 1,000 mls @ 999 mls/hr IV .Q1H1M ONE Stop: 11/04/25 22:11 Last Admin: 11/04/25 21:26 Dose: 999 mls/hr Documented By: sil Discontinued Medications Pantoprazole Sodium 80 mg/ (Dextrose) 120 mls @ 480 mls/hr IV NOW ONE Stop: 11/04/25 20:18 Last Admin: 11/04/25 20:26 Dose: 480 mls/hr Documented By: ARIE Sodium Chloride (Nss) 500 mls @ 999 mls/hr IV .Q31M ONE Stop: 11/04/25 21:41 Last Admin: 11/04/25 21:30 Dose: 999 mls/hr Documented By: sil Pantoprazole Sodium (Pantoprazole Bolus/Drip) 1 each IV NOW STA Stop: 11/04/25 20:05 Last Admin: 11/04/25 20:26 Dose: Not Given Documented By: ARIE Discharge Plan Visit Data Chief Complaint: Fall Stated Complaint: ILLNESS, FALL ED Provider: Josselin Perez Discharge Problem: Acute upper GI bleed, Generalized weakness, Rhabdomyolysis, Leukocytosis, Elevated CK, Elevated troponin Patient Disposition: Admitted As Inpatient Condition: Fair Forms Stand Alone Forms: [facility] Prescriptions Prescriptions: No Action atorvastatin 20 mg tablet 20 mg PO QPM metoprolol succinate 25 mg tablet extended release 24 hr 12.5 mg PO QAM thiamine HCl (vitamin B1) 100 mg capsule 200 mg PO QAM sodium chloride 1,000 mg Tablet,Soluble 1,000 mg PO BID clopidogrel 75 mg tablet 75 mg PO QAM Hold Instructions: Resume on 07/06/25. Patient Comments: *granddaughter states patient is stopping 3 days prior to surgery* amoxicillin 500 mg capsule 2,000 mg PO DIRECTED PRN (Reason: 1 HR PRIOR TO DENTAL PROCEDURES) Rx Instructions: TAKE 4 CAPSULES BY MOUTH 1 HOUR PRIOR TO DENTAL WORK nitroglycerin 0.4 mg tablet, sublingual 0.4 mg sublingual .EVERY 5 MINUTES MDD 3 DOSES IN 15 MIN PRN (Reason: Chest Pain) folic acid 1 mg Tablet 1 mg PO QAM Qty: 30 0RF acetaminophen [Tylenol] 325 mg Tablet 650 mg PO Q6H PRN (Reason: Pain) alprazolam 0.5 mg tablet 0.5 mg PO Q12H cyanocobalamin (vitamin B-12) 1,000 mcg tablet 1,000 mcg PO QAM aspirin 81 mg tablet,delayed release (DR/EC) 81 mg PO QAM sertraline 50 mg tablet 25 mg PO QAM Referrals Referrals: Sammy Henderson MD [Primary Care Provider] -
[2025-11-04 20:36] LABS: Influenza A virus by PCR Negative (Neg); Influenza B virus by PCR Negative (Neg); SARS CoV2 RNA(COVID-19) Ceph NEGATIVE (Negative)
[2025-11-04 20:44] LABS: Hematocrit (blood only) 36.4 % (42.0-52.0); Hemoglobin 12.1 g/dL (14.0-18.0); Mean Corpuscular Hemoglobin 32.7 pg (25.0-34.0); Mean Corpuscular Volume 98.4 fL (80.0-100.0); Platelet Count 233 K/uL (130-400); RDW Standard Deviation 50.1 fL (36.4-46.3); Red Blood Count 3.70 M/uL (4.70-6.10); White Blood Count 15.33 K/ul (4.8-10.8)
[2025-11-04] MEDS: PANTOprazole 40 MG in DEXTROSE 5% MINI-B 100 ML IV SCH (20:46)
[2025-11-04 21:02] LABS: Alanine Aminotransferase 25.0 U/L (7-52); Albumin Globulin Ratio 1.2 (0.9-2); Albumin Level 4.0 gm/dl (3.4-5.0); Alkaline Phosphatase 108.0 U/L (34-104); Anion Gap 16.0 (3-11); Bilirubin,Total 0.7 mg/dl (0.2-1.0); Blood Urea Nitrogen 24.0 mg/dl (6-23); Calcium 9.1 mg/dl (8.6-10.3); Carbon Dioxide 20.0 mmol/L (21-32); Chloride 106.0 mmol/L (98-107); Creatine Kinase 1396.0 U/L (30-223); Creatinine Clr Calc Pharmacy 91.9 ml/min; Globulin 3.3 gm/dl (2.5-4.0); Glucose 96.0 mg/dl (70-99(Fasting)); Magnesium 2.0 mg/dl (1.7-2.4); Potassium 4.3 mmol/L (3.5-5.1); Sodium 142.0 mmol/L (136-145); Total Protein 7.3 gm/dl (6.0-8.3)
[2025-11-04 21:13] LABS: Immature Granulocytes # (auto) 0.08 K/uL (0.01-0.20); Immature Granulocytes % (auto) 0.5 %
[2025-11-04 21:18] LABS: Thyroid Stimulating Hormone 1.593 uIu/ml (0.300-4.500)
[2025-11-04 21:22] LABS: INR 1.0 (0.9-1.1); Prothrombin Time 10.6 Seconds (9.0-12.0)
[2025-11-04] MEDS: SODIUM CHLORIDE 0.9% 1,000 ML IV ONE (21:26)
[2025-11-04] MEDS: SODIUM CHLORIDE 0.9% 500 ML IV ONE (21:30)
--- NOTE | 2025-11-04 22:06 | History & Physical Report ---
Date of Service November 04, 2025 Assessment & Plan (1) GI bleed: (2) Alcoholism: (3) Transaminitis: (4) Fall: (5) Rhabdomyolysis: (6) Elevated troponin: Plan 80-year-old male PMHx CAD, alcoholism, HLD, frequent falls presenting after being found down at home. Evaluation with leukocytosis 15.33, H&H 12.1/36.4. LFTs elevated, CK also elevated at 1396. Admission for suspected GI bleed. #GI bleed/Alcoholism/Transaminitis/Fall Found down, reports of coffee-ground emesis x 6. No abdominal pain. H/o alcohol use daily, no prior WD. Transaminitis in the past, thought to be alcoholic liver disease. PAWS 1 (combined with benzos), still pending alcohol level. ? WKS, unclear normal mentation but appears to be slightly encephalopathic at this time. - H&H 12.1/36.4, platelets 233; CMP BUN 24; alcohol level pending - H/H q6h, CMP am - LFTs AST 62, ALT 25, alkaline phosphatase 108 - Head CT pending - CTAP pending - AWSS - IVF LR @ 100 mL/hr - Ativan per AWSS score - Pantoprazole IV BID - Octreotide 100mcg now then drip - Thiamine 200 mg IV now then 100 mg AM - Folic acid 1 mg IV AM - GI consulted - appreciate input + recs #Rhabdomyolysis Found down, reports down for 6 hours. No complaints of pain at this time. - Cr 0.82. BUN 24; CK 1396 - CK am - IVF as above #Elevated troponin No chest pain, no SOB. H/o CAD, no longer taking Plavix. - Trop 49.6, 48.8 on repeat - EKG pending - telemetry stable - CXR no acute findings - Likely 2/2 demand #Psych- Alprazolam, sertraline - hold po medications, add back once diet ordered -- can adjust Alprazolam 0.5mg po to lorazepam 1mg IV while NPO #HLD- Atorvastatin - hold po medications, hold while transaminitis #HTN- Metoprolol - hold po medications Dispo: Admit, PCU VTE Prophylaxis: SCDs This document was dictated utilizing [employer] Please excuse any grammatical errors that may be secondary to use of this software. Admission and Anticipated Discharge Date Admission Date: 11/04/2025 History of Present Illness Chief Complaint: Fall, vomiting Primary Care Provider: Sammy Henderson MD 80-year-old male PMHx CAD, alcoholism, HLD, frequent falls presenting after being found down at home. Patient states that he just in general does not have strength in his legs because he was left in his bed for too long in the past and so now he has lost strength in his legs. He states that the morning of arrival at 0100 he got up from his bed to go and get food. He ate, he came back to get into his bed and was trying to utilize his transfer device but slipped and he fell onto the ground, landing on his left arm, not hitting his head. Not on blood thinners. States that he was unable to get himself back into the bed because his legs were too weak in general, so he laid on the ground for approximately 6 hours. He states he had multiple episodes of vomiting, 3 in the morning and then 3 in the evening. Describes the vomit as dark brown, with coffee-ground like material in it but also appears to be food as well. He states he does not have any abdominal pain, limited bowel movements. He also has not been eating well over the past few days. Patient does drink alcohol daily, approximately 5 to 6 glasses of liquor per day and he takes his Xanax as well. No history of withdrawal or seizures from not having alcohol. No prior blackouts. No prior inpatient treatment necessary for alcohol use. States that his last drink was approximately 4 days ago. States he gets shaky if he does not take his Xanax which he occasionally takes twice a day. Denying chest pain, SOB, palpitations, abdominal pain, diarrhea/constipation, numbness/tingling other than his normal, URI symptoms, LUTS, or syncope. ED evaluation reveals CBC with leukocytosis 15.33, H&H 12.1/36.4, stable platelets; PT/INR WNL; CMP CO2 20, AG 16, BUN 24, ratio 29.3, AST 62, alkaline phosphatase 108; total CK 1396; troponin 46.9; Pro-[place] 0.15; TSH 1.593; COVID/flu/RSV negative; CXR pending official read.; Provided with 1.5 L NSS, pantoprazole 80 mg IV, ceftriaxone 2 g IV in ED. Please see Dr. Sosa attestation for adjustments/additions to treatment plan. Allergies Allergy/AdvReac Type Severity Reaction Status Date / Time No Known Allergies Allergy Verified 11/04/25 21:40 Home Medications Medication Instructions Recorded Confirmed Type amoxicillin 500 mg capsule 2,000 mg PO DIRECTED PRN 1 HR 11/13/24 11/04/25 History PRIOR TO DENTAL PROCEDURES clopidogrel 75 mg tablet 75 mg PO QAM 11/13/24 11/04/25 History nitroglycerin 0.4 mg sublingual 0.4 mg sublingual .EVERY 5 MINUTES 11/13/24 11/04/25 History tablet PRN Chest Pain folic acid 1 mg tablet 1 mg PO QAM #30 tabs 11/15/24 11/04/25 Rx atorvastatin 20 mg tablet 20 mg PO QPM 03/08/25 11/04/25 History metoprolol succinate 25 mg 12.5 mg PO QAM 03/08/25 11/04/25 History tablet,extended release 24 hr thiamine HCl (vitamin B1) 100 mg 200 mg PO QAM 03/08/25 11/04/25 History capsule acetaminophen 325 mg tablet 650 mg PO Q6H PRN Pain 06/04/25 11/04/25 History (Tylenol) alprazolam 0.5 mg tablet 0.5 mg PO Q12H 06/04/25 11/04/25 History aspirin 81 mg tablet,delayed 81 mg PO QAM 06/27/25 11/04/25 History release cyanocobalamin (vitamin B-12) 1,000 mcg PO QAM 06/27/25 11/04/25 History 1,000 mcg tablet sertraline 50 mg tablet 25 mg PO QAM 06/27/25 11/04/25 History sodium chloride 1,000 mg soluble 1,000 mg PO BID 11/04/25 11/04/25 History tablet Past Med/Surg History Problem List (Updated 11/05/25 @ 10:36 by Rao Cobos MD) Elevated liver function tests GI bleed Elevated troponin (Acute) Elevated CK (Acute) Leukocytosis (Acute) Rhabdomyolysis (Acute) Generalized weakness (Acute) Acute upper GI bleed (Acute) Urinary retention Loss of protective sensation of skin of deformed foot Pressure ulcer of left heel, stage 3 (Acute) Transaminitis CAD (coronary artery disease) Alcoholism Medical History Hx of renal calculi has passed on his own Alcoholic peripheral neuropathy On anticoagulant therapy Hx of gout Heart failure Hyperlipidemia History of urinary tract infection (06/04/25) AMS (altered mental status) per granddaughter patient becomes confused easily. Alcoholism Anxiety Craven catheter in place CAD (coronary artery disease) s/p PCI to distal LAD and distal LMCA with x 4 overlapping FABRIZIO; residual 70% prox RCA stenosis History of osteomyelitis left calcaneous- follows [facility] wound clinic, next appt 06/2025 Wernicke-Korsakoff syndrome (alcoholic) Frequent falls last fall 10/2024 Rhabdomyolysis hx --- October 2024 -- granddaughter unsure of details History of nephrolithiasis Hypertension Surgical History History of cardiac cath 04/2024 at [facility] with 4 stents (per record) S/P TAVR (transcatheter aortic valve replacement) 04/2024 at [facility] History of coronary artery stent placement s/p PCI to distal LAD and distal LMCA with x 4 overlapping FABRIZIO; residual 70% prox RCA stenosis ([facility]) 04/2024 with the aortic valve replacement. follows with Ania Amaral. Family History Sister Diabetes Cancer Son Diabetes Father Heart disease Grandmother Cancer Other No family history of adverse response to anesthesia Social History Smoking Status: Former smoker Tobacco Type: Cigars Cigarettes Per Day: 1; Second Hand Exposure: No; Do You Dip or Chew Tobacco: No; Hx Alcohol Use: Yes Alcohol type: hard liquor Alcohol Intake Frequency: 4 or More x per/Week Alcohol Intake Frequency Comment: 1x per day Hx Substance Use: No Preferred Language: Wallisian Communication Ability: Effective Communication Ability Comment: "easily confused" Visual Impairment: Limited Hearing Ability: Hard of Hearing Plant Custodian Required: No Beliefs That Will Affect Care: None marital status: Single Current Living Situation: Family Feels Safe at Home: Yes Safety Concerns: Feels Safe At This Time Diet: regular Assistive Devices: Glasses, Hearing Aid - Bilateral and Wheelchair Review of Systems Review of Systems: All systems reviewed & are unremarkable except as noted in Subjective Physical Exam Physical Exam: General: No acute distress Skin: Warm and dry Head: Normocephalic, atraumatic Eyes: PERRL, conjunctivae clear, sclera non-icteric ENT: External ear and ear canal without swelling; nose atraumatic; poor dentition, tongue normal appearance, pharynx normal Neck: Supple, no LAD Cardio: RRR, no M/G/R, S1 and S2 normal Resp: No respiratory distress, Lungs CTA in all lobes bilaterally, no wheezes, rales, or rhonchi Abdomen: Soft, symmetric, nontender; No masses or hepatosplenomegaly; Bowel sounds normoactive MSK: No deformities; pulses palpable and equal; no edema. Neuro: Awake, alert; Sensation intact bilaterally; CN grossly intact Psych: Appropriate mood and affect; good judgement and insight. Results & Data Results & Data Vital Signs (Past 12 Hours) Vital Signs Temp Pulse Pulse Resp BP BP Pulse Ox 11/04/25 21:08 55 L 22 173/83 H 99 11/04/25 19:53 91 H 22 154/104 H 98 11/04/25 19:33 101 H 18 98 11/04/25 19:00 36.6 C 96 H 18 160/109 H 99 O2 Del Method 11/04/25 21:08 Room Air 11/04/25 19:53 Room Air 11/04/25 19:33 Room Air 11/04/25 19:00 Room Air Laboratory Results 11/04/25 11/04/25 20:14 19:45 WBC 15.33 H RBC 3.70 L Hgb 12.1 L Hct 36.4 L MCV 98.4 MCH 32.7 MCHC 33.2 RDW Std Deviation 50.1 H RDW Coeff of Rosina 14.1 Plt Count 233 MPV 9.4 Immature Gran % (Auto) 0.5 Neut % (Auto) 90.1 Lymph % (Auto) 4.3 [place] % (Auto) 4.7 Eos % (Auto) 0.1 Baso % (Auto) 0.3 Neut # (Auto) 13.81 H Lymph # (Auto) 0.66 L [place] # (Auto) 0.72 H Eos # (Auto) 0.02 Baso # (Auto) 0.04 Immature Gran # (Auto) 0.08 PT 10.6 INR 1.0 Sodium 142 Potassium 4.3 Chloride 106 Carbon Dioxide 20 L Anion Gap 16 H BUN 24 H Creatinine 0.82 Est Cr Clr Drug Dosing 91.9 eGFR 89.91 BUN/Creatinine Ratio 29.3 H Glucose 96 Lactate 1.5 Calcium 9.1 Magnesium 2.0 Total Bilirubin 0.7 AST 62 H ALT 25 Alkaline Phosphatase 108 H Total Creatine Kinase 1396 H Troponin I High Sens 46.9 H Total Protein 7.3 Albumin 4.0 Globulin 3.3 Albumin/Globulin Ratio 1.2 Procalcitonin 0.15 TSH 1.593 SARS-CoV-2 (PCR) NEGATIVE Influenza Type A (PCR) Negative Influenza Type B (PCR) Negative RSV (RT-PCR) Negative Blood Type O Positive Antibody Screen NEGATIVE Diagnostic Findings Chest X-Ray 11/04/25 19:33 Single frontal view of the chest Comparison made to prior exam dated 06/14/2025 Impression No acute pulmonary pathology Electronically signed by Lawson Greenwood 11-04-2025 10:34 PM Medications Administered 1.5 mL NSS Pantoprazole 40 mg IV Ceftriaxone 2 g IV Code Status & VTE Plan Code Status Full Supervising Physician Co-Signing Physician Notes Attending addendum: I have physically seen this patient, have supervised the LCARA's activities, and agree with the H&P unless as otherwise noted. Assessment and Plan: The patient is a 80-year-old male with a past medical history including CAD, alcoholism, hyperlipidemia, and frequent falls. He presents to the emergency department regarding found down at home, for at least 6 hours. He presents with vomiting, weakness, fatigue, dark coffee colored emesis. Patient does live by himself. Upper GI bleed/alcoholism/transaminitis- NPO Hemoglobin on admission 12.1, WBC 15.33 COVID, flu, RSV testing negative Chest x-ray negative CT head pending CT abdomen and pelvis pending AWSS with IV Ativan LR at 100 mL/h Pantoprazole 40 mg IV twice daily Octreotide 100 mcg IV followed by infusion Thiamine 10 mg IV now 100 mg IV every morning Folic acid 1 mg IV every morning Consult gastroenterology Rhabdomyolysis- CK 1396, troponin 49.6, AST 62, creatinine 0.82 IV fluids as above Repeat laboratories in a.m. Elevated troponin- Troponin 49.6, with follow-up 48.8. EKG with no acute findings Likely supply/demand mismatch, may be elevated in association with rhabdo Remaining orders and notations as noted PG Care Time/CCT Total # of Minutes Spent Total Time Spent with Patient: Total time spent is greater than 50% in coordination of care (as documented) at patient's floor/unit and/or counseling patient: Coding Level of Care Code 53392 INT INP/OBS CARE 3/75MIN Diagnoses GI bleed K92.2 Alcoholism F10.20 Transaminitis R74.01 Fall W19.XXXA Rhabdomyolysis M62.82 Elevated troponin R79.89
[2025-11-04] MEDS: cefTRIAXone SODIUM 2,000 MG/50 ML BAG IV STA (22:13)
[2025-11-04] MEDS ORDERED: STAT IV/IM STA (22:26)
--- NOTE | 2025-11-04 22:34 | XRay Report ---
Single frontal view of the chest Comparison made to prior exam dated 06/14/2025 Impression No acute pulmonary pathology Electronically signed by Lawson Greenwood 11-04-2025 10:34 PM
[2025-11-04] MEDS: OCTREOTIDE ACETATE 100 MCG in SYRINGE 9 ML IV STA (23:01)
[2025-11-04] MEDS: OPTIRAY 320 100ml IV ONE (23:42)
[2025-11-04] MEDS: FOLIC ACID 1 MG in SYRINGE 9.8 ML IV STA (23:55)
[2025-11-05] MEDS: THIAMINE HCL 200 MG in SODIUM CHLORIDE 0.9% 50 ML IV STA
[2025-11-05] MEDS ORDERED: LORazepam Inj 1 MG in SYRINGE 0.5 ML IV PRN (00:37)
[2025-11-05] MEDS ORDERED: ONDANSETRON INJ 2 MG/ML 2 ML VIAL IV PRN (01:05)
[2025-11-05] MEDS ORDERED: STAT IV/IM STA (01:05)
--- NOTE | 2025-11-05 01:22 | CT Scan Report ---
Exam(s): CT HEAD Without Contrast EXAM: CT Head Without Intravenous Contrast CLINICAL HISTORY: Reason for exam: Fall, alcohol, ? encephalopathic. OTHER: Other Notes: Fall, alcohol, ? Encephalopathic, gif bleed , nausea , vomiting TECHNIQUE: Axial computed tomography images of the head/brain without intravenous contrast. CTDI is 38.49 mGy and DLP is 2775.16 mGy-cm. Automated exposure control was utilized for the study. A dose lowering technique was utilized adhering to the principles of ALARA. COMPARISON: Prior head CT from November 20, 2024. FINDINGS: This study is limited secondary to motion artifact. Brain: Unremarkable. No hemorrhage. No significant white matter disease. No edema. Ventricles: Moderate ventriculomegaly. Bones/joints: Unremarkable. No acute fracture. Soft tissues: Unremarkable. Sinuses: Unremarkable as visualized. No acute sinusitis. Mastoid air cells: Unremarkable as visualized. No mastoid effusion. IMPRESSION: No evidence of acute intracranial pathology. Electronically signed by: Elise Weiner MD 11/05/25 01:21 AM
[2025-11-05] MEDS: LACTATED RINGER'S 1,000 ML IV SCH (01:34)
[2025-11-05] MEDS: LORazepam Inj 1 MG in SYRINGE 0.5 ML IV ONE (01:46)
[2025-11-05] MEDS: OCTREOTIDE ACETATE 500 MCG in SODIUM CHLORIDE 0.9% 100 ML IV SCH (01:46)
[2025-11-05 02:09] LABS: Hematocrit (blood only) 32.4 % (42.0-52.0); Hemoglobin 10.8 g/dL (14.0-18.0); Mean Corpuscular Hemoglobin 32.8 pg (25.0-34.0); Mean Corpuscular Volume 98.5 fL (80.0-100.0); Platelet Count 203 K/uL (130-400); RDW Standard Deviation 51.7 fL (36.4-46.3); Red Blood Count 3.29 M/uL (4.70-6.10); White Blood Count 13.38 K/ul (4.8-10.8)
[2025-11-05 02:11] LABS: Appearance Urine Clear (Clear); Bacteria Urine Automated 3+ (None Seen); Cast Urine Automated 0-2 /lpf (0-2); Epithelial Cell Urine Auto 0-2 /hpf (0-2); Glucose Urine UA Negative (Negative); RBC Urine Automated 0-2 /hpf (0-2); WBC Urine Automated >50 /hpf (0-5)
--- NOTE | 2025-11-05 03:36 | CT Scan Report ---
Exam(s): CT ABDOMEN + PELVIS With Contrast IV Amt: 94 ml EXAM: CT Abdomen and Pelvis With Intravenous Contrast CLINICAL HISTORY: Reason for exam: GI bleed. OTHER: Other Notes: Fall, alcohol, ? Encephalopathic, gi bleed , nausea , vomiting , 94 ml optiray 320 TECHNIQUE: Axial computed tomography images of the abdomen and pelvis with intravenous contrast. CTDI is 38.49 mGy and DLP is 2775.16 mGy-cm. Automated exposure control was utilized for the study. A dose lowering technique was utilized adhering to the principles of ALARA. CONTRAST: Patient received 94 ml of IV contrast COMPARISON: 04/07/2020 FINDINGS: Lung bases: Unremarkable. No mass. No consolidation. Heart: Postop changes aortic valve repair. ABDOMEN: Liver: Unremarkable. No mass. Gallbladder and bile ducts: Unremarkable. No calcified stones. No ductal dilation. Pancreas: Unremarkable. No mass. No ductal dilation. Spleen: Unremarkable. No splenomegaly. Adrenals: Unremarkable. No mass. Kidneys and ureters: Simple 4.2 cm left renal cysts. No follow-up of these simple cysts is necessary. No hydronephrosis. Stomach and bowel: Unremarkable. No obstruction. No mucosal thickening. PELVIS: Appendix: No findings to suggest acute appendicitis. Bladder: Wall thickening versus underdistention of the urinary bladder. Reproductive: Unremarkable as visualized. ABDOMEN and PELVIS: Intraperitoneal space: Unremarkable. No free air. No significant fluid collection. Bones/joints: No acute fracture. No dislocation. Soft tissues: Unremarkable. Vasculature: Unremarkable. No abdominal aortic aneurysm. Lymph nodes: Unremarkable. No enlarged lymph nodes. IMPRESSION: No acute findings in the abdomen or pelvis. Communications: Call Nurse Electronically signed by: Lawson Greenwood MD 11/05/25 03:36 AM
[2025-11-05] MEDS ORDERED: NYSTATIN POWDER 15GM BTL EXT PRN (03:45)
[2025-11-05] MEDS: THIAMINE HCL 100 MG in SYRINGE 9 ML IV SCH (08:36)
[2025-11-05] MEDS: PANTOprazole 40 MG/10 ML SYR IV SCH (08:36)
[2025-11-05] MEDS: FOLIC ACID 1 MG in SYRINGE 9.8 ML IV SCH (08:36)
[2025-11-05 08:37] LABS: Hematocrit (blood only) 29.2 % (42.0-52.0); Hemoglobin 9.7 g/dL (14.0-18.0)
[2025-11-05 08:56] LABS: Alanine Aminotransferase 19.0 U/L (7-52); Albumin Globulin Ratio 1.4 (0.9-2); Albumin Level 3.6 gm/dl (3.4-5.0); Alkaline Phosphatase 83.0 U/L (34-104); Anion Gap 14.0 (3-11); Bilirubin,Total 0.5 mg/dl (0.2-1.0); Blood Urea Nitrogen 24.0 mg/dl (6-23); Calcium 8.1 mg/dl (8.6-10.3); Carbon Dioxide 18.0 mmol/L (21-32); Chloride 109.0 mmol/L (98-107); Creatine Kinase 757.0 U/L (30-223); Creatinine Clr Calc Pharmacy 83.3 ml/min; Globulin 2.5 gm/dl (2.5-4.0); Glucose 138.0 mg/dl (70-99(Fasting)); Potassium 4.3 mmol/L (3.5-5.1); Sodium 141.0 mmol/L (136-145); Total Protein 6.1 gm/dl (6.0-8.3)
--- NOTE | 2025-11-05 10:39 | Gastrointestinal Consultation ---
Date of Consultation November 05, 2025 Assessment & Plan (1) Acute upper GI bleed: Acute upper GI bleed with coffee-ground emesis. CT unremarkable. Drop in H&H overnight may be dilutional. He denies melena. Vitals are stable. Patient currently on octreotide though I believe varices are less likely in this situation with normal platelets no cirrhosis on CT scan. And a normal INR. Patient is at risk of peptic ulcer disease and bleeding with a history of aspirin Plavix and SSRI use. Is unclear if he uses NSAIDs at home. Change PPI to a drip. Can have clear liquids. Potential endoscopy if signs of active bleeding today otherwise Friday or Friday. (2) Elevated liver function tests: Elevated AST could be consistent with his history of alcohol use. However may also be related to the elevated creatinine kinase rhabdomyolysis. (3) Alcoholism: Chronic alcoholism all his life. States he went a month with no alcohol with no withdrawal symptoms. It is possible his frequent falls are cerebellar ataxia. (4) Elevated CK: (5) Rhabdomyolysis: Plan See above History of Present Illness Reason for Consultation: Gastrointestinal bleeding Attending Physician: Joshua Vargas History of Present Illness 80-year-old gentleman came in due to frequent falls. He has an elevated creatinine kinase. Also relayed that he was having brown emesis. Multiple episodes of emesis over the last day or so. Hemoglobin on admission 13 now down to approximately 10. No emesis since last evening. Denies melena. Slight elevation to BUN/creatinine which can be consistent with upper GI bleeding. Patient has a history of aspirin and Plavix use. He has chronic foot and leg pain. He is unaware whether he takes NSAIDs in addition to these medications. Denies heartburn indigestion. Drinks alcohol on a daily basis. Fairly el aborate regimen as a pro trays low amounts to at least 5 or more drinks per day. States recent hospitalization or rehab was there for about a month with no alcohol ingestion. States no withdrawal symptoms in the past. Patient complaining bitterly of being NPO. Somewhat of a poor historian. Frequently gets sidetracked. Also his speech is little hard to follow. Currently on octreotide drip and IV Protonix twice daily. Allergies Allergy/AdvReac Type Severity Reaction Status Date / Time No Known Allergies Allergy Verified 11/04/25 21:40 Home Medications Medication Instructions Recorded Confirmed Type amoxicillin 500 mg capsule 2,000 mg PO DIRECTED PRN 1 HR 11/13/24 11/04/25 History PRIOR TO DENTAL PROCEDURES clopidogrel 75 mg tablet 75 mg PO QAM 11/13/24 11/04/25 History nitroglycerin 0.4 mg sublingual 0.4 mg sublingual .EVERY 5 MINUTES 11/13/24 11/04/25 History tablet PRN Chest Pain folic acid 1 mg tablet 1 mg PO QAM #30 tabs 11/15/24 11/04/25 Rx atorvastatin 20 mg tablet 20 mg PO QPM 03/08/25 11/04/25 History metoprolol succinate 25 mg 12.5 mg PO QAM 03/08/25 11/04/25 History tablet,extended release 24 hr thiamine HCl (vitamin B1) 100 mg 200 mg PO QAM 03/08/25 11/04/25 History capsule acetaminophen 325 mg tablet 650 mg PO Q6H PRN Pain 06/04/25 11/04/25 History (Tylenol) alprazolam 0.5 mg tablet 0.5 mg PO Q12H 06/04/25 11/04/25 History aspirin 81 mg tablet,delayed 81 mg PO QAM 06/27/25 11/04/25 History release cyanocobalamin (vitamin B-12) 1,000 mcg PO QAM 06/27/25 11/04/25 History 1,000 mcg tablet sertraline 50 mg tablet 25 mg PO QAM 06/27/25 11/04/25 History sodium chloride 1,000 mg soluble 1,000 mg PO BID 11/04/25 11/04/25 History tablet Patient History Medical History Hx of renal calculi has passed on his own Alcoholic peripheral neuropathy On anticoagulant therapy Hx of gout Heart failure Hyperlipidemia History of urinary tract infection (06/04/25) AMS (altered mental status) per granddaughter patient becomes confused easily. Alcoholism Anxiety Craven catheter in place CAD (coronary artery disease) s/p PCI to distal LAD and distal LMCA with x 4 overlapping FABRIZIO; residual 70% prox RCA stenosis History of osteomyelitis left calcaneous- follows [facility] wound clinic, next appt 06/2025 Wernicke-Korsakoff syndrome (alcoholic) Frequent falls last fall 10/2024 Rhabdomyolysis hx --- October 2024 -- granddaughter unsure of details History of nephrolithiasis Hypertension Surgical History History of cardiac cath 04/2024 at [facility] with 4 stents (per record) S/P TAVR (transcatheter aortic valve replacement) 04/2024 at [facility] History of coronary artery stent placement s/p PCI to distal LAD and distal LMCA with x 4 overlapping FABRIZIO; residual 70% prox RCA stenosis ([facility]) 04/2024 with the aortic valve replacement. fo llows with [facility]. Family History Sister Diabetes Cancer Son Diabetes Father Heart disease Grandmother Cancer Other No family history of adverse response to anesthesia Social History Smoking Status: Former smoker Tobacco Type: Cigars Cigarettes Per Day: 1; Second Hand Exposure: No; Do You Dip or Chew Tobacco: No; Hx Alcohol Use: Yes Alcohol type: hard liquor Alcohol Intake Frequency: 4 or More x per/Week Alcohol Intake Frequency Comment: 1x per day Hx Substance Use: No Preferred Language: Amharic Communication Ability: Effective Communication Ability Comment: "easily confused" Visual Impairment: Limited Hearing Ability: Hard of Hearing Estate Planning Attorney Required: No Beliefs That Will Affect Care: None marital status: Single Current Living Situation: Family Feels Safe at Home: Yes Safety Concerns: Feels Safe At This Time Diet: regular Assistive Devices: Glasses, Hearing Aid - Bilateral and Wheelchair Review of Systems Review of Systems: Currently denies abdominal pain. Denies increased cough sputum production or chest pain DIRECTOR OF FIELD SERVICE. Orientated to person place and time at Review of systems otherwise per admission H&P without change Physical Exam Physical Exam: Initially sleeping arouses to voice. Complains of being thirsty The eyes reveal no jaundice Chest and heart exams as per admitting H&P without change GI benign abdomen. DIRECTOR OF FIELD SERVICE orientated x 3. Planes of leg weakness and frequent falls. See admitting H&P Skin no rashes some bruising, somewhat disheveled. Psych normal Exam otherwise negative Results & Data Vital Signs (Past 12 Hours) Vital Signs Temp Pulse Pulse Resp BP BP Pulse Ox 11/05/25 07:50 11/05/25 07:18 37.4 C 85 18 150/72 H 95 11/05/25 01:30 11/05/25 01:18 37.0 C 89 19 128/73 98 11/05/25 01:06 85 11/05/25 01:05 11/05/25 00:27 36.4 C L 11/05/25 00:00 150/87 H 11/05/25 00:00 150/87 H 11/05/25 00:00 95 H 23 150/87 H 97 11/04/25 23:42 99 H 20 158/98 H 98 11/04/25 23:41 99 H Pulse Ox O2 Del Method O2 Del Method 11/05/25 07:50 Room Air 11/05/25 07:18 Room Air 11/05/25 01:30 Room Air 11/05/25 01:18 Room Air 11/05/25 01:06 11/05/25 01:05 98 Room Air 11/05/25 00:27 11/05/25 00:00 11/05/25 00:00 11/05/25 00:00 Room Air 11/04/25 23:42 Room Air 11/04/25 23:41 Laboratory Results Drop in H&H H as mention currently 9.7, platelets are normal. MCV is normal. INR is normal Diagnostic Findings CT does not show evidence of cirrhosis splenomegaly or ascites PG Care Time/CCT Total # of Minutes Spent Total Time Spent with Patient: Total time spent is greater than 50% in coordination of care (as documented) at patient's floor/unit and/or counseling patient: Coding Level of Care Code 40324 INT INP/OBS CARE 2/55MIN Diagnoses Acute upper GI bleed K92.2 Elevated liver function tests R79.89 Alcoholism F10.20 Elevated CK R74.8 Rhabdomyolysis M62.82
[2025-11-05 14:23] LABS: Hematocrit (blood only) 28.7 % (42.0-52.0); Hemoglobin 9.5 g/dL (14.0-18.0)
--- NOTE | 2025-11-05 23:37 | Hospitalist Progress Note ---
Date of Service November 05, 2025 Assessment & Plan (1) GI bleed: (2) Alcoholism: (3) Transaminitis: (4) Fall: (5) Rhabdomyolysis: (6) Elevated troponin: Plan 80-year-old male PMHx CAD, alcoholism, HLD, frequent falls presenting after being found down at home. Evaluation with leukocytosis 15.33, H&H 12.1/36.4. LFTs elevated, CK also elevated at 1396. Admission for suspected GI bleed. #GI bleed/Alcoholism/Transaminitis/Fall Found down, reports of coffee-ground emesis x 6. No abdominal pain. H/o alcohol use daily, no prior WD. Transaminitis in the past, thought to be alcoholic liver disease. PAWS 1 (combined with benzos), still pending alcohol level. ? WKS, unclear normal mentation but appears to be slightly encephalopathic at this time. - Hemoglobin downtredning, will obtain Upper EGD tomorrow. - Ativan per AWSS score - Pantoprazole IV BID - Octreotide 100mcg now then drip - Thiamine 200 mg IV now then 100 mg AM - Folic acid 1 mg IV AM - GI consulted - appreciate input + recs #Rhabdomyolysis Found down, reports down for 6 hours. No complaints of pain at this time. - Cr 0.82. BUN 24; CK 1396 - CK am - IVF as above #Elevated troponin No chest pain, no SOB. H/o CAD, no longer taking Plavix. - Trop 49.6, 48.8 on repeat - EKG pending - telemetry stable - CXR no acute findings - Likely 2/2 demand #Psych- Alprazolam, sertraline - hold po medications, add back once diet ordered -- can adjust Alprazolam 0.5mg po to lorazepam 1mg IV while NPO #HLD- Atorvastatin - hold po medications, hold while transaminitis #HTN- Metoprolol - hold po medications Dispo: Admit, PCU VTE Prophylaxis: SCDs Admission and Anticipated Discharge Date Admission Date: November 04, 2025 Subjective 80 yo male reports no new symptoms. Patient reports feeling well. He was agitated this AM as per nursing Physical Exam Constitutional: WD/WN, vitals as above Neck: trachea midline, no thyromegaly Respiratory: normal respiratory effort, lungs clear to auscultation Cardiovascular: RRR, no murmur, no edema Gastrointestinal (Abdomen): normal bowel sounds, soft, nontender, no hepatosplenomegaly Neurologic: PERRL, EOMI, accommodation nl, no face palsy, no dysarthria Psychiatric: A+Ox3, euthymic affect Results & Data Results & Data Vital Signs (Past 12 Hours) Vital Signs Temp Pulse Pulse Resp BP Pulse Ox O2 Del Method 11/05/25 23:20 88 20 176/68 H 95 Room Air 11/05/25 22:01 79 11/05/25 19:18 36.8 C 79 20 135/73 96 Room Air 11/05/25 15:16 37.6 C H 86 16 129/65 93 Room Air 11/05/25 14:31 86 11/05/25 14:30 90 PG Care Time/CCT Total # of Minutes Spent Total Time Spent with Patient: Total time spent is greater than 50% in coordination of care (as documented) at patient's floor/unit and/or counseling patient: Coding Level of Care Code 53738 SUB INP/OBS CARE 3/50MIN Diagnoses GI bleed K92.2 Alcoholism F10.20 Transaminitis R74.01 Fall W19.XXXA Rhabdomyolysis M62.82 Elevated troponin R79.89
[2025-11-06 06:48] LABS: Hematocrit (blood only) 28.6 % (42.0-52.0); Hemoglobin 9.4 g/dL (14.0-18.0); Mean Corpuscular Hemoglobin 32.1 pg (25.0-34.0); Mean Corpuscular Volume 97.6 fL (80.0-100.0); Platelet Count 154 K/uL (130-400); RDW Standard Deviation 49.5 fL (36.4-46.3); Red Blood Count 2.93 M/uL (4.70-6.10); White Blood Count 8.61 K/ul (4.8-10.8)
[2025-11-06 07:35] LABS: Alanine Aminotransferase 16.0 U/L (7-52); Albumin Globulin Ratio 1.4 (0.9-2); Albumin Level 3.3 gm/dl (3.4-5.0); Alkaline Phosphatase 77.0 U/L (34-104); Anion Gap 6.0 (3-11); Bilirubin,Total 0.4 mg/dl (0.2-1.0); Blood Urea Nitrogen 14.0 mg/dl (6-23); Calcium 8.0 mg/dl (8.6-10.3); Carbon Dioxide 25.0 mmol/L (21-32); Chloride 109.0 mmol/L (98-107); Creatinine Clr Calc Pharmacy 101.6 ml/min; Globulin 2.3 gm/dl (2.5-4.0); Glucose 155.0 mg/dl (70-99(Fasting)); Potassium 3.6 mmol/L (3.5-5.1); Sodium 140.0 mmol/L (136-145); Total Protein 5.6 gm/dl (6.0-8.3)
--- NOTE | 2025-11-06 08:24 | Anesthesiology Consultation ---
Date of Service November 06, 2025 Assessment & Plan Chart Review Chart Review: Acceptable Risk for Surgery and Patient NOT seen in Pre Admission Testing Consults Requested none ASA ASA4 Proposed Anesthesia Anesthesia Type: MAC History Surgery Operation Date: 11/06/25 09:30 Proposed Procedures p Esophagogastroduodenoscopy - Rao Cobos MD Height/Weight Height: 6 ft Weight: 96 kg Allergies Allergy/AdvReac Type Severity Reaction Status Date / Time No Known Allergies Allergy Verified 11/04/25 21:40 Medications Home Medications Medication Instructions Recorded Confirmed Last Taken amoxicillin 500 mg capsule 2,000 mg PO DIRECTED PRN 1 HR 11/13/24 11/04/25 Unknown PRIOR TO DENTAL PROCEDURES clopidogrel 75 mg tablet 75 mg PO QAM 11/13/24 11/04/25 06/29/25 07:00 nitroglycerin 0.4 mg sublingual 0.4 mg sublingual .EVERY 5 MINUTES 11/13/24 11/04/25 Unknown tablet PRN Chest Pain folic acid 1 mg tablet 1 mg PO QAM #30 tabs 11/15/24 11/04/25 07/03/25 07:00 atorvastatin 20 mg tablet 20 mg PO QPM 03/08/25 11/04/25 07/03/25 21:00 metoprolol succinate 25 mg 12.5 mg PO QAM 03/08/25 11/04/25 07/04/25 06:30 tablet,extended release 24 hr thiamine HCl (vitamin B1) 100 mg 200 mg PO QAM 03/08/25 11/04/25 07/03/25 07:00 capsule acetaminophen 325 mg tablet 650 mg PO Q6H PRN Pain 06/04/25 11/04/25 Unknown (Tylenol) alprazolam 0.5 mg tablet 0.5 mg PO Q12H 06/04/25 11/04/25 07/03/25 07:00 aspirin 81 mg tablet,delayed 81 mg PO QAM 06/27/25 11/04/25 07/03/25 07:00 release cyanocobalamin (vitamin B-12) 1,000 mcg PO QAM 06/27/25 11/04/25 07/03/25 07:00 1,000 mcg tablet sertraline 50 mg tablet 25 mg PO QAM 06/27/25 11/04/25 07/04/25 06:30 sodium chloride 1,000 mg soluble 1,000 mg PO BID 11/04/25 11/04/25 Unknown tablet Active Medications Generic Name Dose Route Start Last Admin Trade Name Alfonso PRN Reason Stop Dose Admin Alprazolam 0.5 mg 11/05/25 09:00 11/06/25 08:20 Alprazolam 0.5 Mg Tablet PO 12/05/25 08:59 0.5 mg Q12H ZHAO Administration Lactated Ringer's 1,000 mls @ 100 mls/hr 11/05/25 00:15 11/06/25 07:48 Lr IV 11/08/25 00:14 100 mls/hr .Q10H ZHAO Administration Folic Acid 1 mg/ Syringe 10 mls @ 5 mls/min 11/05/25 09:00 11/06/25 08:21 IV 12/05/25 08:59 5 mls/min QAM ZHAO Administration Thiamine HCl 100 mg/ Syringe 10 mls @ 2 mls/min 11/05/25 09:00 11/06/25 08:21 IV 12/05/25 08:59 2 mls/min QAM ZHAO Administration Pantoprazole Sodium 40 mg in 10 mls @ 5 mls/min 11/05/25 09:00 11/06/25 08:21 Protonix IV 12/05/25 08:59 5 mls/min BID ZHAO Administration Octreotide Acetate 500 mcg/ 100.5 mls @ 10.05 mls/hr 11/05/25 01:30 11/06/25 06:17 Sodium Chloride IV 12/05/25 01:29 50 mcg/hr .Q10H ZHAO 10.1 mls/hr Administration 50 MCG/HR Past Medical History Medical History Hx of renal calculi has passed on his own Alcoholic peripheral neuropathy On anticoagulant therapy Hx of gout Heart failure Hyperlipidemia History of urinary tract infection (06/04/25) AMS (altered mental status) per granddaughter patient becomes confused easily. Alcoholism Anxiety Craven catheter in place CAD (coronary artery disease) s/p PCI to distal LAD and distal LMCA with x 4 overlapping FABRIZIO; residual 70% prox RCA stenosis History of osteomyelitis left calcaneous- follows [facility] wound clinic, next appt 06/2025 Wernicke-Korsakoff syndrome (alcoholic) Frequent falls last fall 10/2024 Rhabdomyolysis hx --- October 2024 -- granddaughter unsure of details History of nephrolithiasis Hypertension S/P TAVR GI Bleed Anemia ETOH liver Dz Elevated LFT's HTN COPD/tobacco abuse Exercise / Class Metabolic Activity IV < 2 Limit ADL/Bedbound Past Family History Family History Sister Diabetes Cancer Son Diabetes Father Heart disease Grandmother Cancer Other No family history of adverse response to anesthesia Past Surgical History Surgical History History of cardiac cath 04/2024 at [facility] with 4 stents (per record) S/P TAVR (transcatheter aortic valve replacement) 04/2024 at [facility] History of coronary artery stent placement s/p PCI to distal LAD and distal LMCA with x 4 overlapping FABRIZIO; residual 70% prox RCA stenosis ([facility]) 04/2024 with the aortic valve replacement. follows with Ania Amaral. Past Anesthesia History No Hx of Anesthesia Complications and No Family Hx of Anesthesia Complications History of PONV No Hx of PONV and No Hx of Motion Sickness Social History Smoking Status: Former smoker Smoking cigarettes per day: 1 Do You Dip or Chew Tobacco: No Hx Alcohol Use: Yes Alcohol type: hard liquor alcohol intake frequency: other Alcohol Intake Frequency Comment: pt states "as much as i want" Hx Substance Use: No substance use type: does not use Physical Exam Vital Signs Last Vital Signs Temp 36.6 C 11/06/25 07:28 Pulse 73 11/06/25 07:28 Resp 20 11/06/25 07:28 BP 154/76 H 11/06/25 07:28 Pulse Ox 95 11/06/25 07:28 O2 Del Method Room Air 11/06/25 07:48 Testing Laboratory Results 11/06/25 06:28 11/06/25 06:28 PT 10.6 Seconds (9.0-12.0) 11/04/25 20:14 INR 1.0 (0.9-1.1) 11/04/25 20:14 Urine Color Yellow 11/05/25 01:30 Urine Appearance Clear (Clear) 11/05/25 01:30 Urine pH 5.5 (4.5-7.5) 11/05/25 01:30 Ur Specific [place] > 1.045 (1.000-1.030) H 11/05/25 01:30 Urine Protein Trace (Negative) H 11/05/25 01:30 Urine Glucose (UA) Negative (Negative) 11/05/25 01:30 Urine Ketones 3+ (Negative) H 11/05/25 01:30 Urine Nitrite Positive (Negative) A 11/05/25 01:30 Ur Leukocyte Esterase 3+ (Negative) H 11/05/25 01:30 Urine WBC (Auto) >50 /hpf (0-5) H 11/05/25 01:30 Urine RBC (Auto) 0-2 /hpf (0-2) 11/05/25 01:30 U Hyaline Cast (Auto) 0-2 /lpf (0-2) 11/05/25 01:30 U Epithel Cells (Auto) 0-2 /hpf (0-2) 11/05/25 01:30 Urine Bacteria (Auto) 3+ (None Seen) H 11/05/25 01:30 Blood Type O Positive 11/04/25 20:14 Antibody Screen NEGATIVE 11/04/25 20:14 11/05/25 01:30 Urine Culture - Preliminary Urine,Clean Catch No growth - Less than 1,000 colonies/mL, Final report to follow. Electrocardiogram Date: 11/04/25 Findings: + NSR @ (@ 99) Chest X-Ray Date: 11/04/25 Findings: + NAD Echocardiogram Date: 05/18/25 EF: 55% LV Function: normal RWMA: + none Other Findings: + diastolic dysfunction (Grade 1) S/P TAVR Cardiac Catheterization Date: 09/17/22 Findings: + RCA (40-50% mid), + LMA (30% distal) and + LCX (30% ostial;OM1- 20%;20% mid) Location: LAD-60-70% ostial;80% mid;D2 60%
[2025-11-06] MEDS ORDERED: ATROPINE SULFATE 0.1 MG/ML 10ML SYR IV PRN (09:13)
--- NOTE | 2025-11-06 09:20 | Communication Note ---
Date of Service: November 06, 2025 Hb stable No furthur vomitting Benign abdomen VSS Egd today
[2025-11-06] MEDS ORDERED: PROPOFOL IV EMULSION 10 MG/ML 20 ML VIAL IV ONE (09:28)
[2025-11-06] MEDS ORDERED: LIDOCAINE 2% 2 ML VIAL/AMP(20MG/ML) INFIL ONE (09:28)
--- NOTE | 2025-11-06 10:06 | Communication Note ---
Date of Service: November 06, 2025 EGD Severe ulcerative esophagitis affecting the distal two thirds of the esophagus. Few erosions in the antrum and prepyloric area. Cratered postbulbar ulcer with overlying adherent clot. Potentially in the area of a branch of the gastroduodenal artery. Injected with 1 in 10,000 epinephrine approximately 3 cc then clips placed x 5 placement difficult due to the angulation. Portion of the artery still apparent between the clips. Therefore the area was gold probed by capped. Care taken to avoid contact with the clips. Hemostasis apparent post. Visible vessel no longer apparent. Biopsies were done in the antrum for H. pylori. Clear liquids. Observe for further bleeding. If recurrent bleeding may need transfer for interventional radiology IR. However IR may be available here tomorrow. Can stop octreotide. Should be on a Protonix drip.
--- NOTE | 2025-11-06 10:21 | GI REPORT ---
[facility] Patient: LITZY ARANA : 1945 Sex at : Male Age: 80 Years Procedure: Upper GI endoscopy Date: 11/06/2025 Attending Physician: Rao Cobos MD Referring MD: Sammy Mcarthur Md Indications: - Suspected upper gastrointestinal bleeding - Melena - Hemetemesis Medications: - Monitored Anesthesia Care Complications: - No immediate complications. Estimated Blood Loss: - Estimated blood loss was minimal. Procedure: - The EGD scope was introduced through the mouth and advanced to the second part of the duodenum. - The upper GI endoscopy was accomplished without difficulty. - The patient tolerated the procedure well. Findings: - Diffuse mucosal ulceration distal two thirds of the esophagus consistent with acid reflux. No visible vessels or stigmata of bleeding. No varices seen. - Patchy mild inflammation characterized by erosions was found in the gastric antrum. Biopsies were taken with a cold forceps for histology. - In the postbulbar area there is a 1.5 cm cratered ulcer with adherent clot visible vessel. Not actively bleeding. Decision made to inject with 1 in 10,000 epinephrine for total of 3 cc, post blanching of the mucosa clips were placed on the superior and inferior aspect of the ulceration to pull the edges closer together to facilitate placement or proper placement of clips over the ulcer itself. They were able to close edges proper placement of the clip I did not feel was satisfactory to sufficiently prevent further bleeding. Therefore the remaining visible part of the clot was treated with BiCap coagulation. Care was taken not to contact present clips. Post cautery hemostasis present. No persistent visible vessels or clot. Patient tolerated procedure well Impression: - Diffuse mucosal ulceration distal two thirds of the esophagus consistent with acid reflux. No visible vessels or stigmata of bleeding. No varices seen. - Gastritis, characterized by erosions. Biopsied. - In the postbulbar area there is a 1.5 cm cratered ulcer with adherent clot visible vessel. Not actively bleeding. Decision made to inject with 1 in 10,000 epinephrine for total of 3 cc, post blanching of the mucosa clips were placed on the superior and inferior aspect of the ulceration to pull the edges closer together to facilitate placement or proper placement of clips over the ulcer itself. They were able to close edges proper placement of the clip I did not feel was satisfactory to sufficiently prevent further bleeding. Therefore the remaining visible part of the clot was treated with BiCap coagulation. Care was taken not to contact present clips. Post cautery hemostasis present. No persistent visible vessels or clot. Patient tolerated procedure well - Postbulbar ulcer with adherent clot. Injected clipped and cauterized. These ulcers often involve branches or the gastroduodenal artery itself. They would be at an increased risk of recurrent or further bleeding. Leave on clear liquids at this time. Avoid blood thinners. IV Protonix. If further bleeding may need IR intervention. If H. pylori present treat. With his severe esophagitis and now ulceration of the duodenum long-term PPI therapy recommended. Recommendation: Procedure Code(s): - 22165, Esophagogastroduodenoscopy, flexible, transoral; with biopsy, single or multiple Diagnosis Code(s): - K92.1, Melena (includes Hematochezia) - K29.70, Gastritis, unspecified, without bleeding CPT(R) - 2024 copyright [employer]. All Rights Reserved. The CPT codes, CCI edits and ICD codes generated are intended as suggestions and were generated based on input data. These codes are preliminary and upon banquet coordinator review may be revised to meet current compliance and payer requirements. The provider is responsible for the final determination of appropriate codes, and modifiers. Rao Cobos MD This document has been electronically signed. Note Initiated:11/06/2025 Note Completed:11/06/2025 10:20 AM \\[id number]
--- NOTE | 2025-11-06 10:27 | Anesthesiology Progress Note ---
Date of Service November 06, 2025 Anesthesia Post Procedure Vital Signs Vital Signs: Temp Pulse Pulse Pulse Resp BP Pulse Ox 11/06/25 10:20 72 17 149/66 H 100 11/06/25 10:10 73 18 141/61 H 100 11/06/25 10:02 36 C L 80 12 137/56 L 100 11/06/25 09:11 78 11/06/25 08:58 92 H 11/06/25 07:48 11/06/25 07:28 36.6 C 73 20 154/76 H 95 11/06/25 03:25 36.7 C 79 19 145/72 H 93 11/06/25 01:05 11/05/25 23:20 88 20 176/68 H 95 11/05/25 22:01 79 11/05/25 19:30 11/05/25 19:18 36.8 C 79 20 135/73 96 11/05/25 15:16 37.6 C H 86 16 129/65 93 11/05/25 14:31 86 11/05/25 14:30 90 11/05/25 10:58 37.4 C 87 16 147/72 H 94 Pulse Ox O2 Del Method O2 Del Method O2 Flow Rate 11/06/25 10:20 Oxymask 6 11/06/25 10:10 Oxymask 6 11/06/25 10:02 Oxymask 6 11/06/25 09:11 11/06/25 08:58 11/06/25 07:48 Room Air 11/06/25 07:28 Room Air 11/06/25 03:25 Room Air 11/06/25 01:05 95 Room Air 11/05/25 23:20 Room Air 11/05/25 22:01 11/05/25 19:30 Room Air 11/05/25 19:18 Room Air 11/05/25 15:16 Room Air 11/05/25 14:31 11/05/25 14:30 11/05/25 10:58 Room Air Transfer of Care Handoff Completed per policy Notes Mental Status: alert / awake / arousable Patient Amnestic to Procedure: Yes Nausea / Vomiting: adequately controlled Pain: adequately controlled Airway Patency, RR, SpO2: stable & adequate BP & HR: stable & adequate Hydration State: stable & adequate Anesthetic Complications: no major complications apparent
[2025-11-06] MEDS: MIDAZOLAM HCL 1 MG/ML 2ML VIAL ONE (11:07)
[2025-11-06] MEDS: PANTOprazole 40 MG in DEXTROSE 5% MINI-B 100 ML IV SCH (12:13)
[2025-11-06] MEDS ORDERED: SODIUM CHLORIDE 0.9% 100 ML IV PRN (12:21)
--- NOTE | 2025-11-06 12:24 | Communication Note ---
Date of Service: November 06, 2025 Postop follow-up. Patient without abdominal pain. Having clear liquids. Discussed findings of esophagitis and duodenal ulcer in the postbulbar area. He is patient is at risk of rebleed. In that regard we will keep 2 units of packed cells on hold. If rebleed may need to consider transfer for IR.
--- NOTE | 2025-11-06 23:20 | Hospitalist Progress Note ---
Date of Service November 06, 2025 Assessment & Plan (1) GI bleed: (2) Alcoholism: (3) Transaminitis: (4) Fall: (5) Rhabdomyolysis: (6) Elevated troponin: Plan 80-year-old male PMHx CAD, alcoholism, HLD, frequent falls presenting after being found down at home. Evaluation with leukocytosis 15.33, H&H 12.1/36.4. LFTs elevated, CK also elevated at 1396. Admission for suspected GI bleed. #GI bleed/Alcoholism/Transaminitis/Fall Found down, reports of coffee-ground emesis x 6. No abdominal pain. H/o alcohol use daily, no prior WD. Transaminitis in the past, thought to be alcoholic liver disease. PAWS 1 (combined with benzos), still pending alcohol level. ? WKS, unclear normal mentation but appears to be slightly encephalopathic at this time. - Upper GI scope showed 2 ulcers, high risk for rebleeding, will closely monitor hemoglobin, earliest discharge date will be 11/08 -If rebleeds, will need to be transferred for IR. - Ativan per AWSS score - Pantoprazole IV BID - Octreotide 100mcg now then drip - Thiamine 200 mg IV now then 100 mg AM - Folic acid 1 mg IV AM - GI consulted - appreciate input + recs #Rhabdomyolysis Found down, reports down for 6 hours. No complaints of pain at this time. - Cr 0.82. BUN 24; CK 1396 - CK am - IVF as above #Elevated troponin No chest pain, no SOB. H/o CAD, no longer taking Plavix. - Trop 49.6, 48.8 on repeat - EKG pending - telemetry stable - CXR no acute findings - Likely 2/2 demand #Psych- Alprazolam, sertraline - hold po medications, add back once diet ordered -- can adjust Alprazolam 0.5mg po to lorazepam 1mg IV while NPO #HLD- Atorvastatin - hold po medications, hold while transaminitis #HTN- Metoprolol - hold po medications Dispo: Admit, PCU VTE Prophylaxis: SCDs Admission and Anticipated Discharge Date Admission Date: November 04, 2025 Subjective 80 yo male reports no new symptoms. Physical Exam Constitutional: WD/WN, vitals as above Neck: trachea midline, no thyromegaly Respiratory: normal respiratory effort, lungs clear to auscultation Cardiovascular: RRR, no murmur, no edema Gastrointestinal (Abdomen): normal bowel sounds, soft, nontender, no hepatosplenomegaly Neurologic: PERRL, EOMI, accommodation nl, no face palsy, no dysarthria Psychiatric: A+Ox3, euthymic affect Results & Data Results & Data Vital Signs (Past 12 Hours) Vital Signs Temp Pulse Pulse Resp BP Pulse Ox O2 Del Method 11/06/25 22:13 36.9 C 72 18 166/80 H 95 Room Air 11/06/25 22:05 74 11/06/25 19:32 36.8 C 78 19 159/87 H 95 Room Air 11/06/25 17:37 74 11/06/25 14:40 36.9 C 70 20 151/77 H 98 Room Air 11/06/25 11:23 37 C 75 17 144/71 H 94 Nasal Cannula O2 Flow Rate 11/06/25 22:13 11/06/25 22:05 11/06/25 19:32 11/06/25 17:37 11/06/25 14:40 11/06/25 11:23 2 PG Care Time/CCT Total # of Minutes Spent Total Time Spent with Patient: Total time spent is greater than 50% in coordination of care (as documented) at patient's floor/unit and/or counseling patient: Coding Level of Care Code 83597 SUB INP/OBS CARE 3/50MIN Diagnoses GI bleed K92.2 Alcoholism F10.20 Transaminitis R74.01 Fall W19.XXXA Rhabdomyolysis M62.82 Elevated troponin R79.89
[2025-11-07] MEDS: MELATONIN 3 MG TAB PO PRN (03:06)
[2025-11-07 06:23] LABS: Hematocrit (blood only) 27.1 % (42.0-52.0); Hemoglobin 9.3 g/dL (14.0-18.0); Mean Corpuscular Hemoglobin 32.9 pg (25.0-34.0); Mean Corpuscular Volume 95.8 fL (80.0-100.0); Platelet Count 142 K/uL (130-400); RDW Standard Deviation 48.3 fL (36.4-46.3); Red Blood Count 2.83 M/uL (4.70-6.10); White Blood Count 6.57 K/ul (4.8-10.8)
[2025-11-07 06:51] LABS: Anion Gap 6.0 (3-11); Blood Urea Nitrogen 9.0 mg/dl (6-23); Calcium 7.7 mg/dl (8.6-10.3); Carbon Dioxide 26.0 mmol/L (21-32); Chloride 108.0 mmol/L (98-107); Creatinine Clr Calc Pharmacy 111.4 ml/min; Glucose 148.0 mg/dl (70-99(Fasting)); Potassium 3.3 mmol/L (3.5-5.1); Sodium 140.0 mmol/L (136-145)
--- NOTE | 2025-11-07 10:33 | Gastroenterology Progress Note ---
Date of Service November 07, 2025 Assessment & Plan (1) GI bleed: Plan Patients hgb stable. no further signs of bleeding per patient/nursing. - continue to follow hgb/hct. transfuse as needed. - if recurrent bleeding, would recommend IR intervention. - recommend skilled nursing PPI therapy. -Further recommendations to come with Supervising GI provider on medical rounds. Please see co-signature comments. Admission and Anticipated Discharge Date Admission Date: November 04, 2025 Supervising Physician Co-Signing Physician Notes Patient is seen at the bedside eating in no distress. Reviewed EGD findings from yesterday. Postbulbar duodenal ulcer with adherent clot. Clipped injected and coagulated. No evidence of recurrent bleeding at this time. Can advance diet. No bleeding by tomorrow could be discharged on twice daily PPI therapy for 2 weeks then 40 mg indefinitely. In addition to his ulcer he had severe ulcerative esophagitis distal two thirds of his esophagus. Patient should abstain from alcohol. Minimize or avoid aspirin or NSAIDs. H. pylori biopsies were performed and are pending. Abdomen benign Subjective I spoke with both patient and nursing. no further signs of bleeding. hgb stable at 9.3 (previously 9.4). the remainder of GI ros are unremarkable. EGD 11/06/25 diffuse mucosal ulceration distal 2/3 of the esophagus consistent with acid reflux. no visible vessels or stigmata of bleeding. no varices seen. Gastritis. In the post bulbar area there is a 1.5 cm cratered ulcer with adherent clot visible vessel. coagulation and clip placed. Review of Systems Review of Systems: All systems reviewed & are unremarkable except as noted in HPI & below Physical Exam Constitutional: WD/WN, vitals as above Respiratory: normal respiratory effort, lungs clear to auscultation Cardiovascular: Rate/Rhythm: regular rate and regular rhythm Gastrointestinal (Abdomen): normal bowel sounds, soft, nontender, no hepatosplenomegaly Psychiatric: Orientation: alert and oriented x 3 Results & Data Results & Data Vital Signs (Past 12 Hours) Vital Signs Temp Pulse Pulse Pulse Resp BP Pulse Ox 11/07/25 08:00 98.8 F 86 18 125/71 96 11/07/25 07:20 68 11/07/25 02:13 97.9 F 74 19 160/76 H 96 11/07/25 01:00 Pulse Ox O2 Del Method O2 Del Method 11/07/25 08:00 Room Air 11/07/25 07:20 11/07/25 02:13 Room Air 11/07/25 01:00 95 Room Air Coding Level of Care Code 14143 SUB INP/OBS CARE 12/18MIN Diagnoses GI bleed K92.2
--- NOTE | 2025-11-07 23:07 | Hospitalist Progress Note ---
Date of Service November 07, 2025 Assessment & Plan (1) GI bleed: (2) Alcoholism: (3) Transaminitis: (4) Fall: (5) Rhabdomyolysis: (6) Elevated troponin: Plan 80-year-old male PMHx CAD, alcoholism, HLD, frequent falls presenting after being found down at home. Evaluation with leukocytosis 15.33, H&H 12.1/36.4. LFTs elevated, CK also elevated at 1396. Admission for suspected GI bleed. #GI bleed/Alcoholism/Transaminitis/Fall ulcerative esophagitis with bleeding and bleeding duodenal ulcer causing UGI bleed Likely due to NSAID use. Acute blood loss anemia Found down, reports of coffee-ground emesis x 6. No abdominal pain. H/o alcohol use daily, no prior WD. Transaminitis in the past, thought to be alcoholic liver disease. PAWS 1 (combined with benzos), still pending alcohol level. ? WKS, unclear normal mentation but appears to be slightly encephalopathic at this time. - Upper GI scope showed 2 ulcers, high risk for rebleeding, hemoglobin stable. , earliest discharge date will be 11/08 -If rebleeds, will need to be transferred for IR. -Patient reorts taking NSAID at home, this likely is played a role. - Ativan per AWSS score - Pantoprazole IV BID - Octreotide 100mcg now then drip - Thiamine 200 mg IV now then 100 mg AM - Folic acid 1 mg IV AM - GI consulted - appreciate input + recs #Rhabdomyolysis Found down, reports down for 6 hours. No complaints of pain at this time. Improved. - Cr 0.82. BUN 24; CK 1396 - CK am - IVF as above #Elevated troponin No chest pain, no SOB. H/o CAD, no longer taking Plavix. - Trop 49.6, 48.8 on repeat - - telemetry stable - CXR no acute findings - Likely 2/2 demand # Metabolic encephalopathy Resolved On admission, Pt described as slightly encephalopathic. WBC 15.33, total CK 1396, UA CX with morganella morganii, Treatment: serial CBC's, GI consult, EGD with injection, clipping and cauterization of ulcers, IV fluids, IV protonix gtt, octreotide gtt, Risk Factor(s): age, alcoholism, UTI, rhabdo #asymptomatic bacteruria Doubt UTI as patient's WBC improved after only one dose of antibiotics, and has not worsened since, leukocytosis likely reactive to bleed #Psych- Alprazolam, sertraline - hold po medications, add back once diet ordered -- can adjust Alprazolam 0.5mg po to lorazepam 1mg IV while NPO #HLD- Atorvastatin - hold po medications, hold while transaminitis #HTN- Metoprolol - hold po medications Dispo: Admit, PCU VTE Prophylaxis: SCDs Admission and Anticipated Discharge Date Admission Date: November 04, 2025 Subjective 80 yo male reports no new symptoms. No vomiting, No melena, no hemoptysis Physical Exam Constitutional: WD/WN, vitals as above Neck: trachea midline, no thyromegaly Respiratory: normal respiratory effort, lungs clear to auscultation Cardiovascular: RRR, no murmur, no edema Gastrointestinal (Abdomen): normal bowel sounds, soft, nontender, no hepatosplenomegaly Neurologic: PERRL, EOMI, accommodation nl, no face palsy, no dysarthria Psychiatric: A+Ox3, euthymic affect Results & Data Results & Data Vital Signs (Past 12 Hours) Vital Signs Temp Pulse Pulse Pulse Resp BP Pulse Ox 11/07/25 22:27 36.6 C 71 18 146/72 H 96 11/07/25 18:36 36.6 C 71 18 140/80 94 11/07/25 16:37 70 11/07/25 15:38 36.5 C 75 18 157/83 H 97 11/07/25 11:23 36.6 C 72 18 149/78 H 96 O2 Del Method 11/07/25 22:27 Room Air 11/07/25 18:36 Room Air 11/07/25 16:37 11/07/25 15:38 Room Air 11/07/25 11:23 Room Air PG Care Time/CCT Total # of Minutes Spent Total Time Spent with Patient: Total time spent is greater than 50% in coordination of care (as documented) at patient's floor/unit and/or counseling patient: Coding Level of Care Code 81993 SUB INP/OBS CARE 3/50MIN Diagnoses GI bleed K92.2 Alcoholism F10.20 Transaminitis R74.01 Fall W19.XXXA Rhabdomyolysis M62.82 Elevated troponin R79.89
[2025-11-08 06:37] LABS: Hematocrit (blood only) 29.2 % (42.0-52.0); Hemoglobin 9.9 g/dL (14.0-18.0); Mean Corpuscular Hemoglobin 32.4 pg (25.0-34.0); Mean Corpuscular Volume 95.4 fL (80.0-100.0); Platelet Count 140 K/uL (130-400); RDW Standard Deviation 48.1 fL (36.4-46.3); Red Blood Count 3.06 M/uL (4.70-6.10); White Blood Count 6.47 K/ul (4.8-10.8)
[2025-11-08 06:56] LABS: Anion Gap 6.0 (3-11); Blood Urea Nitrogen 6.0 mg/dl (6-23); Calcium 7.9 mg/dl (8.6-10.3); Carbon Dioxide 26.0 mmol/L (21-32); Chloride 108.0 mmol/L (98-107); Creatinine Clr Calc Pharmacy 109.7 ml/min; Glucose 124.0 mg/dl (70-99(Fasting)); Potassium 3.3 mmol/L (3.5-5.1); Sodium 140.0 mmol/L (136-145)
--- NOTE | 2025-11-08 09:28 | Discharge Summary ---
Discharge Summary Date of Service November 08, 2025 Principal Dx & Hospital Course #1 = Principal Diagnosis (1) GI bleed: (2) Alcoholism: (3) Transaminitis: (4) Fall: (5) Rhabdomyolysis: (6) Elevated troponin: Plan 80-year-old male PMHx CAD, alcoholism, HLD, frequent falls presenting after being found down at home. Evaluation with leukocytosis 15.33, H&H 12.1/36.4. LFTs elevated, CK also elevated at 1396. Admission for suspected GI bleed. #GI bleed/Alcoholism/Transaminitis/Fall ulcerative esophagitis with bleeding and bleeding duodenal ulcer causing UGI bleed Likely due to NSAID use. Acute blood loss anemia Found down, reports of coffee-ground emesis x 6. No abdominal pain. H/o alcohol use daily, no prior WD. Transaminitis in the past, thought to be alcoholic liver disease. PAWS 1 (combined with benzos), still pending alcohol level. ? WKS, unclear normal mentation but appears to be slightly encephalopathic at this time. - Upper GI scope showed 2 ulcers, high risk for rebleeding, hemoglobin stable. , earliest discharge date will be 11/08 -If rebleeds, will need to be transferred for IR. -Patient reorts taking NSAID at home, this likely is played a role. - Ativan per AWSS score - Pantoprazole IV BID - Octreotide 100mcg now then drip - Thiamine 200 mg IV now then 100 mg AM - Folic acid 1 mg IV AM - GI consulted - appreciate input + recs #Rhabdomyolysis Found down, reports down for 6 hours. No complaints of pain at this time. Improved. - Cr 0.82. BUN 24; CK 1396 - CK am - IVF as above #Elevated troponin No chest pain, no SOB. H/o CAD, no longer taking Plavix. - Trop 49.6, 48.8 on repeat - - telemetry stable - CXR no acute findings - Likely 2/2 demand # Metabolic encephalopathy Resolved On admission, Pt described as slightly encephalopathic. WBC 15.33, total CK 1396, UA CX with morganella morganii, Treatment: serial CBC's, GI consult, EGD with injection, clipping and cauterization of ulcers, IV fluids, IV protonix gtt, octreotide gtt, Risk Factor(s): age, alcoholism, UTI, rhabdo #asymptomatic bacteruria Doubt UTI as patient's WBC improved after only one dose of antibiotics, and has not worsened since, leukocytosis likely reactive to bleed #Psych- Alprazolam, sertraline - hold po medications, add back once diet ordered -- can adjust Alprazolam 0.5mg po to lorazepam 1mg IV while NPO #HLD- Atorvastatin - hold po medications, hold while transaminitis #HTN- Metoprolol - hold po medications Dispo: Admit, PCU VTE Prophylaxis: SCDs Admission HPI Per Admitting Provider 80-year-old male PMHx CAD, alcoholism, HLD, frequent falls presenting after being found down at home. Patient states that he just in general does not have strength in his legs because he was left in his bed for too long in the past and so now he has lost strength in his legs. He states that the morning of arrival at 0100 he got up from his bed to go and get food. He ate, he came back to get into his bed and was trying to utilize his transfer device but slipped and he fell onto the ground, landing on his left arm, not hitting his head. Not on blood thinners. States that he was unable to get himself back into the bed because his legs were too weak in general, so he laid on the ground for approximately 6 hours. He states he had multiple episodes of vomiting, 3 in the morning and then 3 in the evening. Describes the vomit as dark brown, with coffee-ground like material in it but also appears to be food as well. He states he does not have any abdominal pain, limited bowel movements. He also has not been eating well over the past few days. Patient does drink alcohol daily, approximately 5 to 6 glasses of liquor per day and he takes his Xanax as well. No history of withdrawal or seizures from not having alcohol. No prior blackouts. No prior inpatient treatment necessary for alcohol use. States that his last drink was approximately 4 days ago. States he gets shaky if he does not take his Xanax which he occasionally takes twice a day. Denying chest pain, SOB, palpitations, abdominal pain, diarrhea/constipation, numbness/tingling other than his normal, URI symptoms, LUTS, or syncope. ED evaluation reveals CBC with leukocytosis 15.33, H&H 12.1/36.4, stable platelets; PT/INR WNL; CMP CO2 20, AG 16, BUN 24, ratio 29.3, AST 62, alkaline phosphatase 108; total CK 1396; troponin 46.9; Pro-[place] 0.15; TSH 1.593; COVID/flu/RSV negative; CXR pending official read.; Provided with 1.5 L NSS, pantoprazole 80 mg IV, ceftriaxone 2 g IV in ED. Please see Dr. Sosa attestation for adjustments/additions to treatment plan. Discharge Plan Discharge Items Patient Disposition: Home - Self-Care Reason For Visit: GIB, RHABDO Discharge Diagnosis: GI bleed Condition on Discharge: Fair Activity: Resume your previous activity Non-emergency contact: Primary Care Provider Call non-emergency contact if: you have any medication questions Follow-up/Referrals: Sammy Henderson MD [Primary Care Provider] - Diet: Regular Addtl Attending Provider Instructions: Recommend followup with PCP in 1-2 weeks. Recommend recheck hemoglbin at time of visit. WIll recommend twice daily therapy of pantoprazole therapy for 2 weeks then once a day 40 mg indefinitely. Please abstain from alcohol. Avoid NSAIDs such as Ibuprofen, Naprosyn (Motrin, Aleve). Only pain medicine over the counter that is not an NSAID is Tylenol. Ok to take Tylenol. Pending Studies at Discharge: No Stand-Alone Forms: My [facility] Wetpaint, Smoking Cessation Medications and DC Order Prescriptions: New pantoprazole 40 mg tablet,delayed release (DR/EC) 40 mg PO BID Qty: 60 0RF Continued atorvastatin 20 mg tablet 20 mg PO QPM metoprolol succinate 25 mg tablet extended release 24 hr 12.5 mg PO QAM thiamine HCl (vitamin B1) 100 mg capsule 200 mg PO QAM sodium chloride 1,000 mg Tablet,Soluble 1,000 mg PO BID folic acid 1 mg Tablet 1 mg PO QAM Qty: 30 0RF acetaminophen [Tylenol] 325 mg Tablet 650 mg PO Q6H PRN (Reason: Pain) alprazolam 0.5 mg tablet 0.5 mg PO Q12H cyanocobalamin (vitamin B-12) 1,000 mcg tablet 1,000 mcg PO QAM aspirin 81 mg tablet,delayed release (DR/EC) 81 mg PO QAM sertraline 50 mg tablet 25 mg PO QAM Held clopidogrel 75 mg tablet 75 mg PO QAM Hold Instructions: Provider's Order resume in one week after being seen by PCP Patient Comments: *granddaughter states patient is stopping 3 days prior to surgery* Discontinued amoxicillin 500 mg capsule 2,000 mg PO DIRECTED PRN (Reason: 1 HR PRIOR TO DENTAL PROCEDURES) Rx Instructions: TAKE 4 CAPSULES BY MOUTH 1 HOUR PRIOR TO DENTAL WORK nitroglycerin 0.4 mg tablet, sublingual 0.4 mg sublingual .EVERY 5 MINUTES MDD 3 DOSES IN 15 MIN PRN (Reason: Chest Pain) Discharge Orders: Discharge Order (Routine); Ordered 11/08/25 Ordered By: Joshua Mckeon/Other Patient Handouts: Soft [place] Diet Dc Admission Data Admit Date/Time: 11/04/25 23:04 Attending Provider: Joshua Vargas Admit Provider: Jose Sosa Primary Care Provider: Sammy Henderson Other Providers: Jose Sosa; Rao Cobos Hospital Stay Data Consultations 11/04/25 21:37 ED Decision to Admit Stat 11/05/25 01:05 Consult Gastroenterology Routine Procedures Performed Operation Date: 11/06/25 09:30 Actual Procedures p Esophagogastroduodenoscopy with Biopsies and Hemostasis(Not Applicable) - Rao Cobos MD Diagnostic Imagining Performed 11/04/25 22:23 CT abd pelvis IV con only Stat 11/04/25 22:[address] [CT head/brain wo con] Stat Pending Results Patient Have Any Pending Studies at Discharge: No Discharge Instructions Given to Patient (Per Discharging Provider) Recommend followup with PCP in 1-2 weeks. Recommend recheck hemoglbin at time of visit. WIll recommend twice daily therapy of pantoprazole therapy for 2 weeks then once a day 40 mg indefinitely. Please abstain from alcohol. Avoid NSAIDs such as Ibuprofen, Naprosyn (Motrin, Aleve). Only pain medicine over the counter that is not an NSAID is Tylenol. Ok to take Tylenol. Coding Diagnoses GI bleed K92.2 Alcoholism F10.20 Transaminitis R74.01 Fall W19.XXXA Rhabdomyolysis M62.82 Elevated troponin R79.89
[2025-11-08] MEDS: POTASSIUM CHLORIDE CRTAB 20 MEQ TABCR PO STA (09:38)
--- NOTE | 2025-11-08 17:16 | Hospitalist Progress Note ---
Date of Service November 08, 2025 Assessment & Plan (1) GI bleed: (2) Alcoholism: (3) Transaminitis: (4) Fall: (5) Rhabdomyolysis: (6) Elevated troponin: Plan 80-year-old male PMHx CAD, alcoholism, HLD, frequent falls presenting after being found down at home. Evaluation with leukocytosis 15.33, H&H 12.1/36.4. LFTs elevated, CK also elevated at 1396. Admission for suspected GI bleed. #GI bleed/Alcoholism/Transaminitis/Fall ulcerative esophagitis with bleeding and bleeding duodenal ulcer causing UGI bleed Likely due to NSAID use. Acute blood loss anemia Found down, reports of coffee-ground emesis x 6. No abdominal pain. H/o alcohol use daily, no prior WD. Transaminitis in the past, thought to be alcoholic liver disease. PAWS 1 (combined with benzos), still pending alcohol level. ? WKS, unclear normal mentation but appears to be slightly encephalopathic at this time. - Upper GI scope showed 2 ulcers, high risk for rebleeding, hemoglobin stable. , earliest discharge date will be 11/08 -Due to van breaking down, patient unable to be discharged on 11/08. Will try again on 11/09 -Patient reorts taking NSAID at home, this likely is played a role. - Ativan per AWSS score - Pantoprazole IV BID - Octreotide 100mcg now then drip - Thiamine 200 mg IV now then 100 mg AM - Folic acid 1 mg IV AM - GI consulted - appreciate input + recs #Rhabdomyolysis Found down, reports down for 6 hours. No complaints of pain at this time. Improved. - Cr 0.82. BUN 24; CK 1396 - CK am - IVF as above #Elevated troponin No chest pain, no SOB. H/o CAD, no longer taking Plavix. - Trop 49.6, 48.8 on repeat - - telemetry stable - CXR no acute findings - Likely 2/2 demand # Metabolic encephalopathy Resolved On admission, Pt described as slightly encephalopathic. WBC 15.33, total CK 1396, UA CX with morganella morganii, Treatment: serial CBC's, GI consult, EGD with injection, clipping and cauterization of ulcers, IV fluids, IV protonix gtt, octreotide gtt, Risk Factor(s): age, alcoholism, UTI, rhabdo #asymptomatic bacteruria Doubt UTI as patient's WBC improved after only one dose of antibiotics, and has not worsened since, leukocytosis likely reactive to bleed #Psych- Alprazolam, sertraline - hold po medications, add back once diet ordered -- can adjust Alprazolam 0.5mg po to lorazepam 1mg IV while NPO #HLD- Atorvastatin - hold po medications, hold while transaminitis #HTN- Metoprolol - hold po medications Dispo: Admit, PCU VTE Prophylaxis: SCDs Admission and Anticipated Discharge Date Admission Date: November 04, 2025 Subjective Patient is doing well. He has no complaints. Physical Exam Constitutional: WD/WN, vitals as above Neck: trachea midline, no thyromegaly Respiratory: normal respiratory effort, lungs clear to auscultation Cardiovascular: RRR, no murmur, no edema Gastrointestinal (Abdomen): normal bowel sounds, soft, nontender, no hepatosplenomegaly Neurologic: PERRL, EOMI, accommodation nl, no face palsy, no dysarthria Psychiatric: A+Ox3, euthymic affect Results & Data Results & Data Vital Signs (Past 12 Hours) Vital Signs Temp Pulse Pulse Pulse Resp BP Pulse Ox 11/08/25 15:26 36.6 C 79 18 159/71 H 79 L 11/08/25 14:48 36.8 C 70 71 16 156/84 H 98 11/08/25 13:00 77 11/08/25 12:00 36.8 C 70 16 156/84 H 98 11/08/25 09:47 65 11/08/25 09:47 11/08/25 08:00 36.9 C 77 16 132/77 97 O2 Del Method 11/08/25 15:26 Room Air 11/08/25 14:48 11/08/25 13:00 11/08/25 12:00 Room Air 11/08/25 09:47 11/08/25 09:47 Room Air 11/08/25 08:00 Room Air PG Care Time/CCT Total # of Minutes Spent Total Time Spent with Patient: Total time spent is greater than 50% in coordination of care (as documented) at patient's floor/unit and/or counseling patient: Coding Level of Care Code 31136 SUB INP/OBS CARE 2/35MIN Diagnoses GI bleed K92.2 Alcoholism F10.20 Transaminitis R74.01 Fall W19.XXXA Rhabdomyolysis M62.82 Elevated troponin R79.89
--- NOTE | 2025-11-09 08:04 | Communication Note ---
Date of Service: November 09, 2025 H.pylori negative.... watermaster PPI recommended. Avoid NSAIDS
[2025-11-09 08:26] VITALS: BP 140/98; PULSE 74; RESP 13; TEMP 97.5; O2SAT 98
--- NOTE | 2025-11-09 16:23 | Discharge Summary ---
Discharge Summary Date of Service November 09, 2025 Principal Dx & Hospital Course #1 = Principal Diagnosis (1) Acute upper GI bleed: (2) Rhabdomyolysis: (3) Esophagitis determined by endoscopy: (4) PUD (peptic ulcer disease): Plan In summary this is a 80-year-old male who presented to the [facility] due to an acute upper gastrointestinal hemorrhage found to be consequential of distal esophagitis and a cratered postbulbar ulcer With respect to the patient's presenting hemorrhage, and findings on EGD it is recommended they remain on indefinite twice daily PPI therapy. They were able to return to a regular diet prior to discharge without recurrent symptomatology or laboratory evidence of hemorrhage. 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 The patient presented with an elevated CPK after being found on the ground for extended period however this elevation is not consistent with rhabdomyolysis, m ore consistent with a mild muscular injury associated with long lie. This was resolved without complication during their hospitalization Discharge Exam General: Elderly male in no acute distress Vital Signs: Reviewed HEENT: Moist mucous membrane Pulmonary: Symmetric chest wall excursion without restriction; clear to auscultation bilaterally Cardiovascular: Regular rate and rhythm without murmurs, rubs, or gallops; right radial pulse 2+ Gastrointestinal: Soft, nontender Neurologic: Cranial nerves II through XII grossly intact; no discernible focal weakness nor paresthesia Discharge Plan Discharge Items Patient Disposition: Home - Self-Care Reason For Visit: GIB, RHABDO Discharge Diagnosis: GI bleed Condition on Discharge: Fair Activity: Resume your previous activity Non-emergency contact: Primary Care Provider Call non-emergency contact if: you have any medication questions Follow-up/Referrals: Sammy Henderson MD [Primary Care Provider] - 11/10/25 9:05 am Diet: Regular Addtl Attending Provider Instructions: You were admitted to [facility] for severe ulcerative esophagitis in the distal two thirds of the esophagus with cratered postbulbar ulcer which required procedural intervention After procedural intervention, your blood count has been stable, without recurrent symptomatology and tolerating a normal diet. For continued preventative therapy, you are being discharged on pantoprazole 40 mg p.o. twice daily. In order to reduce the risk of future rebleeding, even in the setting of this preventative therapy, it is strongly recommended that you abstain from alcohol, avoid aspirin and other NSAID medications such as ibuprofen, Motrin, Aleve. With respect to your prescribed aspirin, this has been discontinued in favor of holding your Clopidogrel for 2 weeks, and resuming this medication alone thereafter. Please follow-up closely with your primary care physician in the next 1 to 2 weeks. Thank you for choosing [facility] as your healthcare provider. Pending Studies at Discharge: No Stand-Alone Forms: My [facility] Medications and DC Order Prescriptions: New pantoprazole 40 mg tablet,delayed release (DR/EC) 40 mg PO BID Qty: 60 0RF pantoprazole 40 mg Tablet,Delayed Release (Dr/Ec) 40 mg PO BID Qty: 0 0RF Continued atorvastatin 20 mg tablet 20 mg PO QPM metoprolol succinate 25 mg tablet extended release 24 hr 12.5 mg PO QAM thiamine HCl (vitamin B1) 100 mg capsule 200 mg PO QAM sodium chloride 1,000 mg Tablet,Soluble 1,000 mg PO BID folic acid 1 mg Tablet 1 mg PO QAM Qty: 30 0RF acetaminophen [Tylenol] 325 mg Tablet 650 mg PO Q6H PRN (Reason: Pain) alprazolam 0.5 mg tablet 0.5 mg PO Q12H cyanocobalamin (vitamin B-12) 1,000 mcg tablet 1,000 mcg PO QAM sertraline 50 mg tablet 25 mg PO QAM Held clopidogrel 75 mg tablet 75 mg PO QAM Hold Instructions: Resume on 07/06/25. Patient Comments: *granddaughter states patient is stopping 3 days prior to surgery* Discontinued amoxicillin 500 mg capsule 2,000 mg PO DIRECTED PRN (Reason: 1 HR PRIOR TO DENTAL PROCEDURES) Rx Instructions: TAKE 4 CAPSULES BY MOUTH 1 HOUR PRIOR TO DENTAL WORK nitroglycerin 0.4 mg tablet, sublingual 0.4 mg sublingual .EVERY 5 MINUTES MDD 3 DOSES IN 15 MIN PRN (Reason: Chest Pain) aspirin 81 mg tablet,delayed release (DR/EC) 81 mg PO QAM Hold Instructions: Resume on 11/28/25. 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 Furniture Polisher; remain held for 2 weeks to prevent re-bleed Discharge Orders: Discharge Order (Routine); Ordered 11/09/25 Ordered By: Constantine Mckeon/Other Patient Handouts: Soft [place] Diet Dc Admission Data Admit Date/Time: 11/04/25 23:04 Attending Provider: Constantine Marin Admit Provider: Jose Sosa Primary Care Provider: Sammy Henderson Other Providers: Jose Sosa; Rao Cobos Other Interventions: Discharge Summary Assessment (RN) Last Done: 11/09/25 07:56 Hospital Stay Data Consultations 11/04/25 21:37 ED Decision to Admit Stat 11/05/25 01:05 Consult Gastroenterology Routine Procedures Performed Operation Date: 11/06/25 09:30 Actual Procedures p Esophagogastroduodenoscopy with Biopsies and Hemostasis(Not Applicable) - Rao Cobos MD Diagnostic Imagining Performed 11/04/25 22:23 CT abd pelvis IV con only Stat 11/04/25 22:[address] [CT head/brain wo con] Stat Pending Results Patient Have Any Pending Studies at Discharge: No Discharge Instructions Given to Patient (Per Discharging Provider) You were admitted to [facility] for severe ulcerative esophagitis in the distal two thirds of the esophagus with cratered postbulbar ulcer which required procedural intervention After procedural intervention, your blood count has been stable, without recurrent symptomatology and tolerating a normal diet. For continued preventative therapy, you are being discharged on pantoprazole 40 mg p.o. twice daily. In order to reduce the risk of future rebleeding, even in the setting of this preventative therapy, it is strongly recommended that you abstain from alcohol, avoid aspirin and other NSAID medications such as ibuprofen, Motrin, Aleve. With respect to your prescribed aspirin, this has been discontinued in favor of holding your Clopidogrel for 2 weeks, and resuming this medication alone thereafter. Please follow-up closely with your primary care physician in the next 1 to 2 weeks. Thank you for choosing [facility] as your healthcare provider. Total Time Total Time Spent Total Time Spent (In Minutes): I personally spent 50 minutes in the coordination of today's discharge including bedside counseling, physical exam, and medication reconciliation Coding Level of Care Code 51964 INP/OBS DISCH >30 MIN Diagnoses Acute upper GI bleed K92.2 Rhabdomyolysis M62.82 Esophagitis determined by endoscopy K20.90 PUD (peptic ulcer disease) K27.9
--- NOTE | 2025-11-10 21:53 | Electrocardiogram Report ---
Test Reason : Blood Pressure : */* mmHG Vent. Rate : 99 BPM Atrial Rate : 99 BPM P-R Int : 182 ms QRS Dur : 92 ms QT Int : 374 ms P-R-T Axes : 47 -25 34 degrees QTcB Int : 479 ms Normal sinus rhythm Normal ECG When compared with ECG of 27-Jun-2025 15:35, Questionable change in QRS duration Confirmed by Jese Atkins ([id number]) on 11/10/2025 9:52:47 PM Referred By: Sammy Henderson Confirmed By: Jese Atkins
== END 2025-11-09 10:00 | disposition home or self-care (01) | DRG 380 ==
LOC: ED 18:48 → 2S 23:04 → SUATTDRO 23:04 → 2S 11-05 00:27 → 3E 11-08 18:26